=== PATIENT | female | born 1950 | race Caucasian/White ===

== ENCOUNTER 2017-12-31 15:06 | Inpatient (IN) | payer MEDICARE, OTHER ==
[~2017-12-31] VITALS: Ht 147.3 cm; Wt 46.7 kg
[2017-12-31 16:15] LABS: BASO # 0.1 x10^3/uL (0.0-0.2); BASO % 1 % (0-3); EOS # 0.1 x10^3/uL (0.0-0.7); EOS % 1 % (0-3); HEMATOCRIT 41.7 % (36.0-47.0); HEMOGLOBIN 14.3 g/dL (12.0-15.5); LYMPH # 1.5 x10^3/uL (1.0-4.8); LYMPH % 20 % (24-48); MEAN CORPUSCULAR HEMOGLOBIN 32 pg (25-35); MEAN CORPUSCULAR HGB CONC 34 g/dL (31-37); MEAN CORPUSCULAR VOLUME 93 fL (79-100); MONO # 0.5 x10^3/uL (0.0-1.1); MONO % 7 % (0-9); NEUT # 5.1 x10^3uL (1.8-7.7); NEUT % 70 % (31-73); PLATELET COUNT 258 x10^3/uL (140-400); RED CELL DISTRIBUTION WIDTH 12.5 % (11.5-14.5); WHITE BLOOD COUNT 7.3 x10^3/uL (4.0-11.0)
--- NOTE | 2017-12-31 16:30 | EKG ---
[address] [address] Test Date: 2017-12-31 Test Time: 16:20:56 Pat Name: MAGDALENO COELHO Department: Room: Gender: F Selector Packer: : [id number] Requested By: ALEXA ROBLES Order Number: [id number] Reading MD: Chandler Cullen MD Measurements Intervals [place] Rate: 72 P: ND: QRS: -161 QRSD: 66 T: 120 QT: 398 QTc: 437 Interpretive Statements SR LIMB LEAD MISPLACEMENT LAD Electronically Signed On 01-01-2018 12:32:04 CDT by Chandler Cullen MD
[2017-12-31 16:32] LABS: ALBUMIN 3.9 g/dL (3.4-5.0); ALBUMIN/GLOBULIN RATIO 1.2 (1.0-1.7); CALCIUM 9.6 mg/dL (8.5-10.1); CREATININE 0.9 mg/dL (0.6-1.0); GFR 62.1; MAGNESIUM 2.1 mg/dL (1.8-2.4); POTASSIUM 4.1 mmol/L (3.5-5.1); TOTAL BILIRUBIN 0.5 mg/dL (0.2-1.0); TOTAL PROTEIN 7.2 g/dL (6.4-8.2)
[2017-12-31 16:43] LABS: BACTERIA,URINE MANY /HPF (0-FEW); BILIRUBIN,URINE NEG (NEG); CLARITY,URINE HAZY; COLOR,URINE AMBER; GLUCOSE,URINE NEG (NEG); NITRITE,URINE NEG (NEG); SQUAMOUS EPITHELIAL CELL,UR OCC /LPF; UROBILINOGEN,URINE 0.2 mg/dL (0.2 mg/dL)
[2017-12-31] MEDS ORDERED: CIPROFLOXACIN HCL 500 MG TABLET PO ONE (16:45)
--- NOTE | 2017-12-31 16:48 | PHYS DOC ---
Past History Past Medical History: Dementia, GERD, Hypertension, Hypothyroid, Other Past Surgical History: Other Alcohol Use: None Drug Use: None Adult General Chief Complaint Chief Complaint: PSYCH EVALUATION HPI HPI Patient is a 67 year old female who was seen by half-way staff for medical clearance for psych admission. Patient was transferred to a new half-way because of behavior problem few days ago and had psychiatric accepting for senior behavioral unit and sent to ER for medical clearance. Patient is oriented 1 and unable to give history. Review of Systems Review of Systems Unable to obtain Physical Exam Physical Exam Constitutional: No acute distress, non-toxic appearance. [] HENT: Normocephalic, atraumatic Eyes: PERRLA, EOMI, conjunctiva normal, no discharge. [] Neck: Normal range of motion, no tenderness, supple, no stridor. [] Cardiovascular:Heart rate regular rhythm, no murmur [] Lungs & Thorax: Bilateral breath sounds clear to auscultation [] Abdomen: Bowel sounds normal, soft, no tenderness, no masses, no pulsatile masses. [] Skin: Warm, dry, no erythema, no rash. [] Back: No tenderness, no CVA tenderness. [] Extremities: No tenderness, no cyanosis, no clubbing, ROM intact, no edema. [] Neurologic: Alert and oriented X 1, moves all extremities[] Psychologic: Affect depressed, limited evaluation Current Patient Data Vital Signs Vital Signs Date Time Temp Pulse Resp B/P (MAP) Pulse Ox O2 Delivery O2 Flow Rate FiO2 12/31/17 15:35 98.2 72 18 98 Room Air Lab Results Laboratory Tests Test 12/31/17 16:05 White Blood Count 7.3 x10^3/uL (4.0-11.0) Red Blood Count 4.50 x10^6/uL (3.50-5.40) Hemoglobin 14.3 g/dL (12.0-15.5) Hematocrit 41.7 % (36.0-47.0) Mean Corpuscular Volume 93 fL (79-100) Mean Corpuscular Hemoglobin 32 pg (25-35) Mean Corpuscular Hemoglobin Concent 34 g/dL (31-37) Red Cell Distribution Width 12.5 % (11.5-14.5) Platelet Count 258 x10^3/uL (140-400) Neutrophils (%) (Auto) 70 % (31-73) Lymphocytes (%) (Auto) 20 % (24-48) L Monocytes (%) (Auto) 7 % (0-9) Eosinophils (%) (Auto) 1 % (0-3) Basophils (%) (Auto) 1 % (0-3) Neutrophils # (Auto) 5.1 x10^3uL (1.8-7.7) Lymphocytes # (Auto) 1.5 x10^3/uL (1.0-4.8) Monocytes # (Auto) 0.5 x10^3/uL (0.0-1.1) Eosinophils # (Auto) 0.1 x10^3/uL (0.0-0.7) Basophils # (Auto) 0.1 x10^3/uL (0.0-0.2) Urine Collection Type U cath Urine Color Saige Urine Clarity Hazy Urine pH 5.5 Urine Specific Payne >=1.030 Urine Protein 30 mg/dl (NEG-TRACE) Urine Glucose (UA) Neg mg/dL (NEG) Urine Ketones (Stick) 15 mg/dL (NEG) Urine Blood Neg (NEG) Urine Nitrite Neg (NEG) Urine Bilirubin Neg (NEG) Urine Urobilinogen Dipstick 0.2 mg/dL (0.2 mg/dL) Urine Leukocyte Esterase Small (NEG) Urine RBC 1-2 /HPF (0-2) Urine WBC 11-20 /HPF (0-4) Urine Squamous Epithelial Cells Occ /LPF Urine Bacteria Many /HPF (0-FEW) Urine Mucus Marked /LPF Sodium Level 142 mmol/L (136-145) Potassium Level 4.1 mmol/L (3.5-5.1) Chloride Level 105 mmol/L (98-107) Carbon Dioxide Level 30 mmol/L (21-32) Anion Gap 7 (6-14) Blood Urea Nitrogen 11 mg/dL (7-20) Creatinine 0.9 mg/dL (0.6-1.0) Estimated GFR (Cockcroft-Gault) 62.1 BUN/Creatinine Ratio 12 (6-20) Glucose Level 110 mg/dL (70-99) H Calcium Level 9.6 mg/dL (8.5-10.1) Magnesium Level 2.1 mg/dL (1.8-2.4) Total Bilirubin 0.5 mg/dL (0.2-1.0) Aspartate Amino Transferase (AST) 14 U/L (15-37) L Alanine Aminotransferase (ALT) 27 U/L (14-59) Alkaline Phosphatase 60 U/L (46-116) Total Protein 7.2 g/dL (6.4-8.2) Albumin 3.9 g/dL (3.4-5.0) Albumin/Globulin Ratio 1.2 (1.0-1.7) EKG EKG EKG interpreted by me. EKG at 1620 showed normal sinus rhythm with multiple artifact, no acute ST and T wave abnormality[] Radiology/Procedures Radiology/Procedures [] Course & Med Decision Making Course & Med Decision Making Pertinent Labs reviewed. (See chart for details) Evolution of patient in ER showed 67-year-old female patient brought in to ER for medical clearance for psych admission. Patient was alert and oriented 1. Labs showed UTI. Patient treated with Cipro in ER. She was medically cleared for psych admission. Dragon Disclaimer Dragon Disclaimer This electronic medical record was generated, in whole or in part, using a voice recognition dictation system. Departure Departure: Impression: Primary Impression: Medical clearance for psychiatric admission Additional Impressions: Urinary tract infection Disorientation Behavior problem Disposition: 09 ADMITTED INPATIENT (To senior psych unit at 1648) Admitting Physician: Other (Dr Fontenot) Condition: STABLE Referrals: NON,STAFF (PCP) Problem Qualifiers ALEXA ROBLES MD Dec 31, 2017 16:48
[2017-12-31] MEDS ORDERED: MAGNESIUM HYDROXIDE 2,400 MG/30 ML ORAL.SUSP. PO PRN ×2 (18:15→22:15)
[2017-12-31] MEDS ORDERED: METHYL SALICYLATE/MENTHOL TOPICAL OINTMENT 29GM TUBE. TP PRN (18:15)
[2017-12-31] MEDS ORDERED: ACETAMINOPHEN 325 MG TABLET PO PRN (18:15)
[2017-12-31] MEDS ORDERED: MAG HYDROX/AL HYDROX/SIMETH 30 ML ORAL.SUSP PO PRN (18:15)
[2017-12-31 18:24] VITALS: BP 122/73
[2017-12-31] MEDS ORDERED: OLANZapine 2.5 MG TABLET PO PRN (18:45)
--- NOTE | 2017-12-31 21:03 | PDOC ---
Exam Note: Abdi Note: Please also refer to the separate dictated note~for this date of service dictated separately.~Patient seen individually. Discussed the patient with Nursing staff reviewed the chart.~Reviewed interim history and current functioning. Reviewed vital signs,~Labs/ Radiology~and current medications noted below. Continue current treatment with the changes noted in the dictated addendum note Assessment: Vital Signs: Vital Signs Date Time Temp Pulse Resp B/P (MAP) Pulse Ox O2 Delivery O2 Flow Rate FiO2 12/31/17 18:24 97.5 67 18 122/73 (89) 98 12/31/17 15:35 Room Air Labs: Laboratory Tests Test 12/31/17 16:05 White Blood Count 7.3 x10^3/uL (4.0-11.0) Red Blood Count 4.50 x10^6/uL (3.50-5.40) Hemoglobin 14.3 g/dL (12.0-15.5) Hematocrit 41.7 % (36.0-47.0) Mean Corpuscular Volume 93 fL (79-100) Mean Corpuscular Hemoglobin 32 pg (25-35) Mean Corpuscular Hemoglobin Concent 34 g/dL (31-37) Red Cell Distribution Width 12.5 % (11.5-14.5) Platelet Count 258 x10^3/uL (140-400) Neutrophils (%) (Auto) 70 % (31-73) Lymphocytes (%) (Auto) 20 % (24-48) L Monocytes (%) (Auto) 7 % (0-9) Eosinophils (%) (Auto) 1 % (0-3) Basophils (%) (Auto) 1 % (0-3) Neutrophils # (Auto) 5.1 x10^3uL (1.8-7.7) Lymphocytes # (Auto) 1.5 x10^3/uL (1.0-4.8) Monocytes # (Auto) 0.5 x10^3/uL (0.0-1.1) Eosinophils # (Auto) 0.1 x10^3/uL (0.0-0.7) Basophils # (Auto) 0.1 x10^3/uL (0.0-0.2) Urine Collection Type U cath Urine Color Saige Urine Clarity Hazy Urine pH 5.5 Urine Specific [place] >=1.030 Urine Protein 30 mg/dl (NEG-TRACE) Urine Glucose (UA) Neg mg/dL (NEG) Urine Ketones (Stick) 15 mg/dL (NEG) Urine Blood Neg (NEG) Urine Nitrite Neg (NEG) Urine Bilirubin Neg (NEG) Urine Urobilinogen Dipstick 0.2 mg/dL (0.2 mg/dL) Urine Leukocyte Esterase Small (NEG) Urine RBC 1-2 /HPF (0-2) Urine WBC 11-20 /HPF (0-4) Urine Squamous Epithelial Cells Occ /LPF Urine Bacteria Many /HPF (0-FEW) Urine Mucus Marked /LPF Sodium Level 142 mmol/L (136-145) Potassium Level 4.1 mmol/L (3.5-5.1) Chloride Level 105 mmol/L (98-107) Carbon Dioxide Level 30 mmol/L (21-32) Anion Gap 7 (6-14) Blood Urea Nitrogen 11 mg/dL (7-20) Creatinine 0.9 mg/dL (0.6-1.0) Estimated GFR (Cockcroft-Gault) 62.1 BUN/Creatinine Ratio 12 (6-20) Glucose Level 110 mg/dL (70-99) H Calcium Level 9.6 mg/dL (8.5-10.1) Magnesium Level 2.1 mg/dL (1.8-2.4) Total Bilirubin 0.5 mg/dL (0.2-1.0) Aspartate Amino Transferase (AST) 14 U/L (15-37) L Alanine Aminotransferase (ALT) 27 U/L (14-59) Alkaline Phosphatase 60 U/L (46-116) Total Protein 7.2 g/dL (6.4-8.2) Albumin 3.9 g/dL (3.4-5.0) Albumin/Globulin Ratio 1.2 (1.0-1.7) Current Medications: Meds: Current Medications Ciprofloxacin (Cipro) 500 mg 1X ONCE PO Last administered on 12/31/17at 16:59; Start 12/31/17 at 16:45; Stop 12/31/17 at 17:00; Status DC Acetaminophen (Tylenol) 650 mg PRN Q6HRS PRN PO PAIN / TEMP; Start 12/31/17 at 18:15 Multi-Ingredient Ointment (Analgesic [place]) 1 carlyn PRN QID PRN TP MUSCLE PAIN; Start 12/31/17 at 18:15 Al Hydroxide/Mg Hydroxide (Mylanta Plus Xs) 15 ml PRN AFTMEALHC PRN PO DYSPEPSIA; Start 12/31/17 at 18:15 Magnesium Hydroxide (Milk Of Magnesia) 2,400 mg PRN QHS PRN PO CONSTIPATION; Start 12/31/17 at 18:15 Olanzapine (ZyPREXA) 2.5 mg PRN Q2HR PRN PO AGITATION; Start 12/31/17 at 18:45 I have reviewed the current psychotropics carefully including drug interactions. Risk benefit ratio favors no change other than as noted in my dictated progress note. 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
[2017-12-31] MEDS ORDERED: HALO5AMP2 IJ (21:32)
[2017-12-31] MEDS ORDERED: DOCU50LI PO (21:32)
[2017-12-31] MEDS ORDERED: HALO2TAB PO (21:32)
[2017-12-31] MEDS ORDERED: MAGN2400 PO (21:32)
[2017-12-31] MEDS ORDERED: OMEP20TA8 PO (21:32)
[2017-12-31] MEDS ORDERED: AMLO5TAB7 PO (21:32)
[2017-12-31] MEDS ORDERED: QUET100T4 PO (21:32)
[2017-12-31] MEDS ORDERED: SENN8.6T99 PO (21:32)
[2017-12-31] MEDS ORDERED: QUET25TA5 PO (21:32)
[2017-12-31] MEDS ORDERED: BISA10SU55 RC (21:32)
[2017-12-31] MEDS ORDERED: LOSA50TA7 PO (21:32)
[2017-12-31] MEDS ORDERED: POTA10TA10 PO (21:32)
[2017-12-31] MEDS ORDERED: HYDR-971 PO (21:32)
[2017-12-31] MEDS ORDERED: ASPI-612 PO (21:32)
[2017-12-31] MEDS ORDERED: TRIA15CR50 TOP (21:32)
[2017-12-31] MEDS ORDERED: TRAZ-86 PO (21:32)
[2017-12-31] MEDS ORDERED: DIVA125C2 PO (21:32)
[2017-12-31] MEDS ORDERED: SIMV20TA3 PO (21:32)
[2017-12-31] MEDS ORDERED: TAMS0.4C97 PO (21:32)
[2017-12-31] MEDS ORDERED: POLY17PO5 PO (21:32)
[2017-12-31] MEDS ORDERED: LEVO175T5 PO (21:32)
[2017-12-31] MEDS ORDERED: QUEtiapine 25 MG TABLET. PO PRN (22:15)
[2017-12-31] MEDS ORDERED: BISACODYL 10 MG SUPP.RECT PR PRN (22:15)
[2017-12-31] MEDS ORDERED: HYDROcodone/APAP 5/325MG 1 TAB TABLET PO PRN (22:15)
[2017-12-31] MEDS ORDERED: SENNOSIDES 8.6 MG TABLET PO PRN (22:15)
[2017-12-31] MEDS ORDERED: HALOPERIDOL LACT 5 MG/ML VIAL. IM PRN (22:15)
[2018-01-01 06:01] VITALS: BP 108/72
[2018-01-01] MEDS: HALOPERIDOL 2 MG TABLET PO SCH ×6 (06:29→17:18)
[2018-01-01] MEDS: amLODIPine BESYLATE 5 MG TABLET PO SCH ×2 (09:00→09:37)
[2018-01-01] MEDS: DIVALPROEX 125 MG CAP.SPRINK PO SCH ×4 (09:00→21:00)
[2018-01-01] MEDS: ASPIRIN ENTERIC COATED 81 MG TABLET.DR. PO SCH ×2 (09:00→09:38)
[2018-01-01] MEDS: PANTOPRAZOLE 40 MG TABLET. PO SCH ×2 (09:00→09:37)
[2018-01-01] MEDS: LEVOTHYROXINE 175 MCG TABLET PO SCH ×2 (09:00→09:38)
[2018-01-01] MEDS: LOSARTAN 50 MG TABLET. PO SCH ×2 (09:00→09:39)
[2018-01-01] MEDS: DOCUSATE 100 MG/10 ML SOLUTION. PO SCH ×2 (09:00→09:37)
[2018-01-01] MEDS: QUEtiapine 100 MG TABLET. PO SCH ×7 (09:00→21:00)
[2018-01-01] MEDS ORDERED: POLYETHYLENE GLYCOL 3350 17 GM PACKET. PO PRN (09:00)
[2018-01-01] MEDS: POTASSIUM CHLORIDE 10 MEQ TABLET.ER. PO SCH (09:38)
[2018-01-01] MEDS: TRIAMCINOLONE ACETONIDE 0.1% TOPICAL CREAM 15GM TUBE. TP SCH ×2 (09:39→21:00)
--- NOTE | 2018-01-01 13:02 | HP ---
ADMIT DATE: 12/31/2017 This late entry 12/31/2017 covers elements not covered in my initial note. I met with the patient in the evening of 12/31/2017. Discussed with nursing staff on 3 or 4 occasions including 3 times prior to the patient's admission to gather historical information to review admission criteria, to review her hospice status, past failure of treatment at [facility] and then again immediately prior to the patient's admission and following admission. IDENTIFYING DATA: The patient is a 67-year-old female referred to us from [facility] in [place], [place] by Dr. Scott, her primary care physician on account of increased agitation, aggression, refusing medications. The patient has been combative, hitting staff, refusing cares, throwing feces all over, swinging at staff, refusing meals and medications, yelling. Behaviors have been worsening for about 6 days starting about 1 day after she spent about a month inpatient psychiatry at [facility]. She has been making repeated statements to staff "you are not my mother" and refusing all interventions. Since being back at the facility, she has received Haldol IM x 1, 2 mg Haldol p.o. q.6 hours, Zyprexa IM 10 mg q.4 hours, all of which have been ineffective according to staff. She has failed outpatient psychiatric interventions. Behaviors have been dangerous, disruptive, unmanageable at the facility resulting in this referral. CHIEF COMPLAINT: "No." The patient is extremely demented, unable to answer questions about orientation or even tell me her name, but part of this is due to her being quite psychotic, paranoid, suspicious, trying to walk away from me as I sat with her. HISTORY OF PRESENT ILLNESS: The patient has history of dementia, Alzheimer's vascular type. Behaviors have been as noted above. She has had marked mood lability, sleep and appetite changes. No active suicidal or homicidal ideation. PAST PSYCHIATRIC HISTORY: As noted above. PAST MEDICAL HISTORY: She does have a UTI, which was discovered in the ER at [facility] immediately prior to this hospitalization and started on Cipro. She does have a history of hypothyroidism, hypertension, bradycardia, hyperlipidemia, GERD, urinary retention. DIET: Regular finger foods, meds crushed and hidden, ambulates ad haile. ALLERGIES: Negative. CODE STATUS: DNR. CURRENT PSYCHOTROPICS: MRAD was reviewed. FAMILY HISTORY: Noncontributory. SOCIAL HISTORY: No history of alcohol, drug abuse, physical, sexual or elder abuse. Not known to be a perpetrator. REACTION TO HOSPITALIZATION: The patient oblivious of this. ASSETS: Supportive, living at the detention, ambulating on her own, supportive family. MENTAL STATUS EXAMINATION: The patient was seen individually on the evening of 12/31/2017. She is oriented to herself. Insight, judgment, recent and remote memory, attention, concentration, fund of knowledge poor consistent with her diagnosis. She is extremely paranoid, suspicious, abrasive, verbally aggressive. IMPRESSION: Major neurocognitive disorder, Alzheimer's, vascular with delusion, depression, behavioral disturbance; anxiety disorder, unspecified; impulse control disorder, unspecified; urinary tract infection. Rest as above. PLAN: Admit to Geropsychiatry Unit at [facility]. I will see the patient daily individually from a psychiatric standpoint, medical followup with Dr. Aragon/Dr. Reyna. Treat the patient's UTI. Continue current psychotropics. Consider adding liquid Risperdal mixed in food, fluids. Make further decisions post baseline assessment including Depakene as a mood stabilizer. JAYLAN MURRAY MD DR: DANIEL/valeriy JOB#: [id number] / [id number]
[2018-01-01 16:25] VITALS: BP 129/65
[2018-01-01 19:13] LABS: THYROXINE 5.6 ug/dL (4.5-12.0)
[2018-01-01] MEDS: TAMSULOSIN 0.4 MG CAP.ER.24H. PO SCH ×2 (20:17→21:00)
[2018-01-01] MEDS: traZODone 100 MG TABLET. PO SCH ×2 (20:17→21:00)
[2018-01-01] MEDS: MIRTAZAPINE ODT 15 MG TAB.RAPDIS. PO SCH ×2 (20:17→21:00)
[2018-01-01] MEDS: SIMVASTATIN 20 MG TABLET PO SCH (21:00)
--- NOTE | 2018-01-01 21:07 | PDOC ---
Exam Note: Abdi Note: Please also refer to the separate dictated note~for this date of service dictated separately.~Patient seen individually. Discussed the patient with Nursing staff reviewed the chart.~Reviewed interim history and current functioning. Reviewed vital signs,~Labs/ Radiology~and current medications noted below. Continue current treatment with the changes noted in the dictated addendum note Assessment: Vital Signs: Vital Signs Date Time Temp Pulse Resp B/P (MAP) Pulse Ox O2 Delivery O2 Flow Rate FiO2 01/01/18 16:25 97.8 69 18 129/65 (86) 98 12/31/17 15:35 Room Air I&O Intake and Output 01/01/18 07:00 Intake Total 160 ml Balance 160 ml Intake Oral 160 ml Current Medications: Meds: Current Medications Ciprofloxacin (Cipro) 500 mg 1X ONCE PO Last administered on 12/31/17at 16:59; Start 12/31/17 at 16:45; Stop 12/31/17 at 17:00; Status DC Acetaminophen (Tylenol) 650 mg PRN Q6HRS PRN PO PAIN / TEMP; Start 12/31/17 at 18:15 Multi-Ingredient Ointment (Analgesic [place]) 1 hiral PRN QID PRN TP MUSCLE PAIN; Start 12/31/17 at 18:15 Al Hydroxide/Mg Hydroxide (Mylanta Plus Xs) 15 ml PRN AFTMEALHC PRN PO DYSPEPSIA; Start 12/31/17 at 18:15 Magnesium Hydroxide (Milk Of Magnesia) 2,400 mg PRN QHS PRN PO CONSTIPATION; Start 12/31/17 at 18:15 Olanzapine (ZyPREXA) 2.5 mg PRN Q2HR PRN PO AGITATION; Start 12/31/17 at 18:45 Divalproex Sodium (Depakote Sprinkles) 500 mg BID PO Last administered on at 20:11; Start 01/01/18 at 09:00 Haloperidol (Haldol) 2 mg [id number] PO Last administered on 01/01/18at 17:18; Start 01/01/18 at 00:00; Stop 01/01/18 at 18:44; Status DC Haloperidol Lactate (Haldol) 5 mg PRN Q6HRS PRN IM ANXIETY/AGITATION; Start at 22:15; Stop 01/01/18 at 18:44; Status DC Quetiapine Fumarate (SEROquel) 25 mg PRN Q4HRS PRN PO ANXIETY/AGITATION; Start 12/31/17 at 22:15 Quetiapine Fumarate (SEROquel) 150 mg QID PO Last administered on 01/01/18at 20: 11; Start 01/01/18 at 09:00 Trazodone HCl (Desyrel) 100 mg QHS PO Last administered on 01/01/18at 20:17; Start 01/01/18 at 21:00 Docusate Sodium (Colace Solution) 100 mg DAILY PO ; Start 01/01/18 at 09:00 Levothyroxine Sodium (Synthroid) 175 mcg DAILYAC PO ; Start 01/01/18 at 07:30 Losartan Potassium (Cozaar) 50 mg DAILY PO ; Start 01/01/18 at 09:00 Tamsulosin HCl (Flomax) 0.4 mg QHS PO Last administered on 01/01/18at 20:17; Start 01/01/18 at 21:00 Amlodipine Besylate (Norvasc) 5 mg DAILY PO ; Start 01/01/18 at 09:00 Aspirin (Aspirin Enteric Coated) 81 mg DAILYWBKFT PO ; Start 01/01/18 at 08:00 Bisacodyl (Dulcolax Supp) 10 mg PRN DAILY PRN [place] CONSTIPATION; Start 12/31/17 at 22:15 Acetaminophen/ Hydrocodone Bitart (Lortab 5/325) 1 tab PRN Q6HRS PRN PO PAIN; Start 12/31/17 at 22:15 Magnesium Hydroxide (Milk Of Magnesia) 2,400 mg PRN Q6HRS PRN PO CONSTIPATION; Start 12/31/17 at 22:15 Pantoprazole Sodium (Protonix) 40 mg DAILYAC PO ; Start 01/01/18 at 07:30 Polyethylene Glycol (miraLAX) 17 gm PRN DAILY PRN PO CONSTIPATION; Start at 09:00 Potassium Chloride (Klor-Con) 10 meq DAILYWBKFT PO Last administered on at 09:38; Start 01/01/18 at 08:00 Sennosides (Senna) 8.6 mg PRN DAILY PRN PO CONSTIPATION; Start 12/31/17 at 22: 15 Simvastatin (Zocor) 20 mg HS PO ; Start 01/01/18 at 21:00 Triamcinolone Acetonide (Kenalog) 1 hiral BID TP Last administered on 01/01/18at 09:39; Start 01/01/18 at 09:00 Ceftriaxone Sodium (Rocephin Im) 1 gm DAILY IM ; Start 01/02/18 at 09:00 Mirtazapine (Remeron Venessa-Tab) 7.5 mg QHS PO Last administered on 01/01/18at 20: 17; Start 01/01/18 at 21:00 Olanzapine (ZyPREXA ZYDIS) 2.5 mg PRN Q2HR PRN PO PSYCHOSIS; Start 01/01/18 at 18:45 Active Scripts Active Reported Omeprazole 20 Mg Tablet.dr 20 Mg PO DAILY Levothyroxine Sodium 175 Mcg Tablet 175 Mcg PO DAILYAC Flomax (Tamsulosin Hcl) 0.4 Mg Cap.er.24h 0.4 Mg PO QHS Simvastatin 20 Mg Tablet 20 Mg PO HS [place] 5-325 Tablet (Hydrocodone Bit/Acetaminophen) 1 Each Tablet 1 Tab PO PRN Q6HRS PRN Haloperidol 2 Mg Tablet 2 Mg PO [id number] Potassium Chloride 10 Meq Tablet.er 10 Meq PO DAILY Docusate Sodium 50 Mg/5 Ml Liquid 10 Ml PO DAILY Losartan Potassium 50 Mg Tablet 50 Mg PO DAILY Aspirin Ec (Aspirin) 81 Mg Tablet.dr 81 Mg PO DAILY Amlodipine Besylate 5 Mg Tablet 5 Mg PO DAILY Depakote Sprinkle (Divalproex Sodium) 125 Mg Cap.sprink 500 Mg PO BID Seroquel (Quetiapine Fumarate) 25 Mg Tablet 25 Mg PO PRN Q4HRS PRN Seroquel (Quetiapine Fumarate) 100 Mg Tablet 150 Mg PO QID Trazodone Hcl 100 Mg Tablet 100 Mg PO QHS Miralax (Polyethylene Glycol 3350) 17 Gm Powd.pack 17 Gm PO PRN DAILY PRN Senokot (Sennosides) 8.6 Mg Tablet 8.6 Mg PO PRN DAILY PRN Dulcolax (Bisacodyl) 10 Mg Supp.rect 10 Mg RC PRN DAILY PRN Milk Of Magnesia (Magnesium Hydroxide) 2,400 Mg/10 Ml Oral.susp 2,400 Mg PO PRN Q6HRS PRN Triamcinolone Acetonide 15 Gm Cream..g. 1 Hiral TOP BID Haldol (Haloperidol Lactate) 5 Mg/1 Ml Ampul 5 Mg IJ PRN Q6HRS PRN I have reviewed the current psychotropics carefully including drug interactions. Risk benefit ratio favors no change other than as noted in my dictated progress note. 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
[2018-01-02 04:09] LABS: HEMOGLOBIN A1C 5.5 % (4.8-5.6)
--- NOTE | 2018-01-02 04:25 | CONS ---
DATE OF CONSULTATION: 01/01/2018 REASON FOR CONSULTATION: Medical management. HISTORY OF PRESENT ILLNESS: The patient is a 67-year-old female patient, resident at [facility] in [place], [place] who was admitted on account of refusing medication, being combative with staff, throwing feces, refusing meals and cares. She was apparently on hospice and that was discontinued or revoked and she may need new placement as there is some apparently conflict between the hospice and the senior living and all of this in a background of dementia with delusions and behavioral disorder. The patient herself does not really give any useful information and has refused all her medication today. PAST MEDICAL HISTORY: Significant for hypothyroidism, hypertension, bradycardia, hyperlipidemia, gastroesophageal reflux disease, urinary tract infection, urinary retention. PAST PSYCHIATRIC HISTORY: Significant for major depressive disorder, unspecified dementia. PAST SURGICAL HISTORY: Unremarkable. ALLERGIES: She has no known drug allergies. CODE STATUS: DNR. FAMILY HISTORY: Noncontributory. SOCIAL HISTORY: She is a resident at [facility] in [place], [place]. She apparently does not smoke, drink alcohol or use any recreational drugs. REVIEW OF SYSTEMS: Unobtainable. MEDICATIONS: She is currently on following medications: She is on tamsulosin for Flomax 0.4 mg at bedtime, simvastatin 20 mg at bedtime, amlodipine 5 mg p.o. daily, losartan potassium 50 mg daily, aspirin 81 mg once a day, hydrocodone/APAP 5/325 one tablet every 6 hours, divalproex sodium 500 mg p.o. b.i.d., trazodone 100 mg at bedtime, haloperidol 2 mg 4 times a day, haloperidol lactate 5 mg in 1 mL intramuscular as needed every 6 hours, Seroquel 150 mg 4 times a day, Seroquel 25 mg every 4 hours, potassium chloride 10 mEq once a day, bisacodyl 10 mg rectally daily p.r.n. for constipation, Colace 50 mg in 5 mL take 10 mL p.o. daily, milk of magnesia 30 mL p.o. daily p.r.n. every 6 hours, polyethylene glycol 17 grams daily p.r.n. for constipation, Senna 1 tablet daily, omeprazole 20 mg once a day, levothyroxine sodium 175 mcg daily and triamcinolone acetonide 15 grams applied topically twice a day for skin irritation. PHYSICAL EXAMINATION: GENERAL: When I examined her, she was sitting comfortably in her chair in no apparent distress, was somewhat pale, but no jaundice, cyanosis, or thyromegaly. No jugular venous distention. No lower limb edema. VITAL SIGNS: Her heart rate was 69, blood pressure was 129/65, temperature was 97.8, respiratory rate was 18, and oxygen saturation was 98%. HEAD, EYES, EARS, NOSE AND THROAT: Normocephalic, atraumatic. NECK: Supple. HEART: Showed normal first and second sounds. No gallop, rub or murmur. CHEST: Clear to auscultation. No crepitation or rhonchi. ABDOMEN: Distended, soft, nontender. NEUROLOGIC: She is awake, alert, but extremely confused and demented; however, all cranial nerves intact. EXTREMITIES: She moves extremities without difficulty. She ambulates with standby assist. LABORATORY DATA: Showed a white cell count of 7300, hemoglobin 14, hematocrit 42, MCV 93 and platelet count 258,000. Her serum sodium was 142, potassium 4.1, chloride 105, bicarbonate 30, anion gap of 7, BUN 11, creatinine 0.9, estimated GFR was 63 mL per minute, her glucose was 110, calcium was 9.6, magnesium was 2.1. Serum iron was 51, TIBC was 308 and iron saturation was 17. Total bilirubin, AST, ALT, alkaline phosphatase were normal. Total protein 7.2, albumin 3.9. Her vitamin B12 was 1471 pg/mL, and 25-hydroxy vitamin D was 35.8 ng/mL which is well within therapeutic range. Her urinalysis showed the urine was brian, hazy with a pH of 5.5, specific gravity of 1.030, there was trace of protein, negative for glucose, trace of ketones. The urine was negative for blood, nitrite, bilirubin, small amount of leukocyte esterase, 1-2 rbc's, 11-20 wbc's, and many bacteria. ASSESSMENT AND PLAN: In summary, this is a 67-year-old female patient who is a resident at [facility] in [place], [place] and who was admitted on account of refusing medication, combative with staff, throwing feces, refusing meals and cares. She was actually in hospice and that was discontinued and all this in a background of dementia with delusions and behavioral disturbances. From a medical point of view, she seemed to be stable. All her vital signs are within acceptable range. All her lab work seems to be also within normal range. She does have leukocyturia and bacteriuria. I would definitely send urine for culture and sensitivity. She does not seem to be febrile. Her white cell count is normal and I would wait for the culture and sensitivity before starting any treatment. Thank you, Dr. Fontenot, for allowing me to participate in the care of this patient. TREI VELASCO MD DR: JERED/valeriy JOB#: [id number] / [id number]
[2018-01-02 06:02] VITALS: BP 131/56
[2018-01-02] MEDS: LEVOTHYROXINE 175 MCG TABLET PO SCH (07:30)
[2018-01-02] MEDS: PANTOPRAZOLE 40 MG TABLET. PO SCH (07:30)
[2018-01-02] MEDS: ASPIRIN ENTERIC COATED 81 MG TABLET.DR. PO SCH (08:00)
[2018-01-02] MEDS: POTASSIUM CHLORIDE 10 MEQ TABLET.ER. PO SCH (08:00)
[2018-01-02] MEDS: amLODIPine BESYLATE 5 MG TABLET PO SCH (09:00)
[2018-01-02] MEDS: LOSARTAN 50 MG TABLET. PO SCH (09:00)
[2018-01-02] MEDS: DOCUSATE 100 MG/10 ML SOLUTION. PO SCH (09:00)
[2018-01-02] MEDS: QUEtiapine 100 MG TABLET. PO SCH ×5 (09:00→20:49)
[2018-01-02] MEDS: DIVALPROEX 125 MG CAP.SPRINK PO SCH ×3 (09:00→20:48)
[2018-01-02] MEDS: TRIAMCINOLONE ACETONIDE 0.1% TOPICAL CREAM 15GM TUBE. TP SCH ×2 (09:00→20:50)
[2018-01-02] MEDS: cefTRIAXone IM 1 GM VIAL IM SCH (09:53)
[2018-01-02] MEDS: traZODone 100 MG TABLET. PO SCH (20:48)
[2018-01-02] MEDS: SIMVASTATIN 20 MG TABLET PO SCH (20:49)
[2018-01-02] MEDS: MIRTAZAPINE ODT 15 MG TAB.RAPDIS. PO SCH (20:49)
[2018-01-02] MEDS: TAMSULOSIN 0.4 MG CAP.ER.24H. PO SCH (20:49)
--- NOTE | 2018-01-02 20:57 | PDOC ---
Exam Note: Abdi Note: Please also refer to the separate dictated note~for this date of service dictated separately.~Patient seen individually. Discussed the patient with Nursing staff reviewed the chart.~Reviewed interim history and current functioning. Reviewed vital signs,~Labs/ Radiology~and current medications noted below. Continue current treatment with the changes noted in the dictated addendum note Assessment: Vital Signs: Vital Signs Date Time Temp Pulse Resp B/P (MAP) Pulse Ox O2 Delivery O2 Flow Rate FiO2 01/02/18 09:00 61 131/56 01/02/18 06:02 97.2 16 94 12/31/17 15:35 Room Air I&O Intake and Output 01/02/18 07:00 Intake Total 100 ml Balance 100 ml Intake Oral 100 ml Current Medications: Meds: Current Medications Ciprofloxacin (Cipro) 500 mg 1X ONCE PO Last administered on 12/31/17at 16:59; Start 12/31/17 at 16:45; Stop 12/31/17 at 17:00; Status DC Acetaminophen (Tylenol) 650 mg PRN Q6HRS PRN PO PAIN / TEMP; Start 12/31/17 at 18:15 Multi-Ingredient Ointment (Analgesic [place]) 1 hiral PRN QID PRN TP MUSCLE PAIN; Start 12/31/17 at 18:15 Al Hydroxide/Mg Hydroxide (Mylanta Plus Xs) 15 ml PRN AFTMEALHC PRN PO DYSPEPSIA; Start 12/31/17 at 18:15 Magnesium Hydroxide (Milk Of Magnesia) 2,400 mg PRN QHS PRN PO CONSTIPATION; Start 12/31/17 at 18:15 Olanzapine (ZyPREXA) 2.5 mg PRN Q2HR PRN PO AGITATION; Start 12/31/17 at 18:45 Divalproex Sodium (Depakote Sprinkles) 500 mg BID PO Last administered on at 20:48; Start 01/01/18 at 09:00 Haloperidol (Haldol) 2 mg [id number] PO Last administered on 01/01/18at 17:18; Start 01/01/18 at 00:00; Stop 01/01/18 at 18:44; Status DC Haloperidol Lactate (Haldol) 5 mg PRN Q6HRS PRN IM ANXIETY/AGITATION; Start at 22:15; Stop 01/01/18 at 18:44; Status DC Quetiapine Fumarate (SEROquel) 25 mg PRN Q4HRS PRN PO ANXIETY/AGITATION; Start 12/31/17 at 22:15 Quetiapine Fumarate (SEROquel) 150 mg QID PO Last administered on 01/02/18at 20: 49; Start 01/01/18 at 09:00 Trazodone HCl (Desyrel) 100 mg QHS PO Last administered on 01/02/18at 20:48; Start 01/01/18 at 21:00 Docusate Sodium (Colace Solution) 100 mg DAILY PO ; Start 01/01/18 at 09:00 Levothyroxine Sodium (Synthroid) 175 mcg DAILYAC PO ; Start 01/01/18 at 07:30 Losartan Potassium (Cozaar) 50 mg DAILY PO ; Start 01/01/18 at 09:00 Tamsulosin HCl (Flomax) 0.4 mg QHS PO Last administered on 01/02/18at 20:49; Start 01/01/18 at 21:00 Amlodipine Besylate (Norvasc) 5 mg DAILY PO ; Start 01/01/18 at 09:00 Aspirin (Aspirin Enteric Coated) 81 mg DAILYWBKFT PO ; Start 01/01/18 at 08:00 Bisacodyl (Dulcolax Supp) 10 mg PRN DAILY PRN [place] CONSTIPATION; Start 12/31/17 at 22:15 Acetaminophen/ Hydrocodone Bitart (Lortab 5/325) 1 tab PRN Q6HRS PRN PO PAIN; Start 12/31/17 at 22:15 Magnesium Hydroxide (Milk Of Magnesia) 2,400 mg PRN Q6HRS PRN PO CONSTIPATION; Start 12/31/17 at 22:15 Pantoprazole Sodium (Protonix) 40 mg DAILYAC PO ; Start 01/01/18 at 07:30 Polyethylene Glycol (miraLAX) 17 gm PRN DAILY PRN PO CONSTIPATION; Start at 09:00 Potassium Chloride (Klor-Con) 10 meq DAILYWBKFT PO Last administered on at 09:38; Start 01/01/18 at 08:00 Sennosides (Senna) 8.6 mg PRN DAILY PRN PO CONSTIPATION; Start 12/31/17 at 22: 15 Simvastatin (Zocor) 20 mg HS PO Last administered on 01/02/18at 20:49; Start at 21:00 Triamcinolone Acetonide (Kenalog) 1 hiral BID TP Last administered on 01/01/18at 09:39; Start 01/01/18 at 09:00 Ceftriaxone Sodium (Rocephin Im) 1 gm DAILY IM Last administered on 01/02/18at 09:53; Start 01/02/18 at 09:00 Mirtazapine (Remeron Venessa-Tab) 7.5 mg QHS PO Last administered on 01/02/18 20: 49; Start 01/01/18 at 21:00 Olanzapine (ZyPREXA ZYDIS) 2.5 mg PRN Q2HR PRN PO PSYCHOSIS; Start 01/01/18 at 18:45; Stop 01/02/18 at 10:58; Status DC Olanzapine (ZyPREXA ZYDIS) 2.5 mg HS PO Last administered on 01/02/18at 20:49; Start 01/02/18 at 21:00 Active Scripts Active Reported Omeprazole 20 Mg Tablet.dr 20 Mg PO DAILY Levothyroxine Sodium 175 Mcg Tablet 175 Mcg PO DAILYAC Flomax (Tamsulosin Hcl) 0.4 Mg Cap.er.24h 0.4 Mg PO QHS Simvastatin 20 Mg Tablet 20 Mg PO HS [place] 5-325 Tablet (Hydrocodone Bit/Acetaminophen) 1 Each Tablet 1 Tab PO PRN Q6HRS PRN Haloperidol 2 Mg Tablet 2 Mg PO [id number] Potassium Chloride 10 Meq Tablet.er 10 Meq PO DAILY Docusate Sodium 50 Mg/5 Ml Liquid 10 Ml PO DAILY Losartan Potassium 50 Mg Tablet 50 Mg PO DAILY Aspirin Ec (Aspirin) 81 Mg Tablet.dr 81 Mg PO DAILY Amlodipine Besylate 5 Mg Tablet 5 Mg PO DAILY Depakote Sprinkle (Divalproex Sodium) 125 Mg Cap.sprink 500 Mg PO BID Seroquel (Quetiapine Fumarate) 25 Mg Tablet 25 Mg PO PRN Q4HRS PRN Seroquel (Quetiapine Fumarate) 100 Mg Tablet 150 Mg PO QID Trazodone Hcl 100 Mg Tablet 100 Mg PO QHS Miralax (Polyethylene Glycol 3350) 17 Gm Powd.pack 17 Gm PO PRN DAILY PRN Senokot (Sennosides) 8.6 Mg Tablet 8.6 Mg PO PRN DAILY PRN Dulcolax (Bisacodyl) 10 Mg Supp.rect 10 Mg RC PRN DAILY PRN Milk Of Magnesia (Magnesium Hydroxide) 2,400 Mg/10 Ml Oral.susp 2,400 Mg PO PRN Q6HRS PRN Triamcinolone Acetonide 15 Gm Cream..g. 1 Hiral TOP BID Haldol (Haloperidol Lactate) 5 Mg/1 Ml Ampul 5 Mg IJ PRN Q6HRS PRN I have reviewed the current psychotropics carefully including drug interactions. Risk benefit ratio favors no change other than as noted in my dictated progress note. 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
--- NOTE | 2018-01-03 03:01 | PN ---
DATE: 01/01/2018 This is a late entry for 01/01/2018 covers elements not covered in my initial note. SUBJECTIVE: I met with the patient in the evening. The patient slept 5 hours previous night. She has been refusing her medications, refusing to eat or drink. came to visit her and seems quite dejected given her overall status. He is wanting her to be back on hospice care when she returns to [facility] in [place]. She slept 5 hours previous night. When I discussed with Carol TRINH, we discussed adding Remeron SolTab 7.5 mg at bedtime to help with her anxiety and hopefully stimulate her appetite, but given some of her ongoing irritability, mood lability within the context of her dementia and poor appetite and oral intake, we have finally decided to initiate Zyprexa Zydis 2.5 mg at bedtime on a scheduled basis. We have also considered long-acting atypical, but risk-benefit ratio favors against this. REVIEW OF SYSTEMS: No CV, , pulmonary, eye, ENT system symptoms on review. Reliability poor. MENTAL STATUS EXAM: Oriented to herself. Insight, judgment, recent and remote memory, attention, concentration, fund of knowledge poor, consistent with her diagnosis. IMPRESSION: Major neurocognitive disorder, Alzheimer, vascular with delusion, depression, behavioral disturbance, poor oral intake, noncompliance with treatment. PLAN: Stop the IM Haldol p.r.n. Continue rest of the psychotropics per the initial note and changes noted above. She does have UTI and is on Rocephin for this. Hopefully, as the UTI clears, we will see some improvement cognitively as well. MAN Lisa MURRAY MD DR: DANIEL/valeriy JOB#: [id number] / [id number]
[2018-01-03 06:50] VITALS: BP 114/45
[2018-01-03] MEDS: PANTOPRAZOLE 40 MG TABLET. PO SCH (07:30)
[2018-01-03] MEDS: LEVOTHYROXINE 175 MCG TABLET PO SCH (07:30)
[2018-01-03] MEDS: POTASSIUM CHLORIDE 10 MEQ TABLET.ER. PO SCH (08:00)
[2018-01-03] MEDS: ASPIRIN ENTERIC COATED 81 MG TABLET.DR. PO SCH (08:00)
[2018-01-03] MEDS: QUEtiapine 100 MG TABLET. PO SCH ×2 (08:12→12:25)
[2018-01-03] MEDS: DIVALPROEX 125 MG CAP.SPRINK PO SCH ×3 (08:12→21:00)
[2018-01-03] MEDS: cefTRIAXone IM 1 GM VIAL IM SCH (09:00)
[2018-01-03] MEDS: TRIAMCINOLONE ACETONIDE 0.1% TOPICAL CREAM 15GM TUBE. TP SCH ×2 (09:00→21:00)
[2018-01-03] MEDS: amLODIPine BESYLATE 5 MG TABLET PO SCH (09:00)
[2018-01-03] MEDS: LOSARTAN 50 MG TABLET. PO SCH (09:00)
[2018-01-03] MEDS: DOCUSATE 100 MG/10 ML SOLUTION. PO SCH (09:00)
[2018-01-03 12:04] LABS: THYROID STIM HORMONE (TSH) 33.323 uIU/mL (0.358-3.740)
[2018-01-03 15:48] VITALS: BP 116/67
[2018-01-03] MEDS: traZODone 100 MG TABLET. PO SCH (19:51)
[2018-01-03] MEDS: SIMVASTATIN 20 MG TABLET PO SCH (19:52)
[2018-01-03] MEDS: MIRTAZAPINE ODT 15 MG TAB.RAPDIS. PO SCH (19:52)
[2018-01-03] MEDS: TAMSULOSIN 0.4 MG CAP.ER.24H. PO SCH (19:52)
[2018-01-03] MEDS: LACTOBACILLUS RHAMNOSUS GG 1 CAPSULE. PO SCH (19:53)
--- NOTE | 2018-01-03 20:56 | PDOC ---
Exam Note: Abdi Note: Please also refer to the separate dictated note~for this date of service dictated separately.~Patient seen individually. Discussed the patient with Nursing staff reviewed the chart.~Reviewed interim history and current functioning. Reviewed vital signs,~Labs/ Radiology~and current medications noted below. Continue current treatment with the changes noted in the dictated addendum note Assessment: Vital Signs: Vital Signs Date Time Temp Pulse Resp B/P (MAP) Pulse Ox O2 Delivery O2 Flow Rate FiO2 01/03/18 15:48 97.3 82 18 116/67 (83) 97 12/31/17 15:35 Room Air I&O Intake and Output 01/03/18 07:00 Intake Total 360 ml Balance 360 ml Intake Oral 360 ml Current Medications: Meds: Current Medications Ciprofloxacin (Cipro) 500 mg 1X ONCE PO Last administered on 12/31/17at 16:59; Start 12/31/17 at 16:45; Stop 12/31/17 at 17:00; Status DC Acetaminophen (Tylenol) 650 mg PRN Q6HRS PRN PO PAIN / TEMP; Start 12/31/17 at 18:15 Multi-Ingredient Ointment (Analgesic [place]) 1 hiral PRN QID PRN TP MUSCLE PAIN; Start 12/31/17 at 18:15 Al Hydroxide/Mg Hydroxide (Mylanta Plus Xs) 15 ml PRN AFTMEALHC PRN PO DYSPEPSIA; Start 12/31/17 at 18:15 Magnesium Hydroxide (Milk Of Magnesia) 2,400 mg PRN QHS PRN PO CONSTIPATION; Start 12/31/17 at 18:15 Olanzapine (ZyPREXA) 2.5 mg PRN Q2HR PRN PO AGITATION; Start 12/31/17 at 18:45 Divalproex Sodium (Depakote Sprinkles) 500 mg BID PO Last administered on at 19:51; Start 01/01/18 at 09:00 Haloperidol (Haldol) 2 mg [id number] PO Last administered on 01/01/18at 17:18; Start 01/01/18 at 00:00; Stop 01/01/18 at 18:44; Status DC Haloperidol Lactate (Haldol) 5 mg PRN Q6HRS PRN IM ANXIETY/AGITATION; Start at 22:15; Stop 01/01/18 at 18:44; Status DC Quetiapine Fumarate (SEROquel) 25 mg PRN Q4HRS PRN PO ANXIETY/AGITATION; Start 12/31/17 at 22:15; Stop 01/03/18 at 16:25; Status DC Quetiapine Fumarate (SEROquel) 150 mg QID PO Last administered on 01/03/18at 08: 12; Start 01/01/18 at 09:00; Stop 01/03/18 at 16:25; Status DC Trazodone HCl (Desyrel) 100 mg QHS PO Last administered on 01/03/18at 19:51; Start 01/01/18 at 21:00 Docusate Sodium (Colace Solution) 100 mg DAILY PO ; Start 01/01/18 at 09:00 Levothyroxine Sodium (Synthroid) 175 mcg DAILYAC PO ; Start 01/01/18 at 07:30 Losartan Potassium (Cozaar) 50 mg DAILY PO ; Start 01/01/18 at 09:00 Tamsulosin HCl (Flomax) 0.4 mg QHS PO Last administered on 01/03/18at 19:52; Start 01/01/18 at 21:00 Amlodipine Besylate (Norvasc) 5 mg DAILY PO ; Start 01/01/18 at 09:00 Aspirin (Aspirin Enteric Coated) 81 mg DAILYWBKFT PO ; Start 01/01/18 at 08:00 Bisacodyl (Dulcolax Supp) 10 mg PRN DAILY PRN [place] CONSTIPATION; Start 12/31/17 at 22:15 Acetaminophen/ Hydrocodone Bitart (Lortab 5/325) 1 tab PRN Q6HRS PRN PO PAIN; Start 12/31/17 at 22:15 Magnesium Hydroxide (Milk Of Magnesia) 2,400 mg PRN Q6HRS PRN PO CONSTIPATION; Start 12/31/17 at 22:15 Pantoprazole Sodium (Protonix) 40 mg DAILYAC PO ; Start 01/01/18 at 07:30 Polyethylene Glycol (miraLAX) 17 gm PRN DAILY PRN PO CONSTIPATION; Start at 09:00 Potassium Chloride (Klor-Con) 10 meq DAILYWBKFT PO Last administered on at 09:38; Start 01/01/18 at 08:00 Sennosides (Senna) 8.6 mg PRN DAILY PRN PO CONSTIPATION; Start 12/31/17 at 22: 15 Simvastatin (Zocor) 20 mg HS PO Last administered on 01/03/18at 19:52; Start at 21:00 Triamcinolone Acetonide (Kenalog) 1 hiral BID TP Last administered on 01/03/18 09:00; Start 01/01/18 at 09:00 Ceftriaxone Sodium (Rocephin Im) 1 gm DAILY IM Last administered on 01/02/18at 09:53; Start 01/02/18 at 09:00 Mirtazapine (Remeron Venessa-Tab) 7.5 mg QHS PO Last administered on 01/03/18 19: 52; Start 01/01/18 at 21:00 Olanzapine (ZyPREXA ZYDIS) 2.5 mg PRN Q2HR PRN PO PSYCHOSIS; Start 01/01/18 at 18:45; Stop 01/02/18 at 10:58; Status DC Olanzapine (ZyPREXA ZYDIS) 2.5 mg HS PO Last administered on 01/03/18 19:52; Start 01/02/18 at 21:00 Lactobacillus Rhamnosus (Culturelle) 1 cap BID PO Last administered on at 19:53; Start 01/03/18 at 21:00 Active Scripts Active Reported Omeprazole 20 Mg Tablet.dr 20 Mg PO DAILY Levothyroxine Sodium 175 Mcg Tablet 175 Mcg PO DAILYAC Flomax (Tamsulosin Hcl) 0.4 Mg Cap.er.24h 0.4 Mg PO QHS Simvastatin 20 Mg Tablet 20 Mg PO HS [place] 5-325 Tablet (Hydrocodone Bit/Acetaminophen) 1 Each Tablet 1 Tab PO PRN Q6HRS PRN Haloperidol 2 Mg Tablet 2 Mg PO [id number] Potassium Chloride 10 Meq Tablet.er 10 Meq PO DAILY Docusate Sodium 50 Mg/5 Ml Liquid 10 Ml PO DAILY Losartan Potassium 50 Mg Tablet 50 Mg PO DAILY Aspirin Ec (Aspirin) 81 Mg Tablet.dr 81 Mg PO DAILY Amlodipine Besylate 5 Mg Tablet 5 Mg PO DAILY Depakote Sprinkle (Divalproex Sodium) 125 Mg Cap.sprink 500 Mg PO BID Seroquel (Quetiapine Fumarate) 25 Mg Tablet 25 Mg PO PRN Q4HRS PRN Seroquel (Quetiapine Fumarate) 100 Mg Tablet 150 Mg PO QID Trazodone Hcl 100 Mg Tablet 100 Mg PO QHS Miralax (Polyethylene Glycol 3350) 17 Gm Powd.pack 17 Gm PO PRN DAILY PRN Senokot (Sennosides) 8.6 Mg Tablet 8.6 Mg PO PRN DAILY PRN Dulcolax (Bisacodyl) 10 Mg Supp.rect 10 Mg RC PRN DAILY PRN Milk Of Magnesia (Magnesium Hydroxide) 2,400 Mg/10 Ml Oral.susp 2,400 Mg PO PRN Q6HRS PRN Triamcinolone Acetonide 15 Gm Cream..g. 1 Hiral TOP BID Haldol (Haloperidol Lactate) 5 Mg/1 Ml Ampul 5 Mg IJ PRN Q6HRS PRN I have reviewed the current psychotropics carefully including drug interactions. Risk benefit ratio favors no change other than as noted in my dictated progress note. 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
--- NOTE | 2018-01-04 03:52 | PN ---
DATE: 01/02/2018 This is a late entry 01/02/2018, covers elements not covered in my initial note. SUBJECTIVE: I met with the patient in the evening. The patient was also staffed at a treatment team meeting with the entire team in the morning when we tried to get the to come in for the treatment team meeting and join us. We attempted several times, but he was unavailable even over the phone. His plan, however, is to have her back on hospice care when she is back at the [place] [facility] for [facility]. Appetite remains extremely poor. She is extremely disorganized, but not aggressive, but refusing all treatments, not throwing feces around her like she was at the [place] [facility]. REVIEW OF SYSTEMS: No CV, , pulmonary, eye, ENT system symptoms on review. Reliability poor. MENTAL STATUS EXAM: Oriented to herself. Insight, judgment, recent and remote memory, attention, concentration, fund of knowledge poor, consistent with her diagnosis mentioned in my initial note. PLAN: Start Zyprexa 2.5 mg p.o. at bedtime. May consider stopping the Seroquel, which she is not taking anyway due to noncompliance and she is not taking the Depakote either. We may have to follow labs to make sure she is not getting dehydrated and she is on Remeron 7.5 mg at bedtime. MAN Lisa MURRAY MD DR: DANIEL/valeriy JOB#: [id number] / [id number]
[2018-01-04 06:28] VITALS: BP 122/84
[2018-01-04] MEDS: PANTOPRAZOLE 40 MG TABLET. PO SCH ×2 (07:30→08:24)
[2018-01-04] MEDS: LEVOTHYROXINE 175 MCG TABLET PO SCH ×2 (07:30→08:24)
[2018-01-04] MEDS: ASPIRIN ENTERIC COATED 81 MG TABLET.DR. PO SCH ×2 (08:00→08:25)
[2018-01-04] MEDS: POTASSIUM CHLORIDE 10 MEQ TABLET.ER. PO SCH ×2 (08:00→08:25)
[2018-01-04] MEDS: LACTOBACILLUS RHAMNOSUS GG 1 CAPSULE. PO SCH ×2 (08:26→20:47)
[2018-01-04] MEDS: LOSARTAN 50 MG TABLET. PO SCH ×2 (08:26→09:00)
[2018-01-04] MEDS: DIVALPROEX 125 MG CAP.SPRINK PO SCH ×3 (08:27→20:46)
[2018-01-04] MEDS: DOCUSATE 100 MG/10 ML SOLUTION. PO SCH ×2 (08:28→09:00)
[2018-01-04] MEDS: amLODIPine BESYLATE 5 MG TABLET PO SCH ×2 (08:28→09:00)
[2018-01-04] MEDS: cefTRIAXone IM 1 GM VIAL IM SCH ×2 (08:29→09:00)
[2018-01-04] MEDS: TRIAMCINOLONE ACETONIDE 0.1% TOPICAL CREAM 15GM TUBE. TP SCH ×2 (08:44→20:47)
[2018-01-04 16:45] VITALS: BP 109/75
[2018-01-04 19:23] LABS: ALBUMIN 4.2 g/dL (3.4-5.0); ALBUMIN/GLOBULIN RATIO 1.2 (1.0-1.7); CALCIUM 10.2 mg/dL (8.5-10.1); POTASSIUM 4.7 mmol/L (3.5-5.1); TOTAL BILIRUBIN 0.4 mg/dL (0.2-1.0); TOTAL PROTEIN 7.6 g/dL (6.4-8.2)
[2018-01-04] MEDS: traZODone 100 MG TABLET. PO SCH (20:47)
[2018-01-04] MEDS: MIRTAZAPINE ODT 15 MG TAB.RAPDIS. PO SCH (20:47)
[2018-01-04] MEDS: SIMVASTATIN 20 MG TABLET PO SCH (20:47)
[2018-01-04] MEDS: TAMSULOSIN 0.4 MG CAP.ER.24H. PO SCH (20:47)
--- NOTE | 2018-01-04 23:11 | PDOC ---
Exam Note: Abdi Note: Please also refer to the separate dictated note~for this date of service dictated separately.~Patient seen individually. Discussed the patient with Nursing staff reviewed the chart.~Reviewed interim history and current functioning. Reviewed vital signs,~Labs/ Radiology~and current medications noted below. Continue current treatment with the changes noted in the dictated addendum note Assessment: Vital Signs: Vital Signs Date Time Temp Pulse Resp B/P (MAP) Pulse Ox O2 Delivery O2 Flow Rate FiO2 01/04/18 16:45 97.9 90 18 109/75 (86) 95 12/31/17 15:35 Room Air I&O Intake and Output 01/04/18 07:00 Intake Total 365 ml Balance 365 ml Intake Oral 365 ml # Bowel Movements 1 Labs: Laboratory Tests Test 01/04/18 19:00 Sodium Level 142 mmol/L (136-145) Potassium Level 4.7 mmol/L (3.5-5.1) Chloride Level 103 mmol/L (98-107) Carbon Dioxide Level 32 mmol/L (21-32) Anion Gap 7 (6-14) Blood Urea Nitrogen 14 mg/dL (7-20) Creatinine 1.0 mg/dL (0.6-1.0) Estimated GFR (Cockcroft-Gault) 55.0 BUN/Creatinine Ratio 14 (6-20) Glucose Level 176 mg/dL (70-99) H Calcium Level 10.2 mg/dL (8.5-10.1) H Total Bilirubin 0.4 mg/dL (0.2-1.0) Aspartate Amino Transferase (AST) 15 U/L (15-37) Alanine Aminotransferase (ALT) 22 U/L (14-59) Alkaline Phosphatase 61 U/L (46-116) Total Protein 7.6 g/dL (6.4-8.2) Albumin 4.2 g/dL (3.4-5.0) Albumin/Globulin Ratio 1.2 (1.0-1.7) Current Medications: Meds: Current Medications Ciprofloxacin (Cipro) 500 mg 1X ONCE PO Last administered on 12/31/17at 16:59; Start 12/31/17 at 16:45; Stop 12/31/17 at 17:00; Status DC Acetaminophen (Tylenol) 650 mg PRN Q6HRS PRN PO PAIN / TEMP; Start 12/31/17 at 18:15 Multi-Ingredient Ointment (Analgesic [place]) 1 hiral PRN QID PRN TP MUSCLE PAIN; Start 12/31/17 at 18:15 Al Hydroxide/Mg Hydroxide (Mylanta Plus Xs) 15 ml PRN AFTMEALHC PRN PO DYSPEPSIA; Start 12/31/17 at 18:15 Magnesium Hydroxide (Milk Of Magnesia) 2,400 mg PRN QHS PRN PO CONSTIPATION; Start 12/31/17 at 18:15 Olanzapine (ZyPREXA) 2.5 mg PRN Q2HR PRN PO AGITATION; Start 12/31/17 at 18:45 Divalproex Sodium (Depakote Sprinkles) 500 mg BID PO Last administered on at 20:46; Start 01/01/18 at 09:00 Haloperidol (Haldol) 2 mg [id number] PO Last administered on 01/01/18at 17:18; Start 01/01/18 at 00:00; Stop 01/01/18 at 18:44; Status DC Haloperidol Lactate (Haldol) 5 mg PRN Q6HRS PRN IM ANXIETY/AGITATION; Start at 22:15; Stop 01/01/18 at 18:44; Status DC Quetiapine Fumarate (SEROquel) 25 mg PRN Q4HRS PRN PO ANXIETY/AGITATION; Start 12/31/17 at 22:15; Stop 01/03/18 at 16:25; Status DC Quetiapine Fumarate (SEROquel) 150 mg QID PO Last administered on 01/03/18at 08: 12; Start 01/01/18 at 09:00; Stop 01/03/18 at 16:25; Status DC Trazodone HCl (Desyrel) 100 mg QHS PO Last administered on 01/04/18at 20:47; Start 01/01/18 at 21:00 Docusate Sodium (Colace Solution) 100 mg DAILY PO ; Start 01/01/18 at 09:00 Levothyroxine Sodium (Synthroid) 175 mcg DAILYAC PO ; Start 01/01/18 at 07:30 Losartan Potassium (Cozaar) 50 mg DAILY PO ; Start 01/01/18 at 09:00 Tamsulosin HCl (Flomax) 0.4 mg QHS PO Last administered on 01/04/18at 20:47; Start 01/01/18 at 21:00 Amlodipine Besylate (Norvasc) 5 mg DAILY PO ; Start 01/01/18 at 09:00 Aspirin (Aspirin Enteric Coated) 81 mg DAILYWBKFT PO ; Start 01/01/18 at 08:00 Bisacodyl (Dulcolax Supp) 10 mg PRN DAILY PRN [place] CONSTIPATION; Start 12/31/17 at 22:15 Acetaminophen/ Hydrocodone Bitart (Lortab 5/325) 1 tab PRN Q6HRS PRN PO PAIN; Start 12/31/17 at 22:15 Magnesium Hydroxide (Milk Of Magnesia) 2,400 mg PRN Q6HRS PRN PO CONSTIPATION; Start 12/31/17 at 22:15 Pantoprazole Sodium (Protonix) 40 mg DAILYAC PO ; Start 01/01/18 at 07:30 Polyethylene Glycol (miraLAX) 17 gm PRN DAILY PRN PO CONSTIPATION; Start at 09:00 Potassium Chloride (Klor-Con) 10 meq DAILYWBKFT PO Last administered on at 09:38; Start 01/01/18 at 08:00 Sennosides (Senna) 8.6 mg PRN DAILY PRN PO CONSTIPATION; Start 12/31/17 at 22: 15 Simvastatin (Zocor) 20 mg HS PO Last administered on 01/03/18at 19:52; Start at 21:00 Triamcinolone Acetonide (Kenalog) 1 hiral BID TP Last administered on 01/03/18at 09:00; Start 01/01/18 at 09:00 Ceftriaxone Sodium (Rocephin Im) 1 gm DAILY IM Last administered on 01/02/18at 09:53; Start 01/02/18 at 09:00; Stop 01/04/18 at 14:44; Status DC Mirtazapine (Remeron Venessa-Tab) 7.5 mg QHS PO Last administered on 01/04/18at 20:47 ; Start 01/01/18 at 21:00 Olanzapine (ZyPREXA ZYDIS) 2.5 mg PRN Q2HR PRN PO PSYCHOSIS; Start 01/01/18 at 18:45; Stop 01/02/18 at 10:58; Status DC Olanzapine (ZyPREXA ZYDIS) 2.5 mg HS PO Last administered on 01/04/18at 20:46; Start 01/02/18 at 21:00 Lactobacillus Rhamnosus (Culturelle) 1 cap BID PO Last administered on at 08:26; Start 01/03/18 at 21:00 Active Scripts Active Reported Omeprazole 20 Mg Tablet.dr 20 Mg PO DAILY Levothyroxine Sodium 175 Mcg Tablet 175 Mcg PO DAILYAC Flomax (Tamsulosin Hcl) 0.4 Mg Cap.er.24h 0.4 Mg PO QHS Simvastatin 20 Mg Tablet 20 Mg PO HS [place] 5-325 Tablet (Hydrocodone Bit/Acetaminophen) 1 Each Tablet 1 Tab PO PRN Q6HRS PRN Haloperidol 2 Mg Tablet 2 Mg PO [id number] Potassium Chloride 10 Meq Tablet.er 10 Meq PO DAILY Docusate Sodium 50 Mg/5 Ml Liquid 10 Ml PO DAILY Losartan Potassium 50 Mg Tablet 50 Mg PO DAILY Aspirin Ec (Aspirin) 81 Mg Tablet.dr 81 Mg PO DAILY Amlodipine Besylate 5 Mg Tablet 5 Mg PO DAILY Depakote Sprinkle (Divalproex Sodium) 125 Mg Cap.sprink 500 Mg PO BID Seroquel (Quetiapine Fumarate) 25 Mg Tablet 25 Mg PO PRN Q4HRS PRN Seroquel (Quetiapine Fumarate) 100 Mg Tablet 150 Mg PO QID Trazodone Hcl 100 Mg Tablet 100 Mg PO QHS Miralax (Polyethylene Glycol 3350) 17 Gm Powd.pack 17 Gm PO PRN DAILY PRN Senokot (Sennosides) 8.6 Mg Tablet 8.6 Mg PO PRN DAILY PRN Dulcolax (Bisacodyl) 10 Mg Supp.rect 10 Mg RC PRN DAILY PRN Milk Of Magnesia (Magnesium Hydroxide) 2,400 Mg/10 Ml Oral.susp 2,400 Mg PO PRN Q6HRS PRN Triamcinolone Acetonide 15 Gm Cream..g. 1 Hiral TOP BID Haldol (Haloperidol Lactate) 5 Mg/1 Ml Ampul 5 Mg IJ PRN Q6HRS PRN I have reviewed the current psychotropics carefully including drug interactions. Risk benefit ratio favors no change other than as noted in my dictated progress note. 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
[2018-01-05] MEDS: PANTOPRAZOLE 40 MG TABLET. PO SCH (07:30)
[2018-01-05] MEDS: LEVOTHYROXINE 175 MCG TABLET PO SCH (07:30)
[2018-01-05] MEDS: ASPIRIN ENTERIC COATED 81 MG TABLET.DR. PO SCH (08:00)
[2018-01-05] MEDS: POTASSIUM CHLORIDE 10 MEQ TABLET.ER. PO SCH (08:00)
[2018-01-05] MEDS: amLODIPine BESYLATE 5 MG TABLET PO SCH (09:00)
[2018-01-05] MEDS: TRIAMCINOLONE ACETONIDE 0.1% TOPICAL CREAM 15GM TUBE. TP SCH ×2 (09:00→20:51)
[2018-01-05] MEDS: DOCUSATE 100 MG/10 ML SOLUTION. PO SCH (09:00)
[2018-01-05] MEDS: LACTOBACILLUS RHAMNOSUS GG 1 CAPSULE. PO SCH ×2 (09:00→20:51)
[2018-01-05] MEDS: LOSARTAN 50 MG TABLET. PO SCH (09:00)
[2018-01-05] MEDS: DIVALPROEX 125 MG CAP.SPRINK PO SCH ×2 (09:00→20:51)
--- NOTE | 2018-01-05 11:43 | PN ---
DATE: 01/03/2018 This late entry, 01/03/2018, covers elements not covered in my initial note. SUBJECTIVE: I met with the patient in the evening. The patient slept 4 hours previous evening. She has been refusing medications. Oral intake is very poor. We will check her comprehensive metabolic profile to make sure she is not getting dehydrated. REVIEW OF SYSTEMS: No CV, , pulmonary, eye, ENT system symptoms on review. Reliability poor. MENTAL STATUS EXAM: Oriented to herself. Insight, judgment, recent and remote memory, attention, concentration, fund of knowledge poor, consistent with her diagnosis mentioned in my initial note. PLAN: No change from initial note. Seroquel was stopped and she remains on trazodone, Depakote, scheduled Remeron and scheduled Zyprexa at night 2.5 mg. MAN Lisa MURRAY MD DR: DANIEL/valeriy JOB#: [id number] / [id number]
--- NOTE | 2018-01-05 11:57 | PN ---
DATE: 01/04/2018 PSYCHIATRIC PROGRESS NOTE This is a late entry 01/04/2018, covers elements not covered in my initial note. SUBJECTIVE: I met with the patient in the evening. The patient slept 5-3/4 hours previous night. She has been extremely combative with cares, beating staff herself. Labs were unremarkable, ate 75% of dinner, nothing else for the rest of the meals. REVIEW OF SYSTEMS: No CV, , pulmonary, eye, ENT system symptoms on review. Reliability poor. MENTAL STATUS EXAM: Oriented to herself. Insight, judgment, recent and remote memory, attention, concentration, fund of knowledge poor, consistent with her diagnoses mentioned in my initial note. PLAN: No change from initial note, may need to increase scheduled Zyprexa, but she is noncompliant with medications, which is a large confounding factor in treatment response. JAYLAN MURRAY MD DR: DANIEL/valeriy JOB#: [id number] / [id number]
[2018-01-05] MEDS: MIRTAZAPINE ODT 15 MG TAB.RAPDIS. PO SCH (20:50)
[2018-01-05] MEDS: traZODone 100 MG TABLET. PO SCH (20:50)
[2018-01-05] MEDS: SIMVASTATIN 20 MG TABLET PO SCH (20:51)
[2018-01-05] MEDS: TAMSULOSIN 0.4 MG CAP.ER.24H. PO SCH (20:51)
--- NOTE | 2018-01-05 20:54 | PDOC ---
Exam Note: Abdi Note: Please also refer to the separate dictated note~for this date of service dictated separately.~Patient seen individually. Discussed the patient with Nursing staff reviewed the chart.~Reviewed interim history and current functioning. Reviewed vital signs,~Labs/ Radiology~and current medications noted below. Continue current treatment with the changes noted in the dictated addendum note Assessment: Vital Signs: Vital Signs Date Time Temp Pulse Resp B/P (MAP) Pulse Ox O2 Delivery O2 Flow Rate FiO2 01/05/18 16:11 97.4 01/04/18 16:45 90 18 109/75 (86) 95 12/31/17 15:35 Room Air I&O Intake and Output 01/05/18 07:00 Intake Total 700 ml Balance 700 ml Intake Oral 700 ml Current Medications: Meds: Current Medications Ciprofloxacin (Cipro) 500 mg 1X ONCE PO Last administered on 12/31/17at 16:59; Start 12/31/17 at 16:45; Stop 12/31/17 at 17:00; Status DC Acetaminophen (Tylenol) 650 mg PRN Q6HRS PRN PO PAIN / TEMP; Start 12/31/17 at 18:15 Multi-Ingredient Ointment (Analgesic [place]) 1 hiral PRN QID PRN TP MUSCLE PAIN; Start 12/31/17 at 18:15 Al Hydroxide/Mg Hydroxide (Mylanta Plus Xs) 15 ml PRN AFTMEALHC PRN PO DYSPEPSIA; Start 12/31/17 at 18:15 Magnesium Hydroxide (Milk Of Magnesia) 2,400 mg PRN QHS PRN PO CONSTIPATION; Start 12/31/17 at 18:15 Olanzapine (ZyPREXA) 2.5 mg PRN Q2HR PRN PO AGITATION; Start 12/31/17 at 18:45 Divalproex Sodium (Depakote Sprinkles) 500 mg BID PO Last administered on at 20:51; Start 01/01/18 at 09:00 Haloperidol (Haldol) 2 mg [id number] PO Last administered on 01/01/18at 17:18; Start 01/01/18 at 00:00; Stop 01/01/18 at 18:44; Status DC Haloperidol Lactate (Haldol) 5 mg PRN Q6HRS PRN IM ANXIETY/AGITATION; Start at 22:15; Stop 01/01/18 at 18:44; Status DC Quetiapine Fumarate (SEROquel) 25 mg PRN Q4HRS PRN PO ANXIETY/AGITATION; Start 12/31/17 at 22:15; Stop 01/03/18 at 16:25; Status DC Quetiapine Fumarate (SEROquel) 150 mg QID PO Last administered on 01/03/18at 08: 12; Start 01/01/18 at 09:00; Stop 01/03/18 at 16:25; Status DC Trazodone HCl (Desyrel) 100 mg QHS PO Last administered on 01/05/18at 20:50; Start 01/01/18 at 21:00 Docusate Sodium (Colace Solution) 100 mg DAILY PO ; Start 01/01/18 at 09:00 Levothyroxine Sodium (Synthroid) 175 mcg DAILYAC PO ; Start 01/01/18 at 07:30 Losartan Potassium (Cozaar) 50 mg DAILY PO ; Start 01/01/18 at 09:00 Tamsulosin HCl (Flomax) 0.4 mg QHS PO Last administered on 01/04/18at 20:47; Start 01/01/18 at 21:00 Amlodipine Besylate (Norvasc) 5 mg DAILY PO ; Start 01/01/18 at 09:00 Aspirin (Aspirin Enteric Coated) 81 mg DAILYWBKFT PO ; Start 01/01/18 at 08:00 Bisacodyl (Dulcolax Supp) [address] DAILY [address]N [place] CONSTIPATION; Start 12/31/17 at 22:15 Acetaminophen/ Hydrocodone Bitart (Lortab 5/325) 1 tab PRN Q6HRS PRN PO PAIN; Start 12/31/17 at 22:15 Magnesium Hydroxide (Milk Of Magnesia) 2,400 mg PRN Q6HRS PRN PO CONSTIPATION; Start 12/31/17 at 22:15 Pantoprazole Sodium (Protonix) 40 mg DAILYAC PO ; Start 01/01/18 at 07:30 Polyethylene Glycol (miraLAX) 17 gm PRN DAILY PRN PO CONSTIPATION; Start at 09:00 Potassium Chloride (Klor-Con) 10 meq DAILYWBKFT PO Last administered on at 09:38; Start 01/01/18 at 08:00 Sennosides (Senna) 8.6 mg PRN DAILY PRN PO CONSTIPATION; Start 12/31/17 at 22: 15 Simvastatin (Zocor) 20 mg HS PO Last administered on 01/03/18at 19:52; Start at 21:00 Triamcinolone Acetonide (Kenalog) 1 hiral BID TP Last administered on 01/03/18at 09:00; Start 01/01/18 at 09:00 Ceftriaxone Sodium (Rocephin Im) 1 gm DAILY IM Last administered on 01/02/18at 09:53; Start 01/02/18 at 09:00; Stop 01/04/18 at 14:44; Status DC Mirtazapine (Remeron Venessa-Tab) 7.5 mg QHS PO Last administered on 01/05/18at 20:50 ; Start 01/01/18 at 21:00 Olanzapine (ZyPREXA ZYDIS) 2.5 mg PRN Q2HR PRN PO PSYCHOSIS; Start 01/01/18 at 18:45; Stop 01/02/18 at 10:58; Status DC Olanzapine (ZyPREXA ZYDIS) 2.5 mg HS PO Last administered on 01/05/18at 20:51; Start 01/02/18 at 21:00 Lactobacillus Rhamnosus (Culturelle) 1 cap BID PO Last administered on at 08:26; Start 01/03/18 at 21:00 Active Scripts Active Reported Omeprazole 20 Mg Tablet.dr 20 Mg PO DAILY Levothyroxine Sodium 175 Mcg Tablet 175 Mcg PO DAILYAC Flomax (Tamsulosin Hcl) 0.4 Mg Cap.er.24h 0.4 Mg PO QHS Simvastatin 20 Mg Tablet 20 Mg PO HS [place] 5-325 Tablet (Hydrocodone Bit/Acetaminophen) 1 Each Tablet 1 Tab PO PRN Q6HRS PRN Haloperidol 2 Mg Tablet 2 Mg PO [id number] Potassium Chloride 10 Meq Tablet.er 10 Meq PO DAILY Docusate Sodium 50 Mg/5 Ml Liquid 10 Ml PO DAILY Losartan Potassium 50 Mg Tablet 50 Mg PO DAILY Aspirin Ec (Aspirin) 81 Mg Tablet.dr 81 Mg PO DAILY Amlodipine Besylate 5 Mg Tablet 5 Mg PO DAILY Depakote Sprinkle (Divalproex Sodium) 125 Mg Cap.sprink 500 Mg PO BID Seroquel (Quetiapine Fumarate) 25 Mg Tablet 25 Mg PO PRN Q4HRS PRN Seroquel (Quetiapine Fumarate) 100 Mg Tablet 150 Mg PO QID Trazodone Hcl 100 Mg Tablet 100 Mg PO QHS Miralax (Polyethylene Glycol 3350) 17 Gm Powd.pack 17 Gm PO PRN DAILY PRN Senokot (Sennosides) 8.6 Mg Tablet 8.6 Mg PO PRN DAILY PRN Dulcolax (Bisacodyl) 10 Mg Supp.rect 10 Mg RC PRN DAILY PRN Milk Of Magnesia (Magnesium Hydroxide) 2,400 Mg/10 Ml Oral.susp 2,400 Mg PO PRN Q6HRS PRN Triamcinolone Acetonide 15 Gm Cream..g. 1 Hiral TOP BID Haldol (Haloperidol Lactate) 5 Mg/1 Ml Ampul 5 Mg IJ PRN Q6HRS PRN I have reviewed the current psychotropics carefully including drug interactions. Risk benefit ratio favors no change other than as noted in my dictated progress note. 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
[2018-01-06 06:47] VITALS: BP 104/56
[2018-01-06] MEDS: PANTOPRAZOLE 40 MG TABLET. PO SCH (07:30)
[2018-01-06] MEDS: LEVOTHYROXINE 175 MCG TABLET PO SCH (07:30)
[2018-01-06] MEDS: POTASSIUM CHLORIDE 10 MEQ TABLET.ER. PO SCH (08:00)
[2018-01-06] MEDS: LACTOBACILLUS RHAMNOSUS GG 1 CAPSULE. PO SCH ×2 (09:00→20:52)
[2018-01-06] MEDS: amLODIPine BESYLATE 5 MG TABLET PO SCH (09:00)
[2018-01-06] MEDS: DOCUSATE 100 MG/10 ML SOLUTION. PO SCH (09:00)
[2018-01-06] MEDS: TRIAMCINOLONE ACETONIDE 0.1% TOPICAL CREAM 15GM TUBE. TP SCH ×2 (09:00→20:52)
[2018-01-06] MEDS: LOSARTAN 50 MG TABLET. PO SCH (09:00)
[2018-01-06] MEDS: ASPIRIN ENTERIC COATED 81 MG TABLET.DR. PO SCH (12:53)
[2018-01-06] MEDS: DIVALPROEX 125 MG CAP.SPRINK PO SCH ×3 (12:53→21:00)
[2018-01-06 16:34] VITALS: BP 131/65
[2018-01-06] MEDS: TAMSULOSIN 0.4 MG CAP.ER.24H. PO SCH ×2 (20:50→21:00)
[2018-01-06] MEDS: traZODone 100 MG TABLET. PO SCH ×2 (20:51→21:00)
[2018-01-06] MEDS: MIRTAZAPINE ODT 15 MG TAB.RAPDIS. PO SCH ×2 (20:51→21:00)
[2018-01-06] MEDS: SIMVASTATIN 20 MG TABLET PO SCH (20:52)
--- NOTE | 2018-01-06 20:54 | PDOC ---
Exam Note: Abdi Note: Please also refer to the separate dictated note~for this date of service dictated separately.~Patient seen individually. Discussed the patient with Nursing staff reviewed the chart.~Reviewed interim history and current functioning. Reviewed vital signs,~Labs/ Radiology~and current medications noted below. Continue current treatment with the changes noted in the dictated addendum note Assessment: Vital Signs: Vital Signs Date Time Temp Pulse Resp B/P (MAP) Pulse Ox O2 Delivery O2 Flow Rate FiO2 01/06/18 16:34 97.7 61 20 131/65 (87) 01/06/18 06:47 98 12/31/17 15:35 Room Air I&O Intake and Output 01/06/18 07:00 Intake Total 1080 ml Balance 1080 ml Intake Oral 1080 ml # Voids 1 Current Medications: Meds: Current Medications Ciprofloxacin (Cipro) 500 mg 1X ONCE PO Last administered on 12/31/17at 16:59; Start 12/31/17 at 16:45; Stop 12/31/17 at 17:00; Status DC Acetaminophen (Tylenol) 650 mg PRN Q6HRS PRN PO PAIN / TEMP; Start 12/31/17 at 18:15 Multi-Ingredient Ointment (Analgesic [place]) 1 hiral PRN QID PRN TP MUSCLE PAIN; Start 12/31/17 at 18:15 Al Hydroxide/Mg Hydroxide (Mylanta Plus Xs) 15 ml PRN AFTMEALHC PRN PO DYSPEPSIA; Start 12/31/17 at 18:15 Magnesium Hydroxide (Milk Of Magnesia) 2,400 mg PRN QHS PRN PO CONSTIPATION; Start 12/31/17 at 18:15 Olanzapine (ZyPREXA) 2.5 mg PRN Q2HR PRN PO AGITATION; Start 12/31/17 at 18:45 Divalproex Sodium (Depakote Sprinkles) 500 mg BID PO Last administered on at 20:51; Start 01/01/18 at 09:00 Haloperidol (Haldol) 2 mg [id number] PO Last administered on 01/01/18at 17:18; Start 01/01/18 at 00:00; Stop 01/01/18 at 18:44; Status DC Haloperidol Lactate (Haldol) 5 mg PRN Q6HRS PRN IM ANXIETY/AGITATION; Start at 22:15; Stop 01/01/18 at 18:44; Status DC Quetiapine Fumarate (SEROquel) 25 mg PRN Q4HRS PRN PO ANXIETY/AGITATION; Start 12/31/17 at 22:15; Stop 01/03/18 at 16:25; Status DC Quetiapine Fumarate (SEROquel) 150 mg QID PO Last administered on 01/03/18at 08: 12; Start 01/01/18 at 09:00; Stop 01/03/18 at 16:25; Status DC Trazodone HCl (Desyrel) 100 mg QHS PO Last administered on 01/06/18at 20:51; Start 01/01/18 at 21:00 Docusate Sodium (Colace Solution) 100 mg DAILY PO ; Start 01/01/18 at 09:00 Levothyroxine Sodium (Synthroid) 175 mcg DAILYAC PO ; Start 01/01/18 at 07:30 Losartan Potassium (Cozaar) 50 mg DAILY PO ; Start 01/01/18 at 09:00 Tamsulosin HCl (Flomax) 0.4 mg QHS PO Last administered on 01/06/18at 20:50; Start 01/01/18 at 21:00 Amlodipine Besylate (Norvasc) 5 mg DAILY PO ; Start 01/01/18 at 09:00 Aspirin (Aspirin Enteric Coated) 81 mg DAILYWBKFT PO Last administered on at 12:53; Start 01/01/18 at 08:00 Bisacodyl (Dulcolax Supp) 10 mg PRN DAILY PRN [place] CONSTIPATION; Start 12/31/17 at 22:15 Acetaminophen/ Hydrocodone Bitart (Lortab 5/325) 1 tab PRN Q6HRS PRN PO PAIN; Start 12/31/17 at 22:15 Magnesium Hydroxide (Milk Of Magnesia) 2,400 mg PRN Q6HRS PRN PO CONSTIPATION; Start 12/31/17 at 22:15 Pantoprazole Sodium (Protonix) 40 mg DAILYAC PO ; Start 01/01/18 at 07:30 Polyethylene Glycol (miraLAX) 17 gm PRN DAILY PRN PO CONSTIPATION; Start at 09:00 Potassium Chloride (Klor-Con) 10 meq DAILYWBKFT PO Last administered on at 09:38; Start 01/01/18 at 08:00 Sennosides (Senna) 8.6 mg PRN DAILY PRN PO CONSTIPATION; Start 12/31/17 at 22: 15 Simvastatin (Zocor) 20 mg HS PO Last administered on 01/03/18at 19:52; Start at 21:00 Triamcinolone Acetonide (Kenalog) 1 hiral BID TP Last administered on 01/03/18at 09:00; Start 01/01/18 at 09:00 Ceftriaxone Sodium (Rocephin Im) 1 gm DAILY IM Last administered on 01/02/18at 09:53; Start 01/02/18 at 09:00; Stop 01/04/18 at 14:44; Status DC Mirtazapine (Remeron Venessa-Tab) 7.5 mg QHS PO Last administered on 01/06/18at 20:51 ; Start 01/01/18 at 21:00 Olanzapine (ZyPREXA ZYDIS) 2.5 mg PRN Q2HR PRN PO PSYCHOSIS; Start 01/01/18 at 18:45; Stop 01/02/18 at 10:58; Status DC Olanzapine (ZyPREXA ZYDIS) 2.5 mg HS PO Last administered on 01/06/18at 20:51; Start 01/02/18 at 21:00 Lactobacillus Rhamnosus (Culturelle) 1 cap BID PO Last administered on at 08:26; Start 01/03/18 at 21:00 Active Scripts Active Reported Omeprazole 20 Mg Tablet.dr 20 Mg PO DAILY Levothyroxine Sodium 175 Mcg Tablet 175 Mcg PO DAILYAC Flomax (Tamsulosin Hcl) 0.4 Mg Cap.er.24h 0.4 Mg PO QHS Simvastatin 20 Mg Tablet 20 Mg PO HS [place] 5-325 Tablet (Hydrocodone Bit/Acetaminophen) 1 Each Tablet 1 Tab PO PRN Q6HRS PRN Haloperidol 2 Mg Tablet 2 Mg PO [id number] Potassium Chloride 10 Meq Tablet.er 10 Meq PO DAILY Docusate Sodium 50 Mg/5 Ml Liquid 10 Ml PO DAILY Losartan Potassium 50 Mg Tablet 50 Mg PO DAILY Aspirin Ec (Aspirin) 81 Mg Tablet.dr 81 Mg PO DAILY Amlodipine Besylate 5 Mg Tablet 5 Mg PO DAILY Depakote Sprinkle (Divalproex Sodium) 125 Mg Cap.sprink 500 Mg PO BID Seroquel (Quetiapine Fumarate) 25 Mg Tablet 25 Mg PO PRN Q4HRS PRN Seroquel (Quetiapine Fumarate) 100 Mg Tablet 150 Mg PO QID Trazodone Hcl 100 Mg Tablet 100 Mg PO QHS Miralax (Polyethylene Glycol 3350) 17 Gm Powd.pack 17 Gm PO PRN DAILY PRN Senokot (Sennosides) 8.6 Mg Tablet 8.6 Mg PO PRN DAILY PRN Dulcolax (Bisacodyl) 10 Mg Supp.rect 10 Mg RC PRN DAILY PRN Milk Of Magnesia (Magnesium Hydroxide) 2,400 Mg/10 Ml Oral.susp 2,400 Mg PO PRN Q6HRS PRN Triamcinolone Acetonide 15 Gm Cream..g. 1 Hiral TOP BID Haldol (Haloperidol Lactate) 5 Mg/1 Ml Ampul 5 Mg IJ PRN Q6HRS PRN I have reviewed the current psychotropics carefully including drug interactions. Risk benefit ratio favors no change other than as noted in my dictated progress note. 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
[2018-01-07 05:50] VITALS: BP 101/43
[2018-01-07] MEDS: PANTOPRAZOLE 40 MG TABLET. PO SCH (07:30)
[2018-01-07] MEDS: LEVOTHYROXINE 175 MCG TABLET PO SCH (07:30)
[2018-01-07] MEDS: POTASSIUM CHLORIDE 10 MEQ TABLET.ER. PO SCH (08:00)
[2018-01-07] MEDS: ASPIRIN ENTERIC COATED 81 MG TABLET.DR. PO SCH (08:00)
[2018-01-07] MEDS: LACTOBACILLUS RHAMNOSUS GG 1 CAPSULE. PO SCH ×2 (09:00→20:26)
[2018-01-07] MEDS: TRIAMCINOLONE ACETONIDE 0.1% TOPICAL CREAM 15GM TUBE. TP SCH ×2 (09:00→20:28)
[2018-01-07] MEDS: DIVALPROEX 125 MG CAP.SPRINK PO SCH ×2 (09:00→20:27)
[2018-01-07] MEDS: DOCUSATE 100 MG/10 ML SOLUTION. PO SCH (09:00)
[2018-01-07] MEDS: LOSARTAN 50 MG TABLET. PO SCH (09:00)
[2018-01-07] MEDS: amLODIPine BESYLATE 5 MG TABLET PO SCH (09:00)
[2018-01-07 16:45] VITALS: BP 124/64
[2018-01-07] MEDS: MIRTAZAPINE ODT 15 MG TAB.RAPDIS. PO SCH (20:26)
[2018-01-07] MEDS: traZODone 100 MG TABLET. PO SCH (20:27)
[2018-01-07] MEDS: TAMSULOSIN 0.4 MG CAP.ER.24H. PO SCH (20:27)
[2018-01-07] MEDS: SIMVASTATIN 20 MG TABLET PO SCH (20:27)
--- NOTE | 2018-01-07 20:57 | PDOC ---
Exam Note: Abdi Note: Please also refer to the separate dictated note~for this date of service dictated separately.~Patient seen individually. Discussed the patient with Nursing staff reviewed the chart.~Reviewed interim history and current functioning. Reviewed vital signs,~Labs/ Radiology~and current medications noted below. Continue current treatment with the changes noted in the dictated addendum note Assessment: Vital Signs: Vital Signs Date Time Temp Pulse Resp B/P (MAP) Pulse Ox O2 Delivery O2 Flow Rate FiO2 01/07/18 16:45 97.9 68 16 124/64 (84) 96 I&O Intake and Output 01/07/18 07:00 Intake Total 360 ml Balance 360 ml Intake Oral 360 ml # Voids 1 Current Medications: Meds: Current Medications Ciprofloxacin (Cipro) 500 mg 1X ONCE PO Last administered on 12/31/17at 16:59; Start 12/31/17 at 16:45; Stop 12/31/17 at 17:00; Status DC Acetaminophen (Tylenol) 650 mg PRN Q6HRS PRN PO PAIN / TEMP; Start 12/31/17 at 18:15 Multi-Ingredient Ointment (Analgesic [place]) 1 hiral PRN QID PRN TP MUSCLE PAIN; Start 12/31/17 at 18:15 Al Hydroxide/Mg Hydroxide (Mylanta Plus Xs) 15 ml PRN AFTMEALHC PRN PO DYSPEPSIA; Start 12/31/17 at 18:15 Magnesium Hydroxide (Milk Of Magnesia) 2,400 mg PRN QHS PRN PO CONSTIPATION; Start 12/31/17 at 18:15 Olanzapine (ZyPREXA) 2.5 mg PRN Q2HR PRN PO AGITATION; Start 12/31/17 at 18:45 ; Stop 01/07/18 at 10:11; Status DC Divalproex Sodium (Depakote Sprinkles) 500 mg BID PO Last administered on at 20:27; Start 01/01/18 at 09:00 Haloperidol (Haldol) 2 mg [id number] PO Last administered on 01/01/18at 17:18; Start 01/01/18 at 00:00; Stop 01/01/18 at 18:44; Status DC Haloperidol Lactate (Haldol) 5 mg PRN Q6HRS PRN IM ANXIETY/AGITATION; Start at 22:15; Stop 01/01/18 at 18:44; Status DC Quetiapine Fumarate (SEROquel) 25 mg PRN Q4HRS PRN PO ANXIETY/AGITATION; Start 12/31/17 at 22:15; Stop 01/03/18 at 16:25; Status DC Quetiapine Fumarate (SEROquel) 150 mg QID PO Last administered on 01/03/18at 08: 12; Start 01/01/18 at 09:00; Stop 01/03/18 at 16:25; Status DC Trazodone HCl (Desyrel) 100 mg QHS PO Last administered on 01/07/18at 20:27; Start 01/01/18 at 21:00 Docusate Sodium (Colace Solution) 100 mg DAILY PO ; Start 01/01/18 at 09:00 Levothyroxine Sodium (Synthroid) 175 mcg DAILYAC PO Last administered on at 07:30; Start 01/01/18 at 07:30 Losartan Potassium (Cozaar) 50 mg DAILY PO ; Start 01/01/18 at 09:00 Tamsulosin HCl (Flomax) 0.4 mg QHS PO Last administered on 01/07/18at 20:27; Start 01/01/18 at 21:00 Amlodipine Besylate (Norvasc) 5 mg DAILY PO ; Start 01/01/18 at 09:00 Aspirin (Aspirin Enteric Coated) 81 mg DAILYWBKFT PO Last administered on at 08:00; Start 01/01/18 at 08:00 Bisacodyl (Dulcolax Supp) 10 mg PRN DAILY PRN [place] CONSTIPATION; Start 12/31/17 at 22:15 Acetaminophen/ Hydrocodone Bitart (Lortab 5/325) 1 tab PRN Q6HRS PRN PO PAIN; Start 12/31/17 at 22:15 Magnesium Hydroxide (Milk Of Magnesia) 2,400 mg PRN Q6HRS PRN PO CONSTIPATION; Start 12/31/17 at 22:15 Pantoprazole Sodium (Protonix) 40 mg DAILYAC PO ; Start 01/01/18 at 07:30 Polyethylene Glycol (miraLAX) 17 gm PRN DAILY PRN PO CONSTIPATION; Start at 09:00 Potassium Chloride (Klor-Con) 10 meq DAILYWBKFT PO Last administered on at 09:38; Start 01/01/18 at 08:00 Sennosides (Senna) 8.6 mg PRN DAILY PRN PO CONSTIPATION; Start 12/31/17 at 22: 15 Simvastatin (Zocor) 20 mg HS PO Last administered on 01/07/18 20:27; Start at 21:00 Triamcinolone Acetonide (Kenalog) 1 hiral BID TP Last administered on 01/07/18 20 :28; Start 01/01/18 at 09:00 Ceftriaxone Sodium (Rocephin Im) 1 gm DAILY IM Last administered on 01/02/18at 09:53; Start 01/02/18 at 09:00; Stop 01/04/18 at 14:44; Status DC Mirtazapine (Remeron Venessa-Tab) 7.5 mg QHS PO Last administered on 01/07/18 20:26 ; Start 01/01/18 at 21:00 Olanzapine (ZyPREXA ZYDIS) 2.5 mg PRN Q2HR PRN PO PSYCHOSIS; Start 01/01/18 at 18:45; Stop 01/02/18 at 10:58; Status DC Olanzapine (ZyPREXA ZYDIS) 2.5 mg HS PO Last administered on 01/05/18at 20:51; Start 01/02/18 at 21:00; Stop 01/07/18 at 16:38; Status DC Lactobacillus Rhamnosus (Culturelle) 1 cap BID PO Last administered on at 20:26; Start 01/03/18 at 21:00 Olanzapine (ZyPREXA ZYDIS) 2.5 mg PRN Q2HR PRN PO AGITATION Last administered on 01/07/18at 10:20; Start 01/07/18 at 10:15 Olanzapine (ZyPREXA ZYDIS) 2.5 mg DAILY PO ; Start 01/08/18 at 09:00 Active Scripts Active Reported Omeprazole 20 Mg Tablet.dr 20 Mg PO DAILY Levothyroxine Sodium 175 Mcg Tablet 175 Mcg PO DAILYAC Flomax (Tamsulosin Hcl) 0.4 Mg Cap.er.24h 0.4 Mg PO QHS Simvastatin 20 Mg Tablet 20 Mg PO HS [place] 5-325 Tablet (Hydrocodone Bit/Acetaminophen) 1 Each Tablet 1 Tab PO PRN Q6HRS PRN Haloperidol 2 Mg Tablet 2 Mg PO [id number] Potassium Chloride 10 Meq Tablet.er 10 Meq PO DAILY Docusate Sodium 50 Mg/5 Ml Liquid 10 Ml PO DAILY Losartan Potassium 50 Mg Tablet 50 Mg PO DAILY Aspirin Ec (Aspirin) 81 Mg Tablet.dr 81 Mg PO DAILY Amlodipine Besylate 5 Mg Tablet 5 Mg PO DAILY Depakote Sprinkle (Divalproex Sodium) 125 Mg Cap.sprink 500 Mg PO BID Seroquel (Quetiapine Fumarate) 25 Mg Tablet 25 Mg PO PRN Q4HRS PRN Seroquel (Quetiapine Fumarate) 100 Mg Tablet 150 Mg PO QID Trazodone Hcl 100 Mg Tablet 100 Mg PO QHS Miralax (Polyethylene Glycol 3350) 17 Gm Powd.pack 17 Gm PO PRN DAILY PRN Senokot (Sennosides) 8.6 Mg Tablet 8.6 Mg PO PRN DAILY PRN Dulcolax (Bisacodyl) 10 Mg Supp.rect 10 Mg RC PRN DAILY PRN Milk Of Magnesia (Magnesium Hydroxide) 2,400 Mg/10 Ml Oral.susp 2,400 Mg PO PRN Q6HRS PRN Triamcinolone Acetonide 15 Gm Cream..g. 1 Hiral TOP BID Haldol (Haloperidol Lactate) 5 Mg/1 Ml Ampul 5 Mg IJ PRN Q6HRS PRN I have reviewed the current psychotropics carefully including drug interactions. Risk benefit ratio favors no change other than as noted in my dictated progress note. 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
--- NOTE | 2018-01-08 01:44 | PN ---
DATE: 01/06/2018 PSYCHIATRIC PROGRESS NOTE This is a late entry of 01/06/2018, covers elements not covered in my initial note. SUBJECTIVE: I met with the patient in the evening. The patient slept 7 hours previous night. She has had increased behaviors, especially surrounding showers, refusing her medications in the morning, did not get up until about 11:00 a.m. She has no appetite. She was given Boost, but was yelling. Wandering up and down the hallway, oblivious of her surroundings. REVIEW OF SYSTEMS: No CV, , pulmonary, eye, ENT system symptoms on review. Reliability poor. MENTAL STATUS EXAM: Oriented to herself. Insight, judgment, recent and remote memory, attention, concentration, fund of knowledge poor, consistent with her diagnosis. LABORATORY DATA: Labs reviewed. IMPRESSION: Unchanged from initial note. PLAN: Encourage compliance with treatment. No other change for now. JAYLAN MURRAY MD DR: DANIEL/valeriy JOB#: [id number] / [id number]
--- NOTE | 2018-01-08 02:18 | PN ---
DATE: 01/05/2018 PSYCHIATRIC PROGRESS NOTE This is a late entry for 01/05/2018, covers elements not covered in my initial note. SUBJECTIVE: I met with the patient evening of 01/05/2018. The patient slept 5 hours previous evening, refusing her medications, wandering around the unit, ate a little bit of dinner, but little else the rest of the day. REVIEW OF SYSTEMS: No CV, , pulmonary, eye, ENT system symptoms on review. Reliability poor. MENTAL STATUS EXAM: Oriented to herself. Insight, judgment, recent and remote memory, attention, concentration, fund of knowledge poor, consistent with her diagnosis mentioned in my initial note. PLAN: No change from initial note. We will encourage her compliance with treatment, but this is limited given her significant dementia. We will persevere for another few days to see if we can make a difference enough because I do not feel this benefit ratio would justify using long-acting atypical antipsychotics given the extent of her dementia and overall health status. IMPRESSION: Unchanged from initial note. MAN Lisa MURRAY MD DR: DANIEL/valeriy JOB#: [id number] / [id number]
[2018-01-08] MEDS: LOSARTAN 50 MG TABLET. PO SCH (07:31)
[2018-01-08] MEDS: ASPIRIN ENTERIC COATED 81 MG TABLET.DR. PO SCH (07:31)
[2018-01-08] MEDS: amLODIPine BESYLATE 5 MG TABLET PO SCH (07:31)
[2018-01-08] MEDS: LEVOTHYROXINE 175 MCG TABLET PO SCH (07:32)
[2018-01-08] MEDS: POTASSIUM CHLORIDE 10 MEQ TABLET.ER. PO SCH (07:32)
[2018-01-08] MEDS: LACTOBACILLUS RHAMNOSUS GG 1 CAPSULE. PO SCH ×2 (07:32→19:55)
[2018-01-08] MEDS: PANTOPRAZOLE 40 MG TABLET. PO SCH (07:32)
[2018-01-08] MEDS: DIVALPROEX 125 MG CAP.SPRINK PO SCH ×2 (07:33→19:55)
[2018-01-08] MEDS: DOCUSATE 100 MG/10 ML SOLUTION. PO SCH (07:33)
[2018-01-08] MEDS: TRIAMCINOLONE ACETONIDE 0.1% TOPICAL CREAM 15GM TUBE. TP SCH ×2 (07:33→19:56)
[2018-01-08 16:52] VITALS: BP 125/51
[2018-01-08] MEDS: traZODone 100 MG TABLET. PO SCH (19:55)
[2018-01-08] MEDS: MIRTAZAPINE ODT 15 MG TAB.RAPDIS. PO SCH (19:55)
[2018-01-08] MEDS: SIMVASTATIN 20 MG TABLET PO SCH (19:55)
[2018-01-08] MEDS: TAMSULOSIN 0.4 MG CAP.ER.24H. PO SCH (19:55)
--- NOTE | 2018-01-08 20:56 | PDOC ---
Exam Note: Abdi Note: Please also refer to the separate dictated note~for this date of service dictated separately.~Patient seen individually. Discussed the patient with Nursing staff reviewed the chart.~Reviewed interim history and current functioning. Reviewed vital signs,~Labs/ Radiology~and current medications noted below. Continue current treatment with the changes noted in the dictated addendum note Assessment: Vital Signs: Vital Signs Date Time Temp Pulse Resp B/P (MAP) Pulse Ox O2 Delivery O2 Flow Rate FiO2 01/08/18 16:52 98.2 83 18 125/51 (75) 97 I&O Intake and Output 01/08/18 07:00 Intake Total 360 ml Balance 360 ml Intake Oral 360 ml Current Medications: Meds: Current Medications Ciprofloxacin (Cipro) 500 mg 1X ONCE PO Last administered on 12/31/17at 16:59; Start 12/31/17 at 16:45; Stop 12/31/17 at 17:00; Status DC Acetaminophen (Tylenol) 650 mg PRN Q6HRS PRN PO PAIN / TEMP; Start 12/31/17 at 18:15 Multi-Ingredient Ointment (Analgesic [place]) 1 hiral PRN QID PRN TP MUSCLE PAIN; Start 12/31/17 at 18:15 Al Hydroxide/Mg Hydroxide (Mylanta Plus Xs) 15 ml PRN AFTMEALHC PRN PO DYSPEPSIA; Start 12/31/17 at 18:15 Magnesium Hydroxide (Milk Of Magnesia) 2,400 mg PRN QHS PRN PO CONSTIPATION; Start 12/31/17 at 18:15 Olanzapine (ZyPREXA) 2.5 mg PRN Q2HR PRN PO AGITATION; Start 12/31/17 at 18:45 ; Stop 01/07/18 at 10:11; Status DC Divalproex Sodium (Depakote Sprinkles) 500 mg BID PO Last administered on at 19:55; Start 01/01/18 at 09:00 Haloperidol (Haldol) 2 mg [id number] PO Last administered on 01/01/18at 17:18; Start 01/01/18 at 00:00; Stop 01/01/18 at 18:44; Status DC Haloperidol Lactate (Haldol) 5 mg PRN Q6HRS PRN IM ANXIETY/AGITATION; Start at 22:15; Stop 01/01/18 at 18:44; Status DC Quetiapine Fumarate (SEROquel) 25 mg PRN Q4HRS PRN PO ANXIETY/AGITATION; Start 12/31/17 at 22:15; Stop 01/03/18 at 16:25; Status DC Quetiapine Fumarate (SEROquel) 150 mg QID PO Last administered on 01/03/18 08: 12; Start 01/01/18 at 09:00; Stop 01/03/18 at 16:25; Status DC Trazodone HCl (Desyrel) 100 mg QHS PO Last administered on 01/08/18 19:55; Start 01/01/18 at 21:00 Docusate Sodium (Colace Solution) 100 mg DAILY PO Last administered on 07:33; Start 01/01/18 at 09:00 Levothyroxine Sodium (Synthroid) 175 mcg DAILYAC PO Last administered on 07:32; Start 01/01/18 at 07:30 Losartan Potassium (Cozaar) 50 mg DAILY PO Last administered on 01/08/18 07:31 ; Start 01/01/18 at 09:00 Tamsulosin HCl (Flomax) 0.4 mg QHS PO Last administered on 01/08/18 19:55; Start 01/01/18 at 21:00 Amlodipine Besylate (Norvasc) 5 mg DAILY PO Last administered on 01/08/18 07:31 ; Start 01/01/18 at 09:00 Aspirin (Aspirin Enteric Coated) 81 mg DAILYWBKFT PO Last administered on 07:31; Start 01/01/18 at 08:00 Bisacodyl (Dulcolax Supp) 10 mg PRN DAILY PRN [place] CONSTIPATION; Start 12/31/17 at 22:15 Acetaminophen/ Hydrocodone Bitart (Lortab 5/325) 1 tab PRN Q6HRS PRN PO PAIN; Start 12/31/17 at 22:15 Magnesium Hydroxide (Milk Of Magnesia) 2,400 mg PRN Q6HRS PRN PO CONSTIPATION; Start 12/31/17 at 22:15 Pantoprazole Sodium (Protonix) 40 mg DAILYAC PO Last administered on 01/08/18at 07:32; Start 01/01/18 at 07:30 Polyethylene Glycol (miraLAX) 17 gm PRN DAILY PRN PO CONSTIPATION; Start at 09:00 Potassium Chloride (Klor-Con) 10 meq DAILYWBKFT PO Last administered on at 07:32; Start 01/01/18 at 08:00 Sennosides (Senna) 8.6 mg PRN DAILY PRN PO CONSTIPATION; Start 12/31/17 at 22: 15 Simvastatin (Zocor) 20 mg HS PO Last administered on 01/08/18at 19:55; Start at 21:00 Triamcinolone Acetonide (Kenalog) 1 hiral BID TP Last administered on 01/08/18 19 :56; Start 01/01/18 at 09:00 Ceftriaxone Sodium (Rocephin Im) 1 gm DAILY IM Last administered on 01/02/18at 09:53; Start 01/02/18 at 09:00; Stop 01/04/18 at 14:44; Status DC Mirtazapine (Remeron Venessa-Tab) 7.5 mg QHS PO Last administered on 01/08/18at 19:55 ; Start 01/01/18 at 21:00 Olanzapine (ZyPREXA ZYDIS) 2.5 mg PRN Q2HR PRN PO PSYCHOSIS; Start 01/01/18 at 18:45; Stop 01/02/18 at 10:58; Status DC Olanzapine (ZyPREXA ZYDIS) 2.5 mg HS PO Last administered on 01/05/18at 20:51; Start 01/02/18 at 21:00; Stop 01/07/18 at 16:38; Status DC Lactobacillus Rhamnosus (Culturelle) 1 cap BID PO Last administered on at 19:55; Start 01/03/18 at 21:00 Olanzapine (ZyPREXA ZYDIS) 2.5 mg PRN Q2HR PRN PO AGITATION Last administered on 01/07/18at 10:20; Start 01/07/18 at 10:15 Olanzapine (ZyPREXA ZYDIS) 2.5 mg DAILY PO Last administered on 01/08/18at 07:32 ; Start 01/08/18 at 09:00; Stop 01/08/18 at 17:49; Status DC Olanzapine (ZyPREXA ZYDIS) 1.25 mg [id number] PO ; Start 01/09/18 at 09:00 Olanzapine (ZyPREXA ZYDIS) 2.5 mg HS PO Last administered on 01/08/18at 19:55; Start 01/08/18 at 21:00 Active Scripts Active Reported Omeprazole 20 Mg Tablet.dr 20 Mg PO DAILY Levothyroxine Sodium 175 Mcg Tablet 175 Mcg PO DAILYAC Flomax (Tamsulosin Hcl) 0.4 Mg Cap.er.24h 0.4 Mg PO QHS Simvastatin 20 Mg Tablet 20 Mg PO HS [place] 5-325 Tablet (Hydrocodone Bit/Acetaminophen) 1 Each Tablet 1 Tab PO PRN Q6HRS PRN Haloperidol 2 Mg Tablet 2 Mg PO [id number] Potassium Chloride 10 Meq Tablet.er 10 Meq PO DAILY Docusate Sodium 50 Mg/5 Ml Liquid 10 Ml PO DAILY Losartan Potassium 50 Mg Tablet 50 Mg PO DAILY Aspirin Ec (Aspirin) 81 Mg Tablet.dr 81 Mg PO DAILY Amlodipine Besylate 5 Mg Tablet 5 Mg PO DAILY Depakote Sprinkle (Divalproex Sodium) 125 Mg Cap.sprink 500 Mg PO BID Seroquel (Quetiapine Fumarate) 25 Mg Tablet 25 Mg PO PRN Q4HRS PRN Seroquel (Quetiapine Fumarate) 100 Mg Tablet 150 Mg PO QID Trazodone Hcl 100 Mg Tablet 100 Mg PO QHS Miralax (Polyethylene Glycol 3350) 17 Gm Powd.pack 17 Gm PO PRN DAILY PRN Senokot (Sennosides) 8.6 Mg Tablet 8.6 Mg PO PRN DAILY PRN Dulcolax (Bisacodyl) 10 Mg Supp.rect 10 Mg RC PRN DAILY PRN Milk Of Magnesia (Magnesium Hydroxide) 2,400 Mg/10 Ml Oral.susp 2,400 Mg PO PRN Q6HRS PRN Triamcinolone Acetonide 15 Gm Cream..g. 1 Hiral TOP BID Haldol (Haloperidol Lactate) 5 Mg/1 Ml Ampul 5 Mg IJ PRN Q6HRS PRN I have reviewed the current psychotropics carefully including drug interactions. Risk benefit ratio favors no change other than as noted in my dictated progress note. 

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
[2018-01-09 06:17] VITALS: BP 109/66
[2018-01-09] MEDS: LACTOBACILLUS RHAMNOSUS GG 1 CAPSULE. PO SCH ×2 (08:17→20:11)
[2018-01-09] MEDS: DOCUSATE 100 MG/10 ML SOLUTION. PO SCH (08:17)
[2018-01-09] MEDS: POTASSIUM CHLORIDE 10 MEQ TABLET.ER. PO SCH (08:19)
[2018-01-09] MEDS: LEVOTHYROXINE 175 MCG TABLET PO SCH (08:19)
[2018-01-09] MEDS: PANTOPRAZOLE 40 MG TABLET. PO SCH (08:19)
[2018-01-09] MEDS: ASPIRIN ENTERIC COATED 81 MG TABLET.DR. PO SCH (08:20)
[2018-01-09] MEDS: TRIAMCINOLONE ACETONIDE 0.1% TOPICAL CREAM 15GM TUBE. TP SCH ×2 (09:00→20:13)
[2018-01-09] MEDS: DIVALPROEX 125 MG CAP.SPRINK PO SCH ×2 (10:02→20:13)
[2018-01-09] MEDS: amLODIPine BESYLATE 5 MG TABLET PO SCH (10:10)
[2018-01-09] MEDS: LOSARTAN 50 MG TABLET. PO SCH (10:10)
[2018-01-09 16:31] VITALS: BP 107/75
[2018-01-09] MEDS: traZODone 100 MG TABLET. PO SCH (20:11)
[2018-01-09] MEDS: TAMSULOSIN 0.4 MG CAP.ER.24H. PO SCH (20:12)
[2018-01-09] MEDS: MIRTAZAPINE ODT 15 MG TAB.RAPDIS. PO SCH (20:12)
[2018-01-09] MEDS: SIMVASTATIN 20 MG TABLET PO SCH (20:13)
--- NOTE | 2018-01-09 20:57 | PDOC ---
Exam Note: Abdi Note: Please also refer to the separate dictated note~for this date of service dictated separately.~Patient seen individually. Discussed the patient with Nursing staff reviewed the chart.~Reviewed interim history and current functioning. Reviewed vital signs,~Labs/ Radiology~and current medications noted below. Continue current treatment with the changes noted in the dictated addendum note Assessment: Vital Signs: Vital Signs Date Time Temp Pulse Resp B/P (MAP) Pulse Ox O2 Delivery O2 Flow Rate FiO2 01/09/18 16:31 97.6 87 16 107/75 (86) 96 Room Air I&O Intake and Output 01/09/18 07:00 Intake Total 600 ml Balance 600 ml Intake Oral 600 ml Current Medications: Meds: Current Medications Ciprofloxacin (Cipro) 500 mg 1X ONCE PO Last administered on 12/31/17at 16:59; Start 12/31/17 at 16:45; Stop 12/31/17 at 17:00; Status DC Acetaminophen (Tylenol) 650 mg PRN Q6HRS PRN PO PAIN / TEMP; Start 12/31/17 at 18:15 Multi-Ingredient Ointment (Analgesic [place]) 1 hiral PRN QID PRN TP MUSCLE PAIN; Start 12/31/17 at 18:15 Al Hydroxide/Mg Hydroxide (Mylanta Plus Xs) 15 ml PRN AFTMEALHC PRN PO DYSPEPSIA; Start 12/31/17 at 18:15 Magnesium Hydroxide (Milk Of Magnesia) 2,400 mg PRN QHS PRN PO CONSTIPATION; Start 12/31/17 at 18:15 Olanzapine (ZyPREXA) 2.5 mg PRN Q2HR PRN PO AGITATION; Start 12/31/17 at 18:45 ; Stop 01/07/18 at 10:11; Status DC Divalproex Sodium (Depakote Sprinkles) 500 mg BID PO Last administered on at 20:13; Start 01/01/18 at 09:00 Haloperidol (Haldol) 2 mg [id number] PO Last administered on 01/01/18at 17:18; Start 01/01/18 at 00:00; Stop 01/01/18 at 18:44; Status DC Haloperidol Lactate (Haldol) 5 mg PRN Q6HRS PRN IM ANXIETY/AGITATION; Start at 22:15; Stop 01/01/18 at 18:44; Status DC Quetiapine Fumarate (SEROquel) 25 mg PRN Q4HRS PRN PO ANXIETY/AGITATION; Start 12/31/17 at 22:15; Stop 01/03/18 at 16:25; Status DC Quetiapine Fumarate (SEROquel) 150 mg QID PO Last administered on 01/03/18 08: 12; Start 01/01/18 at 09:00; Stop 01/03/18 at 16:25; Status DC Trazodone HCl (Desyrel) 100 mg QHS PO Last administered on 01/09/18 20:11; Start 01/01/18 at 21:00 Docusate Sodium (Colace Solution) 100 mg DAILY PO Last administered on 08:17; Start 01/01/18 at 09:00 Levothyroxine Sodium (Synthroid) 175 mcg DAILYAC PO Last administered on 08:19; Start 01/01/18 at 07:30 Losartan Potassium (Cozaar) 50 mg DAILY PO Last administered on 01/08/18 07:31 ; Start 01/01/18 at 09:00 Tamsulosin HCl (Flomax) 0.4 mg QHS PO Last administered on 01/09/18 20:12; Start 01/01/18 at 21:00 Amlodipine Besylate (Norvasc) 5 mg DAILY PO Last administered on 01/08/18 07:31 ; Start 01/01/18 at 09:00 Aspirin (Aspirin Enteric Coated) 81 mg DAILYWBKFT PO Last administered on at 08:20; Start 01/01/18 at 08:00 Bisacodyl (Dulcolax Supp) 10 mg PRN DAILY PRN [place] CONSTIPATION; Start 12/31/17 at 22:15 Acetaminophen/ Hydrocodone Bitart (Lortab 5/325) 1 tab PRN Q6HRS PRN PO PAIN; Start 12/31/17 at 22:15 Magnesium Hydroxide (Milk Of Magnesia) 2,400 mg PRN Q6HRS PRN PO CONSTIPATION; Start 12/31/17 at 22:15 Pantoprazole Sodium (Protonix) 40 mg DAILYAC PO Last administered on 01/09/18at 08:19; Start 01/01/18 at 07:30 Polyethylene Glycol (miraLAX) 17 gm PRN DAILY PRN PO CONSTIPATION; Start at 09:00 Potassium Chloride (Klor-Con) 10 meq DAILYWBKFT PO Last administered on at 08:19; Start 01/01/18 at 08:00 Sennosides (Senna) 8.6 mg PRN DAILY PRN PO CONSTIPATION; Start 12/31/17 at 22: 15 Simvastatin (Zocor) 20 mg HS PO Last administered on 01/09/18at 20:13; Start at 21:00 Triamcinolone Acetonide (Kenalog) 1 hiral BID TP Last administered on 01/08/18 19 :56; Start 01/01/18 at 09:00 Ceftriaxone Sodium (Rocephin Im) 1 gm DAILY IM Last administered on 01/02/18at 09:53; Start 01/02/18 at 09:00; Stop 01/04/18 at 14:44; Status DC Mirtazapine (Remeron Venessa-Tab) 7.5 mg QHS PO Last administered on 01/09/18at 20:12 ; Start 01/01/18 at 21:00 Olanzapine (ZyPREXA ZYDIS) 2.5 mg PRN Q2HR PRN PO PSYCHOSIS; Start 01/01/18 at 18:45; Stop 01/02/18 at 10:58; Status DC Olanzapine (ZyPREXA ZYDIS) 2.5 mg HS PO Last administered on 01/05/18at 20:51; Start 01/02/18 at 21:00; Stop 01/07/18 at 16:38; Status DC Lactobacillus Rhamnosus (Culturelle) 1 cap BID PO Last administered on at 20:11; Start 01/03/18 at 21:00 Olanzapine (ZyPREXA ZYDIS) 2.5 mg PRN Q2HR PRN PO AGITATION Last administered on 01/07/18at 10:20; Start 01/07/18 at 10:15 Olanzapine (ZyPREXA ZYDIS) 2.5 mg DAILY PO Last administered on 01/08/18at 07:32 ; Start 01/08/18 at 09:00; Stop 01/08/18 at 17:49; Status DC Olanzapine (ZyPREXA ZYDIS) 1.25 mg [id number] PO Last administered on 01/09/18at 14:58 ; Start 01/09/18 at 09:00 Olanzapine (ZyPREXA ZYDIS) 2.5 mg HS PO Last administered on 01/09/18at 20:12; Start 01/08/18 at 21:00 Active Scripts Active Reported Omeprazole 20 Mg Tablet.dr 20 Mg PO DAILY Levothyroxine Sodium 175 Mcg Tablet 175 Mcg PO DAILYAC Flomax (Tamsulosin Hcl) 0.4 Mg Cap.er.24h 0.4 Mg PO QHS Simvastatin 20 Mg Tablet 20 Mg PO HS [place] 5-325 Tablet (Hydrocodone Bit/Acetaminophen) 1 Each Tablet 1 Tab PO PRN Q6HRS PRN Haloperidol 2 Mg Tablet 2 Mg PO [id number] Potassium Chloride 10 Meq Tablet.er 10 Meq PO DAILY Docusate Sodium 50 Mg/5 Ml Liquid 10 Ml PO DAILY Losartan Potassium 50 Mg Tablet 50 Mg PO DAILY Aspirin Ec (Aspirin) 81 Mg Tablet.dr 81 Mg PO DAILY Amlodipine Besylate 5 Mg Tablet 5 Mg PO DAILY Depakote Sprinkle (Divalproex Sodium) 125 Mg Cap.sprink 500 Mg PO BID Seroquel (Quetiapine Fumarate) 25 Mg Tablet 25 Mg PO PRN Q4HRS PRN Seroquel (Quetiapine Fumarate) 100 Mg Tablet 150 Mg PO QID Trazodone Hcl 100 Mg Tablet 100 Mg PO QHS Miralax (Polyethylene Glycol 3350) 17 Gm Powd.pack 17 Gm PO PRN DAILY PRN Senokot (Sennosides) 8.6 Mg Tablet 8.6 Mg PO PRN DAILY PRN Dulcolax (Bisacodyl) 10 Mg Supp.rect 10 Mg RC PRN DAILY PRN Milk Of Magnesia (Magnesium Hydroxide) 2,400 Mg/10 Ml Oral.susp 2,400 Mg PO PRN Q6HRS PRN Triamcinolone Acetonide 15 Gm Cream..g. 1 Hiral TOP BID Haldol (Haloperidol Lactate) 5 Mg/1 Ml Ampul 5 Mg IJ PRN Q6HRS PRN I have reviewed the current psychotropics carefully including drug interactions. Risk benefit ratio favors no change other than as noted in my dictated progress note. 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
[2018-01-10] MEDS: DOCUSATE 100 MG/10 ML SOLUTION. PO SCH (07:27)
[2018-01-10] MEDS: LEVOTHYROXINE 175 MCG TABLET PO SCH (07:27)
[2018-01-10] MEDS: DIVALPROEX 125 MG CAP.SPRINK PO SCH ×2 (07:27→19:24)
[2018-01-10] MEDS: LACTOBACILLUS RHAMNOSUS GG 1 CAPSULE. PO SCH ×2 (07:27→19:24)
[2018-01-10] MEDS: LOSARTAN 50 MG TABLET. PO SCH (07:28)
[2018-01-10] MEDS: amLODIPine BESYLATE 5 MG TABLET PO SCH (07:28)
[2018-01-10] MEDS: ASPIRIN ENTERIC COATED 81 MG TABLET.DR. PO SCH (07:28)
[2018-01-10] MEDS: POTASSIUM CHLORIDE 10 MEQ TABLET.ER. PO SCH (07:29)
[2018-01-10] MEDS: PANTOPRAZOLE 40 MG TABLET. PO SCH (07:29)
[2018-01-10] MEDS: TRIAMCINOLONE ACETONIDE 0.1% TOPICAL CREAM 15GM TUBE. TP SCH ×2 (07:32→19:28)
--- NOTE | 2018-01-10 14:25 | OP ---
DATE OF SURGERY: 01/09/2018 PSYCHIATRIC PROGRESS NOTE This late entry 01/09/2018 covers elements not covered in my initial note of 01/09/2018. SUBJECTIVE: Met with the patient in the evening. Staffed at treatment team meeting with the entire team in the morning. Lengthy discussion about her diagnoses, progress, discharge plans. She is sleeping, average 6-1/2 hours, slept 4-1/4 hours previous evening. Family have identified some of her interests including judy and activity therapy. Staff was encouraging this to help compliance. The day previously, she is extremely "horrible," per nursing report with her behaviors, but did better in the evening of 01/09/2018. REVIEW OF SYSTEMS: No CV, , pulmonary, eye, ENT system symptoms on review. Reliability is poor. MENTAL STATUS EXAM: Oriented to herself. Insight, judgment, recent and remote memory, attention, concentration, fund of knowledge is poor, consistent with her diagnoses mentioned in my initial note. PLAN: No change from initial note. JAYLAN MURRAY MD DR: DANIEL/valeriy JOB#: [id number] / [id number]
[2018-01-10] MEDS: MIRTAZAPINE ODT 15 MG TAB.RAPDIS. PO SCH (19:25)
[2018-01-10] MEDS: traZODone 100 MG TABLET. PO SCH (19:27)
[2018-01-10] MEDS: TAMSULOSIN 0.4 MG CAP.ER.24H. PO SCH (19:27)
[2018-01-10] MEDS: SIMVASTATIN 20 MG TABLET PO SCH (19:27)
--- NOTE | 2018-01-10 20:48 | PDOC ---
Exam Note: Abdi Note: Please also refer to the separate dictated note~for this date of service dictated separately.~Patient seen individually. Discussed the patient with Nursing staff reviewed the chart.~Reviewed interim history and current functioning. Reviewed vital signs,~Labs/ Radiology~and current medications noted below. Continue current treatment with the changes noted in the dictated addendum note Assessment: Vital Signs: Vital Signs Date Time Temp Pulse Resp B/P (MAP) Pulse Ox O2 Delivery O2 Flow Rate FiO2 01/10/18 07:28 87 107/75 01/09/18 16:31 97.6 16 96 Room Air I&O Intake and Output 01/10/18 07:00 Intake Total 240 ml Balance 240 ml Intake Oral 240 ml # Voids 2 Current Medications: Meds: Current Medications Ciprofloxacin (Cipro) 500 mg 1X ONCE PO Last administered on 12/31/17at 16:59; Start 12/31/17 at 16:45; Stop 12/31/17 at 17:00; Status DC Acetaminophen (Tylenol) 650 mg PRN Q6HRS PRN PO PAIN / TEMP; Start 12/31/17 at 18:15 Multi-Ingredient Ointment (Analgesic [place]) 1 hiral PRN QID PRN TP MUSCLE PAIN; Start 12/31/17 at 18:15 Al Hydroxide/Mg Hydroxide (Mylanta Plus Xs) 15 ml PRN AFTMEALHC PRN PO DYSPEPSIA; Start 12/31/17 at 18:15 Magnesium Hydroxide (Milk Of Magnesia) 2,400 mg PRN QHS PRN PO CONSTIPATION; Start 12/31/17 at 18:15 Olanzapine (ZyPREXA) 2.5 mg PRN Q2HR PRN PO AGITATION; Start 12/31/17 at 18:45 ; Stop 01/07/18 at 10:11; Status DC Divalproex Sodium (Depakote Sprinkles) 500 mg BID PO Last administered on at 19:24; Start 01/01/18 at 09:00 Haloperidol (Haldol) 2 mg [id number] PO Last administered on 01/01/18at 17:18; Start 01/01/18 at 00:00; Stop 01/01/18 at 18:44; Status DC Haloperidol Lactate (Haldol) 5 mg PRN Q6HRS PRN IM ANXIETY/AGITATION; Start at 22:15; Stop 01/01/18 at 18:44; Status DC Quetiapine Fumarate (SEROquel) 25 mg PRN Q4HRS PRN PO ANXIETY/AGITATION; Start 12/31/17 at 22:15; Stop 01/03/18 at 16:25; Status DC Quetiapine Fumarate (SEROquel) 150 mg QID PO Last administered on 01/03/18at 08: 12; Start 01/01/18 at 09:00; Stop 01/03/18 at 16:25; Status DC Trazodone HCl (Desyrel) 100 mg QHS PO Last administered on 01/10/18 19:27; Start 01/01/18 at 21:00 Docusate Sodium (Colace Solution) 100 mg DAILY PO Last administered on 07:27; Start 01/01/18 at 09:00 Levothyroxine Sodium (Synthroid) 175 mcg DAILYAC PO Last administered on 07:27; Start 01/01/18 at 07:30 Losartan Potassium (Cozaar) 50 mg DAILY PO Last administered on 01/10/18 07:28 ; Start 01/01/18 at 09:00 Tamsulosin HCl (Flomax) 0.4 mg QHS PO Last administered on 01/10/18 19:27; Start 01/01/18 at 21:00 Amlodipine Besylate (Norvasc) 5 mg DAILY PO Last administered on 01/10/18 07:28 ; Start 01/01/18 at 09:00 Aspirin (Aspirin Enteric Coated) 81 mg DAILYWBKFT PO Last administered on at 07:28; Start 01/01/18 at 08:00 Bisacodyl (Dulcolax Supp) 10 mg PRN DAILY PRN [place] CONSTIPATION; Start 12/31/17 at 22:15 Acetaminophen/ Hydrocodone Bitart (Lortab 5/325) 1 tab PRN Q6HRS PRN PO PAIN; Start 12/31/17 at 22:15 Magnesium Hydroxide (Milk Of Magnesia) 2,400 mg PRN Q6HRS PRN PO CONSTIPATION; Start 12/31/17 at 22:15 Pantoprazole Sodium (Protonix) 40 mg DAILYAC PO Last administered on 01/10/18 07:29; Start 01/01/18 at 07:30 Polyethylene Glycol (miraLAX) 17 gm PRN DAILY PRN PO CONSTIPATION; Start at 09:00 Potassium Chloride (Klor-Con) 10 meq DAILYWBKFT PO Last administered on 07:29; Start 01/01/18 at 08:00 Sennosides (Senna) 8.6 mg PRN DAILY PRN PO CONSTIPATION; Start 12/31/17 at 22: 15 Simvastatin (Zocor) 20 mg HS PO Last administered on 01/10/18 19:27; Start at 21:00 Triamcinolone Acetonide (Kenalog) 1 hiral BID TP Last administered on 01/08/18 19 :56; Start 01/01/18 at 09:00 Ceftriaxone Sodium (Rocephin Im) 1 gm DAILY IM Last administered on 01/02/18 09:53; Start 01/02/18 at 09:00; Stop 01/04/18 at 14:44; Status DC Mirtazapine (Remeron Venessa-Tab) 7.5 mg QHS PO Last administered on 01/10/18 19:25 ; Start 01/01/18 at 21:00 Olanzapine (ZyPREXA ZYDIS) 2.5 mg PRN Q2HR PRN PO PSYCHOSIS; Start 01/01/18 at 18:45; Stop 01/02/18 at 10:58; Status DC Olanzapine (ZyPREXA ZYDIS) 2.5 mg HS PO Last administered on 01/05/18 20:51; Start 01/02/18 at 21:00; Stop 01/07/18 at 16:38; Status DC Lactobacillus Rhamnosus (Culturelle) 1 cap BID PO Last administered on 19:24; Start 01/03/18 at 21:00 Olanzapine (ZyPREXA ZYDIS) 2.5 mg PRN Q2HR PRN PO AGITATION Last administered on 01/07/18at 10:20; Start 01/07/18 at 10:15 Olanzapine (ZyPREXA ZYDIS) 2.5 mg DAILY PO Last administered on 01/08/18 07:32 ; Start 01/08/18 at 09:00; Stop 01/08/18 at 17:49; Status DC Olanzapine (ZyPREXA ZYDIS) 1.25 mg [id number] PO Last administered on 01/10/18at 14:40 ; Start 01/09/18 at 09:00 Olanzapine (ZyPREXA ZYDIS) 2.5 mg HS PO Last administered on 01/10/18at 19:27; Start 01/08/18 at 21:00 Active Scripts Active Reported Omeprazole 20 Mg Tablet.dr 20 Mg PO DAILY Levothyroxine Sodium 175 Mcg Tablet 175 Mcg PO DAILYAC Flomax (Tamsulosin Hcl) 0.4 Mg Cap.er.24h 0.4 Mg PO QHS Simvastatin 20 Mg Tablet 20 Mg PO HS [place] 5-325 Tablet (Hydrocodone Bit/Acetaminophen) 1 Each Tablet 1 Tab PO PRN Q6HRS PRN Haloperidol 2 Mg Tablet 2 Mg PO [id number] Potassium Chloride 10 Meq Tablet.er 10 Meq PO DAILY Docusate Sodium 50 Mg/5 Ml Liquid 10 Ml PO DAILY Losartan Potassium 50 Mg Tablet 50 Mg PO DAILY Aspirin Ec (Aspirin) 81 Mg Tablet.dr 81 Mg PO DAILY Amlodipine Besylate 5 Mg Tablet 5 Mg PO DAILY Depakote Sprinkle (Divalproex Sodium) 125 Mg Cap.sprink 500 Mg PO BID Seroquel (Quetiapine Fumarate) 25 Mg Tablet 25 Mg PO PRN Q4HRS PRN Seroquel (Quetiapine Fumarate) 100 Mg Tablet 150 Mg PO QID Trazodone Hcl 100 Mg Tablet 100 Mg PO QHS Miralax (Polyethylene Glycol 3350) 17 Gm Powd.pack 17 Gm PO PRN DAILY PRN Senokot (Sennosides) 8.6 Mg Tablet 8.6 Mg PO PRN DAILY PRN Dulcolax (Bisacodyl) 10 Mg Supp.rect 10 Mg RC PRN DAILY PRN Milk Of Magnesia (Magnesium Hydroxide) 2,400 Mg/10 Ml Oral.susp 2,400 Mg PO PRN Q6HRS PRN Triamcinolone Acetonide 15 Gm Cream..g. 1 Hiral TOP BID Haldol (Haloperidol Lactate) 5 Mg/1 Ml Ampul 5 Mg IJ PRN Q6HRS PRN I have reviewed the current psychotropics carefully including drug interactions. Risk benefit ratio favors no change other than as noted in my dictated progress note. 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
--- NOTE | 2018-01-10 22:54 | PN ---
DATE: 01/08/2018 PSYCHIATRIC PROGRESS NOTE This is a late entry 01/08/2018 covers elements not covered in my initial note. SUBJECTIVE: I met with the patient in the evening. The patient slept 6 hours previous night, remains confused, wandering the hallways, does redirect. Appetite is poor, refusing to eat and take her medications. REVIEW OF SYSTEMS: No CV, , pulmonary, eye, ENT system symptoms on review. Reliability poor. MENTAL STATUS EXAM: Oriented to herself. Insight, judgment, recent and remote memory, attention, concentration, fund of knowledge poor, consistent with her diagnosis mentioned in my initial note. PLAN: No change from initial note. Reviewed family history, which is extensive for familial Alzheimer's. MAN Lisa MURRAY MD DR: DANIEL/valeriy JOB#: [id number] / [id number]
[2018-01-11] MEDS: PANTOPRAZOLE 40 MG TABLET. PO SCH (07:45)
[2018-01-11] MEDS: LEVOTHYROXINE 175 MCG TABLET PO SCH (07:45)
[2018-01-11] MEDS: DOCUSATE 100 MG/10 ML SOLUTION. PO SCH ×2 (07:46→08:00)
[2018-01-11] MEDS: LACTOBACILLUS RHAMNOSUS GG 1 CAPSULE. PO SCH ×2 (07:46→19:28)
[2018-01-11] MEDS: POTASSIUM CHLORIDE 10 MEQ TABLET.ER. PO SCH (07:47)
[2018-01-11] MEDS: DIVALPROEX 125 MG CAP.SPRINK PO SCH ×2 (07:49→19:28)
[2018-01-11] MEDS: ASPIRIN ENTERIC COATED 81 MG TABLET.DR. PO SCH (07:50)
[2018-01-11] MEDS: TRIAMCINOLONE ACETONIDE 0.1% TOPICAL CREAM 15GM TUBE. TP SCH ×2 (09:00→19:30)
[2018-01-11] MEDS: amLODIPine BESYLATE 5 MG TABLET PO SCH (12:32)
[2018-01-11] MEDS: LOSARTAN 50 MG TABLET. PO SCH (12:33)
[2018-01-11 16:19] VITALS: BP 101/73
[2018-01-11] MEDS: TAMSULOSIN 0.4 MG CAP.ER.24H. PO SCH (19:28)
[2018-01-11] MEDS: traZODone 100 MG TABLET. PO SCH (19:28)
[2018-01-11] MEDS: SIMVASTATIN 20 MG TABLET PO SCH (19:28)
[2018-01-11] MEDS: MIRTAZAPINE ODT 15 MG TAB.RAPDIS. PO SCH (19:29)
--- NOTE | 2018-01-11 23:23 | PDOC ---
Exam Note: Abdi Note: Please also refer to the separate dictated note~for this date of service dictated separately.~Patient seen individually. Discussed the patient with Nursing staff reviewed the chart.~Reviewed interim history and current functioning. Reviewed vital signs,~Labs/ Radiology~and current medications noted below. Continue current treatment with the changes noted in the dictated addendum note Assessment: Vital Signs: Vital Signs Date Time Temp Pulse Resp B/P (MAP) Pulse Ox O2 Delivery O2 Flow Rate FiO2 01/11/18 16:19 97.8 97 20 101/73 (82) 96 01/09/18 16:31 Room Air I&O Intake and Output 01/11/18 07:00 Intake Total 360 ml Output Total 1 ml Balance 359 ml Intake Oral 360 ml Output Stool Total 1 ml # Bowel Movements 1 Current Medications: Meds: Current Medications Ciprofloxacin (Cipro) 500 mg 1X ONCE PO Last administered on 12/31/17at 16:59; Start 12/31/17 at 16:45; Stop 12/31/17 at 17:00; Status DC Acetaminophen (Tylenol) 650 mg PRN Q6HRS PRN PO PAIN / TEMP; Start 12/31/17 at 18:15 Multi-Ingredient Ointment (Analgesic [place]) 1 hiral PRN QID PRN TP MUSCLE PAIN; Start 12/31/17 at 18:15 Al Hydroxide/Mg Hydroxide (Mylanta Plus Xs) 15 ml PRN AFTMEALHC PRN PO DYSPEPSIA; Start 12/31/17 at 18:15 Magnesium Hydroxide (Milk Of Magnesia) 2,400 mg PRN QHS PRN PO CONSTIPATION; Start 12/31/17 at 18:15 Olanzapine (ZyPREXA) 2.5 mg PRN Q2HR PRN PO AGITATION; Start 12/31/17 at 18:45 ; Stop 01/07/18 at 10:11; Status DC Divalproex Sodium (Depakote Sprinkles) 500 mg BID PO Last administered on at 19:28; Start 01/01/18 at 09:00 Haloperidol (Haldol) 2 mg [id number] PO Last administered on 01/01/18at 17:18; Start 01/01/18 at 00:00; Stop 01/01/18 at 18:44; Status DC Haloperidol Lactate (Haldol) 5 mg PRN Q6HRS PRN IM ANXIETY/AGITATION; Start at 22:15; Stop 01/01/18 at 18:44; Status DC Quetiapine Fumarate (SEROquel) 25 mg PRN Q4HRS PRN PO ANXIETY/AGITATION; Start 12/31/17 at 22:15; Stop 01/03/18 at 16:25; Status DC Quetiapine Fumarate (SEROquel) 150 mg QID PO Last administered on 01/03/18at 08: 12; Start 01/01/18 at 09:00; Stop 01/03/18 at 16:25; Status DC Trazodone HCl (Desyrel) 100 mg QHS PO Last administered on 01/11/18 19:28; Start 01/01/18 at 21:00 Docusate Sodium (Colace Solution) 100 mg DAILY PO Last administered on at 07:27; Start 01/01/18 at 09:00 Levothyroxine Sodium (Synthroid) 175 mcg DAILYAC PO Last administered on at 07:45; Start 01/01/18 at 07:30 Losartan Potassium (Cozaar) 50 mg DAILY PO Last administered on 01/11/18 12:33 ; Start 01/01/18 at 09:00 Tamsulosin HCl (Flomax) 0.4 mg QHS PO Last administered on 01/11/18 19:28; Start 01/01/18 at 21:00 Amlodipine Besylate (Norvasc) 5 mg DAILY PO Last administered on 01/11/18 12:32 ; Start 01/01/18 at 09:00 Aspirin (Aspirin Enteric Coated) 81 mg DAILYWBKFT PO Last administered on at 07:50; Start 01/01/18 at 08:00 Bisacodyl (Dulcolax Supp) 10 mg PRN DAILY PRN [place] CONSTIPATION; Start 12/31/17 at 22:15 Acetaminophen/ Hydrocodone Bitart (Lortab 5/325) 1 tab PRN Q6HRS PRN PO PAIN; Start 12/31/17 at 22:15 Magnesium Hydroxide (Milk Of Magnesia) 2,400 mg PRN Q6HRS PRN PO CONSTIPATION; Start 12/31/17 at 22:15 Pantoprazole Sodium (Protonix) 40 mg DAILYAC PO Last administered on 01/11/18 07:45; Start 01/01/18 at 07:30 Polyethylene Glycol (miraLAX) 17 gm PRN DAILY PRN PO CONSTIPATION; Start at 09:00 Potassium Chloride (Klor-Con) 10 meq DAILYWBKFT PO Last administered on 07:47; Start 01/01/18 at 08:00 Sennosides (Senna) 8.6 mg PRN DAILY PRN PO CONSTIPATION; Start 12/31/17 at 22: 15 Simvastatin (Zocor) 20 mg HS PO Last administered on 01/11/18 19:28; Start at 21:00 Triamcinolone Acetonide (Kenalog) 1 hiral BID TP Last administered on 01/08/18 19 :56; Start 01/01/18 at 09:00 Ceftriaxone Sodium (Rocephin Im) 1 gm DAILY IM Last administered on 01/02/18 09:53; Start 01/02/18 at 09:00; Stop 01/04/18 at 14:44; Status DC Mirtazapine (Remeron Venessa-Tab) 7.5 mg QHS PO Last administered on 01/11/18 19:29 ; Start 01/01/18 at 21:00 Olanzapine (ZyPREXA ZYDIS) 2.5 mg PRN Q2HR PRN PO PSYCHOSIS; Start 01/01/18 at 18:45; Stop 01/02/18 at 10:58; Status DC Olanzapine (ZyPREXA ZYDIS) 2.5 mg HS PO Last administered on 01/05/18at 20:51; Start 01/02/18 at 21:00; Stop 01/07/18 at 16:38; Status DC Lactobacillus Rhamnosus (Culturelle) 1 cap BID PO Last administered on 19:28; Start 01/03/18 at 21:00 Olanzapine (ZyPREXA ZYDIS) 2.5 mg PRN Q2HR PRN PO AGITATION Last administered on 01/11/18 11:31; Start 01/07/18 at 10:15 Olanzapine (ZyPREXA ZYDIS) 2.5 mg DAILY PO Last administered on 01/08/18 07:32 ; Start 01/08/18 at 09:00; Stop 01/08/18 at 17:49; Status DC Olanzapine (ZyPREXA ZYDIS) 1.25 mg [id number] PO Last administered on 01/11/18at 07:48 ; Start 01/09/18 at 09:00; Stop 01/11/18 at 23:00; Status DC Olanzapine (ZyPREXA ZYDIS) 2.5 mg HS PO Last administered on 01/11/18at 19:30; Start 01/08/18 at 21:00; Stop 01/11/18 at 23:00; Status DC Olanzapine (ZyPREXA ZYDIS) 2.5 mg BID PO ; Start 01/12/18 at 09:00; Status UNV Olanzapine (ZyPREXA ZYDIS) 1.25 mg AFTRNOON PO ; Start 01/12/18 at 14:00; Status UNV Active Scripts Active Reported Omeprazole 20 Mg Tablet.dr 20 Mg PO DAILY Levothyroxine Sodium 175 Mcg Tablet 175 Mcg PO DAILYAC Flomax (Tamsulosin Hcl) 0.4 Mg Cap.er.24h 0.4 Mg PO QHS Simvastatin 20 Mg Tablet 20 Mg PO HS [place] 5-325 Tablet (Hydrocodone Bit/Acetaminophen) 1 Each Tablet 1 Tab PO PRN Q6HRS PRN Haloperidol 2 Mg Tablet 2 Mg PO [id number] Potassium Chloride 10 Meq Tablet.er 10 Meq PO DAILY Docusate Sodium 50 Mg/5 Ml Liquid 10 Ml PO DAILY Losartan Potassium 50 Mg Tablet 50 Mg PO DAILY Aspirin Ec (Aspirin) 81 Mg Tablet.dr 81 Mg PO DAILY Amlodipine Besylate 5 Mg Tablet 5 Mg PO DAILY Depakote Sprinkle (Divalproex Sodium) 125 Mg Cap.sprink 500 Mg PO BID Seroquel (Quetiapine Fumarate) 25 Mg Tablet 25 Mg PO PRN Q4HRS PRN Seroquel (Quetiapine Fumarate) 100 Mg Tablet 150 Mg PO QID Trazodone Hcl 100 Mg Tablet 100 Mg PO QHS Miralax (Polyethylene Glycol 3350) 17 Gm Powd.pack 17 Gm PO PRN DAILY PRN Senokot (Sennosides) 8.6 Mg Tablet 8.6 Mg PO PRN DAILY PRN Dulcolax (Bisacodyl) 10 Mg Supp.rect 10 Mg RC PRN DAILY PRN Milk Of Magnesia (Magnesium Hydroxide) 2,400 Mg/10 Ml Oral.susp 2,400 Mg PO PRN Q6HRS PRN Triamcinolone Acetonide 15 Gm Cream..g. 1 Hiral TOP BID Haldol (Haloperidol Lactate) 5 Mg/1 Ml Ampul 5 Mg IJ PRN Q6HRS PRN I have reviewed the current psychotropics carefully including drug interactions. Risk benefit ratio favors no change other than as noted in my dictated progress note. 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
[2018-01-12 07:10] LABS: BASO # 0.1 x10^3/uL (0.0-0.2); BASO % 1 % (0-3); EOS # 0.2 x10^3/uL (0.0-0.7); EOS % 3 % (0-3); HEMATOCRIT 40.3 % (36.0-47.0); HEMOGLOBIN 13.7 g/dL (12.0-15.5); LYMPH # 2.3 x10^3/uL (1.0-4.8); LYMPH % 34 % (24-48); MEAN CORPUSCULAR HEMOGLOBIN 32 pg (25-35); MEAN CORPUSCULAR HGB CONC 34 g/dL (31-37); MEAN CORPUSCULAR VOLUME 94 fL (79-100); MONO # 0.5 x10^3/uL (0.0-1.1); MONO % 8 % (0-9); NEUT # 3.6 x10^3uL (1.8-7.7); NEUT % 54 % (31-73); PLATELET COUNT 213 x10^3/uL (140-400); RED BLOOD COUNT 4.31 x10^6/uL (3.50-5.40); RED CELL DISTRIBUTION WIDTH 13.3 % (11.5-14.5); WHITE BLOOD COUNT 6.8 x10^3/uL (4.0-11.0)
[2018-01-12 07:20] LABS: ALBUMIN 3.3 g/dL (3.4-5.0); ALBUMIN/GLOBULIN RATIO 1.1 (1.0-1.7); ALK PHOS 43 U/L (46-116); ALT (SGPT) 23 U/L (14-59); ANION GAP 6 (6-14); AST (SGOT) 14 U/L (15-37); BLOOD UREA NITROGEN 15 mg/dL (7-20); BUN/CREATININE RATIO 19 (6-20); CARBON DIOXIDE 31 mmol/L (21-32); CHLORIDE 107 mmol/L (98-107); CREATININE 0.8 mg/dL (0.6-1.0); GFR 71.1; GLUCOSE 89 mg/dL (70-99); MAGNESIUM 2.1 mg/dL (1.8-2.4); POTASSIUM 4.2 mmol/L (3.5-5.1); SODIUM 144 mmol/L (136-145); TOTAL BILIRUBIN 0.4 mg/dL (0.2-1.0); TOTAL PROTEIN 6.2 g/dL (6.4-8.2)
[2018-01-12 07:29] LABS: VAL ACID 76 mcg/mL (50-100)
[2018-01-12] MEDS: LEVOTHYROXINE 175 MCG TABLET PO SCH (07:30)
[2018-01-12] MEDS: PANTOPRAZOLE 40 MG TABLET. PO SCH (07:30)
[2018-01-12] MEDS: POTASSIUM CHLORIDE 10 MEQ TABLET.ER. PO SCH (08:00)
[2018-01-12] MEDS: ASPIRIN ENTERIC COATED 81 MG TABLET.DR. PO SCH (08:00)
[2018-01-12] MEDS: DIVALPROEX 125 MG CAP.SPRINK PO SCH ×2 (09:00→19:36)
[2018-01-12] MEDS: TRIAMCINOLONE ACETONIDE 0.1% TOPICAL CREAM 15GM TUBE. TP SCH ×2 (09:00→19:37)
[2018-01-12] MEDS: DOCUSATE 100 MG/10 ML SOLUTION. PO SCH (09:00)
[2018-01-12] MEDS: LACTOBACILLUS RHAMNOSUS GG 1 CAPSULE. PO SCH ×2 (09:00→19:35)
[2018-01-12] MEDS: LOSARTAN 50 MG TABLET. PO SCH (09:00)
[2018-01-12] MEDS: amLODIPine BESYLATE 5 MG TABLET PO SCH (09:00)
[2018-01-12 16:02] VITALS: BP 110/65
[2018-01-12] MEDS: traZODone 100 MG TABLET. PO SCH (19:35)
[2018-01-12] MEDS: MIRTAZAPINE ODT 15 MG TAB.RAPDIS. PO SCH (19:35)
[2018-01-12] MEDS: TAMSULOSIN 0.4 MG CAP.ER.24H. PO SCH (19:35)
[2018-01-12] MEDS: SIMVASTATIN 20 MG TABLET PO SCH (19:35)
--- NOTE | 2018-01-12 20:58 | PDOC ---
Exam Note: Abdi Note: Please also refer to the separate dictated note~for this date of service dictated separately.~Patient seen individually. Discussed the patient with Nursing staff reviewed the chart.~Reviewed interim history and current functioning. Reviewed vital signs,~Labs/ Radiology~and current medications noted below. Continue current treatment with the changes noted in the dictated addendum note Assessment: Vital Signs: Vital Signs Date Time Temp Pulse Resp B/P (MAP) Pulse Ox O2 Delivery O2 Flow Rate FiO2 01/12/18 16:02 61 16 110/65 (80) 01/11/18 16:19 97.8 96 01/09/18 16:31 Room Air I&O Intake and Output 01/12/18 07:00 Intake Total 842 ml Balance 842 ml Intake Oral 842 ml # Voids 1 Labs: Laboratory Tests Test 01/12/18 06:54 White Blood Count 6.8 x10^3/uL (4.0-11.0) Red Blood Count 4.31 x10^6/uL (3.50-5.40) Hemoglobin 13.7 g/dL (12.0-15.5) Hematocrit 40.3 % (36.0-47.0) Mean Corpuscular Volume 94 fL (79-100) Mean Corpuscular Hemoglobin 32 pg (25-35) Mean Corpuscular Hemoglobin Concent 34 g/dL (31-37) Red Cell Distribution Width 13.3 % (11.5-14.5) Platelet Count 213 x10^3/uL (140-400) Neutrophils (%) (Auto) 54 % (31-73) Lymphocytes (%) (Auto) 34 % (24-48) Monocytes (%) (Auto) 8 % (0-9) Eosinophils (%) (Auto) 3 % (0-3) Basophils (%) (Auto) 1 % (0-3) Neutrophils # (Auto) 3.6 x10^3uL (1.8-7.7) Lymphocytes # (Auto) 2.3 x10^3/uL (1.0-4.8) Monocytes # (Auto) 0.5 x10^3/uL (0.0-1.1) Eosinophils # (Auto) 0.2 x10^3/uL (0.0-0.7) Basophils # (Auto) 0.1 x10^3/uL (0.0-0.2) Sodium Level 144 mmol/L (136-145) Potassium Level 4.2 mmol/L (3.5-5.1) Chloride Level 107 mmol/L (98-107) Carbon Dioxide Level 31 mmol/L (21-32) Anion Gap 6 (6-14) Blood Urea Nitrogen 15 mg/dL (7-20) Creatinine 0.8 mg/dL (0.6-1.0) Estimated GFR (Cockcroft-Gault) 71.1 BUN/Creatinine Ratio 19 (6-20) Glucose Level 89 mg/dL (70-99) Calcium Level 9.0 mg/dL (8.5-10.1) Magnesium Level 2.1 mg/dL (1.8-2.4) Total Bilirubin 0.4 mg/dL (0.2-1.0) Aspartate Amino Transferase (AST) 14 U/L (15-37) L Alanine Aminotransferase (ALT) 23 U/L (14-59) Alkaline Phosphatase 43 U/L (46-116) L Total Protein 6.2 g/dL (6.4-8.2) L Albumin 3.3 g/dL (3.4-5.0) L Albumin/Globulin Ratio 1.1 (1.0-1.7) Valproic Acid Level 76 mcg/mL (50-100) Valproic Acid Last Dose Date 01/11/2018 Valproic Acid Last Dose Time 2100 Current Medications: Meds: Current Medications Ciprofloxacin (Cipro) 500 mg 1X ONCE PO Last administered on 12/31/17at 16:59; Start 12/31/17 at 16:45; Stop 12/31/17 at 17:00; Status DC Acetaminophen (Tylenol) 650 mg PRN Q6HRS PRN PO PAIN / TEMP; Start 12/31/17 at 18:15 Multi-Ingredient Ointment (Analgesic [place]) 1 hiral PRN QID PRN TP MUSCLE PAIN; Start 12/31/17 at 18:15 Al Hydroxide/Mg Hydroxide (Mylanta Plus Xs) 15 ml PRN AFTMEALHC PRN PO DYSPEPSIA; Start 12/31/17 at 18:15 Magnesium Hydroxide (Milk Of Magnesia) 2,400 mg PRN QHS PRN PO CONSTIPATION; Start 12/31/17 at 18:15 Olanzapine (ZyPREXA) 2.5 mg PRN Q2HR PRN PO AGITATION; Start 12/31/17 at 18:45 ; Stop 01/07/18 at 10:11; Status DC Divalproex Sodium (Depakote Sprinkles) 500 mg BID PO Last administered on at 19:36; Start 01/01/18 at 09:00 Haloperidol (Haldol) 2 mg [id number] PO Last administered on 01/01/18at 17:18; Start 01/01/18 at 00:00; Stop 01/01/18 at 18:44; Status DC Haloperidol Lactate (Haldol) 5 mg PRN Q6HRS PRN IM ANXIETY/AGITATION; Start at 22:15; Stop 01/01/18 at 18:44; Status DC Quetiapine Fumarate (SEROquel) 25 mg PRN Q4HRS PRN PO ANXIETY/AGITATION; Start 12/31/17 at 22:15; Stop 01/03/18 at 16:25; Status DC Quetiapine Fumarate (SEROquel) 150 mg QID PO Last administered on 01/03/18at 08: 12; Start 01/01/18 at 09:00; Stop 01/03/18 at 16:25; Status DC Trazodone HCl (Desyrel) 100 mg QHS PO Last administered on 01/12/18 19:35; Start 01/01/18 at 21:00 Docusate Sodium (Colace Solution) 100 mg DAILY PO Last administered on 07:27; Start 01/01/18 at 09:00 Levothyroxine Sodium (Synthroid) 175 mcg DAILYAC PO Last administered on 07:45; Start 01/01/18 at 07:30 Losartan Potassium (Cozaar) 50 mg DAILY PO Last administered on 01/11/18 12:33 ; Start 01/01/18 at 09:00 Tamsulosin HCl (Flomax) 0.4 mg QHS PO Last administered on 01/12/18 19:35; Start 01/01/18 at 21:00 Amlodipine Besylate (Norvasc) 5 mg DAILY PO Last administered on 01/11/18 12:32 ; Start 01/01/18 at 09:00 Aspirin (Aspirin Enteric Coated) 81 mg DAILYWBKFT PO Last administered on 07:50; Start 01/01/18 at 08:00 Bisacodyl (Dulcolax Supp) 10 mg PRN DAILY PRN [place] CONSTIPATION; Start 12/31/17 at 22:15 Acetaminophen/ Hydrocodone Bitart (Lortab 5/325) 1 tab PRN Q6HRS PRN PO PAIN; Start 12/31/17 at 22:15 Magnesium Hydroxide (Milk Of Magnesia) 2,400 mg PRN Q6HRS PRN PO CONSTIPATION; Start 12/31/17 at 22:15 Pantoprazole Sodium (Protonix) 40 mg DAILYAC PO Last administered on 01/11/18 07:45; Start 01/01/18 at 07:30 Polyethylene Glycol (miraLAX) 17 gm PRN DAILY PRN PO CONSTIPATION; Start at 09:00 Potassium Chloride (Klor-Con) 10 meq DAILYWBKFT PO Last administered on at 07:47; Start 01/01/18 at 08:00 Sennosides (Senna) 8.6 mg PRN DAILY PRN PO CONSTIPATION; Start 12/31/17 at 22: 15 Simvastatin (Zocor) 20 mg HS PO Last administered on 01/12/18 19:35; Start at 21:00 Triamcinolone Acetonide (Kenalog) 1 hiral BID TP Last administered on 01/08/18 19 :56; Start 01/01/18 at 09:00 Ceftriaxone Sodium (Rocephin Im) 1 gm DAILY IM Last administered on 01/02/18at 09:53; Start 01/02/18 at 09:00; Stop 01/04/18 at 14:44; Status DC Mirtazapine (Remeron Venessa-Tab) 7.5 mg QHS PO Last administered on 01/12/18 19:35 ; Start 01/01/18 at 21:00 Olanzapine (ZyPREXA ZYDIS) 2.5 mg PRN Q2HR PRN PO PSYCHOSIS; Start 01/01/18 at 18:45; Stop 01/02/18 at 10:58; Status DC Olanzapine (ZyPREXA ZYDIS) 2.5 mg HS PO Last administered on 01/05/18at 20:51; Start 01/02/18 at 21:00; Stop 01/07/18 at 16:38; Status DC Lactobacillus Rhamnosus (Culturelle) 1 cap BID PO Last administered on at 19:35; Start 01/03/18 at 21:00 Olanzapine (ZyPREXA ZYDIS) 2.5 mg PRN Q2HR PRN PO AGITATION Last administered on 01/11/18 23:34; Start 01/07/18 at 10:15 Olanzapine (ZyPREXA ZYDIS) 2.5 mg DAILY PO Last administered on 01/08/18at 07:32 ; Start 01/08/18 at 09:00; Stop 01/08/18 at 17:49; Status DC Olanzapine (ZyPREXA ZYDIS) 1.25 mg [id number] PO Last administered on 01/11/18at 07:48 ; Start 01/09/18 at 09:00; Stop 01/11/18 at 23:00; Status DC Olanzapine (ZyPREXA ZYDIS) 2.5 mg HS PO Last administered on 01/11/18at 19:30; Start 01/08/18 at 21:00; Stop 01/11/18 at 23:00; Status DC Olanzapine (ZyPREXA ZYDIS) 2.5 mg BID PO Last administered on 01/12/18at 19:36; Start 01/12/18 at 09:00 Olanzapine (ZyPREXA ZYDIS) 1.25 mg AFTRNOON PO Last administered on 01/12/18at 15 :51; Start 01/12/18 at 14:00 Active Scripts Active Reported Omeprazole 20 Mg Tablet.dr 20 Mg PO DAILY Levothyroxine Sodium 175 Mcg Tablet 175 Mcg PO DAILYAC Flomax (Tamsulosin Hcl) 0.4 Mg Cap.er.24h 0.4 Mg PO QHS Simvastatin 20 Mg Tablet 20 Mg PO HS [place] 5-325 Tablet (Hydrocodone Bit/Acetaminophen) 1 Each Tablet 1 Tab PO PRN Q6HRS PRN Haloperidol 2 Mg Tablet 2 Mg PO [id number] Potassium Chloride 10 Meq Tablet.er 10 Meq PO DAILY Docusate Sodium 50 Mg/5 Ml Liquid 10 Ml PO DAILY Losartan Potassium 50 Mg Tablet 50 Mg PO DAILY Aspirin Ec (Aspirin) 81 Mg Tablet.dr 81 Mg PO DAILY Amlodipine Besylate 5 Mg Tablet 5 Mg PO DAILY Depakote Sprinkle (Divalproex Sodium) 125 Mg Cap.sprink 500 Mg PO BID Seroquel (Quetiapine Fumarate) 25 Mg Tablet 25 Mg PO PRN Q4HRS PRN Seroquel (Quetiapine Fumarate) 100 Mg Tablet 150 Mg PO QID Trazodone Hcl 100 Mg Tablet 100 Mg PO QHS Miralax (Polyethylene Glycol 3350) 17 Gm Powd.pack 17 Gm PO PRN DAILY PRN Senokot (Sennosides) 8.6 Mg Tablet 8.6 Mg PO PRN DAILY PRN Dulcolax (Bisacodyl) 10 Mg Supp.rect 10 Mg RC PRN DAILY PRN Milk Of Magnesia (Magnesium Hydroxide) 2,400 Mg/10 Ml Oral.susp 2,400 Mg PO PRN Q6HRS PRN Triamcinolone Acetonide 15 Gm Cream..g. 1 Hiral TOP BID Haldol (Haloperidol Lactate) 5 Mg/1 Ml Ampul 5 Mg IJ PRN Q6HRS PRN I have reviewed the current psychotropics carefully including drug interactions. Risk benefit ratio favors no change other than as noted in my dictated progress note. 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
--- NOTE | 2018-01-12 23:34 | PN ---
DATE: 01/10/2018 PSYCHIATRIC PROGRESS NOTE This late entry 01/10/2018 covers elements not covered in my initial note. SUBJECTIVE: Met with the patient in the evening. The patient slept 6-1/4 hours previous evening. The patient remains confused, slept until noon. She has been swinging at staff if she is awakened. She has been angry wandering around the unit, takes her medications and Boost x 2. Ate no breakfast or lunch. REVIEW OF SYSTEMS: No CV, , pulmonary, eye, ENT system symptoms on review. Reliability poor. MENTAL STATUS EXAM: Oriented to herself. Insight, judgment, recent and remote memory, attention, concentration, fund of knowledge is poor, consistent with her diagnoses mentioned in my initial note. PLAN: No change from initial note. MAN Lisa MURRAY MD DR: [email or web address]/valeriy JOB#: [id number] / [id number]
[2018-01-13 06:33] VITALS: BP 102/68
[2018-01-13] MEDS: amLODIPine BESYLATE 5 MG TABLET PO SCH (09:00)
[2018-01-13] MEDS: LOSARTAN 50 MG TABLET. PO SCH (09:00)
[2018-01-13] MEDS: TRIAMCINOLONE ACETONIDE 0.1% TOPICAL CREAM 15GM TUBE. TP SCH ×2 (09:00→19:15)
[2018-01-13] MEDS: DIVALPROEX 125 MG CAP.SPRINK PO SCH ×2 (10:52→19:14)
[2018-01-13] MEDS: POTASSIUM CHLORIDE 10 MEQ TABLET.ER. PO SCH (10:53)
[2018-01-13] MEDS: PANTOPRAZOLE 40 MG TABLET. PO SCH (10:53)
[2018-01-13] MEDS: ASPIRIN ENTERIC COATED 81 MG TABLET.DR. PO SCH (10:53)
[2018-01-13] MEDS: LACTOBACILLUS RHAMNOSUS GG 1 CAPSULE. PO SCH ×2 (10:53→19:14)
[2018-01-13] MEDS: LEVOTHYROXINE 175 MCG TABLET PO SCH (10:54)
[2018-01-13] MEDS: DOCUSATE 100 MG/10 ML SOLUTION. PO SCH (10:54)
[2018-01-13 15:55] VITALS: BP 99/65
[2018-01-13] MEDS: MIRTAZAPINE ODT 15 MG TAB.RAPDIS. PO SCH (19:14)
[2018-01-13] MEDS: SIMVASTATIN 20 MG TABLET PO SCH (19:14)
[2018-01-13] MEDS: traZODone 100 MG TABLET. PO SCH (19:14)
[2018-01-13] MEDS: TAMSULOSIN 0.4 MG CAP.ER.24H. PO SCH (19:14)
--- NOTE | 2018-01-13 20:57 | PDOC ---
Exam Note: Abdi Note: Please also refer to the separate dictated note~for this date of service dictated separately.~Patient seen individually. Discussed the patient with Nursing staff reviewed the chart.~Reviewed interim history and current functioning. Reviewed vital signs,~Labs/ Radiology~and current medications noted below. Continue current treatment with the changes noted in the dictated addendum note Assessment: Vital Signs: Vital Signs Date Time Temp Pulse Resp B/P (MAP) Pulse Ox O2 Delivery O2 Flow Rate FiO2 01/13/18 15:55 97.7 96 18 99/65 (76) 100 Room Air I&O Intake and Output 01/13/18 07:00 Intake Total 245 ml Balance 245 ml Intake Oral 245 ml # Voids 1 Current Medications: Meds: Current Medications Ciprofloxacin (Cipro) 500 mg 1X ONCE PO Last administered on 12/31/17at 16:59; Start 12/31/17 at 16:45; Stop 12/31/17 at 17:00; Status DC Acetaminophen (Tylenol) 650 mg PRN Q6HRS PRN PO PAIN / TEMP; Start 12/31/17 at 18:15 Multi-Ingredient Ointment (Analgesic [place]) 1 hiral PRN QID PRN TP MUSCLE PAIN; Start 12/31/17 at 18:15 Al Hydroxide/Mg Hydroxide (Mylanta Plus Xs) 15 ml PRN AFTMEALHC PRN PO DYSPEPSIA; Start 12/31/17 at 18:15 Magnesium Hydroxide (Milk Of Magnesia) 2,400 mg PRN QHS PRN PO CONSTIPATION; Start 12/31/17 at 18:15 Olanzapine (ZyPREXA) 2.5 mg PRN Q2HR PRN PO AGITATION; Start 12/31/17 at 18:45 ; Stop 01/07/18 at 10:11; Status DC Divalproex Sodium (Depakote Sprinkles) 500 mg BID PO Last administered on at 19:14; Start 01/01/18 at 09:00 Haloperidol (Haldol) 2 mg [id number] PO Last administered on 01/01/18at 17:18; Start 01/01/18 at 00:00; Stop 01/01/18 at 18:44; Status DC Haloperidol Lactate (Haldol) 5 mg PRN Q6HRS PRN IM ANXIETY/AGITATION; Start at 22:15; Stop 01/01/18 at 18:44; Status DC Quetiapine Fumarate (SEROquel) 25 mg PRN Q4HRS PRN PO ANXIETY/AGITATION; Start 12/31/17 at 22:15; Stop 01/03/18 at 16:25; Status DC Quetiapine Fumarate (SEROquel) 150 mg QID PO Last administered on 01/03/18 08: 12; Start 01/01/18 at 09:00; Stop 01/03/18 at 16:25; Status DC Trazodone HCl (Desyrel) 100 mg QHS PO Last administered on 01/13/18 19:14; Start 01/01/18 at 21:00 Docusate Sodium (Colace Solution) 100 mg DAILY PO Last administered on 10:54; Start 01/01/18 at 09:00 Levothyroxine Sodium (Synthroid) 175 mcg DAILYAC PO Last administered on 10:54; Start 01/01/18 at 07:30 Losartan Potassium (Cozaar) 50 mg DAILY PO Last administered on 01/11/18 12:33 ; Start 01/01/18 at 09:00 Tamsulosin HCl (Flomax) 0.4 mg QHS PO Last administered on 01/13/18 19:14; Start 01/01/18 at 21:00 Amlodipine Besylate (Norvasc) 5 mg DAILY PO Last administered on 01/11/18 12:32 ; Start 01/01/18 at 09:00 Aspirin (Aspirin Enteric Coated) 81 mg DAILYWBKFT PO Last administered on 10:53; Start 01/01/18 at 08:00 Bisacodyl (Dulcolax Supp) 10 mg PRN DAILY PRN [place] CONSTIPATION; Start 12/31/17 at 22:15 Acetaminophen/ Hydrocodone Bitart (Lortab 5/325) 1 tab PRN Q6HRS PRN PO PAIN Last administered on 01/12/18at 23:34; Start 12/31/17 at 22:15 Magnesium Hydroxide (Milk Of Magnesia) 2,400 mg PRN Q6HRS PRN PO CONSTIPATION; Start 12/31/17 at 22:15 Pantoprazole Sodium (Protonix) 40 mg DAILYAC PO Last administered on 01/13/18 10:53; Start 01/01/18 at 07:30 Polyethylene Glycol (miraLAX) 17 gm PRN DAILY PRN PO CONSTIPATION; Start at 09:00 Potassium Chloride (Klor-Con) 10 meq DAILYWBKFT PO Last administered on at 10:53; Start 01/01/18 at 08:00 Sennosides (Senna) 8.6 mg PRN DAILY PRN PO CONSTIPATION; Start 12/31/17 at 22: 15 Simvastatin (Zocor) 20 mg HS PO Last administered on 01/13/18 19:14; Start at 21:00 Triamcinolone Acetonide (Kenalog) 1 hiral BID TP Last administered on 01/08/18 19 :56; Start 01/01/18 at 09:00 Ceftriaxone Sodium (Rocephin Im) 1 gm DAILY IM Last administered on 01/02/18 09:53; Start 01/02/18 at 09:00; Stop 01/04/18 at 14:44; Status DC Mirtazapine (Remeron Venessa-Tab) 7.5 mg QHS PO Last administered on 01/13/18 19: 14; Start 01/01/18 at 21:00 Olanzapine (ZyPREXA ZYDIS) 2.5 mg PRN Q2HR PRN PO PSYCHOSIS; Start 01/01/18 at 18:45; Stop 01/02/18 at 10:58; Status DC Olanzapine (ZyPREXA ZYDIS) 2.5 mg HS PO Last administered on 01/05/18 20:51; Start 01/02/18 at 21:00; Stop 01/07/18 at 16:38; Status DC Lactobacillus Rhamnosus (Culturelle) 1 cap BID PO Last administered on 19:14; Start 01/03/18 at 21:00 Olanzapine (ZyPREXA ZYDIS) 2.5 mg PRN Q2HR PRN PO AGITATION Last administered on 01/12/18 23:34; Start 01/07/18 at 10:15 Olanzapine (ZyPREXA ZYDIS) 2.5 mg DAILY PO Last administered on 01/08/18at 07:32 ; Start 01/08/18 at 09:00; Stop 01/08/18 at 17:49; Status DC Olanzapine (ZyPREXA ZYDIS) 1.25 mg [id number] PO Last administered on 01/11/18at 07:48 ; Start 01/09/18 at 09:00; Stop 01/11/18 at 23:00; Status DC Olanzapine (ZyPREXA ZYDIS) 2.5 mg HS PO Last administered on 01/11/18at 19:30; Start 01/08/18 at 21:00; Stop 01/11/18 at 23:00; Status DC Olanzapine (ZyPREXA ZYDIS) 2.5 mg BID PO Last administered on 01/13/18at 19:15; Start 01/12/18 at 09:00; Stop 01/13/18 at 21:00 Olanzapine (ZyPREXA ZYDIS) 1.25 mg AFTRNOON PO Last administered on 01/12/18at 15 :51; Start 01/12/18 at 14:00; Stop 01/13/18 at 16:52; Status DC Olanzapine (ZyPREXA ZYDIS) 2.5 mg TID PO ; Start 01/14/18 at 09:00 Active Scripts Active Reported Omeprazole 20 Mg Tablet.dr 20 Mg PO DAILY Levothyroxine Sodium 175 Mcg Tablet 175 Mcg PO DAILYAC Flomax (Tamsulosin Hcl) 0.4 Mg Cap.er.24h 0.4 Mg PO QHS Simvastatin 20 Mg Tablet 20 Mg PO HS [place] 5-325 Tablet (Hydrocodone Bit/Acetaminophen) 1 Each Tablet 1 Tab PO PRN Q6HRS PRN Haloperidol 2 Mg Tablet 2 Mg PO [id number] Potassium Chloride 10 Meq Tablet.er 10 Meq PO DAILY Docusate Sodium 50 Mg/5 Ml Liquid 10 Ml PO DAILY Losartan Potassium 50 Mg Tablet 50 Mg PO DAILY Aspirin Ec (Aspirin) 81 Mg Tablet.dr 81 Mg PO DAILY Amlodipine Besylate 5 Mg Tablet 5 Mg PO DAILY Depakote Sprinkle (Divalproex Sodium) 125 Mg Cap.sprink 500 Mg PO BID Seroquel (Quetiapine Fumarate) 25 Mg Tablet 25 Mg PO PRN Q4HRS PRN Seroquel (Quetiapine Fumarate) 100 Mg Tablet 150 Mg PO QID Trazodone Hcl 100 Mg Tablet 100 Mg PO QHS Miralax (Polyethylene Glycol 3350) 17 Gm Powd.pack 17 Gm PO PRN DAILY PRN Senokot (Sennosides) 8.6 Mg Tablet 8.6 Mg PO PRN DAILY PRN Dulcolax (Bisacodyl) 10 Mg Supp.rect 10 Mg RC PRN DAILY PRN Milk Of Magnesia (Magnesium Hydroxide) 2,400 Mg/10 Ml Oral.susp 2,400 Mg PO PRN Q6HRS PRN Triamcinolone Acetonide 15 Gm Cream..g. 1 Hiral TOP BID Haldol (Haloperidol Lactate) 5 Mg/1 Ml Ampul 5 Mg IJ PRN Q6HRS PRN I have reviewed the current psychotropics carefully including drug interactions. Risk benefit ratio favors no change other than as noted in my dictated progress note. 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
--- NOTE | 2018-01-13 22:21 | PN ---
DATE: 01/11/2018 PSYCHIATRIC PROGRESS NOTE This late entry 01/11/2018 covers elements not covered in my initial note. SUBJECTIVE: I met with the patient in the evening. Overall, the patient remains confused, resistive to a.m. medications, calling staff, but rather nasty names, paranoid, confused. REVIEW OF SYSTEMS: No CV, , pulmonary, eye, ENT system symptoms on review. Reliability poor. MENTAL STATUS EXAM: Oriented to herself. Insight, judgment, recent and remote memory, attention, concentration, fund of knowledge poor, consistent with her diagnosis mentioned in my initial note. PLAN: No change from initial note. The patient does respond positively to Zyprexa, we will increase the morning dosage to 2.5 mg, continue 1.25 at 1400, and 2.5 mg at bedtime; Remeron 7.5 at bedtime; Zyprexa p.r.n.; trazodone 100 at bedtime; Depakote Sprinkles 500 b.i.d. JAYLAN MURRAY MD DR: DANIEL/valeriy JOB#: [id number] / [id number]
--- NOTE | 2018-01-13 22:58 | PN ---
DATE: 01/12/2018 PSYCHIATRIC PROGRESS NOTE This late entry 01/12/2018 covers elements not covered in my initial note. SUBJECTIVE: I met with the patient in the evening. The patient slept 5 hours previous night. She remains confused, wanders the hallways, not aggressive, a little irritable at times. REVIEW OF SYSTEMS: No CV, , pulmonary, eye, ENT system symptoms on review. Reliability poor. MENTAL STATUS EXAM: Oriented to herself. Insight, judgment, recent and remote memory, attention, concentration, fund of knowledge poor, consistent with her diagnosis mentioned in my initial note. PLAN: No change from initial note. MAN Lsia MURRAY MD DR: DANIEL/valeriy JOB#: [id number] / [id number]
[2018-01-14] MEDS: DOCUSATE 100 MG/10 ML SOLUTION. PO SCH (08:33)
[2018-01-14] MEDS: POTASSIUM CHLORIDE 10 MEQ TABLET.ER. PO SCH (08:33)
[2018-01-14] MEDS: ASPIRIN ENTERIC COATED 81 MG TABLET.DR. PO SCH (08:33)
[2018-01-14] MEDS: PANTOPRAZOLE 40 MG TABLET. PO SCH (08:34)
[2018-01-14] MEDS: LACTOBACILLUS RHAMNOSUS GG 1 CAPSULE. PO SCH ×2 (08:34→19:09)
[2018-01-14] MEDS: DIVALPROEX 125 MG CAP.SPRINK PO SCH ×2 (08:34→19:09)
[2018-01-14] MEDS: LEVOTHYROXINE 175 MCG TABLET PO SCH (08:34)
[2018-01-14] MEDS: LOSARTAN 50 MG TABLET. PO SCH (09:09)
[2018-01-14] MEDS: TRIAMCINOLONE ACETONIDE 0.1% TOPICAL CREAM 15GM TUBE. TP SCH ×2 (09:10→19:11)
[2018-01-14] MEDS: amLODIPine BESYLATE 5 MG TABLET PO SCH (09:10)
[2018-01-14] MEDS: SIMVASTATIN 20 MG TABLET PO SCH (19:10)
[2018-01-14] MEDS: TAMSULOSIN 0.4 MG CAP.ER.24H. PO SCH (19:10)
[2018-01-14] MEDS: MIRTAZAPINE ODT 15 MG TAB.RAPDIS. PO SCH (19:10)
[2018-01-14] MEDS: traZODone 100 MG TABLET. PO SCH (19:10)
--- NOTE | 2018-01-14 20:55 | PDOC ---
Exam Note: Abdi Note: Please also refer to the separate dictated note~for this date of service dictated separately.~Patient seen individually. Discussed the patient with Nursing staff reviewed the chart.~Reviewed interim history and current functioning. Reviewed vital signs,~Labs/ Radiology~and current medications noted below. Continue current treatment with the changes noted in the dictated addendum note Assessment: Vital Signs: Vital Signs Date Time Temp Pulse Resp B/P (MAP) Pulse Ox O2 Delivery O2 Flow Rate FiO2 01/14/18 06:34 97.7 18 01/13/18 15:55 96 99/65 (76) 100 Room Air I&O Intake and Output 01/14/18 07:00 Intake Total 580 ml Balance 580 ml Intake Oral 580 ml # Voids 1 Current Medications: Meds: Current Medications Ciprofloxacin (Cipro) 500 mg 1X ONCE PO Last administered on 12/31/17at 16:59; Start 12/31/17 at 16:45; Stop 12/31/17 at 17:00; Status DC Acetaminophen (Tylenol) 650 mg PRN Q6HRS PRN PO PAIN / TEMP; Start 12/31/17 at 18:15 Multi-Ingredient Ointment (Analgesic [place]) 1 hiral PRN QID PRN TP MUSCLE PAIN; Start 12/31/17 at 18:15 Al Hydroxide/Mg Hydroxide (Mylanta Plus Xs) 15 ml PRN AFTMEALHC PRN PO DYSPEPSIA; Start 12/31/17 at 18:15 Magnesium Hydroxide (Milk Of Magnesia) 2,400 mg PRN QHS PRN PO CONSTIPATION; Start 12/31/17 at 18:15 Olanzapine (ZyPREXA) 2.5 mg PRN Q2HR PRN PO AGITATION; Start 12/31/17 at 18:45 ; Stop 01/07/18 at 10:11; Status DC Divalproex Sodium (Depakote Sprinkles) 500 mg BID PO Last administered on at 19:09; Start 01/01/18 at 09:00 Haloperidol (Haldol) 2 mg [id number] PO Last administered on 01/01/18at 17:18; Start 01/01/18 at 00:00; Stop 01/01/18 at 18:44; Status DC Haloperidol Lactate (Haldol) 5 mg PRN Q6HRS PRN IM ANXIETY/AGITATION; Start at 22:15; Stop 01/01/18 at 18:44; Status DC Quetiapine Fumarate (SEROquel) 25 mg PRN Q4HRS PRN PO ANXIETY/AGITATION; Start 12/31/17 at 22:15; Stop 01/03/18 at 16:25; Status DC Quetiapine Fumarate (SEROquel) 150 mg QID PO Last administered on 01/03/18 08: 12; Start 01/01/18 at 09:00; Stop 01/03/18 at 16:25; Status DC Trazodone HCl (Desyrel) 100 mg QHS PO Last administered on 01/14/18 19:10; Start 01/01/18 at 21:00 Docusate Sodium (Colace Solution) 100 mg DAILY PO Last administered on 08:33; Start 01/01/18 at 09:00 Levothyroxine Sodium (Synthroid) 175 mcg DAILYAC PO Last administered on 08:34; Start 01/01/18 at 07:30 Losartan Potassium (Cozaar) 50 mg DAILY PO Last administered on 01/11/18 12:33 ; Start 01/01/18 at 09:00 Tamsulosin HCl (Flomax) 0.4 mg QHS PO Last administered on 01/14/18 19:10; Start 01/01/18 at 21:00 Amlodipine Besylate (Norvasc) 5 mg DAILY PO Last administered on 01/11/18 12:32 ; Start 01/01/18 at 09:00 Aspirin (Aspirin Enteric Coated) 81 mg DAILYWBKFT PO Last administered on at 08:33; Start 01/01/18 at 08:00 Bisacodyl (Dulcolax Supp) 10 mg PRN DAILY PRN [place] CONSTIPATION; Start 12/31/17 at 22:15 Acetaminophen/ Hydrocodone Bitart (Lortab 5/325) 1 tab PRN Q6HRS PRN PO PAIN Last administered on 01/12/18 23:34; Start 12/31/17 at 22:15 Magnesium Hydroxide (Milk Of Magnesia) 2,400 mg PRN Q6HRS PRN PO CONSTIPATION; Start 12/31/17 at 22:15 Pantoprazole Sodium (Protonix) 40 mg DAILYAC PO Last administered on 01/14/18 08:34; Start 01/01/18 at 07:30 Polyethylene Glycol (miraLAX) 17 gm PRN DAILY PRN PO CONSTIPATION; Start at 09:00 Potassium Chloride (Klor-Con) 10 meq DAILYWBKFT PO Last administered on 08:33; Start 01/01/18 at 08:00 Sennosides (Senna) 8.6 mg PRN DAILY PRN PO CONSTIPATION; Start 12/31/17 at 22: 15 Simvastatin (Zocor) 20 mg HS PO Last administered on 01/14/18 19:10; Start at 21:00 Triamcinolone Acetonide (Kenalog) 1 hiral BID TP Last administered on 01/08/18 19 :56; Start 01/01/18 at 09:00 Ceftriaxone Sodium (Rocephin Im) 1 gm DAILY IM Last administered on 01/02/18at 09:53; Start 01/02/18 at 09:00; Stop 01/04/18 at 14:44; Status DC Mirtazapine (Remeron Venessa-Tab) 7.5 mg QHS PO Last administered on 01/14/18 19: 10; Start 01/01/18 at 21:00 Olanzapine (ZyPREXA ZYDIS) 2.5 mg PRN Q2HR PRN PO PSYCHOSIS; Start 01/01/18 at 18:45; Stop 01/02/18 at 10:58; Status DC Olanzapine (ZyPREXA ZYDIS) 2.5 mg HS PO Last administered on 01/05/18at 20:51; Start 01/02/18 at 21:00; Stop 01/07/18 at 16:38; Status DC Lactobacillus Rhamnosus (Culturelle) 1 cap BID PO Last administered on 19:09; Start 01/03/18 at 21:00 Olanzapine (ZyPREXA ZYDIS) 2.5 mg PRN Q2HR PRN PO AGITATION Last administered on 01/14/18 16:18; Start 01/07/18 at 10:15 Olanzapine (ZyPREXA ZYDIS) 2.5 mg DAILY PO Last administered on 01/08/18 07:32 ; Start 01/08/18 at 09:00; Stop 01/08/18 at 17:49; Status DC Olanzapine (ZyPREXA ZYDIS) 1.25 mg [id number] PO Last administered on 01/11/18at 07:48 ; Start 01/09/18 at 09:00; Stop 01/11/18 at 23:00; Status DC Olanzapine (ZyPREXA ZYDIS) 2.5 mg HS PO Last administered on 01/11/18at 19:30; Start 01/08/18 at 21:00; Stop 01/11/18 at 23:00; Status DC Olanzapine (ZyPREXA ZYDIS) 2.5 mg BID PO Last administered on 01/13/18at 19:15; Start 01/12/18 at 09:00; Stop 01/13/18 at 21:00; Status DC Olanzapine (ZyPREXA ZYDIS) 1.25 mg AFTRNOON PO Last administered on 01/12/18at 15 :51; Start 01/12/18 at 14:00; Stop 01/13/18 at 16:52; Status DC Olanzapine (ZyPREXA ZYDIS) 2.5 mg TID PO Last administered on 01/14/18at 19:10; Start 01/14/18 at 09:00 Trazodone HCl (Desyrel) 12.5 mg TID@0900,1300,1700 PO ; Start 01/15/18 at 09:00 Active Scripts Active Reported Omeprazole 20 Mg Tablet.dr 20 Mg PO DAILY Levothyroxine Sodium 175 Mcg Tablet 175 Mcg PO DAILYAC Flomax (Tamsulosin Hcl) 0.4 Mg Cap.er.24h 0.4 Mg PO QHS Simvastatin 20 Mg Tablet 20 Mg PO HS [place] 5-325 Tablet (Hydrocodone Bit/Acetaminophen) 1 Each Tablet 1 Tab PO PRN Q6HRS PRN Haloperidol 2 Mg Tablet 2 Mg PO [id number] Potassium Chloride 10 Meq Tablet.er 10 Meq PO DAILY Docusate Sodium 50 Mg/5 Ml Liquid 10 Ml PO DAILY Losartan Potassium 50 Mg Tablet 50 Mg PO DAILY Aspirin Ec (Aspirin) 81 Mg Tablet.dr 81 Mg PO DAILY Amlodipine Besylate 5 Mg Tablet 5 Mg PO DAILY Depakote Sprinkle (Divalproex Sodium) 125 Mg Cap.sprink 500 Mg PO BID Seroquel (Quetiapine Fumarate) 25 Mg Tablet 25 Mg PO PRN Q4HRS PRN Seroquel (Quetiapine Fumarate) 100 Mg Tablet 150 Mg PO QID Trazodone Hcl 100 Mg Tablet 100 Mg PO QHS Miralax (Polyethylene Glycol 3350) 17 Gm Powd.pack 17 Gm PO PRN DAILY PRN Senokot (Sennosides) 8.6 Mg Tablet 8.6 Mg PO PRN DAILY PRN Dulcolax (Bisacodyl) 10 Mg Supp.rect 10 Mg RC PRN DAILY PRN Milk Of Magnesia (Magnesium Hydroxide) 2,400 Mg/10 Ml Oral.susp 2,400 Mg PO PRN Q6HRS PRN Triamcinolone Acetonide 15 Gm Cream..g. 1 Hiral TOP BID Haldol (Haloperidol Lactate) 5 Mg/1 Ml Ampul 5 Mg IJ PRN Q6HRS PRN I have reviewed the current psychotropics carefully including drug interactions. Risk benefit ratio favors no change other than as noted in my dictated progress note. 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
--- NOTE | 2018-01-14 21:57 | PN ---
DATE: 01/13/2018 PSYCHIATRIC PROGRESS NOTE This late entry 01/13/2018 covers elements not covered in my initial note. SUBJECTIVE: Met with the patient in evening of 01/13/2018. The patient slept 7 hours previous night. She has been cursing at staff, wandering up and down the hallway, oblivious of her surroundings. Does better after Zyprexa. REVIEW OF SYSTEMS: No CV, , pulmonary, eye, ENT system symptoms on review. Reliability is poor. She is very paranoid as I met with her, but not aggressive. MENTAL STATUS EXAM: Oriented to herself. Insight, judgment, recent and remote memory, attention, concentration, fund of knowledge is poor, consistent with her diagnoses mentioned in my initial note. PLAN: Increase the Zyprexa to 2.5 mg 3 times a day that is an increase of 1.25 mg. Continue rest psychotropics unchanged from initial note including Depakote, trazodone, Remeron, and the Zyprexa p.r.n. JAYLAN MURRAY MD DR: DANIEL/valeriy JOB#: [id number] / [id number]
[2018-01-15] MEDS: TRIAMCINOLONE ACETONIDE 0.1% TOPICAL CREAM 15GM TUBE. TP SCH ×2 (09:00→21:00)
[2018-01-15] MEDS: POTASSIUM CHLORIDE 10 MEQ TABLET.ER. PO SCH (09:31)
[2018-01-15] MEDS: DOCUSATE 100 MG/10 ML SOLUTION. PO SCH (09:31)
[2018-01-15] MEDS: LEVOTHYROXINE 175 MCG TABLET PO SCH (09:32)
[2018-01-15] MEDS: amLODIPine BESYLATE 5 MG TABLET PO SCH (09:34)
[2018-01-15] MEDS: LACTOBACILLUS RHAMNOSUS GG 1 CAPSULE. PO SCH ×2 (09:34→19:28)
[2018-01-15] MEDS: DIVALPROEX 125 MG CAP.SPRINK PO SCH ×2 (09:38→19:28)
[2018-01-15] MEDS: ASPIRIN ENTERIC COATED 81 MG TABLET.DR. PO SCH (09:38)
[2018-01-15] MEDS: PANTOPRAZOLE 40 MG TABLET. PO SCH (09:38)
[2018-01-15] MEDS: LOSARTAN 50 MG TABLET. PO SCH (09:42)
[2018-01-15] MEDS: traZODone 50 MG TABLET. PO SCH ×3 (09:49→17:28)
[2018-01-15 15:33] VITALS: BP 110/57
[2018-01-15] MEDS: TAMSULOSIN 0.4 MG CAP.ER.24H. PO SCH (19:28)
[2018-01-15] MEDS: traZODone 100 MG TABLET. PO SCH (19:29)
[2018-01-15] MEDS: MIRTAZAPINE ODT 15 MG TAB.RAPDIS. PO SCH (19:29)
[2018-01-15] MEDS: SIMVASTATIN 20 MG TABLET PO SCH (19:29)
--- NOTE | 2018-01-15 21:00 | PDOC ---
Exam Note: Abdi Note: Please also refer to the separate dictated note~for this date of service dictated separately.~Patient seen individually. Discussed the patient with Nursing staff reviewed the chart.~Reviewed interim history and current functioning. Reviewed vital signs,~Labs/ Radiology~and current medications noted below. Continue current treatment with the changes noted in the dictated addendum note Assessment: Vital Signs: Vital Signs Date Time Temp Pulse Resp B/P (MAP) Pulse Ox O2 Delivery O2 Flow Rate FiO2 01/15/18 15:33 97.6 99 16 110/57 (74) 97 Room Air I&O Intake and Output 01/15/18 07:00 Intake Total 960 ml Balance 960 ml Intake Oral 960 ml # Voids 1 Current Medications: Meds: Current Medications Ciprofloxacin (Cipro) 500 mg 1X ONCE PO Last administered on 12/31/17at 16:59; Start 12/31/17 at 16:45; Stop 12/31/17 at 17:00; Status DC Acetaminophen (Tylenol) 650 mg PRN Q6HRS PRN PO PAIN / TEMP; Start 12/31/17 at 18:15 Multi-Ingredient Ointment (Analgesic [place]) 1 hiral PRN QID PRN TP MUSCLE PAIN; Start 12/31/17 at 18:15 Al Hydroxide/Mg Hydroxide (Mylanta Plus Xs) 15 ml PRN AFTMEALHC PRN PO DYSPEPSIA; Start 12/31/17 at 18:15 Magnesium Hydroxide (Milk Of Magnesia) 2,400 mg PRN QHS PRN PO CONSTIPATION; Start 12/31/17 at 18:15 Olanzapine (ZyPREXA) 2.5 mg PRN Q2HR PRN PO AGITATION; Start 12/31/17 at 18:45 ; Stop 01/07/18 at 10:11; Status DC Divalproex Sodium (Depakote Sprinkles) 500 mg BID PO Last administered on at 19:28; Start 01/01/18 at 09:00 Haloperidol (Haldol) 2 mg [id number] PO Last administered on 01/01/18at 17:18; Start 01/01/18 at 00:00; Stop 01/01/18 at 18:44; Status DC Haloperidol Lactate (Haldol) 5 mg PRN Q6HRS PRN IM ANXIETY/AGITATION; Start at 22:15; Stop 01/01/18 at 18:44; Status DC Quetiapine Fumarate (SEROquel) 25 mg PRN Q4HRS PRN PO ANXIETY/AGITATION; Start 12/31/17 at 22:15; Stop 01/03/18 at 16:25; Status DC Quetiapine Fumarate (SEROquel) 150 mg QID PO Last administered on 01/03/18 08: 12; Start 01/01/18 at 09:00; Stop 01/03/18 at 16:25; Status DC Trazodone HCl (Desyrel) 100 mg QHS PO Last administered on 01/15/18 19:29; Start 01/01/18 at 21:00 Docusate Sodium (Colace Solution) 100 mg DAILY PO Last administered on 09:31; Start 01/01/18 at 09:00 Levothyroxine Sodium (Synthroid) 175 mcg DAILYAC PO Last administered on 09:32; Start 01/01/18 at 07:30 Losartan Potassium (Cozaar) 50 mg DAILY PO Last administered on 01/15/18 09:42 ; Start 01/01/18 at 09:00 Tamsulosin HCl (Flomax) 0.4 mg QHS PO Last administered on 01/15/18 19:28; Start 01/01/18 at 21:00 Amlodipine Besylate (Norvasc) 5 mg DAILY PO Last administered on 01/15/18 09: 34; Start 01/01/18 at 09:00 Aspirin (Aspirin Enteric Coated) 81 mg DAILYWBKFT PO Last administered on 09:38; Start 01/01/18 at 08:00 Bisacodyl (Dulcolax Supp) 10 mg PRN DAILY PRN [place] CONSTIPATION; Start 12/31/17 at 22:15 Acetaminophen/ Hydrocodone Bitart (Lortab 5/325) 1 tab PRN Q6HRS PRN PO PAIN Last administered on 01/12/18 23:34; Start 12/31/17 at 22:15 Magnesium Hydroxide (Milk Of Magnesia) 2,400 mg PRN Q6HRS PRN PO CONSTIPATION; Start 12/31/17 at 22:15 Pantoprazole Sodium (Protonix) 40 mg DAILYAC PO Last administered on 01/15/18 09:38; Start 01/01/18 at 07:30 Polyethylene Glycol (miraLAX) 17 gm PRN DAILY PRN PO CONSTIPATION; Start at 09:00 Potassium Chloride (Klor-Con) 10 meq DAILYWBKFT PO Last administered on 09:31; Start 01/01/18 at 08:00 Sennosides (Senna) 8.6 mg PRN DAILY PRN PO CONSTIPATION; Start 12/31/17 at 22: 15 Simvastatin (Zocor) 20 mg HS PO Last administered on 01/15/18 19:29; Start at 21:00 Triamcinolone Acetonide (Kenalog) 1 hiral BID TP Last administered on 01/08/18 19 :56; Start 01/01/18 at 09:00 Ceftriaxone Sodium (Rocephin Im) 1 gm DAILY IM Last administered on 01/02/18 09:53; Start 01/02/18 at 09:00; Stop 01/04/18 at 14:44; Status DC Mirtazapine (Remeron Venessa-Tab) 7.5 mg QHS PO Last administered on 01/15/18 19: 29; Start 01/01/18 at 21:00 Olanzapine (ZyPREXA ZYDIS) 2.5 mg PRN Q2HR PRN PO PSYCHOSIS; Start 01/01/18 at 18:45; Stop 01/02/18 at 10:58; Status DC Olanzapine (ZyPREXA ZYDIS) 2.5 mg HS PO Last administered on 01/05/18at 20:51; Start 01/02/18 at 21:00; Stop 01/07/18 at 16:38; Status DC Lactobacillus Rhamnosus (Culturelle) 1 cap BID PO Last administered on 19:28; Start 01/03/18 at 21:00 Olanzapine (ZyPREXA ZYDIS) 2.5 mg PRN Q2HR PRN PO AGITATION Last administered on 01/15/18 09:32; Start 01/07/18 at 10:15 Olanzapine (ZyPREXA ZYDIS) 2.5 mg DAILY PO Last administered on 01/08/18 07:32 ; Start 01/08/18 at 09:00; Stop 01/08/18 at 17:49; Status DC Olanzapine (ZyPREXA ZYDIS) 1.25 mg [id number] PO Last administered on 01/11/18at 07:48 ; Start 01/09/18 at 09:00; Stop 01/11/18 at 23:00; Status DC Olanzapine (ZyPREXA ZYDIS) 2.5 mg HS PO Last administered on 01/11/18at 19:30; Start 01/08/18 at 21:00; Stop 01/11/18 at 23:00; Status DC Olanzapine (ZyPREXA ZYDIS) 2.5 mg BID PO Last administered on 01/13/18at 19:15; Start 01/12/18 at 09:00; Stop 01/13/18 at 21:00; Status DC Olanzapine (ZyPREXA ZYDIS) 1.25 mg AFTRNOON PO Last administered on 01/12/18at 15 :51; Start 01/12/18 at 14:00; Stop 01/13/18 at 16:52; Status DC Olanzapine (ZyPREXA ZYDIS) 2.5 mg TID PO Last administered on 01/15/18at 19:29; Start 01/14/18 at 09:00 Trazodone HCl (Desyrel) 12.5 mg TID@0900,1300,1700 PO Last administered on 01/15at 17:28; Start 01/15/18 at 09:00 Active Scripts Active Reported Omeprazole 20 Mg Tablet.dr 20 Mg PO DAILY Levothyroxine Sodium 175 Mcg Tablet 175 Mcg PO DAILYAC Flomax (Tamsulosin Hcl) 0.4 Mg Cap.er.24h 0.4 Mg PO QHS Simvastatin 20 Mg Tablet 20 Mg PO HS [place] 5-325 Tablet (Hydrocodone Bit/Acetaminophen) 1 Each Tablet 1 Tab PO PRN Q6HRS PRN Haloperidol 2 Mg Tablet 2 Mg PO [id number] Potassium Chloride 10 Meq Tablet.er 10 Meq PO DAILY Docusate Sodium 50 Mg/5 Ml Liquid 10 Ml PO DAILY Losartan Potassium 50 Mg Tablet 50 Mg PO DAILY Aspirin Ec (Aspirin) 81 Mg Tablet.dr 81 Mg PO DAILY Amlodipine Besylate 5 Mg Tablet 5 Mg PO DAILY Depakote Sprinkle (Divalproex Sodium) 125 Mg Cap.sprink 500 Mg PO BID Seroquel (Quetiapine Fumarate) 25 Mg Tablet 25 Mg PO PRN Q4HRS PRN Seroquel (Quetiapine Fumarate) 100 Mg Tablet 150 Mg PO QID Trazodone Hcl 100 Mg Tablet 100 Mg PO QHS Miralax (Polyethylene Glycol 3350) 17 Gm Powd.pack 17 Gm PO PRN DAILY PRN Senokot (Sennosides) 8.6 Mg Tablet 8.6 Mg PO PRN DAILY PRN Dulcolax (Bisacodyl) 10 Mg Supp.rect 10 Mg RC PRN DAILY PRN Milk Of Magnesia (Magnesium Hydroxide) 2,400 Mg/10 Ml Oral.susp 2,400 Mg PO PRN Q6HRS PRN Triamcinolone Acetonide 15 Gm Cream..g. 1 Hiral TOP BID Haldol (Haloperidol Lactate) 5 Mg/1 Ml Ampul 5 Mg IJ PRN Q6HRS PRN I have reviewed the current psychotropics carefully including drug interactions. Risk benefit ratio favors no change other than as noted in my dictated progress note. 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
--- NOTE | 2018-01-15 22:36 | PN ---
DATE: 01/14/2018 This late entry, 01/14/2018, covers elements not covered in my initial note. SUBJECTIVE: I met with the patient in the evening. The patient slept 7-1/2 hours previous night, combative, but does redirect, was using profanities towards the nursing staff using the B word and "you are not my mom." Takes her meds crushed in ice cream, received Zyprexa at 1515 due to agitation. Valproic acid level therapeutic at 76. REVIEW OF SYSTEMS: No CV, , pulmonary, eye, ENT system symptoms on review. MENTAL STATUS EXAM: Oriented to herself. Insight, judgment, recent and remote memory, attention, concentration, fund of knowledge poor, consistent with her diagnosis mentioned in my initial note. PLAN: No change from initial note and we will go ahead and start trazodone 12.5 mg 9 a.m., 1:00 p.m., 5:00 p.m. to help with anxiety, agitation, impulse control problems. MAN Lisa MURRAY MD DR: DANIEL/valeriy JOB#: [id number] / [id number]
[2018-01-16 07:52] VITALS: BP 130/69
[2018-01-16] MEDS: LEVOTHYROXINE 175 MCG TABLET PO SCH (11:02)
[2018-01-16] MEDS: DOCUSATE 100 MG/10 ML SOLUTION. PO SCH (11:02)
[2018-01-16] MEDS: DIVALPROEX 125 MG CAP.SPRINK PO SCH ×2 (11:02→19:26)
[2018-01-16] MEDS: LACTOBACILLUS RHAMNOSUS GG 1 CAPSULE. PO SCH ×2 (11:03→19:26)
[2018-01-16] MEDS: POTASSIUM CHLORIDE 10 MEQ TABLET.ER. PO SCH (11:03)
[2018-01-16] MEDS: LOSARTAN 50 MG TABLET. PO SCH (11:03)
[2018-01-16] MEDS: traZODone 50 MG TABLET. PO SCH ×3 (11:04→17:20)
[2018-01-16] MEDS: amLODIPine BESYLATE 5 MG TABLET PO SCH (11:04)
[2018-01-16] MEDS: TRIAMCINOLONE ACETONIDE 0.1% TOPICAL CREAM 15GM TUBE. TP SCH ×2 (11:04→19:37)
[2018-01-16] MEDS: PANTOPRAZOLE 40 MG TABLET. PO SCH (11:04)
[2018-01-16] MEDS: ASPIRIN ENTERIC COATED 81 MG TABLET.DR. PO SCH (11:04)
[2018-01-16 16:12] VITALS: BP 100/64
[2018-01-16] MEDS: TAMSULOSIN 0.4 MG CAP.ER.24H. PO SCH (19:25)
[2018-01-16] MEDS: traZODone 100 MG TABLET. PO SCH (19:25)
[2018-01-16] MEDS: MIRTAZAPINE ODT 15 MG TAB.RAPDIS. PO SCH (19:26)
[2018-01-16] MEDS: SIMVASTATIN 20 MG TABLET PO SCH (19:27)
--- NOTE | 2018-01-16 20:53 | PDOC ---
Exam Note: Abdi Note: Please also refer to the separate dictated note~for this date of service dictated separately.~Patient seen individually. Discussed the patient with Nursing staff reviewed the chart.~Reviewed interim history and current functioning. Reviewed vital signs,~Labs/ Radiology~and current medications noted below. Continue current treatment with the changes noted in the dictated addendum note Assessment: Vital Signs: Vital Signs Date Time Temp Pulse Resp B/P (MAP) Pulse Ox O2 Delivery O2 Flow Rate FiO2 01/16/18 16:12 98.1 72 20 100/64 (76) 98 01/16/18 07:52 Room Air I&O Intake and Output 01/16/18 07:00 Intake Total 840 ml Balance 840 ml Intake Oral 840 ml # Voids 1 # Bowel Movements 1 Current Medications: Meds: Current Medications Ciprofloxacin (Cipro) 500 mg 1X ONCE PO Last administered on 12/31/17at 16:59; Start 12/31/17 at 16:45; Stop 12/31/17 at 17:00; Status DC Acetaminophen (Tylenol) 650 mg PRN Q6HRS PRN PO PAIN / TEMP; Start 12/31/17 at 18:15 Multi-Ingredient Ointment (Analgesic [place]) 1 hiral PRN QID PRN TP MUSCLE PAIN; Start 12/31/17 at 18:15 Al Hydroxide/Mg Hydroxide (Mylanta Plus Xs) 15 ml PRN AFTMEALHC PRN PO DYSPEPSIA; Start 12/31/17 at 18:15 Magnesium Hydroxide (Milk Of Magnesia) 2,400 mg PRN QHS PRN PO CONSTIPATION; Start 12/31/17 at 18:15 Olanzapine (ZyPREXA) 2.5 mg PRN Q2HR PRN PO AGITATION; Start 12/31/17 at 18:45 ; Stop 01/07/18 at 10:11; Status DC Divalproex Sodium (Depakote Sprinkles) 500 mg BID PO Last administered on at 19:26; Start 01/01/18 at 09:00 Haloperidol (Haldol) 2 mg [id number] PO Last administered on 01/01/18at 17:18; Start 01/01/18 at 00:00; Stop 01/01/18 at 18:44; Status DC Haloperidol Lactate (Haldol) 5 mg PRN Q6HRS PRN IM ANXIETY/AGITATION; Start at 22:15; Stop 01/01/18 at 18:44; Status DC Quetiapine Fumarate (SEROquel) 25 mg PRN Q4HRS PRN PO ANXIETY/AGITATION; Start 12/31/17 at 22:15; Stop 01/03/18 at 16:25; Status DC Quetiapine Fumarate (SEROquel) 150 mg QID PO Last administered on 01/03/18at 08: 12; Start 01/01/18 at 09:00; Stop 01/03/18 at 16:25; Status DC Trazodone HCl (Desyrel) 100 mg QHS PO Last administered on 01/16/18 19:25; Start 01/01/18 at 21:00 Docusate Sodium (Colace Solution) 100 mg DAILY PO Last administered on 11:02; Start 01/01/18 at 09:00 Levothyroxine Sodium (Synthroid) 175 mcg DAILYAC PO Last administered on 11:02; Start 01/01/18 at 07:30 Losartan Potassium (Cozaar) 50 mg DAILY PO Last administered on 01/16/18 11:03 ; Start 01/01/18 at 09:00 Tamsulosin HCl (Flomax) 0.4 mg QHS PO Last administered on 01/16/18 19:25; Start 01/01/18 at 21:00 Amlodipine Besylate (Norvasc) 5 mg DAILY PO Last administered on 01/16/18 11: 04; Start 01/01/18 at 09:00 Aspirin (Aspirin Enteric Coated) 81 mg DAILYWBKFT PO Last administered on at 11:04; Start 01/01/18 at 08:00 Bisacodyl (Dulcolax Supp) 10 mg PRN DAILY PRN [place] CONSTIPATION; Start 12/31/17 at 22:15 Acetaminophen/ Hydrocodone Bitart (Lortab 5/325) 1 tab PRN Q6HRS PRN PO PAIN Last administered on 01/12/18at 23:34; Start 12/31/17 at 22:15 Magnesium Hydroxide (Milk Of Magnesia) 2,400 mg PRN Q6HRS PRN PO CONSTIPATION; Start 12/31/17 at 22:15 Pantoprazole Sodium (Protonix) 40 mg DAILYAC PO Last administered on 01/16/18 11:04; Start 01/01/18 at 07:30 Polyethylene Glycol (miraLAX) 17 gm PRN DAILY PRN PO CONSTIPATION; Start at 09:00 Potassium Chloride (Klor-Con) 10 meq DAILYWBKFT PO Last administered on 11:03; Start 01/01/18 at 08:00 Sennosides (Senna) 8.6 mg PRN DAILY PRN PO CONSTIPATION; Start 12/31/17 at 22: 15 Simvastatin (Zocor) 20 mg HS PO Last administered on 01/16/18 19:27; Start at 21:00 Triamcinolone Acetonide (Kenalog) 1 hiral BID TP Last administered on 01/08/18 19 :56; Start 01/01/18 at 09:00 Ceftriaxone Sodium (Rocephin Im) 1 gm DAILY IM Last administered on 01/02/18 09:53; Start 01/02/18 at 09:00; Stop 01/04/18 at 14:44; Status DC Mirtazapine (Remeron Venessa-Tab) 7.5 mg QHS PO Last administered on 01/16/18 19: 26; Start 01/01/18 at 21:00 Olanzapine (ZyPREXA ZYDIS) 2.5 mg PRN Q2HR PRN PO PSYCHOSIS; Start 01/01/18 at 18:45; Stop 01/02/18 at 10:58; Status DC Olanzapine (ZyPREXA ZYDIS) 2.5 mg HS PO Last administered on 01/05/18at 20:51; Start 01/02/18 at 21:00; Stop 01/07/18 at 16:38; Status DC Lactobacillus Rhamnosus (Culturelle) 1 cap BID PO Last administered on 19:26; Start 01/03/18 at 21:00 Olanzapine (ZyPREXA ZYDIS) 2.5 mg PRN Q2HR PRN PO AGITATION Last administered on 01/15/18 09:32; Start 01/07/18 at 10:15 Olanzapine (ZyPREXA ZYDIS) 2.5 mg DAILY PO Last administered on 9/5/18at 07:32 ; Start 01/08/18 at 09:00; Stop 01/08/18 at 17:49; Status DC Olanzapine (ZyPREXA ZYDIS) 1.25 mg [id number] PO Last administered on 01/11/18at 07:48 ; Start 01/09/18 at 09:00; Stop 01/11/18 at 23:00; Status DC Olanzapine (ZyPREXA ZYDIS) 2.5 mg HS PO Last administered on 01/11/18at 19:30; Start 01/08/18 at 21:00; Stop 01/11/18 at 23:00; Status DC Olanzapine (ZyPREXA ZYDIS) 2.5 mg BID PO Last administered on 01/13/18at 19:15; Start 01/12/18 at 09:00; Stop 01/13/18 at 21:00; Status DC Olanzapine (ZyPREXA ZYDIS) 1.25 mg AFTRNOON PO Last administered on 01/12/18at 15 :51; Start 01/12/18 at 14:00; Stop 01/13/18 at 16:52; Status DC Olanzapine (ZyPREXA ZYDIS) 2.5 mg TID PO Last administered on 01/16/18 19:26; Start 01/14/18 at 09:00 Trazodone HCl (Desyrel) 12.5 mg TID@0900,1300,1700 PO Last administered on 01/16 17:20; Start 01/15/18 at 09:00 Fluvoxamine Maleate (Luvox) 25 mg QHS PO Last administered on 01/16/18at 19:30; Start 01/16/18 at 21:00 Active Scripts Active Reported Omeprazole 20 Mg Tablet.dr 20 Mg PO DAILY Levothyroxine Sodium 175 Mcg Tablet 175 Mcg PO DAILYAC Flomax (Tamsulosin Hcl) 0.4 Mg Cap.er.24h 0.4 Mg PO QHS Simvastatin 20 Mg Tablet 20 Mg PO HS [place] 5-325 Tablet (Hydrocodone Bit/Acetaminophen) 1 Each Tablet 1 Tab PO PRN Q6HRS PRN Haloperidol 2 Mg Tablet 2 Mg PO [id number] Potassium Chloride 10 Meq Tablet.er 10 Meq PO DAILY Docusate Sodium 50 Mg/5 Ml Liquid 10 Ml PO DAILY Losartan Potassium 50 Mg Tablet 50 Mg PO DAILY Aspirin Ec (Aspirin) 81 Mg Tablet.dr 81 Mg PO DAILY Amlodipine Besylate 5 Mg Tablet 5 Mg PO DAILY Depakote Sprinkle (Divalproex Sodium) 125 Mg Cap.sprink 500 Mg PO BID Seroquel (Quetiapine Fumarate) 25 Mg Tablet 25 Mg PO PRN Q4HRS PRN Seroquel (Quetiapine Fumarate) 100 Mg Tablet 150 Mg PO QID Trazodone Hcl 100 Mg Tablet 100 Mg PO QHS Miralax (Polyethylene Glycol 3350) 17 Gm Powd.pack 17 Gm PO PRN DAILY PRN Senokot (Sennosides) 8.6 Mg Tablet 8.6 Mg PO PRN DAILY PRN Dulcolax (Bisacodyl) 10 Mg Supp.rect 10 Mg RC PRN DAILY PRN Milk Of Magnesia (Magnesium Hydroxide) 2,400 Mg/10 Ml Oral.susp 2,400 Mg PO PRN Q6HRS PRN Triamcinolone Acetonide 15 Gm Cream..g. 1 Hiral TOP BID Haldol (Haloperidol Lactate) 5 Mg/1 Ml Ampul 5 Mg IJ PRN Q6HRS PRN I have reviewed the current psychotropics carefully including drug interactions. Risk benefit ratio favors no change other than as noted in my dictated progress note. 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
[2018-01-17] MEDS: DOCUSATE 100 MG/10 ML SOLUTION. PO SCH (08:59)
[2018-01-17] MEDS: TRIAMCINOLONE ACETONIDE 0.1% TOPICAL CREAM 15GM TUBE. TP SCH ×2 (09:00→19:55)
[2018-01-17] MEDS: amLODIPine BESYLATE 5 MG TABLET PO SCH (09:00)
[2018-01-17] MEDS: LACTOBACILLUS RHAMNOSUS GG 1 CAPSULE. PO SCH ×2 (09:00→19:54)
[2018-01-17] MEDS: traZODone 50 MG TABLET. PO SCH ×3 (09:00→15:14)
[2018-01-17] MEDS: ASPIRIN ENTERIC COATED 81 MG TABLET.DR. PO SCH (09:00)
[2018-01-17] MEDS: LEVOTHYROXINE 175 MCG TABLET PO SCH (09:00)
[2018-01-17] MEDS: LOSARTAN 50 MG TABLET. PO SCH (09:00)
[2018-01-17] MEDS: POTASSIUM CHLORIDE 10 MEQ TABLET.ER. PO SCH (09:00)
[2018-01-17] MEDS: PANTOPRAZOLE 40 MG TABLET. PO SCH (09:00)
[2018-01-17] MEDS: DIVALPROEX 125 MG CAP.SPRINK PO SCH ×2 (09:01→19:55)
[2018-01-17 14:09] VITALS: BP 123/74
[2018-01-17] MEDS: traZODone 100 MG TABLET. PO SCH (19:53)
[2018-01-17] MEDS: TAMSULOSIN 0.4 MG CAP.ER.24H. PO SCH (19:53)
[2018-01-17] MEDS: SIMVASTATIN 20 MG TABLET PO SCH (19:54)
[2018-01-17] MEDS: MIRTAZAPINE ODT 15 MG TAB.RAPDIS. PO SCH (19:54)
--- NOTE | 2018-01-17 20:49 | PDOC ---
Exam Note: Abdi Note: Please also refer to the separate dictated note~for this date of service dictated separately.~Patient seen individually. Discussed the patient with Nursing staff reviewed the chart.~Reviewed interim history and current functioning. Reviewed vital signs,~Labs/ Radiology~and current medications noted below. Continue current treatment with the changes noted in the dictated addendum note Assessment: Vital Signs: Vital Signs Date Time Temp Pulse Resp B/P (MAP) Pulse Ox O2 Delivery O2 Flow Rate FiO2 01/17/18 14:09 96 123/74 (90) 01/16/18 16:12 98.1 20 98 01/16/18 07:52 Room Air I&O Intake and Output 01/17/18 07:00 Intake Total 360 ml Balance 360 ml Intake Oral 360 ml # Voids 1 Current Medications: Meds: Current Medications Ciprofloxacin (Cipro) 500 mg 1X ONCE PO Last administered on 12/31/17at 16:59; Start 12/31/17 at 16:45; Stop 12/31/17 at 17:00; Status DC Acetaminophen (Tylenol) 650 mg PRN Q6HRS PRN PO PAIN / TEMP; Start 12/31/17 at 18:15 Multi-Ingredient Ointment (Analgesic [place]) 1 hiral PRN QID PRN TP MUSCLE PAIN; Start 12/31/17 at 18:15 Al Hydroxide/Mg Hydroxide (Mylanta Plus Xs) 15 ml PRN AFTMEALHC PRN PO DYSPEPSIA; Start 12/31/17 at 18:15 Magnesium Hydroxide (Milk Of Magnesia) 2,400 mg PRN QHS PRN PO CONSTIPATION; Start 12/31/17 at 18:15 Olanzapine (ZyPREXA) 2.5 mg PRN Q2HR PRN PO AGITATION; Start 12/31/17 at 18:45 ; Stop 01/07/18 at 10:11; Status DC Divalproex Sodium (Depakote Sprinkles) 500 mg BID PO Last administered on at 19:55; Start 01/01/18 at 09:00 Haloperidol (Haldol) 2 mg [id number] PO Last administered on 01/01/18at 17:18; Start 01/01/18 at 00:00; Stop 01/01/18 at 18:44; Status DC Haloperidol Lactate (Haldol) 5 mg PRN Q6HRS PRN IM ANXIETY/AGITATION; Start at 22:15; Stop 01/01/18 at 18:44; Status DC Quetiapine Fumarate (SEROquel) 25 mg PRN Q4HRS PRN PO ANXIETY/AGITATION; Start 12/31/17 at 22:15; Stop 01/03/18 at 16:25; Status DC Quetiapine Fumarate (SEROquel) 150 mg QID PO Last administered on 01/03/18at 08: 12; Start 01/01/18 at 09:00; Stop 01/03/18 at 16:25; Status DC Trazodone HCl (Desyrel) 100 mg QHS PO Last administered on 01/17/18 19:53; Start 01/01/18 at 21:00 Docusate Sodium (Colace Solution) 100 mg DAILY PO Last administered on at 08:59; Start 01/01/18 at 09:00 Levothyroxine Sodium (Synthroid) 175 mcg DAILYAC PO Last administered on 09:00; Start 01/01/18 at 07:30 Losartan Potassium (Cozaar) 50 mg DAILY PO Last administered on 01/16/18 11:03 ; Start 01/01/18 at 09:00 Tamsulosin HCl (Flomax) 0.4 mg QHS PO Last administered on 01/17/18 19:53; Start 01/01/18 at 21:00 Amlodipine Besylate (Norvasc) 5 mg DAILY PO Last administered on 01/16/18at 11: 04; Start 01/01/18 at 09:00 Aspirin (Aspirin Enteric Coated) 81 mg DAILYWBKFT PO Last administered on at 09:00; Start 01/01/18 at 08:00 Bisacodyl (Dulcolax Supp) 10 mg PRN DAILY PRN [place] CONSTIPATION; Start 12/31/17 at 22:15 Acetaminophen/ Hydrocodone Bitart (Lortab 5/325) 1 tab PRN Q6HRS PRN PO PAIN Last administered on 01/12/18at 23:34; Start 12/31/17 at 22:15 Magnesium Hydroxide (Milk Of Magnesia) 2,400 mg PRN Q6HRS PRN PO CONSTIPATION; Start 12/31/17 at 22:15 Pantoprazole Sodium (Protonix) 40 mg DAILYAC PO Last administered on 01/17/18 09:00; Start 01/01/18 at 07:30 Polyethylene Glycol (miraLAX) 17 gm PRN DAILY PRN PO CONSTIPATION; Start at 09:00 Potassium Chloride (Klor-Con) 10 meq DAILYWBKFT PO Last administered on 09:00; Start 01/01/18 at 08:00 Sennosides (Senna) 8.6 mg PRN DAILY PRN PO CONSTIPATION; Start 12/31/17 at 22: 15 Simvastatin (Zocor) 20 mg HS PO Last administered on 01/17/18 19:54; Start at 21:00 Triamcinolone Acetonide (Kenalog) 1 hiral BID TP Last administered on 01/08/18 19 :56; Start 01/01/18 at 09:00 Ceftriaxone Sodium (Rocephin Im) 1 gm DAILY IM Last administered on 01/02/18 09:53; Start 01/02/18 at 09:00; Stop 01/04/18 at 14:44; Status DC Mirtazapine (Remeron Venessa-Tab) 7.5 mg QHS PO Last administered on 01/17/18 19: 54; Start 01/01/18 at 21:00 Olanzapine (ZyPREXA ZYDIS) 2.5 mg PRN Q2HR PRN PO PSYCHOSIS; Start 01/01/18 at 18:45; Stop 01/02/18 at 10:58; Status DC Olanzapine (ZyPREXA ZYDIS) 2.5 mg HS PO Last administered on 01/05/18 20:51; Start 01/02/18 at 21:00; Stop 01/07/18 at 16:38; Status DC Lactobacillus Rhamnosus (Culturelle) 1 cap BID PO Last administered on 19:54; Start 01/03/18 at 21:00 Olanzapine (ZyPREXA ZYDIS) 2.5 mg PRN Q2HR PRN PO AGITATION Last administered on 01/17/18 06:30; Start 01/07/18 at 10:15 Olanzapine (ZyPREXA ZYDIS) 2.5 mg DAILY PO Last administered on 9/5/18at 07:32 ; Start 01/08/18 at 09:00; Stop 01/08/18 at 17:49; Status DC Olanzapine (ZyPREXA ZYDIS) 1.25 mg [id number] PO Last administered on 01/11/18at 07:48 ; Start 01/09/18 at 09:00; Stop 01/11/18 at 23:00; Status DC Olanzapine (ZyPREXA ZYDIS) 2.5 mg HS PO Last administered on 01/11/18at 19:30; Start 01/08/18 at 21:00; Stop 01/11/18 at 23:00; Status DC Olanzapine (ZyPREXA ZYDIS) 2.5 mg BID PO Last administered on 01/13/18at 19:15; Start 01/12/18 at 09:00; Stop 01/13/18 at 21:00; Status DC Olanzapine (ZyPREXA ZYDIS) 1.25 mg AFTRNOON PO Last administered on 01/12/18at 15 :51; Start 01/12/18 at 14:00; Stop 01/13/18 at 16:52; Status DC Olanzapine (ZyPREXA ZYDIS) 2.5 mg TID PO Last administered on 01/17/18at 19:55; Start 01/14/18 at 09:00 Trazodone HCl (Desyrel) 12.5 mg TID@0900,1300,1700 PO Last administered on 01/17at 15:14; Start 01/15/18 at 09:00; Stop 01/17/18 at 19:29; Status DC Fluvoxamine Maleate (Luvox) 25 mg QHS PO Last administered on 01/17/18at 19:54; Start 01/16/18 at 21:00 Trazodone HCl (Desyrel) 12.5 mg BID@1300,1700 PO ; Start 01/18/18 at 13:00 Trazodone HCl (Desyrel) 25 mg DAILY PO ; Start 01/18/18 at 09:00 Active Scripts Active Reported Omeprazole 20 Mg Tablet.dr 20 Mg PO DAILY Levothyroxine Sodium 175 Mcg Tablet 175 Mcg PO DAILYAC Flomax (Tamsulosin Hcl) 0.4 Mg Cap.er.24h 0.4 Mg PO QHS Simvastatin 20 Mg Tablet 20 Mg PO HS [place] 5-325 Tablet (Hydrocodone Bit/Acetaminophen) 1 Each Tablet 1 Tab PO PRN Q6HRS PRN Haloperidol 2 Mg Tablet 2 Mg PO [id number] Potassium Chloride 10 Meq Tablet.er 10 Meq PO DAILY Docusate Sodium 50 Mg/5 Ml Liquid 10 Ml PO DAILY Losartan Potassium 50 Mg Tablet 50 Mg PO DAILY Aspirin Ec (Aspirin) 81 Mg Tablet.dr 81 Mg PO DAILY Amlodipine Besylate 5 Mg Tablet 5 Mg PO DAILY Depakote Sprinkle (Divalproex Sodium) 125 Mg Cap.sprink 500 Mg PO BID Seroquel (Quetiapine Fumarate) 25 Mg Tablet 25 Mg PO PRN Q4HRS PRN Seroquel (Quetiapine Fumarate) 100 Mg Tablet 150 Mg PO QID Trazodone Hcl 100 Mg Tablet 100 Mg PO QHS Miralax (Polyethylene Glycol 3350) 17 Gm Powd.pack 17 Gm PO PRN DAILY PRN Senokot (Sennosides) 8.6 Mg Tablet 8.6 Mg PO PRN DAILY PRN Dulcolax (Bisacodyl) 10 Mg Supp.rect 10 Mg RC PRN DAILY PRN Milk Of Magnesia (Magnesium Hydroxide) 2,400 Mg/10 Ml Oral.susp 2,400 Mg PO PRN Q6HRS PRN Triamcinolone Acetonide 15 Gm Cream..g. 1 Hiral TOP BID Haldol (Haloperidol Lactate) 5 Mg/1 Ml Ampul 5 Mg IJ PRN Q6HRS PRN I have reviewed the current psychotropics carefully including drug interactions. Risk benefit ratio favors no change other than as noted in my dictated progress note. 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
--- NOTE | 2018-01-18 02:13 | PN ---
DATE: 01/15/2018 PSYCHIATRIC PROGRESS NOTE This late entry 01/15/2018 covers elements not covered in my initial note. SUBJECTIVE: I met with the patient in the evening. The patient slept for 3/4 hours previous night. She had no breakfast or lunch, agitated during shower time, extremely aggressive, disruptive, remains confused. REVIEW OF SYSTEMS: No CV, , pulmonary, eye, ENT system symptoms on review. MENTAL STATUS EXAM: Oriented to herself. Insight, judgment, recent and remote memory, attention, concentration, fund of knowledge poor, consistent with her diagnosis mentioned in my initial note. PLAN: No change from initial note. If agitation resurfaces, we may increase the trazodone. JAYLAN MURRAY MD DR: DANIEL/valeriy JOB#: [id number] / [id number]
--- NOTE | 2018-01-18 02:48 | PN ---
DATE: 01/16/2018 PSYCHIATRIC PROGRESS NOTE This late entry 01/16/2018 covers elements not covered in my initial note. SUBJECTIVE: I met with the patient in the evening and staffed at a treatment team meeting with the entire team in the morning. The patient slept 6 hours previous night. At times, she is confused and agitated. The confusion persists all day. She did little better previous night, telling the staff members "get out of my room, you are not my mother." She has been somewhat obsessive, ruminative, angry, depressed, wandering, referring to nursing staff as "bitches." She takes her meds in ice cream and nursing staff described her as extremely agitated during shower time. REVIEW OF SYSTEMS: No CV, , pulmonary, eye, ENT system symptoms on review. Reliability poor. MENTAL STATUS EXAM: Oriented to herself. Insight, judgment, recent and remote memory, attention, concentration, fund of knowledge poor, consistent with her diagnosis mentioned in my initial note. PLAN: No change from initial note other than start Luvox 25 mg p.o. at bedtime as an antidepressant and obsessive agent. Maintain rest, unchanged from initial note. MAN Lisa MURRAY MD DR: DANIEL/valeriy JOB#: [id number] / [id number]
[2018-01-18 06:04] VITALS: BP 109/56
[2018-01-18] MEDS: PANTOPRAZOLE 40 MG TABLET. PO SCH ×2 (07:30→08:48)
[2018-01-18] MEDS: LEVOTHYROXINE 175 MCG TABLET PO SCH ×2 (07:30→08:49)
[2018-01-18] MEDS: ASPIRIN ENTERIC COATED 81 MG TABLET.DR. PO SCH ×2 (08:00→08:49)
[2018-01-18] MEDS: POTASSIUM CHLORIDE 10 MEQ TABLET.ER. PO SCH ×2 (08:00→08:49)
[2018-01-18] MEDS: DOCUSATE 100 MG/10 ML SOLUTION. PO SCH ×2 (08:49→09:00)
[2018-01-18] MEDS: LOSARTAN 50 MG TABLET. PO SCH ×2 (08:50→09:00)
[2018-01-18] MEDS: LACTOBACILLUS RHAMNOSUS GG 1 CAPSULE. PO SCH ×3 (08:51→20:21)
[2018-01-18] MEDS: DIVALPROEX 125 MG CAP.SPRINK PO SCH ×3 (08:51→20:21)
[2018-01-18] MEDS: amLODIPine BESYLATE 5 MG TABLET PO SCH ×2 (08:52→09:00)
[2018-01-18] MEDS: TRIAMCINOLONE ACETONIDE 0.1% TOPICAL CREAM 15GM TUBE. TP SCH ×3 (08:54→20:21)
[2018-01-18] MEDS: traZODone 50 MG TABLET. PO SCH ×3 (09:00→16:30)
[2018-01-18 15:45] VITALS: BP 126/64
[2018-01-18 19:28] LABS: BASO # 0.1 x10^3/uL (0.0-0.2); BASO % 1 % (0-3); EOS # 0.1 x10^3/uL (0.0-0.7); EOS % 2 % (0-3); HEMOGLOBIN 14.1 g/dL (12.0-15.5); LYMPH # 1.4 x10^3/uL (1.0-4.8); LYMPH % 16 % (24-48); MEAN CORPUSCULAR HEMOGLOBIN 32 pg (25-35); MEAN CORPUSCULAR HGB CONC 34 g/dL (31-37); MEAN CORPUSCULAR VOLUME 95 fL (79-100); MONO # 0.6 x10^3/uL (0.0-1.1); MONO % 6 % (0-9); NEUT # 6.6 x10^3uL (1.8-7.7); NEUT % 76 % (31-73); PLATELET COUNT 239 x10^3/uL (140-400); RED BLOOD COUNT 4.43 x10^6/uL (3.50-5.40); RED CELL DISTRIBUTION WIDTH 13.2 % (11.5-14.5); WHITE BLOOD COUNT 8.7 x10^3/uL (4.0-11.0)
[2018-01-18] MEDS: traZODone 100 MG TABLET. PO SCH (20:20)
[2018-01-18] MEDS: MIRTAZAPINE ODT 15 MG TAB.RAPDIS. PO SCH (20:21)
[2018-01-18] MEDS: SIMVASTATIN 20 MG TABLET PO SCH (20:21)
[2018-01-18] MEDS: TAMSULOSIN 0.4 MG CAP.ER.24H. PO SCH (20:21)
[2018-01-18 21:54] LABS: ALBUMIN 3.8 g/dL (3.4-5.0); ALBUMIN/GLOBULIN RATIO 1.2 (1.0-1.7); CALCIUM 9.1 mg/dL (8.5-10.1); CREATININE 0.9 mg/dL (0.6-1.0); GFR 62.1; POTASSIUM 4.1 mmol/L (3.5-5.1); TOTAL BILIRUBIN 0.5 mg/dL (0.2-1.0); TOTAL PROTEIN 7.1 g/dL (6.4-8.2)
--- NOTE | 2018-01-18 22:52 | PDOC ---
Exam Note: Abdi Note: Please also refer to the separate dictated note~for this date of service dictated separately.~Patient seen individually. Discussed the patient with Nursing staff reviewed the chart.~Reviewed interim history and current functioning. Reviewed vital signs,~Labs/ Radiology~and current medications noted below. Continue current treatment with the changes noted in the dictated addendum note Assessment: Vital Signs: Vital Signs Date Time Temp Pulse Resp B/P (MAP) Pulse Ox O2 Delivery O2 Flow Rate FiO2 01/18/18 15:45 66 20 126/64 (84) 97 01/18/18 06:04 97.9 01/16/18 07:52 Room Air I&O Intake and Output 01/18/18 07:00 Intake Total 1205 ml Balance 1205 ml Intake Oral 1205 ml # Voids 1 # Bowel Movements 1 Labs: Laboratory Tests Test 01/18/18 19:15 White Blood Count 8.7 x10^3/uL (4.0-11.0) Red Blood Count 4.43 x10^6/uL (3.50-5.40) Hemoglobin 14.1 g/dL (12.0-15.5) Hematocrit 42.0 % (36.0-47.0) Mean Corpuscular Volume 95 fL (79-100) Mean Corpuscular Hemoglobin 32 pg (25-35) Mean Corpuscular Hemoglobin Concent 34 g/dL (31-37) Red Cell Distribution Width 13.2 % (11.5-14.5) Platelet Count 239 x10^3/uL (140-400) Neutrophils (%) (Auto) 76 % (31-73) H Lymphocytes (%) (Auto) 16 % (24-48) L Monocytes (%) (Auto) 6 % (0-9) Eosinophils (%) (Auto) 2 % (0-3) Basophils (%) (Auto) 1 % (0-3) Neutrophils # (Auto) 6.6 x10^3uL (1.8-7.7) Lymphocytes # (Auto) 1.4 x10^3/uL (1.0-4.8) Monocytes # (Auto) 0.6 x10^3/uL (0.0-1.1) Eosinophils # (Auto) 0.1 x10^3/uL (0.0-0.7) Basophils # (Auto) 0.1 x10^3/uL (0.0-0.2) Sodium Level 142 mmol/L (136-145) Potassium Level 4.1 mmol/L (3.5-5.1) Chloride Level 105 mmol/L (98-107) Carbon Dioxide Level 29 mmol/L (21-32) Anion Gap 8 (6-14) Blood Urea Nitrogen 18 mg/dL (7-20) Creatinine 0.9 mg/dL (0.6-1.0) Estimated GFR (Cockcroft-Gault) 62.1 BUN/Creatinine Ratio 20 (6-20) Glucose Level 210 mg/dL (70-99) H Calcium Level 9.1 mg/dL (8.5-10.1) Total Bilirubin 0.5 mg/dL (0.2-1.0) Aspartate Amino Transferase (AST) 19 U/L (15-37) Alanine Aminotransferase (ALT) 27 U/L (14-59) Alkaline Phosphatase 51 U/L (46-116) Total Protein 7.1 g/dL (6.4-8.2) Albumin 3.8 g/dL (3.4-5.0) Albumin/Globulin Ratio 1.2 (1.0-1.7) Current Medications: Meds: Current Medications Ciprofloxacin (Cipro) 500 mg 1X ONCE PO Last administered on 12/31/17at 16:59; Start 12/31/17 at 16:45; Stop 12/31/17 at 17:00; Status DC Acetaminophen (Tylenol) 650 mg PRN Q6HRS PRN PO PAIN / TEMP; Start 12/31/17 at 18:15 Multi-Ingredient Ointment (Analgesic [place]) 1 hiral PRN QID PRN TP MUSCLE PAIN; Start 12/31/17 at 18:15 Al Hydroxide/Mg Hydroxide (Mylanta Plus Xs) 15 ml PRN AFTMEALHC PRN PO DYSPEPSIA; Start 12/31/17 at 18:15 Magnesium Hydroxide (Milk Of Magnesia) 2,400 mg PRN QHS PRN PO CONSTIPATION; Start 12/31/17 at 18:15 Olanzapine (ZyPREXA) 2.5 mg PRN Q2HR PRN PO AGITATION; Start 12/31/17 at 18:45 ; Stop 01/07/18 at 10:11; Status DC Divalproex Sodium (Depakote Sprinkles) 500 mg BID PO Last administered on 20:21; Start 01/01/18 at 09:00 Haloperidol (Haldol) 2 mg [id number] PO Last administered on 01/01/18at 17:18; Start 01/01/18 at 00:00; Stop 01/01/18 at 18:44; Status DC Haloperidol Lactate (Haldol) 5 mg PRN Q6HRS PRN IM ANXIETY/AGITATION; Start at 22:15; Stop 01/01/18 at 18:44; Status DC Quetiapine Fumarate (SEROquel) 25 mg PRN Q4HRS PRN PO ANXIETY/AGITATION; Start 12/31/17 at 22:15; Stop 01/03/18 at 16:25; Status DC Quetiapine Fumarate (SEROquel) 150 mg QID PO Last administered on 01/03/18at 08: 12; Start 01/01/18 at 09:00; Stop 01/03/18 at 16:25; Status DC Trazodone HCl (Desyrel) 100 mg QHS PO Last administered on 01/18/18at 20:20; Start 01/01/18 at 21:00 Docusate Sodium (Colace Solution) 100 mg DAILY PO Last administered on at 08:59; Start 01/01/18 at 09:00 Levothyroxine Sodium (Synthroid) 175 mcg DAILYAC PO Last administered on at 09:00; Start 01/01/18 at 07:30 Losartan Potassium (Cozaar) 50 mg DAILY PO Last administered on 01/16/18at 11:03 ; Start 01/01/18 at 09:00 Tamsulosin HCl (Flomax) 0.4 mg QHS PO Last administered on 01/18/18at 20:21; Start 01/01/18 at 21:00 Amlodipine Besylate (Norvasc) 5 mg DAILY PO Last administered on 01/16/18at 11: 04; Start 01/01/18 at 09:00 Aspirin (Aspirin Enteric Coated) 81 mg DAILYWBKFT PO Last administered on at 09:00; Start 01/01/18 at 08:00 Bisacodyl (Dulcolax Supp) 10 mg PRN DAILY PRN [place] CONSTIPATION; Start 12/31/17 at 22:15 Acetaminophen/ Hydrocodone Bitart (Lortab 5/325) 1 tab PRN Q6HRS PRN PO PAIN Last administered on 01/12/18at 23:34; Start 12/31/17 at 22:15 Magnesium Hydroxide (Milk Of Magnesia) 2,400 mg PRN Q6HRS PRN PO CONSTIPATION; Start 12/31/17 at 22:15 Pantoprazole Sodium (Protonix) 40 mg DAILYAC PO Last administered on 01/17/18at 09:00; Start 01/01/18 at 07:30 Polyethylene Glycol (miraLAX) 17 gm PRN DAILY PRN PO CONSTIPATION; Start at 09:00 Potassium Chloride (Klor-Con) 10 meq DAILYWBKFT PO Last administered on at 09:00; Start 01/01/18 at 08:00 Sennosides (Senna) 8.6 mg PRN DAILY PRN PO CONSTIPATION; Start 12/31/17 at 22: 15 Simvastatin (Zocor) 20 mg HS PO Last administered on 01/18/18at 20:21; Start at 21:00 Triamcinolone Acetonide (Kenalog) 1 hiral BID TP Last administered on 01/08/18at 19 :56; Start 01/01/18 at 09:00 Ceftriaxone Sodium (Rocephin Im) 1 gm DAILY IM Last administered on 01/02/18at 09:53; Start 01/02/18 at 09:00; Stop 01/04/18 at 14:44; Status DC Mirtazapine (Remeron Venessa-Tab) 7.5 mg QHS PO Last administered on 01/18/18at 20: 21; Start 01/01/18 at 21:00 Olanzapine (ZyPREXA ZYDIS) 2.5 mg PRN Q2HR PRN PO PSYCHOSIS; Start 01/01/18 at 18:45; Stop 01/02/18 at 10:58; Status DC Olanzapine (ZyPREXA ZYDIS) 2.5 mg HS PO Last administered on 01/05/18at 20:51; Start 01/02/18 at 21:00; Stop 01/07/18 at 16:38; Status DC Lactobacillus Rhamnosus (Culturelle) 1 cap BID PO Last administered on 20:21; Start 01/03/18 at 21:00 Olanzapine (ZyPREXA ZYDIS) 2.5 mg PRN Q2HR PRN PO AGITATION Last administered on 01/17/18at 06:30; Start 01/07/18 at 10:15 Olanzapine (ZyPREXA ZYDIS) 2.5 mg DAILY PO Last administered on 01/08/18at 07:32 ; Start 01/08/18 at 09:00; Stop 01/08/18 at 17:49; Status DC Olanzapine (ZyPREXA ZYDIS) 1.25 mg [id number] PO Last administered on 01/11/18 07:48 ; Start 01/09/18 at 09:00; Stop 01/11/18 at 23:00; Status DC Olanzapine (ZyPREXA ZYDIS) 2.5 mg HS PO Last administered on 01/11/18 19:30; Start 01/08/18 at 21:00; Stop 01/11/18 at 23:00; Status DC Olanzapine (ZyPREXA ZYDIS) 2.5 mg BID PO Last administered on 01/13/18at 19:15; Start 01/12/18 at 09:00; Stop 01/13/18 at 21:00; Status DC Olanzapine (ZyPREXA ZYDIS) 1.25 mg AFTRNOON PO Last administered on 01/12/18at 15 :51; Start 01/12/18 at 14:00; Stop 01/13/18 at 16:52; Status DC Olanzapine (ZyPREXA ZYDIS) 2.5 mg TID PO Last administered on 01/18/18at 20:20; Start 01/14/18 at 09:00 Trazodone HCl (Desyrel) 12.5 mg TID@0900,1300,1700 PO Last administered on 01/17at 15:14; Start 01/15/18 at 09:00; Stop 01/17/18 at 19:29; Status DC Fluvoxamine Maleate (Luvox) 25 mg QHS PO Last administered on 01/18/18at 20:21; Start 01/16/18 at 21:00 Trazodone HCl (Desyrel) 12.5 mg BID@1300,1700 PO Last administered on at 16:30; Start 01/18/18 at 13:00 Trazodone HCl (Desyrel) 25 mg DAILY PO ; Start 01/18/18 at 09:00 Active Scripts Active Reported Omeprazole 20 Mg Tablet.dr 20 Mg PO DAILY Levothyroxine Sodium 175 Mcg Tablet 175 Mcg PO DAILYAC Flomax (Tamsulosin Hcl) 0.4 Mg Cap.er.24h 0.4 Mg PO QHS Simvastatin 20 Mg Tablet 20 Mg PO HS [place] 5-325 Tablet (Hydrocodone Bit/Acetaminophen) 1 Each Tablet 1 Tab PO PRN Q6HRS PRN Haloperidol 2 Mg Tablet 2 Mg PO [id number] Potassium Chloride 10 Meq Tablet.er 10 Meq PO DAILY Docusate Sodium 50 Mg/5 Ml Liquid 10 Ml PO DAILY Losartan Potassium 50 Mg Tablet 50 Mg PO DAILY Aspirin Ec (Aspirin) 81 Mg Tablet.dr 81 Mg PO DAILY Amlodipine Besylate 5 Mg Tablet 5 Mg PO DAILY Depakote Sprinkle (Divalproex Sodium) 125 Mg Cap.sprink 500 Mg PO BID Seroquel (Quetiapine Fumarate) 25 Mg Tablet 25 Mg PO PRN Q4HRS PRN Seroquel (Quetiapine Fumarate) 100 Mg Tablet 150 Mg PO QID Trazodone Hcl 100 Mg Tablet 100 Mg PO QHS Miralax (Polyethylene Glycol 3350) 17 Gm Powd.pack 17 Gm PO PRN DAILY PRN Senokot (Sennosides) 8.6 Mg Tablet 8.6 Mg PO PRN DAILY PRN Dulcolax (Bisacodyl) 10 Mg Supp.rect 10 Mg RC PRN DAILY PRN Milk Of Magnesia (Magnesium Hydroxide) 2,400 Mg/10 Ml Oral.susp 2,400 Mg PO PRN Q6HRS PRN Triamcinolone Acetonide 15 Gm Cream..g. 1 Hiral TOP BID Haldol (Haloperidol Lactate) 5 Mg/1 Ml Ampul 5 Mg IJ PRN Q6HRS PRN I have reviewed the current psychotropics carefully including drug interactions. Risk benefit ratio favors no change other than as noted in my dictated progress note. 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
[2018-01-19 05:53] VITALS: BP 100/61
[2018-01-19] MEDS: TRIAMCINOLONE ACETONIDE 0.1% TOPICAL CREAM 15GM TUBE. TP SCH ×2 (09:00→19:53)
[2018-01-19] MEDS: amLODIPine BESYLATE 5 MG TABLET PO SCH (09:00)
[2018-01-19] MEDS: LOSARTAN 50 MG TABLET. PO SCH (09:00)
[2018-01-19] MEDS: POTASSIUM CHLORIDE 10 MEQ TABLET.ER. PO SCH (11:13)
[2018-01-19] MEDS: DIVALPROEX 125 MG CAP.SPRINK PO SCH ×2 (11:13→19:53)
[2018-01-19] MEDS: PANTOPRAZOLE 40 MG TABLET. PO SCH (11:13)
[2018-01-19] MEDS: LACTOBACILLUS RHAMNOSUS GG 1 CAPSULE. PO SCH ×2 (11:13→19:51)
[2018-01-19] MEDS: LEVOTHYROXINE 175 MCG TABLET PO SCH (11:13)
[2018-01-19] MEDS: traZODone 50 MG TABLET. PO SCH ×3 (11:14→17:00)
[2018-01-19] MEDS: ASPIRIN ENTERIC COATED 81 MG TABLET.DR. PO SCH (11:14)
[2018-01-19] MEDS: DOCUSATE 100 MG/10 ML SOLUTION. PO SCH (11:16)
[2018-01-19 16:39] VITALS: BP 114/50
[2018-01-19] MEDS: TAMSULOSIN 0.4 MG CAP.ER.24H. PO SCH (19:51)
[2018-01-19] MEDS: SIMVASTATIN 20 MG TABLET PO SCH (19:51)
[2018-01-19] MEDS: MIRTAZAPINE ODT 15 MG TAB.RAPDIS. PO SCH (19:51)
[2018-01-19] MEDS: traZODone 100 MG TABLET. PO SCH (19:53)
--- NOTE | 2018-01-19 21:02 | PDOC ---
Exam Note: Abdi Note: Please also refer to the separate dictated note~for this date of service dictated separately.~Patient seen individually. Discussed the patient with Nursing staff reviewed the chart.~Reviewed interim history and current functioning. Reviewed vital signs,~Labs/ Radiology~and current medications noted below. Continue current treatment with the changes noted in the dictated addendum note Assessment: Vital Signs: Vital Signs Date Time Temp Pulse Resp B/P (MAP) Pulse Ox O2 Delivery O2 Flow Rate FiO2 01/19/18 16:39 97.6 72 20 114/50 (71) 97 01/16/18 07:52 Room Air I&O Intake and Output 01/19/18 07:00 Intake Total 605 ml Balance 605 ml Intake Oral 605 ml # Bowel Movements 2 Current Medications: Meds: Current Medications Ciprofloxacin (Cipro) 500 mg 1X ONCE PO Last administered on 12/31/17at 16:59; Start 12/31/17 at 16:45; Stop 12/31/17 at 17:00; Status DC Acetaminophen (Tylenol) 650 mg PRN Q6HRS PRN PO PAIN / TEMP; Start 12/31/17 at 18:15 Multi-Ingredient Ointment (Analgesic [place]) 1 hiral PRN QID PRN TP MUSCLE PAIN; Start 12/31/17 at 18:15 Al Hydroxide/Mg Hydroxide (Mylanta Plus Xs) 15 ml PRN AFTMEALHC PRN PO DYSPEPSIA; Start 12/31/17 at 18:15 Magnesium Hydroxide (Milk Of Magnesia) 2,400 mg PRN QHS PRN PO CONSTIPATION; Start 12/31/17 at 18:15 Olanzapine (ZyPREXA) 2.5 mg PRN Q2HR PRN PO AGITATION; Start 12/31/17 at 18:45 ; Stop 01/07/18 at 10:11; Status DC Divalproex Sodium (Depakote Sprinkles) 500 mg BID PO Last administered on at 19:53; Start 01/01/18 at 09:00 Haloperidol (Haldol) 2 mg [id number] PO Last administered on 01/01/18at 17:18; Start 01/01/18 at 00:00; Stop 01/01/18 at 18:44; Status DC Haloperidol Lactate (Haldol) 5 mg PRN Q6HRS PRN IM ANXIETY/AGITATION; Start at 22:15; Stop 01/01/18 at 18:44; Status DC Quetiapine Fumarate (SEROquel) 25 mg PRN Q4HRS PRN PO ANXIETY/AGITATION; Start 12/31/17 at 22:15; Stop 01/03/18 at 16:25; Status DC Quetiapine Fumarate (SEROquel) 150 mg QID PO Last administered on 01/03/18at 08: 12; Start 01/01/18 at 09:00; Stop 01/03/18 at 16:25; Status DC Trazodone HCl (Desyrel) 100 mg QHS PO Last administered on 01/19/18 19:53; Start 01/01/18 at 21:00 Docusate Sodium (Colace Solution) 100 mg DAILY PO Last administered on at 11:16; Start 01/01/18 at 09:00 Levothyroxine Sodium (Synthroid) 175 mcg DAILYAC PO Last administered on at 11:13; Start 01/01/18 at 07:30 Losartan Potassium (Cozaar) 50 mg DAILY PO Last administered on 01/16/18at 11:03 ; Start 01/01/18 at 09:00 Tamsulosin HCl (Flomax) 0.4 mg QHS PO Last administered on 01/19/18at 19:51; Start 01/01/18 at 21:00 Amlodipine Besylate (Norvasc) 5 mg DAILY PO Last administered on 01/16/18at 11: 04; Start 01/01/18 at 09:00 Aspirin (Aspirin Enteric Coated) 81 mg DAILYWBKFT PO Last administered on at 11:14; Start 01/01/18 at 08:00 Bisacodyl (Dulcolax Supp) 10 mg PRN DAILY PRN [place] CONSTIPATION; Start 12/31/17 at 22:15 Acetaminophen/ Hydrocodone Bitart (Lortab 5/325) 1 tab PRN Q6HRS PRN PO PAIN Last administered on 01/12/18at 23:34; Start 12/31/17 at 22:15 Magnesium Hydroxide (Milk Of Magnesia) 2,400 mg PRN Q6HRS PRN PO CONSTIPATION; Start 12/31/17 at 22:15 Pantoprazole Sodium (Protonix) 40 mg DAILYAC PO Last administered on 01/19/18 11:13; Start 01/01/18 at 07:30 Polyethylene Glycol (miraLAX) 17 gm PRN DAILY PRN PO CONSTIPATION; Start at 09:00 Potassium Chloride (Klor-Con) 10 meq DAILYWBKFT PO Last administered on at 11:13; Start 01/01/18 at 08:00 Sennosides (Senna) 8.6 mg PRN DAILY PRN PO CONSTIPATION; Start 12/31/17 at 22: 15 Simvastatin (Zocor) 20 mg HS PO Last administered on 01/19/18 19:51; Start at 21:00 Triamcinolone Acetonide (Kenalog) 1 hiral BID TP Last administered on 01/08/18 19 :56; Start 01/01/18 at 09:00 Ceftriaxone Sodium (Rocephin Im) 1 gm DAILY IM Last administered on 01/02/18at 09:53; Start 01/02/18 at 09:00; Stop 01/04/18 at 14:44; Status DC Mirtazapine (Remeron Venessa-Tab) 7.5 mg QHS PO Last administered on 01/19/18 19: 51; Start 01/01/18 at 21:00 Olanzapine (ZyPREXA ZYDIS) 2.5 mg PRN Q2HR PRN PO PSYCHOSIS; Start 01/01/18 at 18:45; Stop 01/02/18 at 10:58; Status DC Olanzapine (ZyPREXA ZYDIS) 2.5 mg HS PO Last administered on 01/05/18 20:51; Start 01/02/18 at 21:00; Stop 01/07/18 at 16:38; Status DC Lactobacillus Rhamnosus (Culturelle) 1 cap BID PO Last administered on 19:51; Start 01/03/18 at 21:00 Olanzapine (ZyPREXA ZYDIS) 2.5 mg PRN Q2HR PRN PO AGITATION Last administered on 01/17/18 06:30; Start 01/07/18 at 10:15 Olanzapine (ZyPREXA ZYDIS) 2.5 mg DAILY PO Last administered on 9/5/18at 07:32 ; Start 01/08/18 at 09:00; Stop 01/08/18 at 17:49; Status DC Olanzapine (ZyPREXA ZYDIS) 1.25 mg [id number] PO Last administered on 01/11/18at 07:48 ; Start 01/09/18 at 09:00; Stop 01/11/18 at 23:00; Status DC Olanzapine (ZyPREXA ZYDIS) 2.5 mg HS PO Last administered on 01/11/18 19:30; Start 01/08/18 at 21:00; Stop 01/11/18 at 23:00; Status DC Olanzapine (ZyPREXA ZYDIS) 2.5 mg BID PO Last administered on 01/13/18 19:15; Start 01/12/18 at 09:00; Stop 01/13/18 at 21:00; Status DC Olanzapine (ZyPREXA ZYDIS) 1.25 mg AFTRNOON PO Last administered on 01/12/18at 15 :51; Start 01/12/18 at 14:00; Stop 01/13/18 at 16:52; Status DC Olanzapine (ZyPREXA ZYDIS) 2.5 mg TID PO Last administered on 01/19/18 19:51; Start 01/14/18 at 09:00 Trazodone HCl (Desyrel) 12.5 mg TID@0900,1300,1700 PO Last administered on 01/17at 15:14; Start 01/15/18 at 09:00; Stop 01/17/18 at 19:29; Status DC Fluvoxamine Maleate (Luvox) 25 mg QHS PO Last administered on 01/18/18at 20:21; Start 01/16/18 at 21:00; Stop 01/19/18 at 18:47; Status DC Trazodone HCl (Desyrel) 12.5 mg BID@1300,1700 PO Last administered on at 17:00; Start 01/18/18 at 13:00 Trazodone HCl (Desyrel) 25 mg DAILY PO Last administered on 01/19/18at 11:14; Start 01/18/18 at 09:00 Fluvoxamine Maleate (Luvox) 50 mg QHS PO Last administered on 9/16/18at 19:52; Start 01/19/18 at 21:00 Active Scripts Active Reported Omeprazole 20 Mg Tablet.dr 20 Mg PO DAILY Levothyroxine Sodium 175 Mcg Tablet 175 Mcg PO DAILYAC Flomax (Tamsulosin Hcl) 0.4 Mg Cap.er.24h 0.4 Mg PO QHS Simvastatin 20 Mg Tablet 20 Mg PO HS [place] 5-325 Tablet (Hydrocodone Bit/Acetaminophen) 1 Each Tablet 1 Tab PO PRN Q6HRS PRN Haloperidol 2 Mg Tablet 2 Mg PO [id number] Potassium Chloride 10 Meq Tablet.er 10 Meq PO DAILY Docusate Sodium 50 Mg/5 Ml Liquid 10 Ml PO DAILY Losartan Potassium 50 Mg Tablet 50 Mg PO DAILY Aspirin Ec (Aspirin) 81 Mg Tablet.dr 81 Mg PO DAILY Amlodipine Besylate 5 Mg Tablet 5 Mg PO DAILY Depakote Sprinkle (Divalproex Sodium) 125 Mg Cap.sprink 500 Mg PO BID Seroquel (Quetiapine Fumarate) 25 Mg Tablet 25 Mg PO PRN Q4HRS PRN Seroquel (Quetiapine Fumarate) 100 Mg Tablet 150 Mg PO QID Trazodone Hcl 100 Mg Tablet 100 Mg PO QHS Miralax (Polyethylene Glycol 3350) 17 Gm Powd.pack 17 Gm PO PRN DAILY PRN Senokot (Sennosides) 8.6 Mg Tablet 8.6 Mg PO PRN DAILY PRN Dulcolax (Bisacodyl) 10 Mg Supp.rect 10 Mg RC PRN DAILY PRN Milk Of Magnesia (Magnesium Hydroxide) 2,400 Mg/10 Ml Oral.susp 2,400 Mg PO PRN Q6HRS PRN Triamcinolone Acetonide 15 Gm Cream..g. 1 Hiral TOP BID Haldol (Haloperidol Lactate) 5 Mg/1 Ml Ampul 5 Mg IJ PRN Q6HRS PRN I have reviewed the current psychotropics carefully including drug interactions. Risk benefit ratio favors no change other than as noted in my dictated progress note. 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
[2018-01-20 06:38] VITALS: BP 100/50
[2018-01-20] MEDS: amLODIPine BESYLATE 5 MG TABLET PO SCH (09:00)
[2018-01-20] MEDS: traZODone 50 MG TABLET. PO SCH ×3 (09:00→16:51)
[2018-01-20] MEDS: TRIAMCINOLONE ACETONIDE 0.1% TOPICAL CREAM 15GM TUBE. TP SCH ×2 (09:00→19:42)
[2018-01-20] MEDS: LOSARTAN 50 MG TABLET. PO SCH (09:00)
[2018-01-20] MEDS: LEVOTHYROXINE 175 MCG TABLET PO SCH (12:17)
[2018-01-20] MEDS: PANTOPRAZOLE 40 MG TABLET. PO SCH (12:17)
[2018-01-20] MEDS: POTASSIUM CHLORIDE 10 MEQ TABLET.ER. PO SCH (12:18)
[2018-01-20] MEDS: ASPIRIN ENTERIC COATED 81 MG TABLET.DR. PO SCH (12:20)
[2018-01-20] MEDS: DIVALPROEX 125 MG CAP.SPRINK PO SCH ×2 (12:20→19:41)
[2018-01-20] MEDS: LACTOBACILLUS RHAMNOSUS GG 1 CAPSULE. PO SCH ×2 (12:20→19:40)
[2018-01-20] MEDS: DOCUSATE 100 MG/10 ML SOLUTION. PO SCH (12:21)
[2018-01-20 15:53] VITALS: BP 97/59
[2018-01-20] MEDS: MIRTAZAPINE ODT 15 MG TAB.RAPDIS. PO SCH (19:40)
[2018-01-20] MEDS: SIMVASTATIN 20 MG TABLET PO SCH (19:41)
[2018-01-20] MEDS: TAMSULOSIN 0.4 MG CAP.ER.24H. PO SCH (19:41)
[2018-01-20] MEDS: traZODone 100 MG TABLET. PO SCH (19:41)
--- NOTE | 2018-01-20 20:54 | PDOC ---
Exam Note: Abdi Note: Please also refer to the separate dictated note~for this date of service dictated separately.~Patient seen individually. Discussed the patient with Nursing staff reviewed the chart.~Reviewed interim history and current functioning. Reviewed vital signs,~Labs/ Radiology~and current medications noted below. Continue current treatment with the changes noted in the dictated addendum note Assessment: Vital Signs: Vital Signs Date Time Temp Pulse Resp B/P (MAP) Pulse Ox O2 Delivery O2 Flow Rate FiO2 01/20/18 06:38 98.0 87 16 100/50 (67) 91 Room Air I&O Intake and Output 01/20/18 07:00 Intake Total 485 ml Balance 485 ml Intake Oral 485 ml # Voids 1 # Bowel Movements 1 Current Medications: Meds: Current Medications Ciprofloxacin (Cipro) 500 mg 1X ONCE PO Last administered on 12/31/17at 16:59; Start 12/31/17 at 16:45; Stop 12/31/17 at 17:00; Status DC Acetaminophen (Tylenol) 650 mg PRN Q6HRS PRN PO PAIN / TEMP; Start 12/31/17 at 18:15 Multi-Ingredient Ointment (Analgesic [place]) 1 hiral PRN QID PRN TP MUSCLE PAIN; Start 12/31/17 at 18:15 Al Hydroxide/Mg Hydroxide (Mylanta Plus Xs) 15 ml PRN AFTMEALHC PRN PO DYSPEPSIA; Start 12/31/17 at 18:15 Magnesium Hydroxide (Milk Of Magnesia) 2,400 mg PRN QHS PRN PO CONSTIPATION; Start 12/31/17 at 18:15 Olanzapine (ZyPREXA) 2.5 mg PRN Q2HR PRN PO AGITATION; Start 12/31/17 at 18:45 ; Stop 01/07/18 at 10:11; Status DC Divalproex Sodium (Depakote Sprinkles) 500 mg BID PO Last administered on at 19:41; Start 01/01/18 at 09:00 Haloperidol (Haldol) 2 mg [id number] PO Last administered on 01/01/18at 17:18; Start 01/01/18 at 00:00; Stop 01/01/18 at 18:44; Status DC Haloperidol Lactate (Haldol) 5 mg PRN Q6HRS PRN IM ANXIETY/AGITATION; Start at 22:15; Stop 01/01/18 at 18:44; Status DC Quetiapine Fumarate (SEROquel) 25 mg PRN Q4HRS PRN PO ANXIETY/AGITATION; Start 12/31/17 at 22:15; Stop 01/03/18 at 16:25; Status DC Quetiapine Fumarate (SEROquel) 150 mg QID PO Last administered on 01/03/18at 08: 12; Start 01/01/18 at 09:00; Stop 01/03/18 at 16:25; Status DC Trazodone HCl (Desyrel) 100 mg QHS PO Last administered on 01/20/18 19:41; Start 01/01/18 at 21:00 Docusate Sodium (Colace Solution) 100 mg DAILY PO Last administered on at 12:21; Start 01/01/18 at 09:00 Levothyroxine Sodium (Synthroid) 175 mcg DAILYAC PO Last administered on at 12:17; Start 01/01/18 at 07:30 Losartan Potassium (Cozaar) 50 mg DAILY PO Last administered on 01/16/18at 11:03 ; Start 01/01/18 at 09:00 Tamsulosin HCl (Flomax) 0.4 mg QHS PO Last administered on 01/20/18at 19:41; Start 01/01/18 at 21:00 Amlodipine Besylate (Norvasc) 5 mg DAILY PO Last administered on 01/16/18at 11: 04; Start 01/01/18 at 09:00 Aspirin (Aspirin Enteric Coated) 81 mg DAILYWBKFT PO Last administered on at 12:20; Start 01/01/18 at 08:00 Bisacodyl (Dulcolax Supp) 10 mg PRN DAILY PRN [place] CONSTIPATION; Start 12/31/17 at 22:15 Acetaminophen/ Hydrocodone Bitart (Lortab 5/325) 1 tab PRN Q6HRS PRN PO PAIN Last administered on 01/12/18at 23:34; Start 12/31/17 at 22:15 Magnesium Hydroxide (Milk Of Magnesia) 2,400 mg PRN Q6HRS PRN PO CONSTIPATION; Start 12/31/17 at 22:15 Pantoprazole Sodium (Protonix) 40 mg DAILYAC PO Last administered on 01/20/18 12:17; Start 01/01/18 at 07:30 Polyethylene Glycol (miraLAX) 17 gm PRN DAILY PRN PO CONSTIPATION; Start at 09:00 Potassium Chloride (Klor-Con) 10 meq DAILYWBKFT PO Last administered on at 12:18; Start 01/01/18 at 08:00 Sennosides (Senna) 8.6 mg PRN DAILY PRN PO CONSTIPATION; Start 12/31/17 at 22: 15 Simvastatin (Zocor) 20 mg HS PO Last administered on 01/20/18at 19:41; Start at 21:00 Triamcinolone Acetonide (Kenalog) 1 hiral BID TP Last administered on 01/08/18 19 :56; Start 01/01/18 at 09:00 Ceftriaxone Sodium (Rocephin Im) 1 gm DAILY IM Last administered on 01/02/18at 09:53; Start 01/02/18 at 09:00; Stop 01/04/18 at 14:44; Status DC Mirtazapine (Remeron Venessa-Tab) 7.5 mg QHS PO Last administered on 01/20/18at 19: 40; Start 01/01/18 at 21:00 Olanzapine (ZyPREXA ZYDIS) 2.5 mg PRN Q2HR PRN PO PSYCHOSIS; Start 01/01/18 at 18:45; Stop 01/02/18 at 10:58; Status DC Olanzapine (ZyPREXA ZYDIS) 2.5 mg HS PO Last administered on 01/05/18at 20:51; Start 01/02/18 at 21:00; Stop 01/07/18 at 16:38; Status DC Lactobacillus Rhamnosus (Culturelle) 1 cap BID PO Last administered on 19:40; Start 01/03/18 at 21:00 Olanzapine (ZyPREXA ZYDIS) 2.5 mg PRN Q2HR PRN PO AGITATION Last administered on 01/17/18at 06:30; Start 01/07/18 at 10:15 Olanzapine (ZyPREXA ZYDIS) 2.5 mg DAILY PO Last administered on 01/08/18at 07:32 ; Start 01/08/18 at 09:00; Stop 01/08/18 at 17:49; Status DC Olanzapine (ZyPREXA ZYDIS) 1.25 mg [id number] PO Last administered on 01/11/18at 07:48 ; Start 01/09/18 at 09:00; Stop 01/11/18 at 23:00; Status DC Olanzapine (ZyPREXA ZYDIS) 2.5 mg HS PO Last administered on 01/11/18at 19:30; Start 01/08/18 at 21:00; Stop 01/11/18 at 23:00; Status DC Olanzapine (ZyPREXA ZYDIS) 2.5 mg BID PO Last administered on 01/13/18at 19:15; Start 01/12/18 at 09:00; Stop 01/13/18 at 21:00; Status DC Olanzapine (ZyPREXA ZYDIS) 1.25 mg AFTRNOON PO Last administered on 01/12/18at 15 :51; Start 01/12/18 at 14:00; Stop 01/13/18 at 16:52; Status DC Olanzapine (ZyPREXA ZYDIS) 2.5 mg TID PO Last administered on 01/20/18at 19:40; Start 01/14/18 at 09:00 Trazodone HCl (Desyrel) 12.5 mg TID@0900,1300,1700 PO Last administered on 01/17at 15:14; Start 01/15/18 at 09:00; Stop 01/17/18 at 19:29; Status DC Fluvoxamine Maleate (Luvox) 25 mg QHS PO Last administered on 01/18/18at 20:21; Start 01/16/18 at 21:00; Stop 01/19/18 at 18:47; Status DC Trazodone HCl (Desyrel) 12.5 mg BID@1300,1700 PO Last administered on at 16:51; Start 01/18/18 at 13:00 Trazodone HCl (Desyrel) 25 mg DAILY PO Last administered on 01/20/18at 09:00; Start 01/18/18 at 09:00 Fluvoxamine Maleate (Luvox) 50 mg QHS PO Last administered on 01/20/18at 19:39; Start 01/19/18 at 21:00 Active Scripts Active Reported Omeprazole 20 Mg Tablet.dr 20 Mg PO DAILY Levothyroxine Sodium 175 Mcg Tablet 175 Mcg PO DAILYAC Flomax (Tamsulosin Hcl) 0.4 Mg Cap.er.24h 0.4 Mg PO QHS Simvastatin 20 Mg Tablet 20 Mg PO HS [place] 5-325 Tablet (Hydrocodone Bit/Acetaminophen) 1 Each Tablet 1 Tab PO PRN Q6HRS PRN Haloperidol 2 Mg Tablet 2 Mg PO [id number] Potassium Chloride 10 Meq Tablet.er 10 Meq PO DAILY Docusate Sodium 50 Mg/5 Ml Liquid 10 Ml PO DAILY Losartan Potassium 50 Mg Tablet 50 Mg PO DAILY Aspirin Ec (Aspirin) 81 Mg Tablet.dr 81 Mg PO DAILY Amlodipine Besylate 5 Mg Tablet 5 Mg PO DAILY Depakote Sprinkle (Divalproex Sodium) 125 Mg Cap.sprink 500 Mg PO BID Seroquel (Quetiapine Fumarate) 25 Mg Tablet 25 Mg PO PRN Q4HRS PRN Seroquel (Quetiapine Fumarate) 100 Mg Tablet 150 Mg PO QID Trazodone Hcl 100 Mg Tablet 100 Mg PO QHS Miralax (Polyethylene Glycol 3350) 17 Gm Powd.pack 17 Gm PO PRN DAILY PRN Senokot (Sennosides) 8.6 Mg Tablet 8.6 Mg PO PRN DAILY PRN Dulcolax (Bisacodyl) 10 Mg Supp.rect 10 Mg RC PRN DAILY PRN Milk Of Magnesia (Magnesium Hydroxide) 2,400 Mg/10 Ml Oral.susp 2,400 Mg PO PRN Q6HRS PRN Triamcinolone Acetonide 15 Gm Cream..g. 1 Hiral TOP BID Haldol (Haloperidol Lactate) 5 Mg/1 Ml Ampul 5 Mg IJ PRN Q6HRS PRN I have reviewed the current psychotropics carefully including drug interactions. Risk benefit ratio favors no change other than as noted in my dictated progress note. 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
--- NOTE | 2018-01-21 00:08 | PN ---
DATE: 01/17/2018 This late entry for 01/17/2018 covers elements not covered in my initial note. SUBJECTIVE: I met with the patient in the evening. The patient slept 8-1/4 hours previous night, has been agitated, combative with cares, was hitting at another patient. Received Zyprexa, often mumbles under her breath "bitch." Takes her meds in ice-cream. REVIEW OF SYSTEMS: No CV, , pulmonary, eye, ENT system symptoms on review. Reliability poor. MENTAL STATUS EXAM: Oriented to herself. Insight, judgment, recent and remote memory, attention, concentration, fund of knowledge poor, consistent with her diagnosis. PLAN: Increase 0900 trazodone from 12.5 to 25 mg. Continue rest unchanged from initial note. MAN Lisa MURRAY MD DR: DANIEL/valeriy JOB#: [id number] / [id number]
--- NOTE | 2018-01-21 00:57 | PN ---
DATE: 01/19/2018 This is a late entry for 01/19/2018 covers elements not covered in my initial note. SUBJECTIVE: I met with the patient in the evening. The patient remains somewhat obsessive, repeating the B word under her breath, confused, ambulates up and down the hallway. Wandering, name calling, compliant with meds hidden in ice-cream. REVIEW OF SYSTEMS: No CV, , pulmonary, eye, ENT system symptoms on review. Reliability poor. MENTAL STATUS EXAM: Oriented to herself. Insight, judgment, recent and remote memory, attention, concentration, fund of knowledge poor, consistent with her diagnosis mentioned in my initial note. PLAN: Increase Luvox to 50 mg at bedtime after she has been on 25 for 3 days. Rest unchanged per initial note. MAN Lisa MURRAY MD DR: DANIEL/valeriy JOB#: [id number] / [id number]
--- NOTE | 2018-01-21 01:45 | PN ---
DATE: 01/18/2018 PSYCHIATRIC PROGRESS NOTE This is a late entry 01/18/2018, covers elements not covered in my initial note. SUBJECTIVE: I met with the patient in the evening. The patient remains confused, withdrawn, laid in bed until lunchtime, refused a.m. medications, combative when lab attempted to draw, labs with the assistance of RN and CONTACT WORKER [employer], but the lab draw was unsuccessful after 2 attempts. While the lab was working with the patient, attempting to hit and scratch, scratched staff, calling staff members "bitches." She is quite obsessive about using that word repeatedly, does it frequently under her breath. REVIEW OF SYSTEMS: No CV, , pulmonary, eye, ENT system symptoms on review. Reliability poor. MENTAL STATUS EXAM: Oriented to herself. Insight, judgment, recent and remote memory, attention, concentration, fund of knowledge poor, consistent with her diagnosis mentioned in my initial note. PLAN: No change from initial note. Valproic acid level therapeutic at 76. JAYLAN MURRAY MD DR: DANIEL/valeriy JOB#: [id number] / [id number]
[2018-01-21 06:03] VITALS: BP 135/54
[2018-01-21] MEDS: ASPIRIN ENTERIC COATED 81 MG TABLET.DR. PO SCH (08:25)
[2018-01-21] MEDS: DOCUSATE 100 MG/10 ML SOLUTION. PO SCH (08:25)
[2018-01-21] MEDS: LACTOBACILLUS RHAMNOSUS GG 1 CAPSULE. PO SCH ×2 (08:25→19:45)
[2018-01-21] MEDS: DIVALPROEX 125 MG CAP.SPRINK PO SCH ×2 (08:25→19:46)
[2018-01-21] MEDS: LEVOTHYROXINE 175 MCG TABLET PO SCH (08:26)
[2018-01-21] MEDS: traZODone 100 MG TABLET. PO SCH ×2 (08:26→19:46)
[2018-01-21] MEDS: POTASSIUM CHLORIDE 10 MEQ TABLET.ER. PO SCH (08:26)
[2018-01-21] MEDS: amLODIPine BESYLATE 5 MG TABLET PO SCH (08:26)
[2018-01-21] MEDS: PANTOPRAZOLE 40 MG TABLET. PO SCH (08:27)
[2018-01-21] MEDS: LOSARTAN 50 MG TABLET. PO SCH (08:28)
[2018-01-21] MEDS: traZODone 50 MG TABLET. PO SCH ×3 (08:30→17:21)
[2018-01-21] MEDS: TRIAMCINOLONE ACETONIDE 0.1% TOPICAL CREAM 15GM TUBE. TP SCH ×2 (09:00→19:46)
[2018-01-21 15:54] VITALS: BP 121/72
[2018-01-21] MEDS: SIMVASTATIN 20 MG TABLET PO SCH (19:46)
[2018-01-21] MEDS: TAMSULOSIN 0.4 MG CAP.ER.24H. PO SCH (19:46)
[2018-01-21] MEDS: MIRTAZAPINE ODT 15 MG TAB.RAPDIS. PO SCH (19:46)
--- NOTE | 2018-01-21 20:53 | PDOC ---
Exam Note: Abdi Note: Please also refer to the separate dictated note~for this date of service dictated separately.~Patient seen individually. Discussed the patient with Nursing staff reviewed the chart.~Reviewed interim history and current functioning. Reviewed vital signs,~Labs/ Radiology~and current medications noted below. Continue current treatment with the changes noted in the dictated addendum note Assessment: Vital Signs: Vital Signs Date Time Temp Pulse Resp B/P (MAP) Pulse Ox O2 Delivery O2 Flow Rate FiO2 01/21/18 15:54 97.1 67 21 121/72 (88) 95 01/20/18 06:38 Room Air I&O Intake and Output 01/21/18 07:00 Intake Total 600 ml Balance 600 ml Intake Oral 600 ml # Voids 1 Current Medications: Meds: Current Medications Ciprofloxacin (Cipro) 500 mg 1X ONCE PO Last administered on 12/31/17at 16:59; Start 12/31/17 at 16:45; Stop 12/31/17 at 17:00; Status DC Acetaminophen (Tylenol) 650 mg PRN Q6HRS PRN PO PAIN / TEMP; Start 12/31/17 at 18:15 Multi-Ingredient Ointment (Analgesic [place]) 1 hiral PRN QID PRN TP MUSCLE PAIN; Start 12/31/17 at 18:15 Al Hydroxide/Mg Hydroxide (Mylanta Plus Xs) 15 ml PRN AFTMEALHC PRN PO DYSPEPSIA; Start 12/31/17 at 18:15 Magnesium Hydroxide (Milk Of Magnesia) 2,400 mg PRN QHS PRN PO CONSTIPATION; Start 12/31/17 at 18:15 Olanzapine (ZyPREXA) 2.5 mg PRN Q2HR PRN PO AGITATION; Start 12/31/17 at 18:45 ; Stop 01/07/18 at 10:11; Status DC Divalproex Sodium (Depakote Sprinkles) 500 mg BID PO Last administered on at 19:46; Start 01/01/18 at 09:00 Haloperidol (Haldol) 2 mg [id number] PO Last administered on 01/01/18at 17:18; Start 01/01/18 at 00:00; Stop 01/01/18 at 18:44; Status DC Haloperidol Lactate (Haldol) 5 mg PRN Q6HRS PRN IM ANXIETY/AGITATION; Start at 22:15; Stop 01/01/18 at 18:44; Status DC Quetiapine Fumarate (SEROquel) 25 mg PRN Q4HRS PRN PO ANXIETY/AGITATION; Start 12/31/17 at 22:15; Stop 01/03/18 at 16:25; Status DC Quetiapine Fumarate (SEROquel) 150 mg QID PO Last administered on 01/03/18at 08: 12; Start 01/01/18 at 09:00; Stop 01/03/18 at 16:25; Status DC Trazodone HCl (Desyrel) 100 mg QHS PO Last administered on 01/21/18 19:46; Start 01/01/18 at 21:00 Docusate Sodium (Colace Solution) 100 mg DAILY PO Last administered on 08:25; Start 01/01/18 at 09:00 Levothyroxine Sodium (Synthroid) 175 mcg DAILYAC PO Last administered on 08:26; Start 01/01/18 at 07:30 Losartan Potassium (Cozaar) 50 mg DAILY PO Last administered on 01/21/18 08:28 ; Start 01/01/18 at 09:00 Tamsulosin HCl (Flomax) 0.4 mg QHS PO Last administered on 01/21/18 19:46; Start 01/01/18 at 21:00 Amlodipine Besylate (Norvasc) 5 mg DAILY PO Last administered on 01/21/18at 08: 26; Start 01/01/18 at 09:00 Aspirin (Aspirin Enteric Coated) 81 mg DAILYWBKFT PO Last administered on at 08:25; Start 01/01/18 at 08:00 Bisacodyl (Dulcolax Supp) 10 mg PRN DAILY PRN [place] CONSTIPATION; Start 12/31/17 at 22:15 Acetaminophen/ Hydrocodone Bitart (Lortab 5/325) 1 tab PRN Q6HRS PRN PO PAIN Last administered on 01/12/18at 23:34; Start 12/31/17 at 22:15 Magnesium Hydroxide (Milk Of Magnesia) 2,400 mg PRN Q6HRS PRN PO CONSTIPATION; Start 12/31/17 at 22:15 Pantoprazole Sodium (Protonix) 40 mg DAILYAC PO Last administered on 01/21/18 08:27; Start 01/01/18 at 07:30 Polyethylene Glycol (miraLAX) 17 gm PRN DAILY PRN PO CONSTIPATION; Start at 09:00 Potassium Chloride (Klor-Con) 10 meq DAILYWBKFT PO Last administered on at 08:26; Start 01/01/18 at 08:00 Sennosides (Senna) 8.6 mg PRN DAILY PRN PO CONSTIPATION; Start 12/31/17 at 22: 15 Simvastatin (Zocor) 20 mg HS PO Last administered on 01/21/18at 19:46; Start at 21:00 Triamcinolone Acetonide (Kenalog) 1 hiral BID TP Last administered on 01/21/18at 09:00; Start 01/01/18 at 09:00 Ceftriaxone Sodium (Rocephin Im) 1 gm DAILY IM Last administered on 01/02/18at 09:53; Start 01/02/18 at 09:00; Stop 01/04/18 at 14:44; Status DC Mirtazapine (Remeron Venessa-Tab) 7.5 mg QHS PO Last administered on 01/21/18at 19: 46; Start 01/01/18 at 21:00 Olanzapine (ZyPREXA ZYDIS) 2.5 mg PRN Q2HR PRN PO PSYCHOSIS; Start 01/01/18 at 18:45; Stop 01/02/18 at 10:58; Status DC Olanzapine (ZyPREXA ZYDIS) 2.5 mg HS PO Last administered on 01/05/18at 20:51; Start 01/02/18 at 21:00; Stop 01/07/18 at 16:38; Status DC Lactobacillus Rhamnosus (Culturelle) 1 cap BID PO Last administered on at 19:45; Start 01/03/18 at 21:00 Olanzapine (ZyPREXA ZYDIS) 2.5 mg PRN Q2HR PRN PO AGITATION Last administered on 01/17/18at 06:30; Start 01/07/18 at 10:15 Olanzapine (ZyPREXA ZYDIS) 2.5 mg DAILY PO Last administered on 01/08/18at 07:32 ; Start 01/08/18 at 09:00; Stop 01/08/18 at 17:49; Status DC Olanzapine (ZyPREXA ZYDIS) 1.25 mg [id number] PO Last administered on 01/11/18at 07:48 ; Start 01/09/18 at 09:00; Stop 01/11/18 at 23:00; Status DC Olanzapine (ZyPREXA ZYDIS) 2.5 mg HS PO Last administered on 01/11/18at 19:30; Start 01/08/18 at 21:00; Stop 01/11/18 at 23:00; Status DC Olanzapine (ZyPREXA ZYDIS) 2.5 mg BID PO Last administered on 01/13/18at 19:15; Start 01/12/18 at 09:00; Stop 01/13/18 at 21:00; Status DC Olanzapine (ZyPREXA ZYDIS) 1.25 mg AFTRNOON PO Last administered on 01/12/18at 15 :51; Start 01/12/18 at 14:00; Stop 01/13/18 at 16:52; Status DC Olanzapine (ZyPREXA ZYDIS) 2.5 mg TID PO Last administered on 01/21/18at 19:46; Start 01/14/18 at 09:00 Trazodone HCl (Desyrel) 12.5 mg TID@0900,1300,1700 PO Last administered on 01/17at 15:14; Start 01/15/18 at 09:00; Stop 01/17/18 at 19:29; Status DC Fluvoxamine Maleate (Luvox) 25 mg QHS PO Last administered on 01/18/18at 20:21; Start 01/16/18 at 21:00; Stop 01/19/18 at 18:47; Status DC Trazodone HCl (Desyrel) 12.5 mg BID@1300,1700 PO Last administered on at 17:21; Start 01/18/18 at 13:00 Trazodone HCl (Desyrel) 25 mg DAILY PO Last administered on 01/21/18at 08:30; Start 01/18/18 at 09:00 Fluvoxamine Maleate (Luvox) 50 mg QHS PO Last administered on 01/21/18at 19:45; Start 01/19/18 at 21:00; Stop 01/22/18 at 09:00 Fluvoxamine Maleate (Luvox) 75 mg QHS PO ; Start 01/22/18 at 21:00 Active Scripts Active Reported Omeprazole 20 Mg Tablet.dr 20 Mg PO DAILY Levothyroxine Sodium 175 Mcg Tablet 175 Mcg PO DAILYAC Flomax (Tamsulosin Hcl) 0.4 Mg Cap.er.24h 0.4 Mg PO QHS Simvastatin 20 Mg Tablet 20 Mg PO HS [place] 5-325 Tablet (Hydrocodone Bit/Acetaminophen) 1 Each Tablet 1 Tab PO PRN Q6HRS PRN Haloperidol 2 Mg Tablet 2 Mg PO [id number] Potassium Chloride 10 Meq Tablet.er 10 Meq PO DAILY Docusate Sodium 50 Mg/5 Ml Liquid 10 Ml PO DAILY Losartan Potassium 50 Mg Tablet 50 Mg PO DAILY Aspirin Ec (Aspirin) 81 Mg Tablet.dr 81 Mg PO DAILY Amlodipine Besylate 5 Mg Tablet 5 Mg PO DAILY Depakote Sprinkle (Divalproex Sodium) 125 Mg Cap.sprink 500 Mg PO BID Seroquel (Quetiapine Fumarate) 25 Mg Tablet 25 Mg PO PRN Q4HRS PRN Seroquel (Quetiapine Fumarate) 100 Mg Tablet 150 Mg PO QID Trazodone Hcl 100 Mg Tablet 100 Mg PO QHS Miralax (Polyethylene Glycol 3350) 17 Gm Powd.pack 17 Gm PO PRN DAILY PRN Senokot (Sennosides) 8.6 Mg Tablet 8.6 Mg PO PRN DAILY PRN Dulcolax (Bisacodyl) 10 Mg Supp.rect 10 Mg RC PRN DAILY PRN Milk Of Magnesia (Magnesium Hydroxide) 2,400 Mg/10 Ml Oral.susp 2,400 Mg PO PRN Q6HRS PRN Triamcinolone Acetonide 15 Gm Cream..g. 1 Hiral TOP BID Haldol (Haloperidol Lactate) 5 Mg/1 Ml Ampul 5 Mg IJ PRN Q6HRS PRN I have reviewed the current psychotropics carefully including drug interactions. Risk benefit ratio favors no change other than as noted in my dictated progress note. 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
--- NOTE | 2018-01-21 23:18 | PN ---
DATE: 01/20/2018 This is a late entry of 01/20/2018, covers elements not covered in my initial note. SUBJECTIVE: I met with the patient in the evening. The patient slept 4 hours previous night. She has been slightly less combative per nursing report, still muttering the B word under her breath per nursing report. She slept during the day till noon and then was more awake. REVIEW OF SYSTEMS: No CV, , pulmonary, eye, ENT system symptoms on review. Reliability is poor. MENTAL STATUS EXAM: Oriented to herself. Insight, judgment, recent and remote memory, attention, concentration, fund of knowledge poor, consistent with her diagnosis mentioned in my initial note. PLAN: No change from initial note, but we may need to increase the Luvox in due course for her ongoing obsessive thought processes within the context of significant dementia. MAN Lisa MURRAY MD DR: DANIEL/valeriy JOB#: [id number] / [id number]
[2018-01-22 05:58] VITALS: BP 119/54
[2018-01-22] MEDS: LEVOTHYROXINE 175 MCG TABLET PO SCH (07:20)
[2018-01-22] MEDS: PANTOPRAZOLE 40 MG TABLET. PO SCH (07:20)
[2018-01-22] MEDS: amLODIPine BESYLATE 5 MG TABLET PO SCH (07:20)
[2018-01-22] MEDS: DOCUSATE 100 MG/10 ML SOLUTION. PO SCH (07:20)
[2018-01-22] MEDS: DIVALPROEX 125 MG CAP.SPRINK PO SCH ×2 (07:20→19:24)
[2018-01-22] MEDS: LACTOBACILLUS RHAMNOSUS GG 1 CAPSULE. PO SCH ×2 (07:20→19:25)
[2018-01-22] MEDS: ASPIRIN ENTERIC COATED 81 MG TABLET.DR. PO SCH (07:20)
[2018-01-22] MEDS: LOSARTAN 50 MG TABLET. PO SCH (07:21)
[2018-01-22] MEDS: traZODone 50 MG TABLET. PO SCH ×3 (07:24→15:51)
[2018-01-22] MEDS: TRIAMCINOLONE ACETONIDE 0.1% TOPICAL CREAM 15GM TUBE. TP SCH ×2 (07:25→19:26)
[2018-01-22] MEDS: POTASSIUM CHLORIDE 10 MEQ TABLET.ER. PO SCH (07:25)
[2018-01-22 16:56] VITALS: BP 102/50
[2018-01-22] MEDS: traZODone 100 MG TABLET. PO SCH (19:25)
[2018-01-22] MEDS: TAMSULOSIN 0.4 MG CAP.ER.24H. PO SCH (19:25)
[2018-01-22] MEDS: MIRTAZAPINE ODT 15 MG TAB.RAPDIS. PO SCH (19:25)
[2018-01-22] MEDS: SIMVASTATIN 20 MG TABLET PO SCH (19:25)
--- NOTE | 2018-01-22 21:13 | PDOC ---
Exam Note: Abdi Note: Please also refer to the separate dictated note~for this date of service dictated separately.~Patient seen individually. Discussed the patient with Nursing staff reviewed the chart.~Reviewed interim history and current functioning. Reviewed vital signs,~Labs/ Radiology~and current medications noted below. Continue current treatment with the changes noted in the dictated addendum note Assessment: Vital Signs: Vital Signs Date Time Temp Pulse Resp B/P (MAP) Pulse Ox O2 Delivery O2 Flow Rate FiO2 01/22/18 16:56 97.8 59 16 102/50 (67) 95 Room Air I&O Intake and Output 01/22/18 07:00 Intake Total 600 ml Balance 600 ml Intake Oral 600 ml # Voids 1 # Bowel Movements 1 Current Medications: Meds: Current Medications Ciprofloxacin (Cipro) 500 mg 1X ONCE PO Last administered on 12/31/17at 16:59; Start 12/31/17 at 16:45; Stop 12/31/17 at 17:00; Status DC Acetaminophen (Tylenol) 650 mg PRN Q6HRS PRN PO PAIN / TEMP; Start 12/31/17 at 18:15 Multi-Ingredient Ointment (Analgesic [place]) 1 hiral PRN QID PRN TP MUSCLE PAIN; Start 12/31/17 at 18:15 Al Hydroxide/Mg Hydroxide (Mylanta Plus Xs) 15 ml PRN AFTMEALHC PRN PO DYSPEPSIA; Start 12/31/17 at 18:15 Magnesium Hydroxide (Milk Of Magnesia) 2,400 mg PRN QHS PRN PO CONSTIPATION; Start 12/31/17 at 18:15 Olanzapine (ZyPREXA) 2.5 mg PRN Q2HR PRN PO AGITATION; Start 12/31/17 at 18:45 ; Stop 01/07/18 at 10:11; Status DC Divalproex Sodium (Depakote Sprinkles) 500 mg BID PO Last administered on at 19:24; Start 01/01/18 at 09:00 Haloperidol (Haldol) 2 mg [id number] PO Last administered on 01/01/18at 17:18; Start 01/01/18 at 00:00; Stop 01/01/18 at 18:44; Status DC Haloperidol Lactate (Haldol) 5 mg PRN Q6HRS PRN IM ANXIETY/AGITATION; Start at 22:15; Stop 01/01/18 at 18:44; Status DC Quetiapine Fumarate (SEROquel) 25 mg PRN Q4HRS PRN PO ANXIETY/AGITATION; Start 12/31/17 at 22:15; Stop 01/03/18 at 16:25; Status DC Quetiapine Fumarate (SEROquel) 150 mg QID PO Last administered on 01/03/18at 08: 12; Start 01/01/18 at 09:00; Stop 01/03/18 at 16:25; Status DC Trazodone HCl (Desyrel) 100 mg QHS PO Last administered on 01/22/18 19:25; Start 01/01/18 at 21:00 Docusate Sodium (Colace Solution) 100 mg DAILY PO Last administered on at 07:20; Start 01/01/18 at 09:00 Levothyroxine Sodium (Synthroid) 175 mcg DAILYAC PO Last administered on at 07:20; Start 01/01/18 at 07:30 Losartan Potassium (Cozaar) 50 mg DAILY PO Last administered on 01/21/18at 08:28 ; Start 01/01/18 at 09:00 Tamsulosin HCl (Flomax) 0.4 mg QHS PO Last administered on 01/22/18 19:25; Start 01/01/18 at 21:00 Amlodipine Besylate (Norvasc) 5 mg DAILY PO Last administered on 01/21/18at 08: 26; Start 01/01/18 at 09:00 Aspirin (Aspirin Enteric Coated) 81 mg DAILYWBKFT PO Last administered on at 07:20; Start 01/01/18 at 08:00 Bisacodyl (Dulcolax Supp) 10 mg PRN DAILY PRN [place] CONSTIPATION; Start 12/31/17 at 22:15 Acetaminophen/ Hydrocodone Bitart (Lortab 5/325) 1 tab PRN Q6HRS PRN PO PAIN Last administered on 01/12/18at 23:34; Start 12/31/17 at 22:15 Magnesium Hydroxide (Milk Of Magnesia) 2,400 mg PRN Q6HRS PRN PO CONSTIPATION; Start 12/31/17 at 22:15 Pantoprazole Sodium (Protonix) 40 mg DAILYAC PO Last administered on 01/22/18 07:20; Start 01/01/18 at 07:30 Polyethylene Glycol (miraLAX) 17 gm PRN DAILY PRN PO CONSTIPATION; Start at 09:00 Potassium Chloride (Klor-Con) 10 meq DAILYWBKFT PO Last administered on at 07:25; Start 01/01/18 at 08:00 Sennosides (Senna) 8.6 mg PRN DAILY PRN PO CONSTIPATION; Start 12/31/17 at 22: 15 Simvastatin (Zocor) 20 mg HS PO Last administered on 01/22/18at 19:25; Start at 21:00 Triamcinolone Acetonide (Kenalog) 1 hiral BID TP Last administered on 01/22/18 19:26; Start 01/01/18 at 09:00 Ceftriaxone Sodium (Rocephin Im) 1 gm DAILY IM Last administered on 01/02/18at 09:53; Start 01/02/18 at 09:00; Stop 01/04/18 at 14:44; Status DC Mirtazapine (Remeron Venessa-Tab) 7.5 mg QHS PO Last administered on 01/21/18at 19: 46; Start 01/01/18 at 21:00; Stop 01/22/18 at 18:08; Status DC Olanzapine (ZyPREXA ZYDIS) 2.5 mg PRN Q2HR PRN PO PSYCHOSIS; Start 01/01/18 at 18:45; Stop 01/02/18 at 10:58; Status DC Olanzapine (ZyPREXA ZYDIS) 2.5 mg HS PO Last administered on 01/05/18at 20:51; Start 01/02/18 at 21:00; Stop 01/07/18 at 16:38; Status DC Lactobacillus Rhamnosus (Culturelle) 1 cap BID PO Last administered on at 19:25; Start 01/03/18 at 21:00 Olanzapine (ZyPREXA ZYDIS) 2.5 mg PRN Q2HR PRN PO AGITATION Last administered on 01/17/18at 06:30; Start 01/07/18 at 10:15 Olanzapine (ZyPREXA ZYDIS) 2.5 mg DAILY PO Last administered on 01/08/18 07:32 ; Start 01/08/18 at 09:00; Stop 01/08/18 at 17:49; Status DC Olanzapine (ZyPREXA ZYDIS) 1.25 mg [id number] PO Last administered on 01/11/18at 07:48 ; Start 01/09/18 at 09:00; Stop 01/11/18 at 23:00; Status DC Olanzapine (ZyPREXA ZYDIS) 2.5 mg HS PO Last administered on 01/11/18at 19:30; Start 01/08/18 at 21:00; Stop 01/11/18 at 23:00; Status DC Olanzapine (ZyPREXA ZYDIS) 2.5 mg BID PO Last administered on 01/13/18at 19:15; Start 01/12/18 at 09:00; Stop 01/13/18 at 21:00; Status DC Olanzapine (ZyPREXA ZYDIS) 1.25 mg AFTRNOON PO Last administered on 01/12/18at 15 :51; Start 01/12/18 at 14:00; Stop 01/13/18 at 16:52; Status DC Olanzapine (ZyPREXA ZYDIS) 2.5 mg TID PO Last administered on 01/22/18at 19:25; Start 01/14/18 at 09:00 Trazodone HCl (Desyrel) 12.5 mg TID@0900,1300,1700 PO Last administered on 01/17at 15:14; Start 01/15/18 at 09:00; Stop 01/17/18 at 19:29; Status DC Fluvoxamine Maleate (Luvox) 25 mg QHS PO Last administered on 01/18/18at 20:21; Start 01/16/18 at 21:00; Stop 01/19/18 at 18:47; Status DC Trazodone HCl (Desyrel) 12.5 mg BID@1300,1700 PO Last administered on at 15:51; Start 01/18/18 at 13:00 Trazodone HCl (Desyrel) 25 mg DAILY PO Last administered on 01/22/18at 07:24; Start 01/18/18 at 09:00 Fluvoxamine Maleate (Luvox) 50 mg QHS PO Last administered on 01/21/18at 19:45; Start 01/19/18 at 21:00; Stop 01/22/18 at 09:00; Status DC Fluvoxamine Maleate (Luvox) 75 mg QHS PO Last administered on 01/22/18at 19:25; Start 01/22/18 at 21:00 Mirtazapine (Remeron Venessa-Tab) 15 mg QHS PO Last administered on 01/22/18at 19:25 ; Start 01/22/18 at 21:00 Active Scripts Active Reported Omeprazole 20 Mg Tablet.dr 20 Mg PO DAILY Levothyroxine Sodium 175 Mcg Tablet 175 Mcg PO DAILYAC Flomax (Tamsulosin Hcl) 0.4 Mg Cap.er.24h 0.4 Mg PO QHS Simvastatin 20 Mg Tablet 20 Mg PO HS [place] 5-325 Tablet (Hydrocodone Bit/Acetaminophen) 1 Each Tablet 1 Tab PO PRN Q6HRS PRN Haloperidol 2 Mg Tablet 2 Mg PO [id number] Potassium Chloride 10 Meq Tablet.er 10 Meq PO DAILY Docusate Sodium 50 Mg/5 Ml Liquid 10 Ml PO DAILY Losartan Potassium 50 Mg Tablet 50 Mg PO DAILY Aspirin Ec (Aspirin) 81 Mg Tablet.dr 81 Mg PO DAILY Amlodipine Besylate 5 Mg Tablet 5 Mg PO DAILY Depakote Sprinkle (Divalproex Sodium) 125 Mg Cap.sprink 500 Mg PO BID Seroquel (Quetiapine Fumarate) 25 Mg Tablet 25 Mg PO PRN Q4HRS PRN Seroquel (Quetiapine Fumarate) 100 Mg Tablet 150 Mg PO QID Trazodone Hcl 100 Mg Tablet 100 Mg PO QHS Miralax (Polyethylene Glycol 3350) 17 Gm Powd.pack 17 Gm PO PRN DAILY PRN Senokot (Sennosides) 8.6 Mg Tablet 8.6 Mg PO PRN DAILY PRN Dulcolax (Bisacodyl) 10 Mg Supp.rect 10 Mg RC PRN DAILY PRN Milk Of Magnesia (Magnesium Hydroxide) 2,400 Mg/10 Ml Oral.susp 2,400 Mg PO PRN Q6HRS PRN Triamcinolone Acetonide 15 Gm Cream..g. 1 Hiral TOP BID Haldol (Haloperidol Lactate) 5 Mg/1 Ml Ampul 5 Mg IJ PRN Q6HRS PRN I have reviewed the current psychotropics carefully including drug interactions. Risk benefit ratio favors no change other than as noted in my dictated progress note. 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
--- NOTE | 2018-01-22 22:49 | PN ---
DATE: 01/21/2018 This is a late entry, 01/21/2018, covers the elements not covered in my initial note. SUBJECTIVE: I met with the patient in the evening. Overall, the patient slept 7-1/2 hours previous night. She is anxious, irritable, labile, up and down the hallways, confused, muttering "bitch, bitch, bitch" under her breath for no real reason. She slept a lot the morning of 01/21/2018, somewhat teary eyed at times, compliant with medications. REVIEW OF SYSTEMS: No CV, , pulmonary, eye, ENT system symptoms on review. Reliability poor. MENTAL STATUS EXAM: Oriented to herself. Insight, judgment, recent and remote memory, attention, concentration, fund of knowledge poor, consistent with her diagnosis as mentioned in my initial note. IMPRESSION: Major neurocognitive disorder, Alzheimer, vascular with delusion, depression, behavioral disturbance; anxiety disorder, unspecified; impulse control disorder, unspecified symptoms of obsessive compulsive disorder. PLAN: Increase Luvox from 50 mg at bedtime to 75 mg at bedtime after she has been on 50 mg for 3 days. Continue Depakote, trazodone, Remeron, unchanged for now along with Zyprexa as needed. JAYLAN MURRAY MD DR: DANIEL/valeriy JOB#: [id number] / [id number]
[2018-01-23 05:54] VITALS: BP 118/82
[2018-01-23] MEDS: TRIAMCINOLONE ACETONIDE 0.1% TOPICAL CREAM 15GM TUBE. TP SCH ×2 (09:00→19:35)
[2018-01-23] MEDS: PANTOPRAZOLE 40 MG TABLET. PO SCH (10:47)
[2018-01-23] MEDS: ASPIRIN ENTERIC COATED 81 MG TABLET.DR. PO SCH (10:48)
[2018-01-23] MEDS: LEVOTHYROXINE 175 MCG TABLET PO SCH (10:48)
[2018-01-23] MEDS: POTASSIUM CHLORIDE 10 MEQ TABLET.ER. PO SCH (10:48)
[2018-01-23] MEDS: DOCUSATE 100 MG/10 ML SOLUTION. PO SCH (10:49)
[2018-01-23] MEDS: LOSARTAN 50 MG TABLET. PO SCH (10:50)
[2018-01-23] MEDS: DIVALPROEX 125 MG CAP.SPRINK PO SCH ×2 (10:55→19:34)
[2018-01-23] MEDS: traZODone 50 MG TABLET. PO SCH ×3 (10:58→17:11)
[2018-01-23] MEDS: amLODIPine BESYLATE 5 MG TABLET PO SCH (10:59)
[2018-01-23 16:52] VITALS: BP 109/50
[2018-01-23] MEDS: MIRTAZAPINE ODT 15 MG TAB.RAPDIS. PO SCH (19:32)
[2018-01-23] MEDS: traZODone 100 MG TABLET. PO SCH (19:34)
[2018-01-23] MEDS: SIMVASTATIN 20 MG TABLET PO SCH (19:34)
[2018-01-23] MEDS: TAMSULOSIN 0.4 MG CAP.ER.24H. PO SCH (19:34)
--- NOTE | 2018-01-23 20:46 | PDOC ---
Exam Note: Abdi Note: Please also refer to the separate dictated note~for this date of service dictated separately.~Patient seen individually. Discussed the patient with Nursing staff reviewed the chart.~Reviewed interim history and current functioning. Reviewed vital signs,~Labs/ Radiology~and current medications noted below. Continue current treatment with the changes noted in the dictated addendum note Assessment: Vital Signs: Vital Signs Date Time Temp Pulse Resp B/P (MAP) Pulse Ox O2 Delivery O2 Flow Rate FiO2 01/23/18 16:52 97.4 63 18 109/50 (69) 95 01/22/18 16:56 Room Air I&O Intake and Output 01/23/18 07:00 Intake Total 480 ml Balance 480 ml Intake Oral 480 ml # Voids 1 # Bowel Movements 1 Current Medications: Meds: Current Medications Ciprofloxacin (Cipro) 500 mg 1X ONCE PO Last administered on 12/31/17at 16:59; Start 12/31/17 at 16:45; Stop 12/31/17 at 17:00; Status DC Acetaminophen (Tylenol) 650 mg PRN Q6HRS PRN PO PAIN / TEMP; Start 12/31/17 at 18:15 Multi-Ingredient Ointment (Analgesic [place]) 1 hiral PRN QID PRN TP MUSCLE PAIN; Start 12/31/17 at 18:15 Al Hydroxide/Mg Hydroxide (Mylanta Plus Xs) 15 ml PRN AFTMEALHC PRN PO DYSPEPSIA; Start 12/31/17 at 18:15 Magnesium Hydroxide (Milk Of Magnesia) 2,400 mg PRN QHS PRN PO CONSTIPATION; Start 12/31/17 at 18:15 Olanzapine (ZyPREXA) 2.5 mg PRN Q2HR PRN PO AGITATION; Start 12/31/17 at 18:45 ; Stop 01/07/18 at 10:11; Status DC Divalproex Sodium (Depakote Sprinkles) 500 mg BID PO Last administered on at 19:34; Start 01/01/18 at 09:00 Haloperidol (Haldol) 2 mg [id number] PO Last administered on 01/01/18at 17:18; Start 01/01/18 at 00:00; Stop 01/01/18 at 18:44; Status DC Haloperidol Lactate (Haldol) 5 mg PRN Q6HRS PRN IM ANXIETY/AGITATION; Start at 22:15; Stop 01/01/18 at 18:44; Status DC Quetiapine Fumarate (SEROquel) 25 mg PRN Q4HRS PRN PO ANXIETY/AGITATION; Start 12/31/17 at 22:15; Stop 01/03/18 at 16:25; Status DC Quetiapine Fumarate (SEROquel) 150 mg QID PO Last administered on 01/03/18at 08: 12; Start 01/01/18 at 09:00; Stop 01/03/18 at 16:25; Status DC Trazodone HCl (Desyrel) 100 mg QHS PO Last administered on 01/23/18 19:34; Start 01/01/18 at 21:00 Docusate Sodium (Colace Solution) 100 mg DAILY PO Last administered on at 10:49; Start 01/01/18 at 09:00 Levothyroxine Sodium (Synthroid) 175 mcg DAILYAC PO Last administered on at 10:48; Start 01/01/18 at 07:30 Losartan Potassium (Cozaar) 50 mg DAILY PO Last administered on 01/23/18at 10:50 ; Start 01/01/18 at 09:00 Tamsulosin HCl (Flomax) 0.4 mg QHS PO Last administered on 01/23/18 19:34; Start 01/01/18 at 21:00 Amlodipine Besylate (Norvasc) 5 mg DAILY PO Last administered on 01/23/18at 10: 59; Start 01/01/18 at 09:00 Aspirin (Aspirin Enteric Coated) 81 mg DAILYWBKFT PO Last administered on at 10:48; Start 01/01/18 at 08:00 Bisacodyl (Dulcolax Supp) 10 mg PRN DAILY PRN [place] CONSTIPATION; Start 12/31/17 at 22:15 Acetaminophen/ Hydrocodone Bitart (Lortab 5/325) 1 tab PRN Q6HRS PRN PO PAIN Last administered on 01/12/18at 23:34; Start 12/31/17 at 22:15 Magnesium Hydroxide (Milk Of Magnesia) 2,400 mg PRN Q6HRS PRN PO CONSTIPATION; Start 12/31/17 at 22:15 Pantoprazole Sodium (Protonix) 40 mg DAILYAC PO Last administered on 01/23/18at 10:47; Start 01/01/18 at 07:30 Polyethylene Glycol (miraLAX) 17 gm PRN DAILY PRN PO CONSTIPATION; Start at 09:00 Potassium Chloride (Klor-Con) 10 meq DAILYWBKFT PO Last administered on at 10:48; Start 01/01/18 at 08:00 Sennosides (Senna) 8.6 mg PRN DAILY PRN PO CONSTIPATION; Start 12/31/17 at 22: 15 Simvastatin (Zocor) 20 mg HS PO Last administered on 01/23/18at 19:34; Start at 21:00 Triamcinolone Acetonide (Kenalog) 1 hiral BID TP Last administered on 01/22/18at 19:26; Start 01/01/18 at 09:00 Ceftriaxone Sodium (Rocephin Im) 1 gm DAILY IM Last administered on 01/02/18at 09:53; Start 01/02/18 at 09:00; Stop 01/04/18 at 14:44; Status DC Mirtazapine (Remeron Venessa-Tab) 7.5 mg QHS PO Last administered on 01/21/18at 19: 46; Start 01/01/18 at 21:00; Stop 01/22/18 at 18:08; Status DC Olanzapine (ZyPREXA ZYDIS) 2.5 mg PRN Q2HR PRN PO PSYCHOSIS; Start 01/01/18 at 18:45; Stop 01/02/18 at 10:58; Status DC Olanzapine (ZyPREXA ZYDIS) 2.5 mg HS PO Last administered on 01/05/18at 20:51; Start 01/02/18 at 21:00; Stop 01/07/18 at 16:38; Status DC Lactobacillus Rhamnosus (Culturelle) 1 cap BID PO Last administered on at 19:25; Start 01/03/18 at 21:00; Stop 01/23/18 at 10:54; Status DC Olanzapine (ZyPREXA ZYDIS) 2.5 mg PRN Q2HR PRN PO AGITATION Last administered on 01/17/18at 06:30; Start 01/07/18 at 10:15 Olanzapine (ZyPREXA ZYDIS) 2.5 mg DAILY PO Last administered on 01/08/18at 07:32 ; Start 01/08/18 at 09:00; Stop 01/08/18 at 17:49; Status DC Olanzapine (ZyPREXA ZYDIS) 1.25 mg [id number] PO Last administered on 01/11/18at 07:48 ; Start 01/09/18 at 09:00; Stop 01/11/18 at 23:00; Status DC Olanzapine (ZyPREXA ZYDIS) 2.5 mg HS PO Last administered on 01/11/18at 19:30; Start 01/08/18 at 21:00; Stop 01/11/18 at 23:00; Status DC Olanzapine (ZyPREXA ZYDIS) 2.5 mg BID PO Last administered on 01/13/18at 19:15; Start 01/12/18 at 09:00; Stop 01/13/18 at 21:00; Status DC Olanzapine (ZyPREXA ZYDIS) 1.25 mg AFTRNOON PO Last administered on 01/12/18at 15 :51; Start 01/12/18 at 14:00; Stop 01/13/18 at 16:52; Status DC Olanzapine (ZyPREXA ZYDIS) 2.5 mg TID PO Last administered on 01/23/18at 19:33; Start 01/14/18 at 09:00 Trazodone HCl (Desyrel) 12.5 mg TID@0900,1300,1700 PO Last administered on 01/17at 15:14; Start 01/15/18 at 09:00; Stop 01/17/18 at 19:29; Status DC Fluvoxamine Maleate (Luvox) 25 mg QHS PO Last administered on 01/18/18at 20:21; Start 01/16/18 at 21:00; Stop 01/19/18 at 18:47; Status DC Trazodone HCl (Desyrel) 12.5 mg BID@1300,1700 PO Last administered on at 13:47; Start 01/18/18 at 13:00 Trazodone HCl (Desyrel) 25 mg DAILY PO Last administered on 01/23/18at 10:58; Start 01/18/18 at 09:00 Fluvoxamine Maleate (Luvox) 50 mg QHS PO Last administered on 01/21/18at 19:45; Start 01/19/18 at 21:00; Stop 01/22/18 at 09:00; Status DC Fluvoxamine Maleate (Luvox) 75 mg QHS PO Last administered on 01/23/18at 19:32; Start 01/22/18 at 21:00 Mirtazapine (Remeron Venessa-Tab) 15 mg QHS PO Last administered on 01/23/18at 19:32 ; Start 01/22/18 at 21:00 Risperidone (RisperDAL [place]) 12.5 mg Q2WKS IM ; Start 01/24/18 at 12:00 Active Scripts Active Reported Omeprazole 20 Mg Tablet.dr 20 Mg PO DAILY Levothyroxine Sodium 175 Mcg Tablet 175 Mcg PO DAILYAC Flomax (Tamsulosin Hcl) 0.4 Mg Cap.er.24h 0.4 Mg PO QHS Simvastatin 20 Mg Tablet 20 Mg PO HS [place] 5-325 Tablet (Hydrocodone Bit/Acetaminophen) 1 Each Tablet 1 Tab PO PRN Q6HRS PRN Haloperidol 2 Mg Tablet 2 Mg PO [id number] Potassium Chloride 10 Meq Tablet.er 10 Meq PO DAILY Docusate Sodium 50 Mg/5 Ml Liquid 10 Ml PO DAILY Losartan Potassium 50 Mg Tablet 50 Mg PO DAILY Aspirin Ec (Aspirin) 81 Mg Tablet.dr 81 Mg PO DAILY Amlodipine Besylate 5 Mg Tablet 5 Mg PO DAILY Depakote Sprinkle (Divalproex Sodium) 125 Mg Cap.sprink 500 Mg PO BID Seroquel (Quetiapine Fumarate) 25 Mg Tablet 25 Mg PO PRN Q4HRS PRN Seroquel (Quetiapine Fumarate) 100 Mg Tablet 150 Mg PO QID Trazodone Hcl 100 Mg Tablet 100 Mg PO QHS Miralax (Polyethylene Glycol 3350) 17 Gm Powd.pack 17 Gm PO PRN DAILY PRN Senokot (Sennosides) 8.6 Mg Tablet 8.6 Mg PO PRN DAILY PRN Dulcolax (Bisacodyl) 10 Mg Supp.rect 10 Mg RC PRN DAILY PRN Milk Of Magnesia (Magnesium Hydroxide) 2,400 Mg/10 Ml Oral.susp 2,400 Mg PO PRN Q6HRS PRN Triamcinolone Acetonide 15 Gm Cream..g. 1 Hiral TOP BID Haldol (Haloperidol Lactate) 5 Mg/1 Ml Ampul 5 Mg IJ PRN Q6HRS PRN I have reviewed the current psychotropics carefully including drug interactions. Risk benefit ratio favors no change other than as noted in my dictated progress note. 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
[2018-01-23 21:12] LABS: BASO # 0.1 x10^3/uL (0.0-0.2); BASO % 1 % (0-3); EOS # 0.1 x10^3/uL (0.0-0.7); EOS % 1 % (0-3); HEMATOCRIT 39.7 % (36.0-47.0); HEMOGLOBIN 13.4 g/dL (12.0-15.5); LYMPH # 1.7 x10^3/uL (1.0-4.8); LYMPH % 16 % (24-48); MEAN CORPUSCULAR HEMOGLOBIN 32 pg (25-35); MEAN CORPUSCULAR HGB CONC 34 g/dL (31-37); MEAN CORPUSCULAR VOLUME 95 fL (79-100); MONO # 0.9 x10^3/uL (0.0-1.1); MONO % 8 % (0-9); NEUT # 7.6 x10^3uL (1.8-7.7); NEUT % 74 % (31-73); PLATELET COUNT 214 x10^3/uL (140-400); RED BLOOD COUNT 4.18 x10^6/uL (3.50-5.40); RED CELL DISTRIBUTION WIDTH 13.5 % (11.5-14.5); WHITE BLOOD COUNT 10.4 x10^3/uL (4.0-11.0)
[2018-01-23 21:25] LABS: ALBUMIN 3.4 g/dL (3.4-5.0); ALBUMIN/GLOBULIN RATIO 1.1 (1.0-1.7); CALCIUM 9.5 mg/dL (8.5-10.1); CREATININE 0.9 mg/dL (0.6-1.0); GFR 62.1; POTASSIUM 4.5 mmol/L (3.5-5.1); TOTAL BILIRUBIN 0.4 mg/dL (0.2-1.0); TOTAL PROTEIN 6.5 g/dL (6.4-8.2)
[2018-01-24 06:26] VITALS: BP 104/57
[2018-01-24] MEDS: LEVOTHYROXINE 175 MCG TABLET PO SCH (07:30)
[2018-01-24] MEDS: POTASSIUM CHLORIDE 10 MEQ TABLET.ER. PO SCH (08:00)
[2018-01-24] MEDS: ASPIRIN 81 MG TAB.CHEW PO SCH (08:00)
[2018-01-24] MEDS: DOCUSATE 100 MG/10 ML SOLUTION. PO SCH (09:00)
[2018-01-24] MEDS: DIVALPROEX 125 MG CAP.SPRINK PO SCH ×2 (09:00→19:28)
[2018-01-24] MEDS: amLODIPine BESYLATE 5 MG TABLET PO SCH (09:00)
[2018-01-24] MEDS: LOSARTAN 50 MG TABLET. PO SCH (09:00)
[2018-01-24] MEDS: TRIAMCINOLONE ACETONIDE 0.1% TOPICAL CREAM 15GM TUBE. TP SCH ×2 (09:00→19:29)
[2018-01-24] MEDS: traZODone 50 MG TABLET. PO SCH ×3 (09:00→17:06)
[2018-01-24] MEDS: LANSOPRAZOLE 30 MG TAB.RAP.DR PO SCH (10:00)
[2018-01-24] MEDS ORDERED: risperiDONE MICROSPHERES 12.5 MG/2 ML DISP.SYRIN. IM SCH (12:00)
[2018-01-24] MEDS: TAMSULOSIN 0.4 MG CAP.ER.24H. PO SCH (19:28)
[2018-01-24] MEDS: MIRTAZAPINE ODT 15 MG TAB.RAPDIS. PO SCH (19:28)
[2018-01-24] MEDS: SIMVASTATIN 20 MG TABLET PO SCH (19:28)
[2018-01-24] MEDS: traZODone 100 MG TABLET. PO SCH (19:32)
--- NOTE | 2018-01-24 20:53 | PDOC ---
Exam Note: Abdi Note: Please also refer to the separate dictated note~for this date of service dictated separately.~Patient seen individually. Discussed the patient with Nursing staff reviewed the chart.~Reviewed interim history and current functioning. Reviewed vital signs,~Labs/ Radiology~and current medications noted below. Continue current treatment with the changes noted in the dictated addendum note Assessment: Vital Signs: Vital Signs Date Time Temp Pulse Resp B/P (MAP) Pulse Ox O2 Delivery O2 Flow Rate FiO2 01/24/18 06:26 97.5 60 20 104/57 (73) 01/23/18 16:52 95 01/22/18 16:56 Room Air I&O Intake and Output 01/24/18 07:00 Intake Total 480 ml Balance 480 ml Intake Oral 480 ml # Voids 1 Labs: Laboratory Tests Test 01/23/18 21:05 White Blood Count 10.4 x10^3/uL (4.0-11.0) Red Blood Count 4.18 x10^6/uL (3.50-5.40) Hemoglobin 13.4 g/dL (12.0-15.5) Hematocrit 39.7 % (36.0-47.0) Mean Corpuscular Volume 95 fL (79-100) Mean Corpuscular Hemoglobin 32 pg (25-35) Mean Corpuscular Hemoglobin Concent 34 g/dL (31-37) Red Cell Distribution Width 13.5 % (11.5-14.5) Platelet Count 214 x10^3/uL (140-400) Neutrophils (%) (Auto) 74 % (31-73) H Lymphocytes (%) (Auto) 16 % (24-48) L Monocytes (%) (Auto) 8 % (0-9) Eosinophils (%) (Auto) 1 % (0-3) Basophils (%) (Auto) 1 % (0-3) Neutrophils # (Auto) 7.6 x10^3uL (1.8-7.7) Lymphocytes # (Auto) 1.7 x10^3/uL (1.0-4.8) Monocytes # (Auto) 0.9 x10^3/uL (0.0-1.1) Eosinophils # (Auto) 0.1 x10^3/uL (0.0-0.7) Basophils # (Auto) 0.1 x10^3/uL (0.0-0.2) Sodium Level 146 mmol/L (136-145) H Potassium Level 4.5 mmol/L (3.5-5.1) Chloride Level 108 mmol/L (98-107) H Carbon Dioxide Level 34 mmol/L (21-32) H Anion Gap 4 (6-14) L Blood Urea Nitrogen 13 mg/dL (7-20) Creatinine 0.9 mg/dL (0.6-1.0) Estimated GFR (Cockcroft-Gault) 62.1 BUN/Creatinine Ratio 14 (6-20) Glucose Level 143 mg/dL (70-99) H Calcium Level 9.5 mg/dL (8.5-10.1) Total Bilirubin 0.4 mg/dL (0.2-1.0) Aspartate Amino Transferase (AST) 14 U/L (15-37) L Alanine Aminotransferase (ALT) 22 U/L (14-59) Alkaline Phosphatase 49 U/L (46-116) Total Protein 6.5 g/dL (6.4-8.2) Albumin 3.4 g/dL (3.4-5.0) Albumin/Globulin Ratio 1.1 (1.0-1.7) Current Medications: Meds: Current Medications Ciprofloxacin (Cipro) 500 mg 1X ONCE PO Last administered on 12/31/17at 16:59; Start 12/31/17 at 16:45; Stop 12/31/17 at 17:00; Status DC Acetaminophen (Tylenol) 650 mg PRN Q6HRS PRN PO PAIN / TEMP; Start 12/31/17 at 18:15 Multi-Ingredient Ointment (Analgesic [place]) 1 hiral PRN QID PRN TP MUSCLE PAIN; Start 12/31/17 at 18:15 Al Hydroxide/Mg Hydroxide (Mylanta Plus Xs) 15 ml PRN AFTMEALHC PRN PO DYSPEPSIA; Start 12/31/17 at 18:15 Magnesium Hydroxide (Milk Of Magnesia) 2,400 mg PRN QHS PRN PO CONSTIPATION; Start 12/31/17 at 18:15 Olanzapine (ZyPREXA) 2.5 mg PRN Q2HR PRN PO AGITATION; Start 12/31/17 at 18:45 ; Stop 01/07/18 at 10:11; Status DC Divalproex Sodium (Depakote Sprinkles) 500 mg BID PO Last administered on 19:28; Start 01/01/18 at 09:00 Haloperidol (Haldol) 2 mg [id number] PO Last administered on 01/01/18at 17:18; Start 01/01/18 at 00:00; Stop 01/01/18 at 18:44; Status DC Haloperidol Lactate (Haldol) 5 mg PRN Q6HRS PRN IM ANXIETY/AGITATION; Start at 22:15; Stop 01/01/18 at 18:44; Status DC Quetiapine Fumarate (SEROquel) 25 mg PRN Q4HRS PRN PO ANXIETY/AGITATION; Start 12/31/17 at 22:15; Stop 01/03/18 at 16:25; Status DC Quetiapine Fumarate (SEROquel) 150 mg QID PO Last administered on 01/03/18at 08: 12; Start 01/01/18 at 09:00; Stop 01/03/18 at 16:25; Status DC Trazodone HCl (Desyrel) 100 mg QHS PO Last administered on 01/24/18at 19:32; Start 01/01/18 at 21:00 Docusate Sodium (Colace Solution) 100 mg DAILY PO Last administered on 10:49; Start 01/01/18 at 09:00 Levothyroxine Sodium (Synthroid) 175 mcg DAILYAC PO Last administered on 10:48; Start 01/01/18 at 07:30; Stop 01/24/18 at 15:47; Status DC Losartan Potassium (Cozaar) 50 mg DAILY PO Last administered on 01/23/18at 10:50 ; Start 01/01/18 at 09:00 Tamsulosin HCl (Flomax) 0.4 mg QHS PO Last administered on 01/24/18 19:28; Start 01/01/18 at 21:00 Amlodipine Besylate (Norvasc) 5 mg DAILY PO Last administered on 01/23/18at 10: 59; Start 01/01/18 at 09:00 Aspirin (Aspirin Enteric Coated) 81 mg DAILYWBKFT PO Last administered on at 10:48; Start 01/01/18 at 08:00; Stop 01/24/18 at 07:50; Status DC Bisacodyl (Dulcolax Supp) 10 mg PRN DAILY PRN [place] CONSTIPATION; Start 12/31/17 at 22:15 Acetaminophen/ Hydrocodone Bitart (Lortab 5/325) 1 tab PRN Q6HRS PRN PO PAIN Last administered on 01/12/18at 23:34; Start 12/31/17 at 22:15 Magnesium Hydroxide (Milk Of Magnesia) 2,400 mg PRN Q6HRS PRN PO CONSTIPATION; Start 12/31/17 at 22:15 Pantoprazole Sodium (Protonix) 40 mg DAILYAC PO Last administered on 01/23/18at 10:47; Start 01/01/18 at 07:30; Stop 01/24/18 at 07:52; Status DC Polyethylene Glycol (miraLAX) 17 gm PRN DAILY PRN PO CONSTIPATION; Start at 09:00 Potassium Chloride (Klor-Con) 10 meq DAILYWBKFT PO Last administered on at 10:48; Start 01/01/18 at 08:00 Sennosides (Senna) 8.6 mg PRN DAILY PRN PO CONSTIPATION; Start 12/31/17 at 22: 15 Simvastatin (Zocor) 20 mg HS PO Last administered on 01/24/18at 19:28; Start at 21:00 Triamcinolone Acetonide (Kenalog) 1 hiral BID TP Last administered on 01/22/18at 19:26; Start 01/01/18 at 09:00 Ceftriaxone Sodium (Rocephin Im) 1 gm DAILY IM Last administered on 01/02/18at 09:53; Start 01/02/18 at 09:00; Stop 01/04/18 at 14:44; Status DC Mirtazapine (Remeron Venessa-Tab) 7.5 mg QHS PO Last administered on 01/21/18at 19: 46; Start 01/01/18 at 21:00; Stop 01/22/18 at 18:08; Status DC Olanzapine (ZyPREXA ZYDIS) 2.5 mg PRN Q2HR PRN PO PSYCHOSIS; Start 01/01/18 at 18:45; Stop 01/02/18 at 10:58; Status DC Olanzapine (ZyPREXA ZYDIS) 2.5 mg HS PO Last administered on 01/05/18 20:51; Start 01/02/18 at 21:00; Stop 01/07/18 at 16:38; Status DC Lactobacillus Rhamnosus (Culturelle) 1 cap BID PO Last administered on at 19:25; Start 01/03/18 at 21:00; Stop 01/23/18 at 10:54; Status DC Olanzapine (ZyPREXA ZYDIS) 2.5 mg PRN Q2HR PRN PO AGITATION Last administered on 01/17/18 06:30; Start 01/07/18 at 10:15 Olanzapine (ZyPREXA ZYDIS) 2.5 mg DAILY PO Last administered on 01/08/18 07:32 ; Start 01/08/18 at 09:00; Stop 01/08/18 at 17:49; Status DC Olanzapine (ZyPREXA ZYDIS) 1.25 mg BID92 PO Last administered on 01/11/18at 07:48 ; Start 01/09/18 at 09:00; Stop 01/11/18 at 23:00; Status DC Olanzapine (ZyPREXA ZYDIS) 2.5 mg HS PO Last administered on 01/11/18 19:30; Start 01/08/18 at 21:00; Stop 01/11/18 at 23:00; Status DC Olanzapine (ZyPREXA ZYDIS) 2.5 mg BID PO Last administered on 01/13/18at 19:15; Start 01/12/18 at 09:00; Stop 01/13/18 at 21:00; Status DC Olanzapine (ZyPREXA ZYDIS) 1.25 mg AFTRNOON PO Last administered on 01/12/18at 15 :51; Start 01/12/18 at 14:00; Stop 01/13/18 at 16:52; Status DC Olanzapine (ZyPREXA ZYDIS) 2.5 mg TID PO Last administered on 01/24/18at 19:29; Start 01/14/18 at 09:00 Trazodone HCl (Desyrel) 12.5 mg TID@0900,1300,1700 PO Last administered on 01/17at 15:14; Start 01/15/18 at 09:00; Stop 01/17/18 at 19:29; Status DC Fluvoxamine Maleate (Luvox) 25 mg QHS PO Last administered on 01/18/18at 20:21; Start 01/16/18 at 21:00; Stop 01/19/18 at 18:47; Status DC Trazodone HCl (Desyrel) 12.5 mg BID@1300,1700 PO Last administered on at 17:06; Start 01/18/18 at 13:00 Trazodone HCl (Desyrel) 25 mg DAILY PO Last administered on 01/23/18at 10:58; Start 01/18/18 at 09:00 Fluvoxamine Maleate (Luvox) 50 mg QHS PO Last administered on 01/21/18at 19:45; Start 01/19/18 at 21:00; Stop 01/22/18 at 09:00; Status DC Fluvoxamine Maleate (Luvox) 75 mg QHS PO Last administered on 01/24/18at 19:29; Start 01/22/18 at 21:00 Mirtazapine (Remeron Venessa-Tab) 15 mg QHS PO Last administered on 01/24/18at 19:28 ; Start 01/22/18 at 21:00 Risperidone (RisperDAL CONSTA) 12.5 mg Q2WKS IM Last administered on 01/24/18at 14:45; Start 01/24/18 at 12:00 Aspirin (Children'S Aspirin) 81 mg DAILYWBKFT PO ; Start 01/24/18 at 08:00 Lansoprazole (Prevacid) 30 mg DAILYAC PO ; Start 01/24/18 at 10:00 Levothyroxine Sodium (Synthroid) 175 mcg DAILY06 PO ; Start 01/25/18 at 06:00 Active Scripts Active Reported Omeprazole 20 Mg Tablet.dr 20 Mg PO DAILY Levothyroxine Sodium 175 Mcg Tablet 175 Mcg PO DAILYAC Flomax (Tamsulosin Hcl) 0.4 Mg Cap.er.24h 0.4 Mg PO QHS Simvastatin 20 Mg Tablet 20 Mg PO HS [place] 5-325 Tablet (Hydrocodone Bit/Acetaminophen) 1 Each Tablet 1 Tab PO PRN Q6HRS PRN Haloperidol 2 Mg Tablet 2 Mg PO [id number] Potassium Chloride 10 Meq Tablet.er 10 Meq PO DAILY Docusate Sodium 50 Mg/5 Ml Liquid 10 Ml PO DAILY Losartan Potassium 50 Mg Tablet 50 Mg PO DAILY Aspirin Ec (Aspirin) 81 Mg Tablet.dr 81 Mg PO DAILY Amlodipine Besylate 5 Mg Tablet 5 Mg PO DAILY Depakote Sprinkle (Divalproex Sodium) 125 Mg Cap.sprink 500 Mg PO BID Seroquel (Quetiapine Fumarate) 25 Mg Tablet 25 Mg PO PRN Q4HRS PRN Seroquel (Quetiapine Fumarate) 100 Mg Tablet 150 Mg PO QID Trazodone Hcl 100 Mg Tablet 100 Mg PO QHS Miralax (Polyethylene Glycol 3350) 17 Gm Powd.pack 17 Gm PO PRN DAILY PRN Senokot (Sennosides) 8.6 Mg Tablet 8.6 Mg PO PRN DAILY PRN Dulcolax (Bisacodyl) 10 Mg Supp.rect 10 Mg RC PRN DAILY PRN Milk Of Magnesia (Magnesium Hydroxide) 2,400 Mg/10 Ml Oral.susp 2,400 Mg PO PRN Q6HRS PRN Triamcinolone Acetonide 15 Gm Cream..g. 1 Hiral TOP BID Haldol (Haloperidol Lactate) 5 Mg/1 Ml Ampul 5 Mg IJ PRN Q6HRS PRN I have reviewed the current psychotropics carefully including drug interactions. Risk benefit ratio favors no change other than as noted in my dictated progress note. 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
--- NOTE | 2018-01-24 23:48 | PN ---
DATE: 01/22/2018 This is a late entry for 01/22/2018 covers elements not covered in my initial note. SUBJECTIVE: I met with the patient in the evening. The patient slept 2-1/4 hours previous evening. She is always calling the nurses bitch under her breath per nursing report. She is confused, psychotic, restless, intermittently agitated. REVIEW OF SYSTEMS: No CV, , pulmonary, eye, ENT system symptoms on review. Reliability poor. MENTAL STATUS EXAM: Oriented to herself. Insight, judgment, recent and remote memory, attention, concentration, fund of knowledge poor, consistent with her diagnosis mentioned in my initial note. IMPRESSION: Unchanged from initial note. PLAN: Increase Remeron to 15 mg p.o. at bedtime. Rest unchanged for now. Consider Risperdal Consta depending on her progress since she is extremely noncompliant with oral psychotropics. JAYLAN MURRAY MD DR: DANIEL/valeriy JOB#: [id number] / [id number]
--- NOTE | 2018-01-24 23:51 | PN ---
DATE: 01/23/2018 This is a late entry for 01/23/2018 covers elements not covered in my initial note. SUBJECTIVE: I met with the patient in the evening and staffed at a treatment team meeting with the entire team in the morning with the patient's , Ronnie, attending together with Megan from [facility]. The patient slept 6-1/2 hours. Remains confused, restless, intermittently agitated, but not aggressive or disruptive. REVIEW OF SYSTEMS: No CV, , pulmonary, eye, ENT system symptoms on review. Reliability poor. MENTAL STATUS EXAM: Oriented to herself. Insight, judgment, recent and remote memory, attention, concentration, fund of knowledge poor, consistent with her diagnosis mentioned in my initial note. PLAN: No change from initial note. MAN Lisa MURRAY MD DR: DANIEL/valeriy JOB#: [id number] / [id number]
[2018-01-25] MEDS: LEVOTHYROXINE 175 MCG TABLET PO SCH (04:56)
[2018-01-25 06:49] VITALS: BP 134/83
[2018-01-25] MEDS: ASPIRIN 81 MG TAB.CHEW PO SCH (07:52)
[2018-01-25] MEDS: LANSOPRAZOLE 30 MG TAB.RAP.DR PO SCH (07:53)
[2018-01-25] MEDS: traZODone 50 MG TABLET. PO SCH ×3 (07:53→17:00)
[2018-01-25] MEDS: POTASSIUM CHLORIDE 10 MEQ TABLET.ER. PO SCH (07:53)
[2018-01-25] MEDS: LOSARTAN 50 MG TABLET. PO SCH (07:54)
[2018-01-25] MEDS: DIVALPROEX 125 MG CAP.SPRINK PO SCH ×3 (07:54→21:00)
[2018-01-25] MEDS: amLODIPine BESYLATE 5 MG TABLET PO SCH (07:54)
[2018-01-25] MEDS: DOCUSATE 100 MG/10 ML SOLUTION. PO SCH (07:54)
[2018-01-25] MEDS: TRIAMCINOLONE ACETONIDE 0.1% TOPICAL CREAM 15GM TUBE. TP SCH ×2 (07:56→19:40)
[2018-01-25] MEDS: MIRTAZAPINE ODT 15 MG TAB.RAPDIS. PO SCH ×2 (19:38→21:00)
[2018-01-25] MEDS: SIMVASTATIN 20 MG TABLET PO SCH ×2 (19:38→21:00)
[2018-01-25] MEDS: traZODone 100 MG TABLET. PO SCH ×2 (19:39→21:00)
[2018-01-25] MEDS: TAMSULOSIN 0.4 MG CAP.ER.24H. PO SCH ×2 (19:40→21:00)
--- NOTE | 2018-01-25 23:05 | PDOC ---
Exam Note: Abdi Note: Please also refer to the separate dictated note~for this date of service dictated separately.~Patient seen individually. Discussed the patient with Nursing staff reviewed the chart.~Reviewed interim history and current functioning. Reviewed vital signs,~Labs/ Radiology~and current medications noted below. Continue current treatment with the changes noted in the dictated addendum note Assessment: Vital Signs: Vital Signs Date Time Temp Pulse Resp B/P (MAP) Pulse Ox O2 Delivery O2 Flow Rate FiO2 01/25/18 07:54 81 134/83 01/25/18 06:49 97.6 14 97 Room Air I&O Intake and Output 01/25/18 07:00 Intake Total 240 ml Balance 240 ml Intake Oral 240 ml Current Medications: Meds: Current Medications Ciprofloxacin (Cipro) 500 mg 1X ONCE PO Last administered on 12/31/17at 16:59; Start 12/31/17 at 16:45; Stop 12/31/17 at 17:00; Status DC Acetaminophen (Tylenol) 650 mg PRN Q6HRS PRN PO PAIN / TEMP; Start 12/31/17 at 18:15 Multi-Ingredient Ointment (Analgesic [place]) 1 hiral PRN QID PRN TP MUSCLE PAIN; Start 12/31/17 at 18:15 Al Hydroxide/Mg Hydroxide (Mylanta Plus Xs) 15 ml PRN AFTMEALHC PRN PO DYSPEPSIA; Start 12/31/17 at 18:15 Magnesium Hydroxide (Milk Of Magnesia) 2,400 mg PRN QHS PRN PO CONSTIPATION; Start 12/31/17 at 18:15 Olanzapine (ZyPREXA) 2.5 mg PRN Q2HR PRN PO AGITATION; Start 12/31/17 at 18:45 ; Stop 01/07/18 at 10:11; Status DC Divalproex Sodium (Depakote Sprinkles) 500 mg BID PO Last administered on at 19:39; Start 01/01/18 at 09:00 Haloperidol (Haldol) 2 mg [id number] PO Last administered on 01/01/18at 17:18; Start 01/01/18 at 00:00; Stop 01/01/18 at 18:44; Status DC Haloperidol Lactate (Haldol) 5 mg PRN Q6HRS PRN IM ANXIETY/AGITATION; Start at 22:15; Stop 01/01/18 at 18:44; Status DC Quetiapine Fumarate (SEROquel) 25 mg PRN Q4HRS PRN PO ANXIETY/AGITATION; Start 12/31/17 at 22:15; Stop 01/03/18 at 16:25; Status DC Quetiapine Fumarate (SEROquel) 150 mg QID PO Last administered on 01/03/18at 08: 12; Start 01/01/18 at 09:00; Stop 01/03/18 at 16:25; Status DC Trazodone HCl (Desyrel) 100 mg QHS PO Last administered on 01/25/18at 19:39; Start 01/01/18 at 21:00 Docusate Sodium (Colace Solution) 100 mg DAILY PO Last administered on at 07:54; Start 01/01/18 at 09:00 Levothyroxine Sodium (Synthroid) 175 mcg DAILYAC PO Last administered on at 10:48; Start 01/01/18 at 07:30; Stop 01/24/18 at 15:47; Status DC Losartan Potassium (Cozaar) 50 mg DAILY PO Last administered on 01/25/18at 07:54 ; Start 01/01/18 at 09:00 Tamsulosin HCl (Flomax) 0.4 mg QHS PO Last administered on 01/25/18at 19:40; Start 01/01/18 at 21:00 Amlodipine Besylate (Norvasc) 5 mg DAILY PO Last administered on 01/25/18at 07: 54; Start 01/01/18 at 09:00 Aspirin (Aspirin Enteric Coated) 81 mg DAILYWBKFT PO Last administered on at 10:48; Start 01/01/18 at 08:00; Stop 01/24/18 at 07:50; Status DC Bisacodyl (Dulcolax Supp) 10 mg PRN DAILY PRN [place] CONSTIPATION; Start 12/31/17 at 22:15 Acetaminophen/ Hydrocodone Bitart (Lortab 5/325) 1 tab PRN Q6HRS PRN PO PAIN Last administered on 01/12/18at 23:34; Start 12/31/17 at 22:15 Magnesium Hydroxide (Milk Of Magnesia) 2,400 mg PRN Q6HRS PRN PO CONSTIPATION; Start 12/31/17 at 22:15 Pantoprazole Sodium (Protonix) 40 mg DAILYAC PO Last administered on 01/23/18at 10:47; Start 01/01/18 at 07:30; Stop 01/24/18 at 07:52; Status DC Polyethylene Glycol (miraLAX) 17 gm PRN DAILY PRN PO CONSTIPATION; Start at 09:00 Potassium Chloride (Klor-Con) 10 meq DAILYWBKFT PO Last administered on at 07:53; Start 01/01/18 at 08:00 Sennosides (Senna) 8.6 mg PRN DAILY PRN PO CONSTIPATION; Start 12/31/17 at 22: 15 Simvastatin (Zocor) 20 mg HS PO Last administered on 01/25/18at 19:38; Start at 21:00 Triamcinolone Acetonide (Kenalog) 1 hiral BID TP Last administered on 01/25/18at 07:56; Start 01/01/18 at 09:00 Ceftriaxone Sodium (Rocephin Im) 1 gm DAILY IM Last administered on 01/02/18at 09:53; Start 01/02/18 at 09:00; Stop 01/04/18 at 14:44; Status DC Mirtazapine (Remeron Venessa-Tab) 7.5 mg QHS PO Last administered on 01/21/18at 19: 46; Start 01/01/18 at 21:00; Stop 01/22/18 at 18:08; Status DC Olanzapine (ZyPREXA ZYDIS) 2.5 mg PRN Q2HR PRN PO PSYCHOSIS; Start 01/01/18 at 18:45; Stop 01/02/18 at 10:58; Status DC Olanzapine (ZyPREXA ZYDIS) 2.5 mg HS PO Last administered on 01/05/18at 20:51; Start 01/02/18 at 21:00; Stop 01/07/18 at 16:38; Status DC Lactobacillus Rhamnosus (Culturelle) 1 cap BID PO Last administered on at 19:25; Start 01/03/18 at 21:00; Stop 01/23/18 at 10:54; Status DC Olanzapine (ZyPREXA ZYDIS) 2.5 mg PRN Q2HR PRN PO AGITATION Last administered on 01/17/18 06:30; Start 01/07/18 at 10:15 Olanzapine (ZyPREXA ZYDIS) 2.5 mg DAILY PO Last administered on 01/08/18at 07:32 ; Start 01/08/18 at 09:00; Stop 01/08/18 at 17:49; Status DC Olanzapine (ZyPREXA ZYDIS) 1.25 mg BID92 PO Last administered on 01/11/18at 07:48 ; Start 01/09/18 at 09:00; Stop 01/11/18 at 23:00; Status DC Olanzapine (ZyPREXA ZYDIS) 2.5 mg HS PO Last administered on 01/11/18at 19:30; Start 01/08/18 at 21:00; Stop 01/11/18 at 23:00; Status DC Olanzapine (ZyPREXA ZYDIS) 2.5 mg BID PO Last administered on 01/13/18at 19:15; Start 01/12/18 at 09:00; Stop 01/13/18 at 21:00; Status DC Olanzapine (ZyPREXA ZYDIS) 1.25 mg AFTRNOON PO Last administered on 01/12/18at 15 :51; Start 01/12/18 at 14:00; Stop 01/13/18 at 16:52; Status DC Olanzapine (ZyPREXA ZYDIS) 2.5 mg TID PO Last administered on 01/25/18at 19:39; Start 01/14/18 at 09:00 Trazodone HCl (Desyrel) 12.5 mg TID@0900,1300,1700 PO Last administered on 01/17at 15:14; Start 01/15/18 at 09:00; Stop 01/17/18 at 19:29; Status DC Fluvoxamine Maleate (Luvox) 25 mg QHS PO Last administered on 01/18/18at 20:21; Start 01/16/18 at 21:00; Stop 01/19/18 at 18:47; Status DC Trazodone HCl (Desyrel) 12.5 mg BID@1300,1700 PO Last administered on at 17:00; Start 01/18/18 at 13:00 Trazodone HCl (Desyrel) 25 mg DAILY PO Last administered on 01/25/18at 07:53; Start 01/18/18 at 09:00 Fluvoxamine Maleate (Luvox) 50 mg QHS PO Last administered on 01/21/18at 19:45; Start 01/19/18 at 21:00; Stop 01/22/18 at 09:00; Status DC Fluvoxamine Maleate (Luvox) 75 mg QHS PO Last administered on 01/25/18at 19:39; Start 01/22/18 at 21:00 Mirtazapine (Remeron Venessa-Tab) 15 mg QHS PO Last administered on 01/25/18at 19:38 ; Start 01/22/18 at 21:00 Risperidone (RisperDAL CONSTA) 12.5 mg Q2WKS IM Last administered on 01/24/18at 14:45; Start 01/24/18 at 12:00 Aspirin (Children'S Aspirin) 81 mg DAILYWBKFT PO Last administered on at 07:52; Start 01/24/18 at 08:00 Lansoprazole (Prevacid) 30 mg DAILYAC PO Last administered on 01/25/18at 07:53; Start 01/24/18 at 10:00 Levothyroxine Sodium (Synthroid) 175 mcg DAILY06 PO Last administered on at 04:56; Start 01/25/18 at 06:00 Active Scripts Active Reported Omeprazole 20 Mg Tablet.dr 20 Mg PO DAILY Levothyroxine Sodium 175 Mcg Tablet 175 Mcg PO DAILYAC Flomax (Tamsulosin Hcl) 0.4 Mg Cap.er.24h 0.4 Mg PO QHS Simvastatin 20 Mg Tablet 20 Mg PO HS [place] 5-325 Tablet (Hydrocodone Bit/Acetaminophen) 1 Each Tablet 1 Tab PO PRN Q6HRS PRN Haloperidol 2 Mg Tablet 2 Mg PO [id number] Potassium Chloride 10 Meq Tablet.er 10 Meq PO DAILY Docusate Sodium 50 Mg/5 Ml Liquid 10 Ml PO DAILY Losartan Potassium 50 Mg Tablet 50 Mg PO DAILY Aspirin Ec (Aspirin) 81 Mg Tablet.dr 81 Mg PO DAILY Amlodipine Besylate 5 Mg Tablet 5 Mg PO DAILY Depakote Sprinkle (Divalproex Sodium) 125 Mg Cap.sprink 500 Mg PO BID Seroquel (Quetiapine Fumarate) 25 Mg Tablet 25 Mg PO PRN Q4HRS PRN Seroquel (Quetiapine Fumarate) 100 Mg Tablet 150 Mg PO QID Trazodone Hcl 100 Mg Tablet 100 Mg PO QHS Miralax (Polyethylene Glycol 3350) 17 Gm Powd.pack 17 Gm PO PRN DAILY PRN Senokot (Sennosides) 8.6 Mg Tablet 8.6 Mg PO PRN DAILY PRN Dulcolax (Bisacodyl) 10 Mg Supp.rect 10 Mg RC PRN DAILY PRN Milk Of Magnesia (Magnesium Hydroxide) 2,400 Mg/10 Ml Oral.susp 2,400 Mg PO PRN Q6HRS PRN Triamcinolone Acetonide 15 Gm Cream..g. 1 Hiral TOP BID Haldol (Haloperidol Lactate) 5 Mg/1 Ml Ampul 5 Mg IJ PRN Q6HRS PRN I have reviewed the current psychotropics carefully including drug interactions. Risk benefit ratio favors no change other than as noted in my dictated progress note. 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
[2018-01-26] MEDS: LEVOTHYROXINE 175 MCG TABLET PO SCH (06:00)
[2018-01-26] MEDS: LANSOPRAZOLE 30 MG TAB.RAP.DR PO SCH (07:30)
[2018-01-26] MEDS: POTASSIUM CHLORIDE 10 MEQ TABLET.ER. PO SCH (08:00)
[2018-01-26] MEDS: ASPIRIN 81 MG TAB.CHEW PO SCH (08:00)
[2018-01-26] MEDS: traZODone 50 MG TABLET. PO SCH ×3 (08:28→17:29)
[2018-01-26] MEDS: DIVALPROEX 125 MG CAP.SPRINK PO SCH ×2 (08:28→21:07)
[2018-01-26] MEDS: amLODIPine BESYLATE 5 MG TABLET PO SCH (09:00)
[2018-01-26] MEDS: TRIAMCINOLONE ACETONIDE 0.1% TOPICAL CREAM 15GM TUBE. TP SCH ×2 (09:00→21:07)
[2018-01-26] MEDS: LOSARTAN 50 MG TABLET. PO SCH (09:00)
[2018-01-26] MEDS: DOCUSATE 100 MG/10 ML SOLUTION. PO SCH (09:00)
[2018-01-26 16:43] VITALS: BP 129/79
--- NOTE | 2018-01-26 18:04 | PN ---
DATE: 01/24/2018 PSYCHIATRIC PROGRESS NOTE This late entry 01/24/2018 covers elements, not covered in my initial note. SUBJECTIVE: I met with the patient in the evening. The patient slept 5-1/4 hours previous night. She remains confused, oblivious of her surrounding, repeating the word "bitch" under her breath towards staff member or anyone who comes across her. She refused her medications, had half of her p.m. meds. Risperdal Consta was started in the morning since she was totally noncompliant with psychotropics. Remained psychotic within the context of her dementia and we received an informed consent from her DPOA before initiating. At times, she hits, kicks staff during cares, calls profanities under her breath. REVIEW OF SYSTEMS: No CV, , pulmonary, eye, ENT system symptoms on review. Reliability poor. MENTAL STATUS EXAM: Oriented to herself. Insight, judgment, recent and remote memory, attention, concentration, fund of knowledge poor, consistent with her diagnosis mentioned in my initial note. PLAN: No change from initial note other than starting the Risperdal Consta. Encourage compliance with medications. MAN Lisa MURRAY MD DR: DANIEL/valeriy JOB#: [id number] / [id number]
[2018-01-26] MEDS: traZODone 100 MG TABLET. PO SCH (21:06)
[2018-01-26] MEDS: SIMVASTATIN 20 MG TABLET PO SCH (21:06)
[2018-01-26] MEDS: MIRTAZAPINE ODT 15 MG TAB.RAPDIS. PO SCH (21:06)
[2018-01-26] MEDS: TAMSULOSIN 0.4 MG CAP.ER.24H. PO SCH (21:06)
--- NOTE | 2018-01-26 21:07 | PDOC ---
Exam Note: Abdi Note: Please also refer to the separate dictated note~for this date of service dictated separately.~Patient seen individually. Discussed the patient with Nursing staff reviewed the chart.~Reviewed interim history and current functioning. Reviewed vital signs,~Labs/ Radiology~and current medications noted below. Continue current treatment with the changes noted in the dictated addendum note Assessment: Vital Signs: Vital Signs Date Time Temp Pulse Resp B/P (MAP) Pulse Ox O2 Delivery O2 Flow Rate FiO2 01/26/18 16:43 97.4 72 20 129/79 (96) 96 01/25/18 06:49 Room Air I&O Intake and Output 01/26/18 07:00 Intake Total 480 ml Balance 480 ml Intake Oral 480 ml Current Medications: Meds: Current Medications Ciprofloxacin (Cipro) 500 mg 1X ONCE PO Last administered on 12/31/17at 16:59; Start 12/31/17 at 16:45; Stop 12/31/17 at 17:00; Status DC Acetaminophen (Tylenol) 650 mg PRN Q6HRS PRN PO PAIN / TEMP; Start 12/31/17 at 18:15 Multi-Ingredient Ointment (Analgesic [place]) 1 hiral PRN QID PRN TP MUSCLE PAIN; Start 12/31/17 at 18:15 Al Hydroxide/Mg Hydroxide (Mylanta Plus Xs) 15 ml PRN AFTMEALHC PRN PO DYSPEPSIA; Start 12/31/17 at 18:15 Magnesium Hydroxide (Milk Of Magnesia) 2,400 mg PRN QHS PRN PO CONSTIPATION; Start 12/31/17 at 18:15 Olanzapine (ZyPREXA) 2.5 mg PRN Q2HR PRN PO AGITATION; Start 12/31/17 at 18:45 ; Stop 01/07/18 at 10:11; Status DC Divalproex Sodium (Depakote Sprinkles) 500 mg BID PO Last administered on at 08:28; Start 01/01/18 at 09:00 Haloperidol (Haldol) 2 mg [id number] PO Last administered on 01/01/18at 17:18; Start 01/01/18 at 00:00; Stop 01/01/18 at 18:44; Status DC Haloperidol Lactate (Haldol) 5 mg PRN Q6HRS PRN IM ANXIETY/AGITATION; Start at 22:15; Stop 01/01/18 at 18:44; Status DC Quetiapine Fumarate (SEROquel) 25 mg PRN Q4HRS PRN PO ANXIETY/AGITATION; Start 12/31/17 at 22:15; Stop 01/03/18 at 16:25; Status DC Quetiapine Fumarate (SEROquel) 150 mg QID PO Last administered on 01/03/18at 08: 12; Start 01/01/18 at 09:00; Stop 01/03/18 at 16:25; Status DC Trazodone HCl (Desyrel) 100 mg QHS PO Last administered on 01/24/18at 19:32; Start 01/01/18 at 21:00 Docusate Sodium (Colace Solution) 100 mg DAILY PO Last administered on at 07:54; Start 01/01/18 at 09:00 Levothyroxine Sodium (Synthroid) 175 mcg DAILYAC PO Last administered on at 10:48; Start 01/01/18 at 07:30; Stop 01/24/18 at 15:47; Status DC Losartan Potassium (Cozaar) 50 mg DAILY PO Last administered on 01/25/18at 07:54 ; Start 01/01/18 at 09:00 Tamsulosin HCl (Flomax) 0.4 mg QHS PO Last administered on 01/24/18at 19:28; Start 01/01/18 at 21:00 Amlodipine Besylate (Norvasc) 5 mg DAILY PO Last administered on 01/25/18at 07: 54; Start 01/01/18 at 09:00 Aspirin (Aspirin Enteric Coated) 81 mg DAILYWBKFT PO Last administered on at 10:48; Start 01/01/18 at 08:00; Stop 01/24/18 at 07:50; Status DC Bisacodyl (Dulcolax Supp) 10 mg PRN DAILY PRN [place] CONSTIPATION; Start 12/31/17 at 22:15 Acetaminophen/ Hydrocodone Bitart (Lortab 5/325) 1 tab PRN Q6HRS PRN PO PAIN Last administered on 01/12/18at 23:34; Start 12/31/17 at 22:15 Magnesium Hydroxide (Milk Of Magnesia) 2,400 mg PRN Q6HRS PRN PO CONSTIPATION; Start 12/31/17 at 22:15 Pantoprazole Sodium (Protonix) 40 mg DAILYAC PO Last administered on 01/23/18at 10:47; Start 01/01/18 at 07:30; Stop 01/24/18 at 07:52; Status DC Polyethylene Glycol (miraLAX) 17 gm PRN DAILY PRN PO CONSTIPATION; Start at 09:00 Potassium Chloride (Klor-Con) 10 meq DAILYWBKFT PO Last administered on at 07:53; Start 01/01/18 at 08:00 Sennosides (Senna) 8.6 mg PRN DAILY PRN PO CONSTIPATION; Start 12/31/17 at 22: 15 Simvastatin (Zocor) 20 mg HS PO Last administered on 01/24/18at 19:28; Start at 21:00 Triamcinolone Acetonide (Kenalog) 1 hiral BID TP Last administered on 01/25/18at 07:56; Start 01/01/18 at 09:00 Ceftriaxone Sodium (Rocephin Im) 1 gm DAILY IM Last administered on 01/02/18at 09:53; Start 01/02/18 at 09:00; Stop 01/04/18 at 14:44; Status DC Mirtazapine (Remeron Venessa-Tab) 7.5 mg QHS PO Last administered on 01/21/18at 19: 46; Start 01/01/18 at 21:00; Stop 01/22/18 at 18:08; Status DC Olanzapine (ZyPREXA ZYDIS) 2.5 mg PRN Q2HR PRN PO PSYCHOSIS; Start 01/01/18 at 18:45; Stop 01/02/18 at 10:58; Status DC Olanzapine (ZyPREXA ZYDIS) 2.5 mg HS PO Last administered on 01/05/18at 20:51; Start 01/02/18 at 21:00; Stop 01/07/18 at 16:38; Status DC Lactobacillus Rhamnosus (Culturelle) 1 cap BID PO Last administered on at 19:25; Start 01/03/18 at 21:00; Stop 01/23/18 at 10:54; Status DC Olanzapine (ZyPREXA ZYDIS) 2.5 mg PRN Q2HR PRN PO AGITATION Last administered on 01/17/18 06:30; Start 01/07/18 at 10:15 Olanzapine (ZyPREXA ZYDIS) 2.5 mg DAILY PO Last administered on 01/08/18at 07:32 ; Start 01/08/18 at 09:00; Stop 01/08/18 at 17:49; Status DC Olanzapine (ZyPREXA ZYDIS) 1.25 mg BID92 PO Last administered on 01/11/18at 07:48 ; Start 01/09/18 at 09:00; Stop 01/11/18 at 23:00; Status DC Olanzapine (ZyPREXA ZYDIS) 2.5 mg HS PO Last administered on 01/11/18at 19:30; Start 01/08/18 at 21:00; Stop 01/11/18 at 23:00; Status DC Olanzapine (ZyPREXA ZYDIS) 2.5 mg BID PO Last administered on 01/13/18at 19:15; Start 01/12/18 at 09:00; Stop 01/13/18 at 21:00; Status DC Olanzapine (ZyPREXA ZYDIS) 1.25 mg AFTRNOON PO Last administered on 01/12/18at 15 :51; Start 01/12/18 at 14:00; Stop 01/13/18 at 16:52; Status DC Olanzapine (ZyPREXA ZYDIS) 2.5 mg TID PO Last administered on 01/26/18at 14:10; Start 01/14/18 at 09:00 Trazodone HCl (Desyrel) 12.5 mg TID@0900,1300,1700 PO Last administered on 01/17at 15:14; Start 01/15/18 at 09:00; Stop 01/17/18 at 19:29; Status DC Fluvoxamine Maleate (Luvox) 25 mg QHS PO Last administered on 01/18/18at 20:21; Start 01/16/18 at 21:00; Stop 01/19/18 at 18:47; Status DC Trazodone HCl (Desyrel) 12.5 mg BID@1300,1700 PO Last administered on at 17:29; Start 01/18/18 at 13:00 Trazodone HCl (Desyrel) 25 mg DAILY PO Last administered on 01/26/18at 08:28; Start 01/18/18 at 09:00 Fluvoxamine Maleate (Luvox) 50 mg QHS PO Last administered on 01/21/18at 19:45; Start 01/19/18 at 21:00; Stop 01/22/18 at 09:00; Status DC Fluvoxamine Maleate (Luvox) 75 mg QHS PO Last administered on 01/24/18at 19:29; Start 01/22/18 at 21:00 Mirtazapine (Remeron Venessa-Tab) 15 mg QHS PO Last administered on 01/24/18at 19:28 ; Start 01/22/18 at 21:00 Risperidone (RisperDAL CONSTA) 12.5 mg Q2WKS IM Last administered on 01/24/18at 14:45; Start 01/24/18 at 12:00 Aspirin (Children'S Aspirin) 81 mg DAILYWBKFT PO Last administered on at 07:52; Start 01/24/18 at 08:00 Lansoprazole (Prevacid) 30 mg DAILYAC PO Last administered on 01/25/18at 07:53; Start 01/24/18 at 10:00 Levothyroxine Sodium (Synthroid) 175 mcg DAILY06 PO Last administered on at 04:56; Start 01/25/18 at 06:00 Active Scripts Active Reported Omeprazole 20 Mg Tablet.dr 20 Mg PO DAILY Levothyroxine Sodium 175 Mcg Tablet 175 Mcg PO DAILYAC Flomax (Tamsulosin Hcl) 0.4 Mg Cap.er.24h 0.4 Mg PO QHS Simvastatin 20 Mg Tablet 20 Mg PO HS [place] 5-325 Tablet (Hydrocodone Bit/Acetaminophen) 1 Each Tablet 1 Tab PO PRN Q6HRS PRN Haloperidol 2 Mg Tablet 2 Mg PO [id number] Potassium Chloride 10 Meq Tablet.er 10 Meq PO DAILY Docusate Sodium 50 Mg/5 Ml Liquid 10 Ml PO DAILY Losartan Potassium 50 Mg Tablet 50 Mg PO DAILY Aspirin Ec (Aspirin) 81 Mg Tablet.dr 81 Mg PO DAILY Amlodipine Besylate 5 Mg Tablet 5 Mg PO DAILY Depakote Sprinkle (Divalproex Sodium) 125 Mg Cap.sprink 500 Mg PO BID Seroquel (Quetiapine Fumarate) 25 Mg Tablet 25 Mg PO PRN Q4HRS PRN Seroquel (Quetiapine Fumarate) 100 Mg Tablet 150 Mg PO QID Trazodone Hcl 100 Mg Tablet 100 Mg PO QHS Miralax (Polyethylene Glycol 3350) 17 Gm Powd.pack 17 Gm PO PRN DAILY PRN Senokot (Sennosides) 8.6 Mg Tablet 8.6 Mg PO PRN DAILY PRN Dulcolax (Bisacodyl) 10 Mg Supp.rect 10 Mg RC PRN DAILY PRN Milk Of Magnesia (Magnesium Hydroxide) 2,400 Mg/10 Ml Oral.susp 2,400 Mg PO PRN Q6HRS PRN Triamcinolone Acetonide 15 Gm Cream..g. 1 Hiral TOP BID Haldol (Haloperidol Lactate) 5 Mg/1 Ml Ampul 5 Mg IJ PRN Q6HRS PRN I have reviewed the current psychotropics carefully including drug interactions. Risk benefit ratio favors no change other than as noted in my dictated progress note. 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
[2018-01-27 06:08] VITALS: BP 135/75
[2018-01-27] MEDS: LEVOTHYROXINE 175 MCG TABLET PO SCH (06:17)
[2018-01-27] MEDS: LANSOPRAZOLE 30 MG TAB.RAP.DR PO SCH (06:17)
[2018-01-27] MEDS: TRIAMCINOLONE ACETONIDE 0.1% TOPICAL CREAM 15GM TUBE. TP SCH ×2 (09:00→20:05)
[2018-01-27] MEDS: DIVALPROEX 125 MG CAP.SPRINK PO SCH ×2 (10:20→20:04)
[2018-01-27] MEDS: traZODone 50 MG TABLET. PO SCH ×3 (10:21→17:00)
[2018-01-27] MEDS: POTASSIUM CHLORIDE 10 MEQ TABLET.ER. PO SCH (10:21)
[2018-01-27] MEDS: ASPIRIN 81 MG TAB.CHEW PO SCH (10:22)
[2018-01-27] MEDS: LOSARTAN 50 MG TABLET. PO SCH (10:22)
[2018-01-27] MEDS: DOCUSATE 100 MG/10 ML SOLUTION. PO SCH (10:22)
[2018-01-27] MEDS: amLODIPine BESYLATE 5 MG TABLET PO SCH (10:22)
[2018-01-27 16:13] VITALS: BP 116/79
[2018-01-27] MEDS: traZODone 100 MG TABLET. PO SCH (20:04)
[2018-01-27] MEDS: TAMSULOSIN 0.4 MG CAP.ER.24H. PO SCH (20:04)
[2018-01-27] MEDS: SIMVASTATIN 20 MG TABLET PO SCH (20:04)
[2018-01-27] MEDS: MIRTAZAPINE ODT 15 MG TAB.RAPDIS. PO SCH (20:05)
--- NOTE | 2018-01-27 22:32 | PN ---
DATE: 01/25/2018 This is a late entry for 01/25/2018 covers elements not covered in my initial note. SUBJECTIVE: I met with the patient in the evening. Overall, the patient was quite agitated in the morning, repeatedly calling the nursing staff the B word. She was tired at breakfast time, slept till dinnertime. REVIEW OF SYSTEMS: No CV, , pulmonary, eye, ENT system symptoms on review. Reliability poor. MENTAL STATUS EXAM: Oriented to herself. Insight, judgment, recent and remote memory, attention, concentration, fund of knowledge poor, consistent with her diagnosis mentioned in my initial note. PLAN: Repeat UA. Continue rest unchanged. Risperdal Consta seems to be having an early effect. MAN Lisa MURRAY MD DR: DANIEL/valeriy JOB#: [id number] / [id number]
--- NOTE | 2018-01-27 22:34 | PN ---
DATE: 01/26/2018 This is a late entry for 01/26/2018 covers elements not covered in my initial note. SUBJECTIVE: I met with the patient in the evening. The patient slept 10 hours previous night, refused bedtime medications, refused morning Synthroid, took all her meds later in the day, was pushing nursing staff and then stating "I am sad." REVIEW OF SYSTEMS: No CV, , pulmonary, eye, ENT system symptoms on review. Reliability poor. MENTAL STATUS EXAM: Oriented to herself. Insight, judgment, recent and remote memory, attention, concentration, fund of knowledge poor, consistent with her diagnosis mentioned in my initial note. PLAN: No change from initial note. JAYLAN MURRAY MD DR: DANIEL/valeriy JOB#: [id number] / [id number]
--- NOTE | 2018-01-27 22:49 | PDOC ---
Exam Note: Abdi Note: Please also refer to the separate dictated note~for this date of service dictated separately.~Patient seen individually. Discussed the patient with Nursing staff reviewed the chart.~Reviewed interim history and current functioning. Reviewed vital signs,~Labs/ Radiology~and current medications noted below. Continue current treatment with the changes noted in the dictated addendum note Assessment: Vital Signs: Vital Signs Date Time Temp Pulse Resp B/P (MAP) Pulse Ox O2 Delivery O2 Flow Rate FiO2 01/27/18 16:13 98.1 57 18 116/79 (91) 96 Room Air I&O Intake and Output 01/27/18 07:00 Intake Total 720 ml Balance 720 ml Intake Oral 720 ml # Bowel Movements 2 Current Medications: Meds: Current Medications Ciprofloxacin (Cipro) 500 mg 1X ONCE PO Last administered on 12/31/17at 16:59; Start 12/31/17 at 16:45; Stop 12/31/17 at 17:00; Status DC Acetaminophen (Tylenol) 650 mg PRN Q6HRS PRN PO PAIN / TEMP; Start 12/31/17 at 18:15 Multi-Ingredient Ointment (Analgesic [place]) 1 hiral PRN QID PRN TP MUSCLE PAIN; Start 12/31/17 at 18:15 Al Hydroxide/Mg Hydroxide (Mylanta Plus Xs) 15 ml PRN AFTMEALHC PRN PO DYSPEPSIA; Start 12/31/17 at 18:15 Magnesium Hydroxide (Milk Of Magnesia) 2,400 mg PRN QHS PRN PO CONSTIPATION; Start 12/31/17 at 18:15 Olanzapine (ZyPREXA) 2.5 mg PRN Q2HR PRN PO AGITATION; Start 12/31/17 at 18:45 ; Stop 01/07/18 at 10:11; Status DC Divalproex Sodium (Depakote Sprinkles) 500 mg BID PO Last administered on at 20:04; Start 01/01/18 at 09:00 Haloperidol (Haldol) 2 mg [id number] PO Last administered on 01/01/18at 17:18; Start 01/01/18 at 00:00; Stop 01/01/18 at 18:44; Status DC Haloperidol Lactate (Haldol) 5 mg PRN Q6HRS PRN IM ANXIETY/AGITATION; Start at 22:15; Stop 01/01/18 at 18:44; Status DC Quetiapine Fumarate (SEROquel) 25 mg PRN Q4HRS PRN PO ANXIETY/AGITATION; Start 12/31/17 at 22:15; Stop 01/03/18 at 16:25; Status DC Quetiapine Fumarate (SEROquel) 150 mg QID PO Last administered on 01/03/18at 08: 12; Start 01/01/18 at 09:00; Stop 01/03/18 at 16:25; Status DC Trazodone HCl (Desyrel) 100 mg QHS PO Last administered on 01/27/18 20:04; Start 01/01/18 at 21:00 Docusate Sodium (Colace Solution) 100 mg DAILY PO Last administered on 10:22; Start 01/01/18 at 09:00 Levothyroxine Sodium (Synthroid) 175 mcg DAILYAC PO Last administered on at 10:48; Start 01/01/18 at 07:30; Stop 01/24/18 at 15:47; Status DC Losartan Potassium (Cozaar) 50 mg DAILY PO Last administered on 01/27/18 10:22 ; Start 01/01/18 at 09:00 Tamsulosin HCl (Flomax) 0.4 mg QHS PO Last administered on 01/27/18at 20:04; Start 01/01/18 at 21:00 Amlodipine Besylate (Norvasc) 5 mg DAILY PO Last administered on 01/27/18 10: 22; Start 01/01/18 at 09:00 Aspirin (Aspirin Enteric Coated) 81 mg DAILYWBKFT PO Last administered on at 10:48; Start 01/01/18 at 08:00; Stop 01/24/18 at 07:50; Status DC Bisacodyl (Dulcolax Supp) 10 mg PRN DAILY PRN [place] CONSTIPATION; Start 12/31/17 at 22:15 Acetaminophen/ Hydrocodone Bitart (Lortab 5/325) 1 tab PRN Q6HRS PRN PO PAIN Last administered on 01/12/18at 23:34; Start 12/31/17 at 22:15 Magnesium Hydroxide (Milk Of Magnesia) 2,400 mg PRN Q6HRS PRN PO CONSTIPATION; Start 12/31/17 at 22:15 Pantoprazole Sodium (Protonix) 40 mg DAILYAC PO Last administered on 01/23/18at 10:47; Start 01/01/18 at 07:30; Stop 01/24/18 at 07:52; Status DC Polyethylene Glycol (miraLAX) 17 gm PRN DAILY PRN PO CONSTIPATION; Start at 09:00 Potassium Chloride (Klor-Con) 10 meq DAILYWBKFT PO Last administered on at 10:21; Start 01/01/18 at 08:00 Sennosides (Senna) 8.6 mg PRN DAILY PRN PO CONSTIPATION; Start 12/31/17 at 22: 15 Simvastatin (Zocor) 20 mg HS PO Last administered on 01/27/18at 20:04; Start at 21:00 Triamcinolone Acetonide (Kenalog) 1 hiral BID TP Last administered on 01/25/18at 07:56; Start 01/01/18 at 09:00 Ceftriaxone Sodium (Rocephin Im) 1 gm DAILY IM Last administered on 01/02/18at 09:53; Start 01/02/18 at 09:00; Stop 01/04/18 at 14:44; Status DC Mirtazapine (Remeron Venessa-Tab) 7.5 mg QHS PO Last administered on 01/21/18at 19: 46; Start 01/01/18 at 21:00; Stop 01/22/18 at 18:08; Status DC Olanzapine (ZyPREXA ZYDIS) 2.5 mg PRN Q2HR PRN PO PSYCHOSIS; Start 01/01/18 at 18:45; Stop 01/02/18 at 10:58; Status DC Olanzapine (ZyPREXA ZYDIS) 2.5 mg HS PO Last administered on 01/05/18at 20:51; Start 01/02/18 at 21:00; Stop 01/07/18 at 16:38; Status DC Lactobacillus Rhamnosus (Culturelle) 1 cap BID PO Last administered on at 19:25; Start 01/03/18 at 21:00; Stop 01/23/18 at 10:54; Status DC Olanzapine (ZyPREXA ZYDIS) 2.5 mg PRN Q2HR PRN PO AGITATION Last administered on 01/17/18 06:30; Start 01/07/18 at 10:15 Olanzapine (ZyPREXA ZYDIS) 2.5 mg DAILY PO Last administered on 01/08/18at 07:32 ; Start 01/08/18 at 09:00; Stop 01/08/18 at 17:49; Status DC Olanzapine (ZyPREXA ZYDIS) 1.25 mg BID92 PO Last administered on 01/11/18at 07:48 ; Start 01/09/18 at 09:00; Stop 01/11/18 at 23:00; Status DC Olanzapine (ZyPREXA ZYDIS) 2.5 mg HS PO Last administered on 01/11/18 19:30; Start 01/08/18 at 21:00; Stop 01/11/18 at 23:00; Status DC Olanzapine (ZyPREXA ZYDIS) 2.5 mg BID PO Last administered on 01/13/18at 19:15; Start 01/12/18 at 09:00; Stop 01/13/18 at 21:00; Status DC Olanzapine (ZyPREXA ZYDIS) 1.25 mg AFTRNOON PO Last administered on 01/12/18at 15 :51; Start 01/12/18 at 14:00; Stop 01/13/18 at 16:52; Status DC Olanzapine (ZyPREXA ZYDIS) 2.5 mg TID PO Last administered on 01/27/18at 20:05; Start 01/14/18 at 09:00 Trazodone HCl (Desyrel) 12.5 mg TID@0900,1300,1700 PO Last administered on 01/17at 15:14; Start 01/15/18 at 09:00; Stop 01/17/18 at 19:29; Status DC Fluvoxamine Maleate (Luvox) 25 mg QHS PO Last administered on 01/18/18at 20:21; Start 01/16/18 at 21:00; Stop 01/19/18 at 18:47; Status DC Trazodone HCl (Desyrel) 12.5 mg BID@1300,1700 PO Last administered on at 17:29; Start 01/18/18 at 13:00 Trazodone HCl (Desyrel) 25 mg DAILY PO Last administered on 01/27/18 10:21; Start 01/18/18 at 09:00 Fluvoxamine Maleate (Luvox) 50 mg QHS PO Last administered on 01/21/18at 19:45; Start 01/19/18 at 21:00; Stop 01/22/18 at 09:00; Status DC Fluvoxamine Maleate (Luvox) 75 mg QHS PO Last administered on 01/27/18at 20:04; Start 01/22/18 at 21:00 Mirtazapine (Remeron Venessa-Tab) 15 mg QHS PO Last administered on 01/27/18 20:05 ; Start 01/22/18 at 21:00 Risperidone (RisperDAL CONSTA) 12.5 mg Q2WKS IM Last administered on 01/24/18 14:45; Start 01/24/18 at 12:00 Aspirin (Children'S Aspirin) 81 mg DAILYWBKFT PO Last administered on 10:22; Start 01/24/18 at 08:00 Lansoprazole (Prevacid) 30 mg DAILYAC PO Last administered on 01/27/18 06:17; Start 01/24/18 at 10:00 Levothyroxine Sodium (Synthroid) 175 mcg DAILY06 PO Last administered on 06:17; Start 01/25/18 at 06:00 Active Scripts Active Reported Omeprazole 20 Mg Tablet.dr 20 Mg PO DAILY Levothyroxine Sodium 175 Mcg Tablet 175 Mcg PO DAILYAC Flomax (Tamsulosin Hcl) 0.4 Mg Cap.er.24h 0.4 Mg PO QHS Simvastatin 20 Mg Tablet 20 Mg PO HS [place] 5-325 Tablet (Hydrocodone Bit/Acetaminophen) 1 Each Tablet 1 Tab PO PRN Q6HRS PRN Haloperidol 2 Mg Tablet 2 Mg PO [id number] Potassium Chloride 10 Meq Tablet.er 10 Meq PO DAILY Docusate Sodium 50 Mg/5 Ml Liquid 10 Ml PO DAILY Losartan Potassium 50 Mg Tablet 50 Mg PO DAILY Aspirin Ec (Aspirin) 81 Mg Tablet.dr 81 Mg PO DAILY Amlodipine Besylate 5 Mg Tablet 5 Mg PO DAILY Depakote Sprinkle (Divalproex Sodium) 125 Mg Cap.sprink 500 Mg PO BID Seroquel (Quetiapine Fumarate) 25 Mg Tablet 25 Mg PO PRN Q4HRS PRN Seroquel (Quetiapine Fumarate) 100 Mg Tablet 150 Mg PO QID Trazodone Hcl 100 Mg Tablet 100 Mg PO QHS Miralax (Polyethylene Glycol 3350) 17 Gm Powd.pack 17 Gm PO PRN DAILY PRN Senokot (Sennosides) 8.6 Mg Tablet 8.6 Mg PO PRN DAILY PRN Dulcolax (Bisacodyl) 10 Mg Supp.rect 10 Mg RC PRN DAILY PRN Milk Of Magnesia (Magnesium Hydroxide) 2,400 Mg/10 Ml Oral.susp 2,400 Mg PO PRN Q6HRS PRN Triamcinolone Acetonide 15 Gm Cream..g. 1 Hiral TOP BID Haldol (Haloperidol Lactate) 5 Mg/1 Ml Ampul 5 Mg IJ PRN Q6HRS PRN I have reviewed the current psychotropics carefully including drug interactions. Risk benefit ratio favors no change other than as noted in my dictated progress note. 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
[2018-01-28] MEDS: LEVOTHYROXINE 175 MCG TABLET PO SCH (05:04)
[2018-01-28 05:50] VITALS: BP 98/56
[2018-01-28] MEDS: DOCUSATE 100 MG/10 ML SOLUTION. PO SCH (08:45)
[2018-01-28] MEDS: POTASSIUM CHLORIDE 10 MEQ TABLET.ER. PO SCH (08:46)
[2018-01-28] MEDS: LOSARTAN 50 MG TABLET. PO SCH (08:46)
[2018-01-28] MEDS: LANSOPRAZOLE 30 MG TAB.RAP.DR PO SCH (08:47)
[2018-01-28] MEDS: ASPIRIN 81 MG TAB.CHEW PO SCH (08:47)
[2018-01-28] MEDS: amLODIPine BESYLATE 5 MG TABLET PO SCH (08:48)
[2018-01-28] MEDS: DIVALPROEX 125 MG CAP.SPRINK PO SCH ×2 (08:48→20:21)
[2018-01-28] MEDS: TRIAMCINOLONE ACETONIDE 0.1% TOPICAL CREAM 15GM TUBE. TP SCH ×2 (08:50→20:22)
[2018-01-28] MEDS: traZODone 50 MG TABLET. PO SCH ×3 (08:50→18:25)
[2018-01-28 15:47] VITALS: BP 117/72
[2018-01-28] MEDS: MIRTAZAPINE ODT 15 MG TAB.RAPDIS. PO SCH (20:21)
[2018-01-28] MEDS: traZODone 100 MG TABLET. PO SCH (20:21)
[2018-01-28] MEDS: SIMVASTATIN 20 MG TABLET PO SCH (20:21)
[2018-01-28] MEDS: TAMSULOSIN 0.4 MG CAP.ER.24H. PO SCH (20:21)
--- NOTE | 2018-01-28 21:00 | PDOC ---
Exam Note: Abdi Note: Please also refer to the separate dictated note~for this date of service dictated separately.~Patient seen individually. Discussed the patient with Nursing staff reviewed the chart.~Reviewed interim history and current functioning. Reviewed vital signs,~Labs/ Radiology~and current medications noted below. Continue current treatment with the changes noted in the dictated addendum note Assessment: Vital Signs: Vital Signs Date Time Temp Pulse Resp B/P (MAP) Pulse Ox O2 Delivery O2 Flow Rate FiO2 01/28/18 15:47 97.5 56 17 117/72 (87) 95 Room Air I&O Intake and Output 01/28/18 07:00 Intake Total 360 ml Balance 360 ml Intake Oral 360 ml # Bowel Movements 1 Current Medications: Meds: Current Medications Ciprofloxacin (Cipro) 500 mg 1X ONCE PO Last administered on 12/31/17at 16:59; Start 12/31/17 at 16:45; Stop 12/31/17 at 17:00; Status DC Acetaminophen (Tylenol) 650 mg PRN Q6HRS PRN PO PAIN / TEMP; Start 12/31/17 at 18:15 Multi-Ingredient Ointment (Analgesic [place]) 1 hiral PRN QID PRN TP MUSCLE PAIN; Start 12/31/17 at 18:15 Al Hydroxide/Mg Hydroxide (Mylanta Plus Xs) 15 ml PRN AFTMEALHC PRN PO DYSPEPSIA; Start 12/31/17 at 18:15 Magnesium Hydroxide (Milk Of Magnesia) 2,400 mg PRN QHS PRN PO CONSTIPATION; Start 12/31/17 at 18:15 Olanzapine (ZyPREXA) 2.5 mg PRN Q2HR PRN PO AGITATION; Start 12/31/17 at 18:45 ; Stop 01/07/18 at 10:11; Status DC Divalproex Sodium (Depakote Sprinkles) 500 mg BID PO Last administered on at 20:21; Start 01/01/18 at 09:00 Haloperidol (Haldol) 2 mg [id number] PO Last administered on 01/01/18at 17:18; Start 01/01/18 at 00:00; Stop 01/01/18 at 18:44; Status DC Haloperidol Lactate (Haldol) 5 mg PRN Q6HRS PRN IM ANXIETY/AGITATION; Start at 22:15; Stop 01/01/18 at 18:44; Status DC Quetiapine Fumarate (SEROquel) 25 mg PRN Q4HRS PRN PO ANXIETY/AGITATION; Start 12/31/17 at 22:15; Stop 01/03/18 at 16:25; Status DC Quetiapine Fumarate (SEROquel) 150 mg QID PO Last administered on 01/03/18at 08: 12; Start 01/01/18 at 09:00; Stop 01/03/18 at 16:25; Status DC Trazodone HCl (Desyrel) 100 mg QHS PO Last administered on 01/28/18 20:21; Start 01/01/18 at 21:00 Docusate Sodium (Colace Solution) 100 mg DAILY PO Last administered on 08:45; Start 01/01/18 at 09:00 Levothyroxine Sodium (Synthroid) 175 mcg DAILYAC PO Last administered on at 10:48; Start 01/01/18 at 07:30; Stop 01/24/18 at 15:47; Status DC Losartan Potassium (Cozaar) 50 mg DAILY PO Last administered on 01/27/18 10:22 ; Start 01/01/18 at 09:00 Tamsulosin HCl (Flomax) 0.4 mg QHS PO Last administered on 01/28/18at 20:21; Start 01/01/18 at 21:00 Amlodipine Besylate (Norvasc) 5 mg DAILY PO Last administered on 01/27/18at 10: 22; Start 01/01/18 at 09:00 Aspirin (Aspirin Enteric Coated) 81 mg DAILYWBKFT PO Last administered on at 10:48; Start 01/01/18 at 08:00; Stop 01/24/18 at 07:50; Status DC Bisacodyl (Dulcolax Supp) 10 mg PRN DAILY PRN [place] CONSTIPATION; Start 12/31/17 at 22:15 Acetaminophen/ Hydrocodone Bitart (Lortab 5/325) 1 tab PRN Q6HRS PRN PO PAIN Last administered on 01/12/18at 23:34; Start 12/31/17 at 22:15 Magnesium Hydroxide (Milk Of Magnesia) 2,400 mg PRN Q6HRS PRN PO CONSTIPATION; Start 12/31/17 at 22:15 Pantoprazole Sodium (Protonix) 40 mg DAILYAC PO Last administered on 01/23/18at 10:47; Start 01/01/18 at 07:30; Stop 01/24/18 at 07:52; Status DC Polyethylene Glycol (miraLAX) 17 gm PRN DAILY PRN PO CONSTIPATION; Start at 09:00 Potassium Chloride (Klor-Con) 10 meq DAILYWBKFT PO Last administered on at 08:46; Start 01/01/18 at 08:00 Sennosides (Senna) 8.6 mg PRN DAILY PRN PO CONSTIPATION; Start 12/31/17 at 22: 15 Simvastatin (Zocor) 20 mg HS PO Last administered on 01/28/18at 20:21; Start at 21:00 Triamcinolone Acetonide (Kenalog) 1 hiral BID TP Last administered on 01/28/18at 20:22; Start 01/01/18 at 09:00 Ceftriaxone Sodium (Rocephin Im) 1 gm DAILY IM Last administered on 01/02/18at 09:53; Start 01/02/18 at 09:00; Stop 01/04/18 at 14:44; Status DC Mirtazapine (Remeron Venessa-Tab) 7.5 mg QHS PO Last administered on 01/21/18at 19: 46; Start 01/01/18 at 21:00; Stop 01/22/18 at 18:08; Status DC Olanzapine (ZyPREXA ZYDIS) 2.5 mg PRN Q2HR PRN PO PSYCHOSIS; Start 01/01/18 at 18:45; Stop 01/02/18 at 10:58; Status DC Olanzapine (ZyPREXA ZYDIS) 2.5 mg HS PO Last administered on 01/05/18at 20:51; Start 01/02/18 at 21:00; Stop 01/07/18 at 16:38; Status DC Lactobacillus Rhamnosus (Culturelle) 1 cap BID PO Last administered on at 19:25; Start 01/03/18 at 21:00; Stop 01/23/18 at 10:54; Status DC Olanzapine (ZyPREXA ZYDIS) 2.5 mg PRN Q2HR PRN PO AGITATION Last administered on 01/17/18 06:30; Start 01/07/18 at 10:15 Olanzapine (ZyPREXA ZYDIS) 2.5 mg DAILY PO Last administered on 01/08/18 07:32 ; Start 01/08/18 at 09:00; Stop 01/08/18 at 17:49; Status DC Olanzapine (ZyPREXA ZYDIS) 1.25 mg BID92 PO Last administered on 01/11/18at 07:48 ; Start 01/09/18 at 09:00; Stop 01/11/18 at 23:00; Status DC Olanzapine (ZyPREXA ZYDIS) 2.5 mg HS PO Last administered on 01/11/18 19:30; Start 01/08/18 at 21:00; Stop 01/11/18 at 23:00; Status DC Olanzapine (ZyPREXA ZYDIS) 2.5 mg BID PO Last administered on 01/13/18at 19:15; Start 01/12/18 at 09:00; Stop 01/13/18 at 21:00; Status DC Olanzapine (ZyPREXA ZYDIS) 1.25 mg AFTRNOON PO Last administered on 01/12/18at 15 :51; Start 01/12/18 at 14:00; Stop 01/13/18 at 16:52; Status DC Olanzapine (ZyPREXA ZYDIS) 2.5 mg TID PO Last administered on 01/28/18at 20:22; Start 01/14/18 at 09:00 Trazodone HCl (Desyrel) 12.5 mg TID@0900,1300,1700 PO Last administered on 01/17at 15:14; Start 01/15/18 at 09:00; Stop 01/17/18 at 19:29; Status DC Fluvoxamine Maleate (Luvox) 25 mg QHS PO Last administered on 01/18/18at 20:21; Start 01/16/18 at 21:00; Stop 01/19/18 at 18:47; Status DC Trazodone HCl (Desyrel) 12.5 mg BID@1300,1700 PO Last administered on at 12:42; Start 01/18/18 at 13:00 Trazodone HCl (Desyrel) 25 mg DAILY PO Last administered on 01/28/18 08:50; Start 01/18/18 at 09:00 Fluvoxamine Maleate (Luvox) 50 mg QHS PO Last administered on 01/21/18at 19:45; Start 01/19/18 at 21:00; Stop 01/22/18 at 09:00; Status DC Fluvoxamine Maleate (Luvox) 75 mg QHS PO Last administered on 01/28/18 20:21; Start 01/22/18 at 21:00 Mirtazapine (Remeron Venessa-Tab) 15 mg QHS PO Last administered on 01/28/18 20:21 ; Start 01/22/18 at 21:00 Risperidone (RisperDAL CONSTA) 12.5 mg Q2WKS IM Last administered on 01/24/18 14:45; Start 01/24/18 at 12:00 Aspirin (Children'S Aspirin) 81 mg DAILYWBKFT PO Last administered on at 08:47; Start 01/24/18 at 08:00 Lansoprazole (Prevacid) 30 mg DAILYAC PO Last administered on 01/28/18 08:47; Start 01/24/18 at 10:00 Levothyroxine Sodium (Synthroid) 175 mcg DAILY06 PO Last administered on 05:04; Start 01/25/18 at 06:00 Active Scripts Active Reported Omeprazole 20 Mg Tablet.dr 20 Mg PO DAILY Levothyroxine Sodium 175 Mcg Tablet 175 Mcg PO DAILYAC Flomax (Tamsulosin Hcl) 0.4 Mg Cap.er.24h 0.4 Mg PO QHS Simvastatin 20 Mg Tablet 20 Mg PO HS [place] 5-325 Tablet (Hydrocodone Bit/Acetaminophen) 1 Each Tablet 1 Tab PO PRN Q6HRS PRN Haloperidol 2 Mg Tablet 2 Mg PO [id number] Potassium Chloride 10 Meq Tablet.er 10 Meq PO DAILY Docusate Sodium 50 Mg/5 Ml Liquid 10 Ml PO DAILY Losartan Potassium 50 Mg Tablet 50 Mg PO DAILY Aspirin Ec (Aspirin) 81 Mg Tablet.dr 81 Mg PO DAILY Amlodipine Besylate 5 Mg Tablet 5 Mg PO DAILY Depakote Sprinkle (Divalproex Sodium) 125 Mg Cap.sprink 500 Mg PO BID Seroquel (Quetiapine Fumarate) 25 Mg Tablet 25 Mg PO PRN Q4HRS PRN Seroquel (Quetiapine Fumarate) 100 Mg Tablet 150 Mg PO QID Trazodone Hcl 100 Mg Tablet 100 Mg PO QHS Miralax (Polyethylene Glycol 3350) 17 Gm Powd.pack 17 Gm PO PRN DAILY PRN Senokot (Sennosides) 8.6 Mg Tablet 8.6 Mg PO PRN DAILY PRN Dulcolax (Bisacodyl) 10 Mg Supp.rect 10 Mg RC PRN DAILY PRN Milk Of Magnesia (Magnesium Hydroxide) 2,400 Mg/10 Ml Oral.susp 2,400 Mg PO PRN Q6HRS PRN Triamcinolone Acetonide 15 Gm Cream..g. 1 Hiral TOP BID Haldol (Haloperidol Lactate) 5 Mg/1 Ml Ampul 5 Mg IJ PRN Q6HRS PRN I have reviewed the current psychotropics carefully including drug interactions. Risk benefit ratio favors no change other than as noted in my dictated progress note. 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
--- NOTE | 2018-01-28 23:05 | PN ---
DATE: 01/27/2018 This is a late entry for 01/27/2018 covers elements not covered in my initial note. SUBJECTIVE: I met with the patient in the evening. The patient slept till about 4 p.m. during the day, somewhat sedated off and on. As a consequence of this, we will stop the morning trazodone 25 mg to help reduce sedation. REVIEW OF SYSTEMS: No CV, , pulmonary, eye, ENT system symptoms on review. Reliability poor. MENTAL STATUS EXAM: Oriented to herself. Insight, judgment, recent and remote memory, attention, concentration, fund of knowledge poor, consistent with her diagnosis mentioned in my initial note. PLAN: No change from initial note other than stopping the morning trazodone. Continue Depakote along with scheduled Zyprexa, Remeron along with trazodone 12.5 mg at 1300 and 1700, Luvox 75 at bedtime, Risperdal Consta 12.5 mg IM q. 2 weeks. MAN Lisa MURRAY MD DR: DANIEL/valeriy JOB#: [id number] / [id number]
[2018-01-29] MEDS: traZODone 50 MG TABLET. PO SCH ×3 (08:59→18:18)
[2018-01-29] MEDS: POTASSIUM CHLORIDE 10 MEQ TABLET.ER. PO SCH (08:59)
[2018-01-29] MEDS: ASPIRIN 81 MG TAB.CHEW PO SCH (08:59)
[2018-01-29] MEDS: DOCUSATE 100 MG/10 ML SOLUTION. PO SCH (08:59)
[2018-01-29] MEDS: amLODIPine BESYLATE 5 MG TABLET PO SCH (09:00)
[2018-01-29] MEDS: LOSARTAN 50 MG TABLET. PO SCH (09:00)
[2018-01-29] MEDS: DIVALPROEX 125 MG CAP.SPRINK PO SCH ×2 (09:00→19:29)
[2018-01-29] MEDS: LEVOTHYROXINE 175 MCG TABLET PO SCH (09:00)
[2018-01-29] MEDS: TRIAMCINOLONE ACETONIDE 0.1% TOPICAL CREAM 15GM TUBE. TP SCH ×2 (09:01→19:30)
[2018-01-29] MEDS: LANSOPRAZOLE 30 MG TAB.RAP.DR PO SCH (09:04)
[2018-01-29 16:29] VITALS: BP 93/67
[2018-01-29] MEDS: SIMVASTATIN 20 MG TABLET PO SCH (19:29)
[2018-01-29] MEDS: TAMSULOSIN 0.4 MG CAP.ER.24H. PO SCH (19:29)
[2018-01-29] MEDS: traZODone 100 MG TABLET. PO SCH (19:29)
[2018-01-29] MEDS: MIRTAZAPINE ODT 15 MG TAB.RAPDIS. PO SCH (19:30)
--- NOTE | 2018-01-29 20:50 | PDOC ---
Exam Note: Abdi Note: Please also refer to the separate dictated note~for this date of service dictated separately.~Patient seen individually. Discussed the patient with Nursing staff reviewed the chart.~Reviewed interim history and current functioning. Reviewed vital signs,~Labs/ Radiology~and current medications noted below. Continue current treatment with the changes noted in the dictated addendum note Assessment: Vital Signs: Vital Signs Date Time Temp Pulse Resp B/P (MAP) Pulse Ox O2 Delivery O2 Flow Rate FiO2 01/29/18 16:29 98.1 86 22 93/67 (76) 94 01/28/18 15:47 Room Air I&O Intake and Output 01/29/18 07:00 Intake Total 720 ml Balance 720 ml Intake Oral 720 ml Current Medications: Meds: Current Medications Ciprofloxacin (Cipro) 500 mg 1X ONCE PO Last administered on 12/31/17at 16:59; Start 12/31/17 at 16:45; Stop 12/31/17 at 17:00; Status DC Acetaminophen (Tylenol) 650 mg PRN Q6HRS PRN PO PAIN / TEMP; Start 12/31/17 at 18:15 Multi-Ingredient Ointment (Analgesic [place]) 1 hiral PRN QID PRN TP MUSCLE PAIN; Start 12/31/17 at 18:15 Al Hydroxide/Mg Hydroxide (Mylanta Plus Xs) 15 ml PRN AFTMEALHC PRN PO DYSPEPSIA; Start 12/31/17 at 18:15 Magnesium Hydroxide (Milk Of Magnesia) 2,400 mg PRN QHS PRN PO CONSTIPATION; Start 12/31/17 at 18:15 Olanzapine (ZyPREXA) 2.5 mg PRN Q2HR PRN PO AGITATION; Start 12/31/17 at 18:45 ; Stop 01/07/18 at 10:11; Status DC Divalproex Sodium (Depakote Sprinkles) 500 mg BID PO Last administered on at 19:29; Start 01/01/18 at 09:00 Haloperidol (Haldol) 2 mg [id number] PO Last administered on 01/01/18at 17:18; Start 01/01/18 at 00:00; Stop 01/01/18 at 18:44; Status DC Haloperidol Lactate (Haldol) 5 mg PRN Q6HRS PRN IM ANXIETY/AGITATION; Start at 22:15; Stop 01/01/18 at 18:44; Status DC Quetiapine Fumarate (SEROquel) 25 mg PRN Q4HRS PRN PO ANXIETY/AGITATION; Start 12/31/17 at 22:15; Stop 01/03/18 at 16:25; Status DC Quetiapine Fumarate (SEROquel) 150 mg QID PO Last administered on 01/03/18at 08: 12; Start 01/01/18 at 09:00; Stop 01/03/18 at 16:25; Status DC Trazodone HCl (Desyrel) 100 mg QHS PO Last administered on 01/29/18at 19:29; Start 01/01/18 at 21:00 Docusate Sodium (Colace Solution) 100 mg DAILY PO Last administered on at 08:59; Start 01/01/18 at 09:00 Levothyroxine Sodium (Synthroid) 175 mcg DAILYAC PO Last administered on at 10:48; Start 01/01/18 at 07:30; Stop 01/24/18 at 15:47; Status DC Losartan Potassium (Cozaar) 50 mg DAILY PO Last administered on 01/29/18at 09:00 ; Start 01/01/18 at 09:00 Tamsulosin HCl (Flomax) 0.4 mg QHS PO Last administered on 01/29/18at 19:29; Start 01/01/18 at 21:00 Amlodipine Besylate (Norvasc) 5 mg DAILY PO Last administered on 01/29/18at 09: 00; Start 01/01/18 at 09:00 Aspirin (Aspirin Enteric Coated) 81 mg DAILYWBKFT PO Last administered on at 10:48; Start 01/01/18 at 08:00; Stop 01/24/18 at 07:50; Status DC Bisacodyl (Dulcolax Supp) 10 mg PRN DAILY PRN [place] CONSTIPATION; Start 12/31/17 at 22:15 Acetaminophen/ Hydrocodone Bitart (Lortab 5/325) 1 tab PRN Q6HRS PRN PO PAIN Last administered on 01/12/18at 23:34; Start 12/31/17 at 22:15 Magnesium Hydroxide (Milk Of Magnesia) 2,400 mg PRN Q6HRS PRN PO CONSTIPATION; Start 12/31/17 at 22:15 Pantoprazole Sodium (Protonix) 40 mg DAILYAC PO Last administered on 01/23/18at 10:47; Start 01/01/18 at 07:30; Stop 01/24/18 at 07:52; Status DC Polyethylene Glycol (miraLAX) 17 gm PRN DAILY PRN PO CONSTIPATION; Start at 09:00 Potassium Chloride (Klor-Con) 10 meq DAILYWBKFT PO Last administered on at 08:59; Start 01/01/18 at 08:00 Sennosides (Senna) 8.6 mg PRN DAILY PRN PO CONSTIPATION; Start 12/31/17 at 22: 15 Simvastatin (Zocor) 20 mg HS PO Last administered on 01/29/18at 19:29; Start at 21:00 Triamcinolone Acetonide (Kenalog) 1 hiral BID TP Last administered on 01/28/18at 20:22; Start 01/01/18 at 09:00 Ceftriaxone Sodium (Rocephin Im) 1 gm DAILY IM Last administered on 01/02/18at 09:53; Start 01/02/18 at 09:00; Stop 01/04/18 at 14:44; Status DC Mirtazapine (Remeron Venessa-Tab) 7.5 mg QHS PO Last administered on 01/21/18at 19: 46; Start 01/01/18 at 21:00; Stop 01/22/18 at 18:08; Status DC Olanzapine (ZyPREXA ZYDIS) 2.5 mg PRN Q2HR PRN PO PSYCHOSIS; Start 01/01/18 at 18:45; Stop 01/02/18 at 10:58; Status DC Olanzapine (ZyPREXA ZYDIS) 2.5 mg HS PO Last administered on 01/05/18at 20:51; Start 01/02/18 at 21:00; Stop 01/07/18 at 16:38; Status DC Lactobacillus Rhamnosus (Culturelle) 1 cap BID PO Last administered on at 19:25; Start 01/03/18 at 21:00; Stop 01/23/18 at 10:54; Status DC Olanzapine (ZyPREXA ZYDIS) 2.5 mg PRN Q2HR PRN PO AGITATION Last administered on 01/17/18at 06:30; Start 01/07/18 at 10:15 Olanzapine (ZyPREXA ZYDIS) 2.5 mg DAILY PO Last administered on 01/08/18at 07:32 ; Start 01/08/18 at 09:00; Stop 01/08/18 at 17:49; Status DC Olanzapine (ZyPREXA ZYDIS) 1.25 mg BID92 PO Last administered on 01/11/18at 07:48 ; Start 01/09/18 at 09:00; Stop 01/11/18 at 23:00; Status DC Olanzapine (ZyPREXA ZYDIS) 2.5 mg HS PO Last administered on 01/11/18 19:30; Start 01/08/18 at 21:00; Stop 01/11/18 at 23:00; Status DC Olanzapine (ZyPREXA ZYDIS) 2.5 mg BID PO Last administered on 01/13/18at 19:15; Start 01/12/18 at 09:00; Stop 01/13/18 at 21:00; Status DC Olanzapine (ZyPREXA ZYDIS) 1.25 mg AFTRNOON PO Last administered on 01/12/18at 15 :51; Start 01/12/18 at 14:00; Stop 01/13/18 at 16:52; Status DC Olanzapine (ZyPREXA ZYDIS) 2.5 mg TID PO Last administered on 01/29/18at 19:30; Start 01/14/18 at 09:00 Trazodone HCl (Desyrel) 12.5 mg TID@0900,1300,1700 PO Last administered on 01/17at 15:14; Start 01/15/18 at 09:00; Stop 01/17/18 at 19:29; Status DC Fluvoxamine Maleate (Luvox) 25 mg QHS PO Last administered on 01/18/18at 20:21; Start 01/16/18 at 21:00; Stop 01/19/18 at 18:47; Status DC Trazodone HCl (Desyrel) 12.5 mg BID@1300,1700 PO Last administered on at 18:18; Start 01/18/18 at 13:00 Trazodone HCl (Desyrel) 25 mg DAILY PO Last administered on 01/29/18at 08:59; Start 01/18/18 at 09:00; Stop 01/29/18 at 17:42; Status DC Fluvoxamine Maleate (Luvox) 50 mg QHS PO Last administered on 01/21/18at 19:45; Start 01/19/18 at 21:00; Stop 01/22/18 at 09:00; Status DC Fluvoxamine Maleate (Luvox) 75 mg QHS PO Last administered on 01/29/18at 19:30; Start 01/22/18 at 21:00 Mirtazapine (Remeron Venessa-Tab) 15 mg QHS PO Last administered on 01/29/18at 19:30 ; Start 01/22/18 at 21:00 Risperidone (RisperDAL CONSTA) 12.5 mg Q2WKS IM Last administered on 01/24/18at 14:45; Start 01/24/18 at 12:00 Aspirin (Children'S Aspirin) 81 mg DAILYWBKFT PO Last administered on at 08:59; Start 01/24/18 at 08:00 Lansoprazole (Prevacid) 30 mg DAILYAC PO Last administered on 01/28/18at 08:47; Start 01/24/18 at 10:00 Levothyroxine Sodium (Synthroid) 175 mcg DAILY06 PO Last administered on at 09:00; Start 01/25/18 at 06:00 Trazodone HCl (Desyrel) 12.5 mg DAILY PO ; Start 01/30/18 at 09:00 Active Scripts Active Reported Omeprazole 20 Mg Tablet.dr 20 Mg PO DAILY Levothyroxine Sodium 175 Mcg Tablet 175 Mcg PO DAILYAC Flomax (Tamsulosin Hcl) 0.4 Mg Cap.er.24h 0.4 Mg PO QHS Simvastatin 20 Mg Tablet 20 Mg PO HS [place] 5-325 Tablet (Hydrocodone Bit/Acetaminophen) 1 Each Tablet 1 Tab PO PRN Q6HRS PRN Haloperidol 2 Mg Tablet 2 Mg PO [id number] Potassium Chloride 10 Meq Tablet.er 10 Meq PO DAILY Docusate Sodium 50 Mg/5 Ml Liquid 10 Ml PO DAILY Losartan Potassium 50 Mg Tablet 50 Mg PO DAILY Aspirin Ec (Aspirin) 81 Mg Tablet.dr 81 Mg PO DAILY Amlodipine Besylate 5 Mg Tablet 5 Mg PO DAILY Depakote Sprinkle (Divalproex Sodium) 125 Mg Cap.sprink 500 Mg PO BID Seroquel (Quetiapine Fumarate) 25 Mg Tablet 25 Mg PO PRN Q4HRS PRN Seroquel (Quetiapine Fumarate) 100 Mg Tablet 150 Mg PO QID Trazodone Hcl 100 Mg Tablet 100 Mg PO QHS Miralax (Polyethylene Glycol 3350) 17 Gm Powd.pack 17 Gm PO PRN DAILY PRN Senokot (Sennosides) 8.6 Mg Tablet 8.6 Mg PO PRN DAILY PRN Dulcolax (Bisacodyl) 10 Mg Supp.rect 10 Mg RC PRN DAILY PRN Milk Of Magnesia (Magnesium Hydroxide) 2,400 Mg/10 Ml Oral.susp 2,400 Mg PO PRN Q6HRS PRN Triamcinolone Acetonide 15 Gm Cream..g. 1 Hiral TOP BID Haldol (Haloperidol Lactate) 5 Mg/1 Ml Ampul 5 Mg IJ PRN Q6HRS PRN I have reviewed the current psychotropics carefully including drug interactions. Risk benefit ratio favors no change other than as noted in my dictated progress note. 

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
[2018-01-30] MEDS: LEVOTHYROXINE 175 MCG TABLET PO SCH (07:32)
[2018-01-30] MEDS: DOCUSATE 100 MG/10 ML SOLUTION. PO SCH (10:58)
[2018-01-30] MEDS: amLODIPine BESYLATE 5 MG TABLET PO SCH (11:01)
[2018-01-30] MEDS: LOSARTAN 50 MG TABLET. PO SCH (11:02)
[2018-01-30] MEDS: LANSOPRAZOLE 30 MG TAB.RAP.DR PO SCH (11:03)
[2018-01-30] MEDS: DIVALPROEX 125 MG CAP.SPRINK PO SCH ×2 (11:03→19:36)
[2018-01-30] MEDS: ASPIRIN 81 MG TAB.CHEW PO SCH (11:03)
[2018-01-30] MEDS: POTASSIUM CHLORIDE 10 MEQ TABLET.ER. PO SCH (11:03)
[2018-01-30] MEDS: TRIAMCINOLONE ACETONIDE 0.1% TOPICAL CREAM 15GM TUBE. TP SCH ×2 (11:07→19:37)
[2018-01-30] MEDS: traZODone 50 MG TABLET. PO SCH ×3 (11:07→17:23)
[2018-01-30 15:57] VITALS: BP 96/70
[2018-01-30] MEDS: SIMVASTATIN 20 MG TABLET PO SCH (19:36)
[2018-01-30] MEDS: traZODone 100 MG TABLET. PO SCH (19:36)
[2018-01-30] MEDS: TAMSULOSIN 0.4 MG CAP.ER.24H. PO SCH (19:36)
[2018-01-30] MEDS: MIRTAZAPINE ODT 15 MG TAB.RAPDIS. PO SCH (19:36)
--- NOTE | 2018-01-30 20:30 | PDOC ---
Exam Note: Abdi Note: Please also refer to the separate dictated note~for this date of service dictated separately.~Patient seen individually. Discussed the patient with Nursing staff reviewed the chart.~Reviewed interim history and current functioning. Reviewed vital signs,~Labs/ Radiology~and current medications noted below. Continue current treatment with the changes noted in the dictated addendum note Assessment: Vital Signs: Vital Signs Date Time Temp Pulse Resp B/P (MAP) Pulse Ox O2 Delivery O2 Flow Rate FiO2 01/30/18 15:57 97.6 72 16 96/70 (79) 94 Room Air I&O Intake and Output 01/30/18 07:00 Intake Total 980 ml Balance 980 ml Intake Oral 980 ml # Bowel Movements 1 Current Medications: Meds: Current Medications Ciprofloxacin (Cipro) 500 mg 1X ONCE PO Last administered on 12/31/17at 16:59; Start 12/31/17 at 16:45; Stop 12/31/17 at 17:00; Status DC Acetaminophen (Tylenol) 650 mg PRN Q6HRS PRN PO PAIN / TEMP; Start 12/31/17 at 18:15 Multi-Ingredient Ointment (Analgesic [place]) 1 hiral PRN QID PRN TP MUSCLE PAIN; Start 12/31/17 at 18:15 Al Hydroxide/Mg Hydroxide (Mylanta Plus Xs) 15 ml PRN AFTMEALHC PRN PO DYSPEPSIA; Start 12/31/17 at 18:15 Magnesium Hydroxide (Milk Of Magnesia) 2,400 mg PRN QHS PRN PO CONSTIPATION; Start 12/31/17 at 18:15 Olanzapine (ZyPREXA) 2.5 mg PRN Q2HR PRN PO AGITATION; Start 12/31/17 at 18:45 ; Stop 01/07/18 at 10:11; Status DC Divalproex Sodium (Depakote Sprinkles) 500 mg BID PO Last administered on at 19:36; Start 01/01/18 at 09:00 Haloperidol (Haldol) 2 mg [id number] PO Last administered on 01/01/18at 17:18; Start 01/01/18 at 00:00; Stop 01/01/18 at 18:44; Status DC Haloperidol Lactate (Haldol) 5 mg PRN Q6HRS PRN IM ANXIETY/AGITATION; Start at 22:15; Stop 01/01/18 at 18:44; Status DC Quetiapine Fumarate (SEROquel) 25 mg PRN Q4HRS PRN PO ANXIETY/AGITATION; Start 12/31/17 at 22:15; Stop 01/03/18 at 16:25; Status DC Quetiapine Fumarate (SEROquel) 150 mg QID PO Last administered on 01/03/18at 08: 12; Start 01/01/18 at 09:00; Stop 01/03/18 at 16:25; Status DC Trazodone HCl (Desyrel) 100 mg QHS PO Last administered on 01/30/18 19:36; Start 01/01/18 at 21:00 Docusate Sodium (Colace Solution) 100 mg DAILY PO Last administered on 10:58; Start 01/01/18 at 09:00 Levothyroxine Sodium (Synthroid) 175 mcg DAILYAC PO Last administered on 10:48; Start 01/01/18 at 07:30; Stop 01/24/18 at 15:47; Status DC Losartan Potassium (Cozaar) 50 mg DAILY PO Last administered on 01/29/18 09:00 ; Start 01/01/18 at 09:00 Tamsulosin HCl (Flomax) 0.4 mg QHS PO Last administered on 01/30/18at 19:36; Start 01/01/18 at 21:00 Amlodipine Besylate (Norvasc) 5 mg DAILY PO Last administered on 01/29/18at 09: 00; Start 01/01/18 at 09:00 Aspirin (Aspirin Enteric Coated) 81 mg DAILYWBKFT PO Last administered on at 10:48; Start 01/01/18 at 08:00; Stop 01/24/18 at 07:50; Status DC Bisacodyl (Dulcolax Supp) 10 mg PRN DAILY PRN [place] CONSTIPATION; Start 12/31/17 at 22:15 Acetaminophen/ Hydrocodone Bitart (Lortab 5/325) 1 tab PRN Q6HRS PRN PO PAIN Last administered on 01/12/18at 23:34; Start 12/31/17 at 22:15 Magnesium Hydroxide (Milk Of Magnesia) 2,400 mg PRN Q6HRS PRN PO CONSTIPATION; Start 12/31/17 at 22:15 Pantoprazole Sodium (Protonix) 40 mg DAILYAC PO Last administered on 01/23/18at 10:47; Start 01/01/18 at 07:30; Stop 01/24/18 at 07:52; Status DC Polyethylene Glycol (miraLAX) 17 gm PRN DAILY PRN PO CONSTIPATION; Start at 09:00 Potassium Chloride (Klor-Con) 10 meq DAILYWBKFT PO Last administered on at 11:03; Start 01/01/18 at 08:00 Sennosides (Senna) 8.6 mg PRN DAILY PRN PO CONSTIPATION; Start 12/31/17 at 22: 15 Simvastatin (Zocor) 20 mg HS PO Last administered on 01/30/18at 19:36; Start at 21:00 Triamcinolone Acetonide (Kenalog) 1 hiral BID TP Last administered on 01/28/18at 20:22; Start 01/01/18 at 09:00 Ceftriaxone Sodium (Rocephin Im) 1 gm DAILY IM Last administered on 01/02/18at 09:53; Start 01/02/18 at 09:00; Stop 01/04/18 at 14:44; Status DC Mirtazapine (Remeron Venessa-Tab) 7.5 mg QHS PO Last administered on 01/21/18at 19: 46; Start 01/01/18 at 21:00; Stop 01/22/18 at 18:08; Status DC Olanzapine (ZyPREXA ZYDIS) 2.5 mg PRN Q2HR PRN PO PSYCHOSIS; Start 01/01/18 at 18:45; Stop 01/02/18 at 10:58; Status DC Olanzapine (ZyPREXA ZYDIS) 2.5 mg HS PO Last administered on 01/05/18at 20:51; Start 01/02/18 at 21:00; Stop 01/07/18 at 16:38; Status DC Lactobacillus Rhamnosus (Culturelle) 1 cap BID PO Last administered on at 19:25; Start 01/03/18 at 21:00; Stop 01/23/18 at 10:54; Status DC Olanzapine (ZyPREXA ZYDIS) 2.5 mg PRN Q2HR PRN PO AGITATION Last administered on 01/17/18 06:30; Start 01/07/18 at 10:15 Olanzapine (ZyPREXA ZYDIS) 2.5 mg DAILY PO Last administered on 01/08/18 07:32 ; Start 01/08/18 at 09:00; Stop 01/08/18 at 17:49; Status DC Olanzapine (ZyPREXA ZYDIS) 1.25 mg [id number] PO Last administered on 01/11/18at 07:48 ; Start 01/09/18 at 09:00; Stop 01/11/18 at 23:00; Status DC Olanzapine (ZyPREXA ZYDIS) 2.5 mg HS PO Last administered on 01/11/18 19:30; Start 01/08/18 at 21:00; Stop 01/11/18 at 23:00; Status DC Olanzapine (ZyPREXA ZYDIS) 2.5 mg BID PO Last administered on 01/13/18at 19:15; Start 01/12/18 at 09:00; Stop 01/13/18 at 21:00; Status DC Olanzapine (ZyPREXA ZYDIS) 1.25 mg AFTRNOON PO Last administered on 01/12/18at 15 :51; Start 01/12/18 at 14:00; Stop 01/13/18 at 16:52; Status DC Olanzapine (ZyPREXA ZYDIS) 2.5 mg TID PO Last administered on 01/30/18at 19:37; Start 01/14/18 at 09:00 Trazodone HCl (Desyrel) 12.5 mg TID@0900,1300,1700 PO Last administered on 01/17at 15:14; Start 01/15/18 at 09:00; Stop 01/17/18 at 19:29; Status DC Fluvoxamine Maleate (Luvox) 25 mg QHS PO Last administered on 01/18/18at 20:21; Start 01/16/18 at 21:00; Stop 01/19/18 at 18:47; Status DC Trazodone HCl (Desyrel) 12.5 mg BID@1300,1700 PO Last administered on at 17:23; Start 01/18/18 at 13:00 Trazodone HCl (Desyrel) 25 mg DAILY PO Last administered on 01/29/18at 08:59; Start 01/18/18 at 09:00; Stop 01/29/18 at 17:42; Status DC Fluvoxamine Maleate (Luvox) 50 mg QHS PO Last administered on 01/21/18at 19:45; Start 01/19/18 at 21:00; Stop 01/22/18 at 09:00; Status DC Fluvoxamine Maleate (Luvox) 75 mg QHS PO Last administered on 01/30/18at 19:36; Start 01/22/18 at 21:00 Mirtazapine (Remeron Venessa-Tab) 15 mg QHS PO Last administered on 01/30/18at 19:36 ; Start 01/22/18 at 21:00 Risperidone (RisperDAL CONSTA) 12.5 mg Q2WKS IM Last administered on 01/24/18at 14:45; Start 01/24/18 at 12:00; Stop 01/30/18 at 09:45; Status DC Aspirin (Children'S Aspirin) 81 mg DAILYWBKFT PO Last administered on at 11:03; Start 01/24/18 at 08:00 Lansoprazole (Prevacid) 30 mg DAILYAC PO Last administered on 01/30/18at 11:03; Start 01/24/18 at 10:00 Levothyroxine Sodium (Synthroid) 175 mcg DAILY06 PO Last administered on at 09:00; Start 01/25/18 at 06:00 Trazodone HCl (Desyrel) 12.5 mg DAILY PO Last administered on 01/30/18at 11:07; Start 01/30/18 at 09:00 Risperidone (RisperDAL CONSTA) 12.5 mg 1X ONCE IM ; Start 01/31/18 at 12:00; Stop 01/31/18 at 12:01 Risperidone (RisperDAL CONSTA) 25 mg Q2WKS IM ; Start 02/14/18 at 09:00 Active Scripts Active Reported Omeprazole 20 Mg Tablet.dr 20 Mg PO DAILY Levothyroxine Sodium 175 Mcg Tablet 175 Mcg PO DAILYAC Flomax (Tamsulosin Hcl) 0.4 Mg Cap.er.24h 0.4 Mg PO QHS Simvastatin 20 Mg Tablet 20 Mg PO HS [place] 5-325 Tablet (Hydrocodone Bit/Acetaminophen) 1 Each Tablet 1 Tab PO PRN Q6HRS PRN Haloperidol 2 Mg Tablet 2 Mg PO [id number] Potassium Chloride 10 Meq Tablet.er 10 Meq PO DAILY Docusate Sodium 50 Mg/5 Ml Liquid 10 Ml PO DAILY Losartan Potassium 50 Mg Tablet 50 Mg PO DAILY Aspirin Ec (Aspirin) 81 Mg Tablet.dr 81 Mg PO DAILY Amlodipine Besylate 5 Mg Tablet 5 Mg PO DAILY Depakote Sprinkle (Divalproex Sodium) 125 Mg Cap.sprink 500 Mg PO BID Seroquel (Quetiapine Fumarate) 25 Mg Tablet 25 Mg PO PRN Q4HRS PRN Seroquel (Quetiapine Fumarate) 100 Mg Tablet 150 Mg PO QID Trazodone Hcl 100 Mg Tablet 100 Mg PO QHS Miralax (Polyethylene Glycol 3350) 17 Gm Powd.pack 17 Gm PO PRN DAILY PRN Senokot (Sennosides) 8.6 Mg Tablet 8.6 Mg PO PRN DAILY PRN Dulcolax (Bisacodyl) 10 Mg Supp.rect 10 Mg RC PRN DAILY PRN Milk Of Magnesia (Magnesium Hydroxide) 2,400 Mg/10 Ml Oral.susp 2,400 Mg PO PRN Q6HRS PRN Triamcinolone Acetonide 15 Gm Cream..g. 1 Hiral TOP BID Haldol (Haloperidol Lactate) 5 Mg/1 Ml Ampul 5 Mg IJ PRN Q6HRS PRN I have reviewed the current psychotropics carefully including drug interactions. Risk benefit ratio favors no change other than as noted in my dictated progress note. 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
[2018-01-31] MEDS: LEVOTHYROXINE 175 MCG TABLET PO SCH (05:48)
[2018-01-31 06:35] LABS: BASO # 0.1 x10^3/uL (0.0-0.2); BASO % 1 % (0-3); EOS # 0.3 x10^3/uL (0.0-0.7); EOS % 4 % (0-3); HEMATOCRIT 41.7 % (36.0-47.0); LYMPH # 2.1 x10^3/uL (1.0-4.8); LYMPH % 28 % (24-48); MEAN CORPUSCULAR HEMOGLOBIN 32 pg (25-35); MEAN CORPUSCULAR HGB CONC 34 g/dL (31-37); MEAN CORPUSCULAR VOLUME 95 fL (79-100); MONO # 0.6 x10^3/uL (0.0-1.1); MONO % 8 % (0-9); NEUT # 4.4 x10^3uL (1.8-7.7); NEUT % 59 % (31-73); PLATELET COUNT 233 x10^3/uL (140-400); WHITE BLOOD COUNT 7.5 x10^3/uL (4.0-11.0)
[2018-01-31 06:47] LABS: ALBUMIN 3.4 g/dL (3.4-5.0); ALBUMIN/GLOBULIN RATIO 1.1 (1.0-1.7); CALCIUM 9.5 mg/dL (8.5-10.1); CREATININE 0.8 mg/dL (0.6-1.0); GFR 71.1; POTASSIUM 4.4 mmol/L (3.5-5.1); TOTAL BILIRUBIN 0.4 mg/dL (0.2-1.0); TOTAL PROTEIN 6.6 g/dL (6.4-8.2)
[2018-01-31] MEDS: LANSOPRAZOLE 30 MG TAB.RAP.DR PO SCH (07:30)
[2018-01-31] MEDS: POTASSIUM CHLORIDE 10 MEQ TABLET.ER. PO SCH (08:00)
[2018-01-31] MEDS: ASPIRIN 81 MG TAB.CHEW PO SCH (08:00)
[2018-01-31] MEDS: LOSARTAN 50 MG TABLET. PO SCH (09:00)
[2018-01-31] MEDS: DOCUSATE 100 MG/10 ML SOLUTION. PO SCH (09:00)
[2018-01-31] MEDS: amLODIPine BESYLATE 5 MG TABLET PO SCH (09:00)
[2018-01-31] MEDS: TRIAMCINOLONE ACETONIDE 0.1% TOPICAL CREAM 15GM TUBE. TP SCH ×2 (09:00→19:47)
[2018-01-31 10:10] VITALS: BP 101/73
[2018-01-31] MEDS: DIVALPROEX 125 MG CAP.SPRINK PO SCH ×2 (10:12→19:46)
[2018-01-31] MEDS: traZODone 50 MG TABLET. PO SCH ×3 (10:13→17:00)
[2018-01-31] MEDS ORDERED: risperiDONE MICROSPHERES 12.5 MG/2 ML DISP.SYRIN. IM ONE (12:00)
[2018-01-31 16:06] VITALS: BP_SYST 128
[2018-01-31] MEDS: SIMVASTATIN 20 MG TABLET PO SCH (19:46)
[2018-01-31] MEDS: traZODone 100 MG TABLET. PO SCH (19:46)
[2018-01-31] MEDS: MIRTAZAPINE ODT 15 MG TAB.RAPDIS. PO SCH (19:46)
[2018-01-31] MEDS: TAMSULOSIN 0.4 MG CAP.ER.24H. PO SCH (19:46)
--- NOTE | 2018-01-31 20:49 | PDOC ---
Exam Note: Abdi Note: Please also refer to the separate dictated note~for this date of service dictated separately.~Patient seen individually. Discussed the patient with Nursing staff reviewed the chart.~Reviewed interim history and current functioning. Reviewed vital signs,~Labs/ Radiology~and current medications noted below. Continue current treatment with the changes noted in the dictated addendum note Assessment: Vital Signs: Vital Signs Date Time Temp Pulse Resp B/P (MAP) Pulse Ox O2 Delivery O2 Flow Rate FiO2 01/31/18 16:06 97.3 71 22 128/ 96 Room Air I&O Intake and Output 01/31/18 07:00 Intake Total 360 ml Balance 360 ml Intake Oral 360 ml # Voids 1 Labs: Laboratory Tests Test 01/31/18 06:19 White Blood Count 7.5 x10^3/uL (4.0-11.0) Red Blood Count 4.40 x10^6/uL (3.50-5.40) Hemoglobin 14.0 g/dL (12.0-15.5) Hematocrit 41.7 % (36.0-47.0) Mean Corpuscular Volume 95 fL (79-100) Mean Corpuscular Hemoglobin 32 pg (25-35) Mean Corpuscular Hemoglobin Concent 34 g/dL (31-37) Red Cell Distribution Width 13.0 % (11.5-14.5) Platelet Count 233 x10^3/uL (140-400) Neutrophils (%) (Auto) 59 % (31-73) Lymphocytes (%) (Auto) 28 % (24-48) Monocytes (%) (Auto) 8 % (0-9) Eosinophils (%) (Auto) 4 % (0-3) H Basophils (%) (Auto) 1 % (0-3) Neutrophils # (Auto) 4.4 x10^3uL (1.8-7.7) Lymphocytes # (Auto) 2.1 x10^3/uL (1.0-4.8) Monocytes # (Auto) 0.6 x10^3/uL (0.0-1.1) Eosinophils # (Auto) 0.3 x10^3/uL (0.0-0.7) Basophils # (Auto) 0.1 x10^3/uL (0.0-0.2) Sodium Level 144 mmol/L (136-145) Potassium Level 4.4 mmol/L (3.5-5.1) Chloride Level 107 mmol/L (98-107) Carbon Dioxide Level 35 mmol/L (21-32) H Anion Gap 2 (6-14) L Blood Urea Nitrogen 9 mg/dL (7-20) Creatinine 0.8 mg/dL (0.6-1.0) Estimated GFR (Cockcroft-Gault) 71.1 BUN/Creatinine Ratio 11 (6-20) Glucose Level 110 mg/dL (70-99) H Calcium Level 9.5 mg/dL (8.5-10.1) Magnesium Level 2.1 mg/dL (1.8-2.4) Total Bilirubin 0.4 mg/dL (0.2-1.0) Aspartate Amino Transferase (AST) 13 U/L (15-37) L Alanine Aminotransferase (ALT) 28 U/L (14-59) Alkaline Phosphatase 52 U/L (46-116) Total Protein 6.6 g/dL (6.4-8.2) Albumin 3.4 g/dL (3.4-5.0) Albumin/Globulin Ratio 1.1 (1.0-1.7) Current Medications: Meds: Current Medications Ciprofloxacin (Cipro) 500 mg 1X ONCE PO Last administered on 12/31/17at 16:59; Start 12/31/17 at 16:45; Stop 12/31/17 at 17:00; Status DC Acetaminophen (Tylenol) 650 mg PRN Q6HRS PRN PO PAIN / TEMP; Start 12/31/17 at 18:15 Multi-Ingredient Ointment (Analgesic [place]) 1 hiral PRN QID PRN TP MUSCLE PAIN; Start 12/31/17 at 18:15 Al Hydroxide/Mg Hydroxide (Mylanta Plus Xs) 15 ml PRN AFTMEALHC PRN PO DYSPEPSIA; Start 12/31/17 at 18:15 Magnesium Hydroxide (Milk Of Magnesia) 2,400 mg PRN QHS PRN PO CONSTIPATION; Start 12/31/17 at 18:15 Olanzapine (ZyPREXA) 2.5 mg PRN Q2HR PRN PO AGITATION; Start 12/31/17 at 18:45 ; Stop 01/07/18 at 10:11; Status DC Divalproex Sodium (Depakote Sprinkles) 500 mg BID PO Last administered on at 19:46; Start 01/01/18 at 09:00 Haloperidol (Haldol) 2 mg [id number] PO Last administered on 01/01/18at 17:18; Start 01/01/18 at 00:00; Stop 01/01/18 at 18:44; Status DC Haloperidol Lactate (Haldol) 5 mg PRN Q6HRS PRN IM ANXIETY/AGITATION; Start at 22:15; Stop 01/01/18 at 18:44; Status DC Quetiapine Fumarate (SEROquel) 25 mg PRN Q4HRS PRN PO ANXIETY/AGITATION; Start 12/31/17 at 22:15; Stop 01/03/18 at 16:25; Status DC Quetiapine Fumarate (SEROquel) 150 mg QID PO Last administered on 01/03/18at 08: 12; Start 01/01/18 at 09:00; Stop 01/03/18 at 16:25; Status DC Trazodone HCl (Desyrel) 100 mg QHS PO Last administered on 01/31/18at 19:46; Start 01/01/18 at 21:00 Docusate Sodium (Colace Solution) 100 mg DAILY PO Last administered on at 10:58; Start 01/01/18 at 09:00 Levothyroxine Sodium (Synthroid) 175 mcg DAILYAC PO Last administered on at 10:48; Start 01/01/18 at 07:30; Stop 01/24/18 at 15:47; Status DC Losartan Potassium (Cozaar) 50 mg DAILY PO Last administered on 01/29/18at 09:00 ; Start 01/01/18 at 09:00 Tamsulosin HCl (Flomax) 0.4 mg QHS PO Last administered on 01/31/18at 19:46; Start 01/01/18 at 21:00 Amlodipine Besylate (Norvasc) 5 mg DAILY PO Last administered on 01/29/18at 09: 00; Start 01/01/18 at 09:00 Aspirin (Aspirin Enteric Coated) 81 mg DAILYWBKFT PO Last administered on at 10:48; Start 01/01/18 at 08:00; Stop 01/24/18 at 07:50; Status DC Bisacodyl (Dulcolax Supp) 10 mg PRN DAILY PRN [place] CONSTIPATION; Start 12/31/17 at 22:15 Acetaminophen/ Hydrocodone Bitart (Lortab 5/325) 1 tab PRN Q6HRS PRN PO PAIN Last administered on 01/12/18at 23:34; Start 12/31/17 at 22:15 Magnesium Hydroxide (Milk Of Magnesia) 2,400 mg PRN Q6HRS PRN PO CONSTIPATION; Start 12/31/17 at 22:15 Pantoprazole Sodium (Protonix) 40 mg DAILYAC PO Last administered on 01/23/18at 10:47; Start 01/01/18 at 07:30; Stop 01/24/18 at 07:52; Status DC Polyethylene Glycol (miraLAX) 17 gm PRN DAILY PRN PO CONSTIPATION; Start at 09:00 Potassium Chloride (Klor-Con) 10 meq DAILYWBKFT PO Last administered on at 11:03; Start 01/01/18 at 08:00 Sennosides (Senna) 8.6 mg PRN DAILY PRN PO CONSTIPATION; Start 12/31/17 at 22: 15 Simvastatin (Zocor) 20 mg HS PO Last administered on 01/31/18at 19:46; Start at 21:00 Triamcinolone Acetonide (Kenalog) 1 hiral BID TP Last administered on 01/28/18at 20:22; Start 01/01/18 at 09:00 Ceftriaxone Sodium (Rocephin Im) 1 gm DAILY IM Last administered on 01/02/18at 09:53; Start 01/02/18 at 09:00; Stop 01/04/18 at 14:44; Status DC Mirtazapine (Remeron Venessa-Tab) 7.5 mg QHS PO Last administered on 01/21/18at 19: 46; Start 01/01/18 at 21:00; Stop 01/22/18 at 18:08; Status DC Olanzapine (ZyPREXA ZYDIS) 2.5 mg PRN Q2HR PRN PO PSYCHOSIS; Start 01/01/18 at 18:45; Stop 01/02/18 at 10:58; Status DC Olanzapine (ZyPREXA ZYDIS) 2.5 mg HS PO Last administered on 01/05/18at 20:51; Start 01/02/18 at 21:00; Stop 01/07/18 at 16:38; Status DC Lactobacillus Rhamnosus (Culturelle) 1 cap BID PO Last administered on at 19:25; Start 01/03/18 at 21:00; Stop 01/23/18 at 10:54; Status DC Olanzapine (ZyPREXA ZYDIS) 2.5 mg PRN Q2HR PRN PO AGITATION Last administered on 01/17/18at 06:30; Start 01/07/18 at 10:15 Olanzapine (ZyPREXA ZYDIS) 2.5 mg DAILY PO Last administered on 01/08/18at 07:32 ; Start 01/08/18 at 09:00; Stop 01/08/18 at 17:49; Status DC Olanzapine (ZyPREXA ZYDIS) 1.25 mg BID92 PO Last administered on 01/11/18at 07:48 ; Start 01/09/18 at 09:00; Stop 01/11/18 at 23:00; Status DC Olanzapine (ZyPREXA ZYDIS) 2.5 mg HS PO Last administered on 01/11/18 19:30; Start 01/08/18 at 21:00; Stop 01/11/18 at 23:00; Status DC Olanzapine (ZyPREXA ZYDIS) 2.5 mg BID PO Last administered on 01/13/18at 19:15; Start 01/12/18 at 09:00; Stop 01/13/18 at 21:00; Status DC Olanzapine (ZyPREXA ZYDIS) 1.25 mg AFTRNOON PO Last administered on 01/12/18at 15 :51; Start 01/12/18 at 14:00; Stop 01/13/18 at 16:52; Status DC Olanzapine (ZyPREXA ZYDIS) 2.5 mg TID PO Last administered on 01/31/18at 19:47; Start 01/14/18 at 09:00 Trazodone HCl (Desyrel) 12.5 mg TID@0900,1300,1700 PO Last administered on 01/17at 15:14; Start 01/15/18 at 09:00; Stop 01/17/18 at 19:29; Status DC Fluvoxamine Maleate (Luvox) 25 mg QHS PO Last administered on 01/18/18at 20:21; Start 01/16/18 at 21:00; Stop 01/19/18 at 18:47; Status DC Trazodone HCl (Desyrel) 12.5 mg BID@1300,1700 PO Last administered on at 17:23; Start 01/18/18 at 13:00 Trazodone HCl (Desyrel) 25 mg DAILY PO Last administered on 01/29/18at 08:59; Start 01/18/18 at 09:00; Stop 01/29/18 at 17:42; Status DC Fluvoxamine Maleate (Luvox) 50 mg QHS PO Last administered on 01/21/18at 19:45; Start 01/19/18 at 21:00; Stop 01/22/18 at 09:00; Status DC Fluvoxamine Maleate (Luvox) 75 mg QHS PO Last administered on 01/31/18at 19:46; Start 01/22/18 at 21:00 Mirtazapine (Remeron Venessa-Tab) 15 mg QHS PO Last administered on 01/31/18at 19:46 ; Start 01/22/18 at 21:00 Risperidone (RisperDAL CONSTA) 12.5 mg Q2WKS IM Last administered on 01/24/18at 14:45; Start 01/24/18 at 12:00; Stop 01/30/18 at 09:45; Status DC Aspirin (Children'S Aspirin) 81 mg DAILYWBKFT PO Last administered on at 11:03; Start 01/24/18 at 08:00 Lansoprazole (Prevacid) 30 mg DAILYAC PO Last administered on 01/30/18at 11:03; Start 01/24/18 at 10:00 Levothyroxine Sodium (Synthroid) 175 mcg DAILY06 PO Last administered on at 09:00; Start 01/25/18 at 06:00 Trazodone HCl (Desyrel) 12.5 mg DAILY PO Last administered on 01/31/18at 10:13; Start 01/30/18 at 09:00 Risperidone (RisperDAL CONSTA) 12.5 mg 1X ONCE IM Last administered on at 12:33; Start 01/31/18 at 12:00; Stop 01/31/18 at 12:01; Status DC Risperidone (RisperDAL CONSTA) 25 mg Q2WKS IM ; Start 02/14/18 at 09:00 Active Scripts Active Reported Omeprazole 20 Mg Tablet.dr 20 Mg PO DAILY Levothyroxine Sodium 175 Mcg Tablet 175 Mcg PO DAILYAC Flomax (Tamsulosin Hcl) 0.4 Mg Cap.er.24h 0.4 Mg PO QHS Simvastatin 20 Mg Tablet 20 Mg PO HS [place] 5-325 Tablet (Hydrocodone Bit/Acetaminophen) 1 Each Tablet 1 Tab PO PRN Q6HRS PRN Haloperidol 2 Mg Tablet 2 Mg PO [id number] Potassium Chloride 10 Meq Tablet.er 10 Meq PO DAILY Docusate Sodium 50 Mg/5 Ml Liquid 10 Ml PO DAILY Losartan Potassium 50 Mg Tablet 50 Mg PO DAILY Aspirin Ec (Aspirin) 81 Mg Tablet.dr 81 Mg PO DAILY Amlodipine Besylate 5 Mg Tablet 5 Mg PO DAILY Depakote Sprinkle (Divalproex Sodium) 125 Mg Cap.sprink 500 Mg PO BID Seroquel (Quetiapine Fumarate) 25 Mg Tablet 25 Mg PO PRN Q4HRS PRN Seroquel (Quetiapine Fumarate) 100 Mg Tablet 150 Mg PO QID Trazodone Hcl 100 Mg Tablet 100 Mg PO QHS Miralax (Polyethylene Glycol 3350) 17 Gm Powd.pack 17 Gm PO PRN DAILY PRN Senokot (Sennosides) 8.6 Mg Tablet 8.6 Mg PO PRN DAILY PRN Dulcolax (Bisacodyl) 10 Mg Supp.rect 10 Mg RC PRN DAILY PRN Milk Of Magnesia (Magnesium Hydroxide) 2,400 Mg/10 Ml Oral.susp 2,400 Mg PO PRN Q6HRS PRN Triamcinolone Acetonide 15 Gm Cream..g. 1 Hiral TOP BID Haldol (Haloperidol Lactate) 5 Mg/1 Ml Ampul 5 Mg IJ PRN Q6HRS PRN I have reviewed the current psychotropics carefully including drug interactions. Risk benefit ratio favors no change other than as noted in my dictated progress note. 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
--- NOTE | 2018-01-31 22:16 | PN ---
DATE: 01/29/2018 This is a late entry for 01/29/2018 covers elements not covered in my initial note. SUBJECTIVE: I met with the patient in the evening. The patient slept 7-1/4 hours previous night. She is somewhat sad, tearful, slightly confused, keeps muttering the B word under her breath, takes meds in Boost. REVIEW OF SYSTEMS: No CV, , pulmonary, eye, ENT system symptoms on review. Reliability poor. MENTAL STATUS EXAM: Oriented to herself. Insight, judgment, recent and remote memory, attention, concentration, fund of knowledge poor, consistent with her diagnosis mentioned in my initial note. PLAN: Consequent to her daytime sedation, we will reduce the 09:00 a.m. trazodone 25 mg down to 12.5 mg. Rest psychotropics unchanged from initial note. MAN Lisa MURRAY MD DR: DANIEL/valeriy JOB#: [id number] / [id number]
--- NOTE | 2018-02-01 00:41 | PN ---
DATE: 01/30/2018 This is a late entry for 01/30/2018 covers elements not covered in my initial note. SUBJECTIVE: I met with the patient in the evening and staffed at a treatment team meeting with the entire team in the morning. Appetite about 30%. Slept 3-1/4 hours previous evening, resistive to medications, confused. We are unable to get a UA. The day before, she was labile, crying, aggressive at times. She has bumped her ear on the left side. It took 3 people to help with the shower, but the rest of the time, she wanders around the unit, mumbling under her breath the B word, but redirects, not aggressive. REVIEW OF SYSTEMS: No CV, , pulmonary, eye, ENT system symptoms on review. Reliability poor. MENTAL STATUS EXAM: Oriented to herself. Insight, judgment, recent and remote memory, attention, concentration, fund of knowledge poor, consistent with her diagnosis mentioned in my initial note. PLAN: No change from initial note. Tried to get the UA, but if not possible, we will avoid it rather than straight catheterization. She remains psychotic and we will give another dosage of Risperdal Consta 12.5 mg IM and then 25 mg every 2 weeks. Continue rest unchanged. JAYLAN MURRAY MD DR: DANIEL/valeriy JOB#: [id number] / [id number]
[2018-02-01] MEDS: LEVOTHYROXINE 175 MCG TABLET PO SCH (06:00)
[2018-02-01 08:20] VITALS: BP 141/64
[2018-02-01] MEDS: LANSOPRAZOLE 30 MG TAB.RAP.DR PO SCH (08:21)
[2018-02-01] MEDS: ASPIRIN 81 MG TAB.CHEW PO SCH (08:21)
[2018-02-01] MEDS: POTASSIUM CHLORIDE 10 MEQ TABLET.ER. PO SCH (08:21)
[2018-02-01] MEDS: DIVALPROEX 125 MG CAP.SPRINK PO SCH ×2 (08:22→19:06)
[2018-02-01] MEDS: traZODone 50 MG TABLET. PO SCH ×3 (08:22→17:16)
[2018-02-01] MEDS: amLODIPine BESYLATE 5 MG TABLET PO SCH (08:32)
[2018-02-01] MEDS: LOSARTAN 50 MG TABLET. PO SCH (08:32)
[2018-02-01] MEDS: DOCUSATE 100 MG/10 ML SOLUTION. PO SCH (09:00)
[2018-02-01] MEDS: TRIAMCINOLONE ACETONIDE 0.1% TOPICAL CREAM 15GM TUBE. TP SCH ×2 (09:00→19:07)
[2018-02-01 15:57] VITALS: BP 109/71
[2018-02-01] MEDS: traZODone 100 MG TABLET. PO SCH (19:06)
[2018-02-01] MEDS: SIMVASTATIN 20 MG TABLET PO SCH (19:06)
[2018-02-01] MEDS: TAMSULOSIN 0.4 MG CAP.ER.24H. PO SCH (19:06)
[2018-02-01] MEDS: MIRTAZAPINE ODT 15 MG TAB.RAPDIS. PO SCH (19:06)
--- NOTE | 2018-02-01 23:06 | PDOC ---
Exam Note: Abdi Note: Please also refer to the separate dictated note~for this date of service dictated separately.~Patient seen individually. Discussed the patient with Nursing staff reviewed the chart.~Reviewed interim history and current functioning. Reviewed vital signs,~Labs/ Radiology~and current medications noted below. Continue current treatment with the changes noted in the dictated addendum note Assessment: Vital Signs: Vital Signs Date Time Temp Pulse Resp B/P (MAP) Pulse Ox O2 Delivery O2 Flow Rate FiO2 02/01/18 15:57 98.2 70 16 109/71 (84) 97 01/31/18 16:06 Room Air I&O Intake and Output 02/01/18 07:00 Intake Total 200 ml Balance 200 ml Intake Oral 200 ml Current Medications: Meds: Current Medications Ciprofloxacin (Cipro) 500 mg 1X ONCE PO Last administered on 12/31/17at 16:59; Start 12/31/17 at 16:45; Stop 12/31/17 at 17:00; Status DC Acetaminophen (Tylenol) 650 mg PRN Q6HRS PRN PO PAIN / TEMP; Start 12/31/17 at 18:15 Multi-Ingredient Ointment (Analgesic [place]) 1 hiral PRN QID PRN TP MUSCLE PAIN; Start 12/31/17 at 18:15 Al Hydroxide/Mg Hydroxide (Mylanta Plus Xs) 15 ml PRN AFTMEALHC PRN PO DYSPEPSIA; Start 12/31/17 at 18:15 Magnesium Hydroxide (Milk Of Magnesia) 2,400 mg PRN QHS PRN PO CONSTIPATION; Start 12/31/17 at 18:15 Olanzapine (ZyPREXA) 2.5 mg PRN Q2HR PRN PO AGITATION; Start 12/31/17 at 18:45 ; Stop 01/07/18 at 10:11; Status DC Divalproex Sodium (Depakote Sprinkles) 500 mg BID PO Last administered on at 19:06; Start 01/01/18 at 09:00 Haloperidol (Haldol) 2 mg [id number] PO Last administered on 01/01/18at 17:18; Start 01/01/18 at 00:00; Stop 01/01/18 at 18:44; Status DC Haloperidol Lactate (Haldol) 5 mg PRN Q6HRS PRN IM ANXIETY/AGITATION; Start at 22:15; Stop 01/01/18 at 18:44; Status DC Quetiapine Fumarate (SEROquel) 25 mg PRN Q4HRS PRN PO ANXIETY/AGITATION; Start 12/31/17 at 22:15; Stop 01/03/18 at 16:25; Status DC Quetiapine Fumarate (SEROquel) 150 mg QID PO Last administered on 01/03/18at 08: 12; Start 01/01/18 at 09:00; Stop 01/03/18 at 16:25; Status DC Trazodone HCl (Desyrel) 100 mg QHS PO Last administered on 02/01/18 19:06; Start 01/01/18 at 21:00 Docusate Sodium (Colace Solution) 100 mg DAILY PO Last administered on at 10:58; Start 01/01/18 at 09:00 Levothyroxine Sodium (Synthroid) 175 mcg DAILYAC PO Last administered on at 10:48; Start 01/01/18 at 07:30; Stop 01/24/18 at 15:47; Status DC Losartan Potassium (Cozaar) 50 mg DAILY PO Last administered on 02/01/18at 08:32 ; Start 01/01/18 at 09:00 Tamsulosin HCl (Flomax) 0.4 mg QHS PO Last administered on 02/01/18at 19:06; Start 01/01/18 at 21:00 Amlodipine Besylate (Norvasc) 5 mg DAILY PO Last administered on 02/01/18at 08: 32; Start 01/01/18 at 09:00 Aspirin (Aspirin Enteric Coated) 81 mg DAILYWBKFT PO Last administered on at 10:48; Start 01/01/18 at 08:00; Stop 01/24/18 at 07:50; Status DC Bisacodyl (Dulcolax Supp) 10 mg PRN DAILY PRN [place] CONSTIPATION; Start 12/31/17 at 22:15 Acetaminophen/ Hydrocodone Bitart (Lortab 5/325) 1 tab PRN Q6HRS PRN PO PAIN Last administered on 01/12/18at 23:34; Start 12/31/17 at 22:15 Magnesium Hydroxide (Milk Of Magnesia) 2,400 mg PRN Q6HRS PRN PO CONSTIPATION; Start 12/31/17 at 22:15 Pantoprazole Sodium (Protonix) 40 mg DAILYAC PO Last administered on 01/23/18at 10:47; Start 01/01/18 at 07:30; Stop 01/24/18 at 07:52; Status DC Polyethylene Glycol (miraLAX) 17 gm PRN DAILY PRN PO CONSTIPATION; Start at 09:00 Potassium Chloride (Klor-Con) 10 meq DAILYWBKFT PO Last administered on at 08:21; Start 01/01/18 at 08:00 Sennosides (Senna) 8.6 mg PRN DAILY PRN PO CONSTIPATION; Start 12/31/17 at 22: 15 Simvastatin (Zocor) 20 mg HS PO Last administered on 02/01/18at 19:06; Start at 21:00 Triamcinolone Acetonide (Kenalog) 1 hiral BID TP Last administered on 01/28/18at 20:22; Start 01/01/18 at 09:00 Ceftriaxone Sodium (Rocephin Im) 1 gm DAILY IM Last administered on 01/02/18at 09:53; Start 01/02/18 at 09:00; Stop 01/04/18 at 14:44; Status DC Mirtazapine (Remeron Venessa-Tab) 7.5 mg QHS PO Last administered on 01/21/18at 19: 46; Start 01/01/18 at 21:00; Stop 01/22/18 at 18:08; Status DC Olanzapine (ZyPREXA ZYDIS) 2.5 mg PRN Q2HR PRN PO PSYCHOSIS; Start 01/01/18 at 18:45; Stop 01/02/18 at 10:58; Status DC Olanzapine (ZyPREXA ZYDIS) 2.5 mg HS PO Last administered on 01/05/18at 20:51; Start 01/02/18 at 21:00; Stop 01/07/18 at 16:38; Status DC Lactobacillus Rhamnosus (Culturelle) 1 cap BID PO Last administered on at 19:25; Start 01/03/18 at 21:00; Stop 01/23/18 at 10:54; Status DC Olanzapine (ZyPREXA ZYDIS) 2.5 mg PRN Q2HR PRN PO AGITATION Last administered on 01/17/18 06:30; Start 01/07/18 at 10:15 Olanzapine (ZyPREXA ZYDIS) 2.5 mg DAILY PO Last administered on 01/08/18at 07:32 ; Start 01/08/18 at 09:00; Stop 01/08/18 at 17:49; Status DC Olanzapine (ZyPREXA ZYDIS) 1.25 mg BID92 PO Last administered on 01/11/18at 07:48 ; Start 01/09/18 at 09:00; Stop 01/11/18 at 23:00; Status DC Olanzapine (ZyPREXA ZYDIS) 2.5 mg HS PO Last administered on 01/11/18 19:30; Start 01/08/18 at 21:00; Stop 01/11/18 at 23:00; Status DC Olanzapine (ZyPREXA ZYDIS) 2.5 mg BID PO Last administered on 01/13/18at 19:15; Start 01/12/18 at 09:00; Stop 01/13/18 at 21:00; Status DC Olanzapine (ZyPREXA ZYDIS) 1.25 mg AFTRNOON PO Last administered on 01/12/18at 15 :51; Start 01/12/18 at 14:00; Stop 01/13/18 at 16:52; Status DC Olanzapine (ZyPREXA ZYDIS) 2.5 mg TID PO Last administered on 02/01/18at 19:07; Start 01/14/18 at 09:00 Trazodone HCl (Desyrel) 12.5 mg TID@0900,1300,1700 PO Last administered on 01/17at 15:14; Start 01/15/18 at 09:00; Stop 01/17/18 at 19:29; Status DC Fluvoxamine Maleate (Luvox) 25 mg QHS PO Last administered on 01/18/18at 20:21; Start 01/16/18 at 21:00; Stop 01/19/18 at 18:47; Status DC Trazodone HCl (Desyrel) 12.5 mg BID@1300,1700 PO Last administered on at 17:16; Start 01/18/18 at 13:00 Trazodone HCl (Desyrel) 25 mg DAILY PO Last administered on 01/29/18at 08:59; Start 01/18/18 at 09:00; Stop 01/29/18 at 17:42; Status DC Fluvoxamine Maleate (Luvox) 50 mg QHS PO Last administered on 01/21/18at 19:45; Start 01/19/18 at 21:00; Stop 01/22/18 at 09:00; Status DC Fluvoxamine Maleate (Luvox) 75 mg QHS PO Last administered on 02/01/18at 19:06; Start 01/22/18 at 21:00 Mirtazapine (Remeron Venessa-Tab) 15 mg QHS PO Last administered on 02/01/18at 19:06 ; Start 01/22/18 at 21:00 Risperidone (RisperDAL CONSTA) 12.5 mg Q2WKS IM Last administered on 01/24/18at 14:45; Start 01/24/18 at 12:00; Stop 01/30/18 at 09:45; Status DC Aspirin (Children'S Aspirin) 81 mg DAILYWBKFT PO Last administered on at 08:21; Start 01/24/18 at 08:00 Lansoprazole (Prevacid) 30 mg DAILYAC PO Last administered on 02/01/18at 08:21; Start 01/24/18 at 10:00 Levothyroxine Sodium (Synthroid) 175 mcg DAILY06 PO Last administered on at 09:00; Start 01/25/18 at 06:00 Trazodone HCl (Desyrel) 12.5 mg DAILY PO Last administered on 02/01/18at 08:22; Start 01/30/18 at 09:00 Risperidone (RisperDAL CONSTA) 12.5 mg 1X ONCE IM Last administered on at 12:33; Start 01/31/18 at 12:00; Stop 01/31/18 at 12:01; Status DC Risperidone (RisperDAL CONSTA) 25 mg Q2WKS IM ; Start 02/14/18 at 09:00 Influenza Virus Vaccine (Afluria Trivalent [id number] Syringe) 0.5 ml ONCE ONCE VAX IM ; Start 02/02/18 at 09:00; Stop 02/02/18 at 09:01 Info (FLU VACCINE per PROTOCOL) 1 ea PRN 1X PRN MC PER PROTOCOL; Start at 09:00; Status UNV Active Scripts Active Reported Omeprazole 20 Mg Tablet. 20 Mg PO DAILY Levothyroxine Sodium 175 Mcg Tablet 175 Mcg PO DAILYAC Flomax (Tamsulosin Hcl) 0.4 Mg Cap.er.24h 0.4 Mg PO QHS Simvastatin 20 Mg Tablet 20 Mg PO HS [place] 5-325 Tablet (Hydrocodone Bit/Acetaminophen) 1 Each Tablet 1 Tab PO PRN Q6HRS PRN Haloperidol 2 Mg Tablet 2 Mg PO [id number] Potassium Chloride 10 Meq Tablet.er 10 Meq PO DAILY Docusate Sodium 50 Mg/5 Ml Liquid 10 Ml PO DAILY Losartan Potassium 50 Mg Tablet 50 Mg PO DAILY Aspirin Ec (Aspirin) 81 Mg Tablet.dr 81 Mg PO DAILY Amlodipine Besylate 5 Mg Tablet 5 Mg PO DAILY Depakote Sprinkle (Divalproex Sodium) 125 Mg Cap.sprink 500 Mg PO BID Seroquel (Quetiapine Fumarate) 25 Mg Tablet 25 Mg PO PRN Q4HRS PRN Seroquel (Quetiapine Fumarate) 100 Mg Tablet 150 Mg PO QID Trazodone Hcl 100 Mg Tablet 100 Mg PO QHS Miralax (Polyethylene Glycol 3350) 17 Gm Powd.pack 17 Gm PO PRN DAILY PRN Senokot (Sennosides) 8.6 Mg Tablet 8.6 Mg PO PRN DAILY PRN Dulcolax (Bisacodyl) 10 Mg Supp.rect 10 Mg RC PRN DAILY PRN Milk Of Magnesia (Magnesium Hydroxide) 2,400 Mg/10 Ml Oral.susp 2,400 Mg PO PRN Q6HRS PRN Triamcinolone Acetonide 15 Gm Cream..g. 1 Hiral TOP BID Haldol (Haloperidol Lactate) 5 Mg/1 Ml Ampul 5 Mg IJ PRN Q6HRS PRN I have reviewed the current psychotropics carefully including drug interactions. Risk benefit ratio favors no change other than as noted in my dictated progress note. 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
[2018-02-02 05:48] VITALS: BP 144/78
[2018-02-02] MEDS: LEVOTHYROXINE 175 MCG TABLET PO SCH (06:00)
[2018-02-02] MEDS: POTASSIUM CHLORIDE 10 MEQ TABLET.ER. PO SCH (08:32)
[2018-02-02] MEDS: ASPIRIN 81 MG TAB.CHEW PO SCH (08:32)
[2018-02-02] MEDS: LANSOPRAZOLE 30 MG TAB.RAP.DR PO SCH (08:32)
[2018-02-02] MEDS: LOSARTAN 50 MG TABLET. PO SCH (08:33)
[2018-02-02] MEDS: traZODone 50 MG TABLET. PO SCH ×3 (08:33→17:28)
[2018-02-02] MEDS: DIVALPROEX 125 MG CAP.SPRINK PO SCH ×2 (08:33→21:11)
[2018-02-02] MEDS: amLODIPine BESYLATE 5 MG TABLET PO SCH (08:34)
[2018-02-02] MEDS: TRIAMCINOLONE ACETONIDE 0.1% TOPICAL CREAM 15GM TUBE. TP SCH ×2 (08:34→21:12)
[2018-02-02] MEDS: DOCUSATE 100 MG/10 ML SOLUTION. PO SCH (08:52)
[2018-02-02] MEDS ORDERED: Influenza vaccine per PROTOCOL. MC PRN (09:00)
[2018-02-02 15:19] VITALS: BP 117/70
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
--- NOTE | 2018-02-02 20:06 | PDOC ---
Exam Note: Abdi Note: Please also refer to the separate dictated note~for this date of service dictated separately.~Patient seen individually. Discussed the patient with Nursing staff reviewed the chart.~Reviewed interim history and current functioning. Reviewed vital signs,~Labs/ Radiology~and current medications noted below. Continue current treatment with the changes noted in the dictated addendum note Assessment: Vital Signs: Vital Signs Date Time Temp Pulse Resp B/P (MAP) Pulse Ox O2 Delivery O2 Flow Rate FiO2 02/02/18 15:19 98.0 68 20 117/70 (86) 96 01/31/18 16:06 Room Air I&O Intake and Output 02/02/18 07:00 Intake Total 745 ml Balance 745 ml Intake Oral 745 ml Current Medications: Meds: Current Medications Ciprofloxacin (Cipro) 500 mg 1X ONCE PO Last administered on 12/31/17at 16:59; Start 12/31/17 at 16:45; Stop 12/31/17 at 17:00; Status DC Acetaminophen (Tylenol) 650 mg PRN Q6HRS PRN PO PAIN / TEMP; Start 12/31/17 at 18:15 Multi-Ingredient Ointment (Analgesic [place]) 1 hiral PRN QID PRN TP MUSCLE PAIN; Start 12/31/17 at 18:15 Al Hydroxide/Mg Hydroxide (Mylanta Plus Xs) 15 ml PRN AFTMEALHC PRN PO DYSPEPSIA; Start 12/31/17 at 18:15 Magnesium Hydroxide (Milk Of Magnesia) 2,400 mg PRN QHS PRN PO CONSTIPATION; Start 12/31/17 at 18:15 Olanzapine (ZyPREXA) 2.5 mg PRN Q2HR PRN PO AGITATION; Start 12/31/17 at 18:45 ; Stop 01/07/18 at 10:11; Status DC Divalproex Sodium (Depakote Sprinkles) 500 mg BID PO Last administered on at 08:33; Start 01/01/18 at 09:00 Haloperidol (Haldol) 2 mg [id number] PO Last administered on 01/01/18at 17:18; Start 01/01/18 at 00:00; Stop 01/01/18 at 18:44; Status DC Haloperidol Lactate (Haldol) 5 mg PRN Q6HRS PRN IM ANXIETY/AGITATION; Start at 22:15; Stop 01/01/18 at 18:44; Status DC Quetiapine Fumarate (SEROquel) 25 mg PRN Q4HRS PRN PO ANXIETY/AGITATION; Start 12/31/17 at 22:15; Stop 01/03/18 at 16:25; Status DC Quetiapine Fumarate (SEROquel) 150 mg QID PO Last administered on 01/03/18at 08: 12; Start 01/01/18 at 09:00; Stop 01/03/18 at 16:25; Status DC Trazodone HCl (Desyrel) 100 mg QHS PO Last administered on 02/01/18at 19:06; Start 01/01/18 at 21:00 Docusate Sodium (Colace Solution) 100 mg DAILY PO Last administered on at 10:58; Start 01/01/18 at 09:00 Levothyroxine Sodium (Synthroid) 175 mcg DAILYAC PO Last administered on at 10:48; Start 01/01/18 at 07:30; Stop 01/24/18 at 15:47; Status DC Losartan Potassium (Cozaar) 50 mg DAILY PO Last administered on 02/02/18at 08:33 ; Start 01/01/18 at 09:00 Tamsulosin HCl (Flomax) 0.4 mg QHS PO Last administered on 02/01/18at 19:06; Start 01/01/18 at 21:00 Amlodipine Besylate (Norvasc) 5 mg DAILY PO Last administered on 02/02/18at 08: 34; Start 01/01/18 at 09:00 Aspirin (Aspirin Enteric Coated) 81 mg DAILYWBKFT PO Last administered on at 10:48; Start 01/01/18 at 08:00; Stop 01/24/18 at 07:50; Status DC Bisacodyl (Dulcolax Supp) 10 mg PRN DAILY PRN [place] CONSTIPATION; Start 12/31/17 at 22:15 Acetaminophen/ Hydrocodone Bitart (Lortab 5/325) 1 tab PRN Q6HRS PRN PO PAIN Last administered on 01/12/18at 23:34; Start 12/31/17 at 22:15 Magnesium Hydroxide (Milk Of Magnesia) 2,400 mg PRN Q6HRS PRN PO CONSTIPATION; Start 12/31/17 at 22:15 Pantoprazole Sodium (Protonix) 40 mg DAILYAC PO Last administered on 01/23/18at 10:47; Start 01/01/18 at 07:30; Stop 01/24/18 at 07:52; Status DC Polyethylene Glycol (miraLAX) 17 gm PRN DAILY PRN PO CONSTIPATION; Start at 09:00 Potassium Chloride (Klor-Con) 10 meq DAILYWBKFT PO Last administered on at 08:32; Start 01/01/18 at 08:00 Sennosides (Senna) 8.6 mg PRN DAILY PRN PO CONSTIPATION; Start 12/31/17 at 22: 15 Simvastatin (Zocor) 20 mg HS PO Last administered on 02/01/18at 19:06; Start at 21:00 Triamcinolone Acetonide (Kenalog) 1 hiral BID TP Last administered on 01/28/18at 20:22; Start 01/01/18 at 09:00 Ceftriaxone Sodium (Rocephin Im) 1 gm DAILY IM Last administered on 01/02/18at 09:53; Start 01/02/18 at 09:00; Stop 01/04/18 at 14:44; Status DC Mirtazapine (Remeron Venessa-Tab) 7.5 mg QHS PO Last administered on 01/21/18at 19: 46; Start 01/01/18 at 21:00; Stop 01/22/18 at 18:08; Status DC Olanzapine (ZyPREXA ZYDIS) 2.5 mg PRN Q2HR PRN PO PSYCHOSIS; Start 01/01/18 at 18:45; Stop 01/02/18 at 10:58; Status DC Olanzapine (ZyPREXA ZYDIS) 2.5 mg HS PO Last administered on 01/05/18at 20:51; Start 01/02/18 at 21:00; Stop 01/07/18 at 16:38; Status DC Lactobacillus Rhamnosus (Culturelle) 1 cap BID PO Last administered on at 19:25; Start 01/03/18 at 21:00; Stop 01/23/18 at 10:54; Status DC Olanzapine (ZyPREXA ZYDIS) 2.5 mg PRN Q2HR PRN PO AGITATION Last administered on 02/02/18 16:21; Start 01/07/18 at 10:15 Olanzapine (ZyPREXA ZYDIS) 2.5 mg DAILY PO Last administered on 01/08/18at 07:32 ; Start 01/08/18 at 09:00; Stop 01/08/18 at 17:49; Status DC Olanzapine (ZyPREXA ZYDIS) 1.25 mg BID92 PO Last administered on 01/11/18at 07:48 ; Start 01/09/18 at 09:00; Stop 01/11/18 at 23:00; Status DC Olanzapine (ZyPREXA ZYDIS) 2.5 mg HS PO Last administered on 01/11/18at 19:30; Start 01/08/18 at 21:00; Stop 01/11/18 at 23:00; Status DC Olanzapine (ZyPREXA ZYDIS) 2.5 mg BID PO Last administered on 01/13/18at 19:15; Start 01/12/18 at 09:00; Stop 01/13/18 at 21:00; Status DC Olanzapine (ZyPREXA ZYDIS) 1.25 mg AFTRNOON PO Last administered on 01/12/18at 15 :51; Start 01/12/18 at 14:00; Stop 01/13/18 at 16:52; Status DC Olanzapine (ZyPREXA ZYDIS) 2.5 mg TID PO Last administered on 02/02/18at 13:38; Start 01/14/18 at 09:00 Trazodone HCl (Desyrel) 12.5 mg TID@0900,1300,1700 PO Last administered on 01/17at 15:14; Start 01/15/18 at 09:00; Stop 01/17/18 at 19:29; Status DC Fluvoxamine Maleate (Luvox) 25 mg QHS PO Last administered on 01/18/18at 20:21; Start 01/16/18 at 21:00; Stop 01/19/18 at 18:47; Status DC Trazodone HCl (Desyrel) 12.5 mg BID@1300,1700 PO Last administered on at 17:28; Start 01/18/18 at 13:00 Trazodone HCl (Desyrel) 25 mg DAILY PO Last administered on 01/29/18at 08:59; Start 01/18/18 at 09:00; Stop 01/29/18 at 17:42; Status DC Fluvoxamine Maleate (Luvox) 50 mg QHS PO Last administered on 01/21/18at 19:45; Start 01/19/18 at 21:00; Stop 01/22/18 at 09:00; Status DC Fluvoxamine Maleate (Luvox) 75 mg QHS PO Last administered on 02/01/18 19:06; Start 01/22/18 at 21:00 Mirtazapine (Remeron Venessa-Tab) 15 mg QHS PO Last administered on 02/01/18 19:06 ; Start 01/22/18 at 21:00 Risperidone (RisperDAL CONSTA) 12.5 mg Q2WKS IM Last administered on 01/24/18at 14:45; Start 01/24/18 at 12:00; Stop 01/30/18 at 09:45; Status DC Aspirin (Children'S Aspirin) 81 mg DAILYWBKFT PO Last administered on at 08:32; Start 01/24/18 at 08:00 Lansoprazole (Prevacid) 30 mg DAILYAC PO Last administered on 02/02/18at 08:32; Start 01/24/18 at 10:00 Levothyroxine Sodium (Synthroid) 175 mcg DAILY06 PO Last administered on 09:00; Start 01/25/18 at 06:00 Trazodone HCl (Desyrel) 12.5 mg DAILY PO Last administered on 02/02/18at 08:33; Start 01/30/18 at 09:00 Risperidone (RisperDAL CON[place]) 12.5 mg 1X ONCE IM Last administered on at 12:33; Start 01/31/18 at 12:00; Stop 01/31/18 at 12:01; Status DC Risperidone (RisperDAL CONSTA) 25 mg Q2WKS IM ; Start 02/14/18 at 09:00 Influenza Virus Vaccine (Afluria Trivalent [id number] Syringe) 0.5 ml ONCE ONCE VAX IM Last administered on 9/30/18at 11:17; Start 02/02/18 at 09:00; Stop at 09:01; Status DC Info (FLU VACCINE per PROTOCOL) 1 ea PRN 1X PRN [place] PER PROTOCOL; Start at 09:00; Status UNV Active Scripts Active Reported Omeprazole 20 Mg Tablet.dr 20 Mg PO DAILY Levothyroxine Sodium 175 Mcg Tablet 175 Mcg PO DAILYAC Flomax (Tamsulosin Hcl) 0.4 Mg Cap.er.24h 0.4 Mg PO QHS Simvastatin 20 Mg Tablet 20 Mg PO HS [place] 5-325 Tablet (Hydrocodone Bit/Acetaminophen) 1 Each Tablet 1 Tab PO PRN Q6HRS PRN Haloperidol 2 Mg Tablet 2 Mg PO [id number] Potassium Chloride 10 Meq Tablet.er 10 Meq PO DAILY Docusate Sodium 50 Mg/5 Ml Liquid 10 Ml PO DAILY Losartan Potassium 50 Mg Tablet 50 Mg PO DAILY Aspirin Ec (Aspirin) 81 Mg Tablet.dr 81 Mg PO DAILY Amlodipine Besylate 5 Mg Tablet 5 Mg PO DAILY Depakote Sprinkle (Divalproex Sodium) 125 Mg Cap.sprink 500 Mg PO BID Seroquel (Quetiapine Fumarate) 25 Mg Tablet 25 Mg PO PRN Q4HRS PRN Seroquel (Quetiapine Fumarate) 100 Mg Tablet 150 Mg PO QID Trazodone Hcl 100 Mg Tablet 100 Mg PO QHS Miralax (Polyethylene Glycol 3350) 17 Gm Powd.pack 17 Gm PO PRN DAILY PRN Senokot (Sennosides) 8.6 Mg Tablet 8.6 Mg PO PRN DAILY PRN Dulcolax (Bisacodyl) 10 Mg Supp.rect 10 Mg RC PRN DAILY PRN Milk Of Magnesia (Magnesium Hydroxide) 2,400 Mg/10 Ml Oral.susp 2,400 Mg PO PRN Q6HRS PRN Triamcinolone Acetonide 15 Gm Cream..g. 1 Hiral TOP BID Haldol (Haloperidol Lactate) 5 Mg/1 Ml Ampul 5 Mg IJ PRN Q6HRS PRN I have reviewed the current psychotropics carefully including drug interactions. Risk benefit ratio favors no change other than as noted in my dictated progress note. 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
[2018-02-02] MEDS: traZODone 100 MG TABLET. PO SCH (21:11)
[2018-02-02] MEDS: SIMVASTATIN 20 MG TABLET PO SCH (21:11)
[2018-02-02] MEDS: MIRTAZAPINE ODT 15 MG TAB.RAPDIS. PO SCH (21:12)
[2018-02-02] MEDS: TAMSULOSIN 0.4 MG CAP.ER.24H. PO SCH (21:12)
[2018-02-03] MEDS: LEVOTHYROXINE 175 MCG TABLET PO SCH (06:00)
[2018-02-03 06:30] VITALS: BP 122/55
[2018-02-03] MEDS: LOSARTAN 50 MG TABLET. PO SCH (09:00)
[2018-02-03] MEDS: TRIAMCINOLONE ACETONIDE 0.1% TOPICAL CREAM 15GM TUBE. TP SCH ×2 (09:00→20:20)
[2018-02-03] MEDS: amLODIPine BESYLATE 5 MG TABLET PO SCH (09:00)
[2018-02-03] MEDS: DOCUSATE 100 MG/10 ML SOLUTION. PO SCH (11:34)
[2018-02-03] MEDS: DIVALPROEX 125 MG CAP.SPRINK PO SCH ×2 (11:35→20:21)
[2018-02-03] MEDS: POTASSIUM CHLORIDE 10 MEQ TABLET.ER. PO SCH (11:36)
[2018-02-03] MEDS: ASPIRIN 81 MG TAB.CHEW PO SCH (11:36)
[2018-02-03] MEDS: LANSOPRAZOLE 30 MG TAB.RAP.DR PO SCH (11:36)
[2018-02-03] MEDS: traZODone 50 MG TABLET. PO SCH ×3 (11:37→17:00)
[2018-02-03 16:21] VITALS: BP 123/58
[2018-02-03] MEDS: SIMVASTATIN 20 MG TABLET PO SCH (20:21)
[2018-02-03] MEDS: TAMSULOSIN 0.4 MG CAP.ER.24H. PO SCH (20:21)
[2018-02-03] MEDS: MIRTAZAPINE ODT 15 MG TAB.RAPDIS. PO SCH (20:21)
--- NOTE | 2018-02-03 20:22 | PDOC ---
Exam Note: Abdi Note: Please also refer to the separate dictated note~for this date of service dictated separately.~Patient seen individually. Discussed the patient with Nursing staff reviewed the chart.~Reviewed interim history and current functioning. Reviewed vital signs,~Labs/ Radiology~and current medications noted below. Continue current treatment with the changes noted in the dictated addendum note Assessment: Vital Signs: Vital Signs Date Time Temp Pulse Resp B/P (MAP) Pulse Ox O2 Delivery O2 Flow Rate FiO2 02/03/18 16:21 97.5 80 18 123/58 (79) 98 01/31/18 16:06 Room Air I&O Intake and Output 02/03/18 07:00 Intake Total 960 ml Balance 960 ml Intake Oral 960 ml # Voids 1 # Bowel Movements 1 Current Medications: Meds: Current Medications Ciprofloxacin (Cipro) 500 mg 1X ONCE PO Last administered on 12/31/17at 16:59; Start 12/31/17 at 16:45; Stop 12/31/17 at 17:00; Status DC Acetaminophen (Tylenol) 650 mg PRN Q6HRS PRN PO PAIN / TEMP; Start 12/31/17 at 18:15 Multi-Ingredient Ointment (Analgesic [place]) 1 hiral PRN QID PRN TP MUSCLE PAIN; Start 12/31/17 at 18:15 Al Hydroxide/Mg Hydroxide (Mylanta Plus Xs) 15 ml PRN AFTMEALHC PRN PO DYSPEPSIA; Start 12/31/17 at 18:15 Magnesium Hydroxide (Milk Of Magnesia) 2,400 mg PRN QHS PRN PO CONSTIPATION; Start 12/31/17 at 18:15 Olanzapine (ZyPREXA) 2.5 mg PRN Q2HR PRN PO AGITATION; Start 12/31/17 at 18:45 ; Stop 01/07/18 at 10:11; Status DC Divalproex Sodium (Depakote Sprinkles) 500 mg BID PO Last administered on at 11:35; Start 01/01/18 at 09:00 Haloperidol (Haldol) 2 mg [id number] PO Last administered on 01/01/18at 17:18; Start 01/01/18 at 00:00; Stop 01/01/18 at 18:44; Status DC Haloperidol Lactate (Haldol) 5 mg PRN Q6HRS PRN IM ANXIETY/AGITATION; Start at 22:15; Stop 01/01/18 at 18:44; Status DC Quetiapine Fumarate (SEROquel) 25 mg PRN Q4HRS PRN PO ANXIETY/AGITATION; Start 12/31/17 at 22:15; Stop 01/03/18 at 16:25; Status DC Quetiapine Fumarate (SEROquel) 150 mg QID PO Last administered on 01/03/18at 08: 12; Start 01/01/18 at 09:00; Stop 01/03/18 at 16:25; Status DC Trazodone HCl (Desyrel) 100 mg QHS PO Last administered on 02/02/18at 21:11; Start 01/01/18 at 21:00 Docusate Sodium (Colace Solution) 100 mg DAILY PO Last administered on at 11:34; Start 01/01/18 at 09:00 Levothyroxine Sodium (Synthroid) 175 mcg DAILYAC PO Last administered on at 10:48; Start 01/01/18 at 07:30; Stop 01/24/18 at 15:47; Status DC Losartan Potassium (Cozaar) 50 mg DAILY PO Last administered on 02/02/18at 08:33 ; Start 01/01/18 at 09:00 Tamsulosin HCl (Flomax) 0.4 mg QHS PO Last administered on 02/02/18at 21:12; Start 01/01/18 at 21:00 Amlodipine Besylate (Norvasc) 5 mg DAILY PO Last administered on 02/02/18at 08: 34; Start 01/01/18 at 09:00 Aspirin (Aspirin Enteric Coated) 81 mg DAILYWBKFT PO Last administered on at 10:48; Start 01/01/18 at 08:00; Stop 01/24/18 at 07:50; Status DC Bisacodyl (Dulcolax Supp) 10 mg PRN DAILY PRN [place] CONSTIPATION; Start 12/31/17 at 22:15 Acetaminophen/ Hydrocodone Bitart (Lortab 5/325) 1 tab PRN Q6HRS PRN PO PAIN Last administered on 01/12/18at 23:34; Start 12/31/17 at 22:15 Magnesium Hydroxide (Milk Of Magnesia) 2,400 mg PRN Q6HRS PRN PO CONSTIPATION; Start 12/31/17 at 22:15 Pantoprazole Sodium (Protonix) 40 mg DAILYAC PO Last administered on 01/23/18at 10:47; Start 01/01/18 at 07:30; Stop 01/24/18 at 07:52; Status DC Polyethylene Glycol (miraLAX) 17 gm PRN DAILY PRN PO CONSTIPATION; Start at 09:00 Potassium Chloride (Klor-Con) 10 meq DAILYWBKFT PO Last administered on at 11:36; Start 01/01/18 at 08:00 Sennosides (Senna) 8.6 mg PRN DAILY PRN PO CONSTIPATION; Start 12/31/17 at 22: 15 Simvastatin (Zocor) 20 mg HS PO Last administered on 02/02/18at 21:11; Start at 21:00 Triamcinolone Acetonide (Kenalog) 1 hiral BID TP Last administered on 01/28/18at 20:22; Start 01/01/18 at 09:00 Ceftriaxone Sodium (Rocephin Im) 1 gm DAILY IM Last administered on 01/02/18at 09:53; Start 01/02/18 at 09:00; Stop 01/04/18 at 14:44; Status DC Mirtazapine (Remeron Venessa-Tab) 7.5 mg QHS PO Last administered on 01/21/18at 19: 46; Start 01/01/18 at 21:00; Stop 01/22/18 at 18:08; Status DC Olanzapine (ZyPREXA ZYDIS) 2.5 mg PRN Q2HR PRN PO PSYCHOSIS; Start 01/01/18 at 18:45; Stop 01/02/18 at 10:58; Status DC Olanzapine (ZyPREXA ZYDIS) 2.5 mg HS PO Last administered on 01/05/18at 20:51; Start 01/02/18 at 21:00; Stop 01/07/18 at 16:38; Status DC Lactobacillus Rhamnosus (Culturelle) 1 cap BID PO Last administered on at 19:25; Start 01/03/18 at 21:00; Stop 01/23/18 at 10:54; Status DC Olanzapine (ZyPREXA ZYDIS) 2.5 mg PRN Q2HR PRN PO AGITATION Last administered on 02/02/18 16:21; Start 01/07/18 at 10:15 Olanzapine (ZyPREXA ZYDIS) 2.5 mg DAILY PO Last administered on 01/08/18at 07:32 ; Start 01/08/18 at 09:00; Stop 01/08/18 at 17:49; Status DC Olanzapine (ZyPREXA ZYDIS) 1.25 mg BID92 PO Last administered on 01/11/18at 07:48 ; Start 01/09/18 at 09:00; Stop 01/11/18 at 23:00; Status DC Olanzapine (ZyPREXA ZYDIS) 2.5 mg HS PO Last administered on 01/11/18 19:30; Start 01/08/18 at 21:00; Stop 01/11/18 at 23:00; Status DC Olanzapine (ZyPREXA ZYDIS) 2.5 mg BID PO Last administered on 01/13/18at 19:15; Start 01/12/18 at 09:00; Stop 01/13/18 at 21:00; Status DC Olanzapine (ZyPREXA ZYDIS) 1.25 mg AFTRNOON PO Last administered on 01/12/18at 15 :51; Start 01/12/18 at 14:00; Stop 01/13/18 at 16:52; Status DC Olanzapine (ZyPREXA ZYDIS) 2.5 mg TID PO Last administered on 02/03/18at 15:37; Start 01/14/18 at 09:00 Trazodone HCl (Desyrel) 12.5 mg TID@0900,1300,1700 PO Last administered on 01/17at 15:14; Start 01/15/18 at 09:00; Stop 01/17/18 at 19:29; Status DC Fluvoxamine Maleate (Luvox) 25 mg QHS PO Last administered on 01/18/18at 20:21; Start 01/16/18 at 21:00; Stop 01/19/18 at 18:47; Status DC Trazodone HCl (Desyrel) 12.5 mg BID@1300,1700 PO Last administered on at 15:37; Start 01/18/18 at 13:00 Trazodone HCl (Desyrel) 25 mg DAILY PO Last administered on 01/29/18at 08:59; Start 01/18/18 at 09:00; Stop 01/29/18 at 17:42; Status DC Fluvoxamine Maleate (Luvox) 50 mg QHS PO Last administered on 01/21/18at 19:45; Start 01/19/18 at 21:00; Stop 01/22/18 at 09:00; Status DC Fluvoxamine Maleate (Luvox) 75 mg QHS PO Last administered on 02/02/18at 21:11; Start 01/22/18 at 21:00 Mirtazapine (Remeron Venessa-Tab) 15 mg QHS PO Last administered on 02/02/18at 21:12 ; Start 01/22/18 at 21:00 Risperidone (RisperDAL CONSTA) 12.5 mg Q2WKS IM Last administered on 01/24/18at 14:45; Start 01/24/18 at 12:00; Stop 01/30/18 at 09:45; Status DC Aspirin (Children'S Aspirin) 81 mg DAILYWBKFT PO Last administered on at 11:36; Start 01/24/18 at 08:00 Lansoprazole (Prevacid) 30 mg DAILYAC PO Last administered on 02/03/18at 11:36; Start 01/24/18 at 10:00 Levothyroxine Sodium (Synthroid) 175 mcg DAILY06 PO Last administered on at 09:00; Start 01/25/18 at 06:00 Trazodone HCl (Desyrel) 12.5 mg DAILY PO Last administered on 02/03/18at 11:37; Start 01/30/18 at 09:00 Risperidone (RisperDAL [place]) 12.5 mg 1X ONCE IM Last administered on at 12:33; Start 01/31/18 at 12:00; Stop 01/31/18 at 12:01; Status DC Risperidone (RisperDAL [place]) 25 mg Q2WKS IM ; Start 02/14/18 at 09:00 Influenza Virus Vaccine (Afluria Trivalent [id number] Syringe) 0.5 ml ONCE ONCE VAX IM Last administered on 02/02/18at 11:17; Start 02/02/18 at 09:00; Stop at 09:01; Status DC Info (FLU VACCINE per PROTOCOL) 1 ea PRN 1X PRN MC PER PROTOCOL; Start at 09:00; Status UNV Active Scripts Active Reported Omeprazole 20 Mg Tablet.dr 20 Mg PO DAILY Levothyroxine Sodium 175 Mcg Tablet 175 Mcg PO DAILYAC Flomax (Tamsulosin Hcl) 0.4 Mg Cap.er.24h 0.4 Mg PO QHS Simvastatin 20 Mg Tablet 20 Mg PO HS [place] 5-325 Tablet (Hydrocodone Bit/Acetaminophen) 1 Each Tablet 1 Tab PO PRN Q6HRS PRN Haloperidol 2 Mg Tablet 2 Mg PO [id number] Potassium Chloride 10 Meq Tablet.er 10 Meq PO DAILY Docusate Sodium 50 Mg/5 Ml Liquid 10 Ml PO DAILY Losartan Potassium 50 Mg Tablet 50 Mg PO DAILY Aspirin Ec (Aspirin) 81 Mg Tablet.dr 81 Mg PO DAILY Amlodipine Besylate 5 Mg Tablet 5 Mg PO DAILY Depakote Sprinkle (Divalproex Sodium) 125 Mg Cap.sprink 500 Mg PO BID Seroquel (Quetiapine Fumarate) 25 Mg Tablet 25 Mg PO PRN Q4HRS PRN Seroquel (Quetiapine Fumarate) 100 Mg Tablet 150 Mg PO QID Trazodone Hcl 100 Mg Tablet 100 Mg PO QHS Miralax (Polyethylene Glycol 3350) 17 Gm Powd.pack 17 Gm PO PRN DAILY PRN Senokot (Sennosides) 8.6 Mg Tablet 8.6 Mg PO PRN DAILY PRN Dulcolax (Bisacodyl) 10 Mg Supp.rect 10 Mg RC PRN DAILY PRN Milk Of Magnesia (Magnesium Hydroxide) 2,400 Mg/10 Ml Oral.susp 2,400 Mg PO PRN Q6HRS PRN Triamcinolone Acetonide 15 Gm Cream..g. 1 Hiral TOP BID Haldol (Haloperidol Lactate) 5 Mg/1 Ml Ampul 5 Mg IJ PRN Q6HRS PRN I have reviewed the current psychotropics carefully including drug interactions. Risk benefit ratio favors no change other than as noted in my dictated progress note. 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
[2018-02-03] MEDS: traZODone 100 MG TABLET. PO SCH (20:23)
--- NOTE | 2018-02-03 22:36 | PN ---
DATE: 02/01/2018 PSYCHIATRIC PROGRESS NOTE This late entry 02/01/2018 covers elements not covered in my initial note. SUBJECTIVE: I met with the patient in the evening. The patient slept 7 hours previous night. She remains confused, wanders the hallways, muttering under her breath at times the B word. REVIEW OF SYSTEMS: No CV, , pulmonary, eye, ENT system symptoms on review. Reliability poor. MENTAL STATUS EXAM: Oriented to herself. Insight, judgment, recent and remote memory, attention, concentration, fund of knowledge poor, consistent with her diagnosis mentioned in my initial note. PLAN: No change from initial note. JAYLAN MURRAY MD DR: DANIEL/valeriy JOB#: [id number] / [id number]
[2018-02-04] MEDS ORDERED: LANS30CA PO (01:30)
[2018-02-04] MEDS: LEVOTHYROXINE 175 MCG TABLET PO SCH (05:53)
--- NOTE | 2018-02-04 07:31 | PN ---
DATE: 02/02/2018 This is a late entry 02/02/2018 covers elements not covered in my initial note. SUBJECTIVE: I met with the patient in the evening. The patient slept 5-1/2 hours previous night. She remains confused, wandering the hallways, more alert and calmer, interactive with staff, takes meds and chocolate, ice cream, ate several ____ snacks. REVIEW OF SYSTEMS: No CV, , pulmonary, eye, ENT system symptoms on review. Reliability poor. MENTAL STATUS EXAM: Oriented to herself. Insight, judgment, recent and remote memory, attention, concentration, fund of knowledge poor, consistent with her diagnosis mentioned in my initial note. PLAN: No change from initial note. MAN Lisa MURRAY MD DR: DANIEL/valeriy JOB#: [id number] / [id number]
[2018-02-04] MEDS ORDERED: METH29OI TP (07:52)
[2018-02-04] MEDS ORDERED: ACET325T9 PO (07:53)
[2018-02-04] MEDS ORDERED: MAG355OR12 PO (07:59)
[2018-02-04] MEDS ORDERED: MAGN2400 PO (08:00)
[2018-02-04] MEDS ORDERED: OLAN2.5T3 PO (08:01)
[2018-02-04] MEDS ORDERED: MIRT15TA PO (08:01)
[2018-02-04] MEDS ORDERED: OLAN5TAB9 PO (08:01)
[2018-02-04] MEDS ORDERED: FLUV50TA2 PO (08:05)
[2018-02-04] MEDS ORDERED: RISP37.5 IM (08:06)
[2018-02-04] MEDS ORDERED: TRAZ-85 PO (08:08)
[2018-02-04] MEDS: DOCUSATE 100 MG/10 ML SOLUTION. PO SCH (08:39)
[2018-02-04] MEDS: LANSOPRAZOLE 30 MG TAB.RAP.DR PO SCH (08:39)
[2018-02-04] MEDS: ASPIRIN 81 MG TAB.CHEW PO SCH (08:39)
[2018-02-04] MEDS: LOSARTAN 50 MG TABLET. PO SCH (08:40)
[2018-02-04] MEDS: DIVALPROEX 125 MG CAP.SPRINK PO SCH (08:41)
[2018-02-04] MEDS: amLODIPine BESYLATE 5 MG TABLET PO SCH (08:41)
[2018-02-04] MEDS: POTASSIUM CHLORIDE 10 MEQ TABLET.ER. PO SCH (08:41)
[2018-02-04] MEDS: traZODone 50 MG TABLET. PO SCH ×2 (08:43→12:38)
[2018-02-04] MEDS: TRIAMCINOLONE ACETONIDE 0.1% TOPICAL CREAM 15GM TUBE. TP SCH (08:43)
[2018-02-04 08:44] VITALS: BP 117/52
--- NOTE | 2018-02-04 22:39 | PN ---
DATE: 02/03/2018 This is a late entry for 02/03/2018 covers elements not covered in my initial note. SUBJECTIVE: I met with the patient in the evening. The patient slept 8-1/4 hours previous night, slept at 10 in the morning, agitated upset, yelling at times, combative with cares, but redirects. REVIEW OF SYSTEMS: No CV, , pulmonary, eye, ENT system symptoms on review. MENTAL STATUS EXAM: Oriented to herself. Insight, judgment, recent and remote memory, attention, concentration, fund of knowledge poor, consistent with her diagnosis mentioned in my initial note. PLAN: No change from initial note. We seemed to have maximized what we can do from a psychiatric standpoint within the context of her dementia, delusions, behavioral disturbance. Plan is to transition back to snf on 02/04/2018. MAN Lisa MURRAY MD DR: DANIEL/valeriy JOB#: [id number] / [id number]
--- NOTE | 2018-02-05 18:25 | PDOC ---
Exam Note: Abdi Note: Please also refer to the separate dictated note~for this date of service dictated separately.~Patient seen individually. Discussed the patient with Nursing staff reviewed the chart.~Reviewed interim history and current functioning. Reviewed vital signs,~Labs/ Radiology~and current medications noted below. Continue current treatment with the changes noted in the dictated addendum note. Late entry for 02/04/2018 Assessment: Vital Signs: VS - Last 72 Hours, by Label Date Time Temp Pulse Resp B/P (MAP) Pulse Ox O2 Delivery O2 Flow Rate FiO2 02/04/18 08:44 82 117/52 (73) 02/04/18 08:41 82 117/52 02/04/18 08:40 82 117/52 02/03/18 16:21 97.5 80 18 123/58 (79) 98 02/03/18 09:00 43 122/55 02/03/18 09:00 43 122/55 02/03/18 06:30 43 22 122/55 (77) 97 Vital Signs Date Time Temp Pulse Resp B/P (MAP) Pulse Ox O2 Delivery O2 Flow Rate FiO2 02/04/18 08:44 82 117/52 (73) 02/03/18 16:21 97.5 18 98 01/31/18 16:06 Room Air I&O Intake and Output 02/05/18 07:00 Intake Total 720 ml Balance 720 ml Intake Oral 720 ml Current Medications: Meds: Current Medications Ciprofloxacin (Cipro) 500 mg 1X ONCE PO Last administered on 12/31/17at 16:59; Start 12/31/17 at 16:45; Stop 12/31/17 at 17:00; Status DC Acetaminophen (Tylenol) 650 mg PRN Q6HRS PRN PO PAIN / TEMP; Start 12/31/17 at 18:15; Stop 02/04/18 at 14:01; Status DC Multi-Ingredient Ointment (Analgesic [place]) 1 hiral PRN QID PRN TP MUSCLE PAIN; Start 12/31/17 at 18:15; Stop 02/04/18 at 14:01; Status DC Al Hydroxide/Mg Hydroxide (Mylanta Plus Xs) 15 ml PRN AFTMEALHC PRN PO DYSPEPSIA; Start 12/31/17 at 18:15; Stop 02/04/18 at 14:01; Status DC Magnesium Hydroxide (Milk Of Magnesia) 2,400 mg PRN QHS PRN PO CONSTIPATION; Start 12/31/17 at 18:15; Stop 02/04/18 at 14:01; Status DC Olanzapine (ZyPREXA) 2.5 mg PRN Q2HR PRN PO AGITATION; Start 12/31/17 at 18:45 ; Stop 01/07/18 at 10:11; Status DC Divalproex Sodium (Depakote Sprinkles) 500 mg BID PO Last administered on at 08:41; Start 01/01/18 at 09:00; Stop 02/04/18 at 14:01; Status DC Haloperidol (Haldol) 2 mg [id number] PO Last administered on 01/01/18at 17:18; Start 01/01/18 at 00:00; Stop 01/01/18 at 18:44; Status DC Haloperidol Lactate (Haldol) 5 mg PRN Q6HRS PRN IM ANXIETY/AGITATION; Start at 22:15; Stop 01/01/18 at 18:44; Status DC Quetiapine Fumarate (SEROquel) 25 mg PRN Q4HRS PRN PO ANXIETY/AGITATION; Start 12/31/17 at 22:15; Stop 01/03/18 at 16:25; Status DC Quetiapine Fumarate (SEROquel) 150 mg QID PO Last administered on 01/03/18at 08: 12; Start 01/01/18 at 09:00; Stop 01/03/18 at 16:25; Status DC Trazodone HCl (Desyrel) 100 mg QHS PO Last administered on 02/03/18at 20:23; Start 01/01/18 at 21:00; Stop 02/04/18 at 14:01; Status DC Docusate Sodium (Colace Solution) 100 mg DAILY PO Last administered on at 08:39; Start 01/01/18 at 09:00; Stop 02/04/18 at 14:01; Status DC Levothyroxine Sodium (Synthroid) 175 mcg DAILYAC PO Last administered on at 10:48; Start 01/01/18 at 07:30; Stop 01/24/18 at 15:47; Status DC Losartan Potassium (Cozaar) 50 mg DAILY PO Last administered on 02/04/18at 08:40 ; Start 01/01/18 at 09:00; Stop 02/04/18 at 14:01; Status DC Tamsulosin HCl (Flomax) 0.4 mg QHS PO Last administered on 02/03/18at 20:21; Start 01/01/18 at 21:00; Stop 02/04/18 at 14:01; Status DC Amlodipine Besylate (Norvasc) 5 mg DAILY PO Last administered on 02/04/18at 08: 41; Start 01/01/18 at 09:00; Stop 02/04/18 at 14:01; Status DC Aspirin (Aspirin Enteric Coated) 81 mg DAILYWBKFT PO Last administered on at 10:48; Start 01/01/18 at 08:00; Stop 01/24/18 at 07:50; Status DC Bisacodyl (Dulcolax Supp) 10 mg PRN DAILY PRN [place] CONSTIPATION; Start 12/31/17 at 22:15; Stop 02/04/18 at 14:01; Status DC Acetaminophen/ Hydrocodone Bitart (Lortab 5/325) 1 tab PRN Q6HRS PRN PO PAIN Last administered on 01/12/18at 23:34; Start 12/31/17 at 22:15; Stop 02/04/18 at 14:01; Status DC Magnesium Hydroxide (Milk Of Magnesia) 2,400 mg PRN Q6HRS PRN PO CONSTIPATION; Start 12/31/17 at 22:15; Stop 02/04/18 at 14:01; Status DC Pantoprazole Sodium (Protonix) 40 mg DAILYAC PO Last administered on 01/23/18at 10:47; Start 01/01/18 at 07:30; Stop 01/24/18 at 07:52; Status DC Polyethylene Glycol (miraLAX) 17 gm PRN DAILY PRN PO CONSTIPATION; Start at 09:00; Stop 02/04/18 at 14:01; Status DC Potassium Chloride (Klor-Con) 10 meq DAILYWBKFT PO Last administered on at 08:41; Start 01/01/18 at 08:00; Stop 02/04/18 at 14:01; Status DC Sennosides (Senna) 8.6 mg PRN DAILY PRN PO CONSTIPATION; Start 12/31/17 at 22: 15; Stop 02/04/18 at 14:01; Status DC Simvastatin (Zocor) 20 mg HS PO Last administered on 02/03/18at 20:21; Start at 21:00; Stop 02/04/18 at 14:01; Status DC Triamcinolone Acetonide (Kenalog) 1 hiral BID TP Last administered on 02/04/18at 08:43; Start 01/01/18 at 09:00; Stop 02/04/18 at 14:01; Status DC Ceftriaxone Sodium (Rocephin Im) 1 gm DAILY IM Last administered on 01/02/18at 09:53; Start 01/02/18 at 09:00; Stop 01/04/18 at 14:44; Status DC Mirtazapine (Remeron Venessa-Tab) 7.5 mg QHS PO Last administered on 01/21/18at 19: 46; Start 01/01/18 at 21:00; Stop 01/22/18 at 18:08; Status DC Olanzapine (ZyPREXA ZYDIS) 2.5 mg PRN Q2HR PRN PO PSYCHOSIS; Start 01/01/18 at 18:45; Stop 01/02/18 at 10:58; Status DC Olanzapine (ZyPREXA ZYDIS) 2.5 mg HS PO Last administered on 01/05/18at 20:51; Start 01/02/18 at 21:00; Stop 01/07/18 at 16:38; Status DC Lactobacillus Rhamnosus (Culturelle) 1 cap BID PO Last administered on at 19:25; Start 01/03/18 at 21:00; Stop 01/23/18 at 10:54; Status DC Olanzapine (ZyPREXA ZYDIS) 2.5 mg PRN Q2HR PRN PO AGITATION Last administered on 02/02/18at 16:21; Start 01/07/18 at 10:15; Stop 02/04/18 at 14:01; Status DC Olanzapine (ZyPREXA ZYDIS) 2.5 mg DAILY PO Last administered on 01/08/18at 07:32 ; Start 01/08/18 at 09:00; Stop 01/08/18 at 17:49; Status DC Olanzapine (ZyPREXA ZYDIS) 1.25 mg BID92 PO Last administered on 01/11/18at 07:48 ; Start 01/09/18 at 09:00; Stop 01/11/18 at 23:00; Status DC Olanzapine (ZyPREXA ZYDIS) 2.5 mg HS PO Last administered on 01/11/18at 19:30; Start 01/08/18 at 21:00; Stop 01/11/18 at 23:00; Status DC Olanzapine (ZyPREXA ZYDIS) 2.5 mg BID PO Last administered on 01/13/18at 19:15; Start 01/12/18 at 09:00; Stop 01/13/18 at 21:00; Status DC Olanzapine (ZyPREXA ZYDIS) 1.25 mg AFTRNOON PO Last administered on 01/12/18at 15 :51; Start 01/12/18 at 14:00; Stop 01/13/18 at 16:52; Status DC Olanzapine (ZyPREXA ZYDIS) 2.5 mg TID PO Last administered on 02/04/18at 12:38; Start 01/14/18 at 09:00; Stop 02/04/18 at 14:01; Status DC Trazodone HCl (Desyrel) 12.5 mg TID@0900,1300,1700 PO Last administered on 01/17at 15:14; Start 01/15/18 at 09:00; Stop 01/17/18 at 19:29; Status DC Fluvoxamine Maleate (Luvox) 25 mg QHS PO Last administered on 01/18/18at 20:21; Start 01/16/18 at 21:00; Stop 01/19/18 at 18:47; Status DC Trazodone HCl (Desyrel) 12.5 mg BID@1300,1700 PO Last administered on at 12:38; Start 01/18/18 at 13:00; Stop 02/04/18 at 14:01; Status DC Trazodone HCl (Desyrel) 25 mg DAILY PO Last administered on 01/29/18at 08:59; Start 01/18/18 at 09:00; Stop 01/29/18 at 17:42; Status DC Fluvoxamine Maleate (Luvox) 50 mg QHS PO Last administered on 01/21/18at 19:45; Start 01/19/18 at 21:00; Stop 01/22/18 at 09:00; Status DC Fluvoxamine Maleate (Luvox) 75 mg QHS PO Last administered on 02/03/18at 20:21; Start 01/22/18 at 21:00; Stop 02/04/18 at 14:02; Status DC Mirtazapine (Remeron Venessa-Tab) 15 mg QHS PO Last administered on 02/03/18at 20:21 ; Start 01/22/18 at 21:00; Stop 02/04/18 at 14:02; Status DC Risperidone (RisperDAL CONSTA) 12.5 mg Q2WKS IM Last administered on 01/24/18at 14:45; Start 01/24/18 at 12:00; Stop 01/30/18 at 09:45; Status DC Aspirin (Children'S Aspirin) 81 mg DAILYWBKFT PO Last administered on at 08:39; Start 01/24/18 at 08:00; Stop 02/04/18 at 14:02; Status DC Lansoprazole (Prevacid) 30 mg DAILYAC PO Last administered on 02/04/18at 08:39; Start 01/24/18 at 10:00; Stop 02/04/18 at 14:02; Status DC Levothyroxine Sodium (Synthroid) 175 mcg DAILY06 PO Last administered on at 05:53; Start 01/25/18 at 06:00; Stop 02/04/18 at 14:02; Status DC Trazodone HCl (Desyrel) 12.5 mg DAILY PO Last administered on 02/04/18at 08:43; Start 01/30/18 at 09:00; Stop 02/04/18 at 14:02; Status DC Risperidone (RisperDAL CONSTA) 12.5 mg 1X ONCE IM Last administered on at 12:33; Start 01/31/18 at 12:00; Stop 01/31/18 at 12:01; Status DC Risperidone (RisperDAL CONSTA) 25 mg Q2WKS IM ; Start 02/14/18 at 09:00; Stop 02/14/18 at 09:00; Status DC Influenza Virus Vaccine (Afluria Trivalent [id number] Syringe) 0.5 ml ONCE ONCE VAX IM Last administered on 02/02/18at 11:17; Start 02/02/18 at 09:00; Stop at 09:01; Status DC Info (FLU VACCINE per PROTOCOL) 1 ea PRN 1X PRN MC PER PROTOCOL; Start at 09:00; Status UNV Active Scripts Active Reported Trazodone Hcl 50 Mg Tablet 12.5 Mg PO TID@0900,1300,1700 Risperdal Consta (Risperidone Microspheres) 37.5 Mg/2 Ml Disp.syrin 25 Mg IM Q2WKS Fluvoxamine Maleate 50 Mg Tablet 75 Mg PO QHS Zyprexa (Olanzapine) 2.5 Mg Tablet 2.5 Mg PO PRN Q2HR PRN Olanzapine 5 Mg Tablet 2.5 Mg PO TID Remeron (Mirtazapine) 15 Mg Tablet 15 Mg PO QHS Milk Of Magnesia (Magnesium Hydroxide) 2,400 Mg/10 Ml Oral.susp 2,400 Mg PO PRN QHS PRN Maalox Maximum Strength Susp (Mag Hydrox/Al Hydrox/Simeth) 355 Ml Oral.susp 15 Ml PO PRN AFTMEALHC PRN Tylenol (Acetaminophen) 325 Mg Tablet 650 Mg PO PRN Q6HRS PRN Analgesic [place] (Methyl Salicylate/Menthol) 28 Gm Oint...g. 1 Hiral TP PRN QID PRN Omeprazole 20 Mg Tablet.dr 20 Mg PO DAILY Levothyroxine Sodium 175 Mcg Tablet 175 Mcg PO DAILY06 Flomax (Tamsulosin Hcl) 0.4 Mg Cap.er.24h 0.4 Mg PO QHS Simvastatin 20 Mg Tablet 20 Mg PO HS [place] 5-325 Tablet (Hydrocodone Bit/Acetaminophen) 1 Each Tablet 1 Tab PO PRN Q6HRS PRN Potassium Chloride 10 Meq Tablet.er 10 Meq PO DAILYWBKFT Docusate Sodium 50 Mg/5 Ml Liquid 100 Mg PO DAILY Losartan Potassium 50 Mg Tablet 50 Mg PO DAILY Aspirin Ec (Aspirin) 81 Mg Tablet. 81 Mg PO DAILY Amlodipine Besylate 5 Mg Tablet 5 Mg PO DAILY Depakote Sprinkle (Divalproex Sodium) 125 Mg Cap.sprink 500 Mg PO BID Trazodone Hcl 100 Mg Tablet 100 Mg PO QHS Miralax (Polyethylene Glycol 3350) 17 Gm Powd.pack 17 Gm PO PRN DAILY PRN Senokot (Sennosides) 8.6 Mg Tablet 8.6 Mg PO PRN DAILY PRN Dulcolax (Bisacodyl) 10 Mg Supp.rect 10 Mg RC PRN DAILY PRN Milk Of Magnesia (Magnesium Hydroxide) 2,400 Mg/10 Ml Oral.susp 2,400 Mg PO PRN Q6HRS PRN Triamcinolone Acetonide 15 Gm Cream..g. 1 Hiral TOP BID I have reviewed the current psychotropics carefully including drug interactions. Risk benefit ratio favors no change other than as noted in my dictated progress note. Diagnosis: Problems: (1) Impulse control disorder (2) Dementia in Alzheimer's disease with depression (3) Dementia in Alzheimer's disease with delusions (4) Dementia, vascular, with depression (5) Dementia, vascular, with delusions (6) Anxiety disorder JAYLAN MURRAY MD Feb 05, 2018 18:25
--- NOTE | 2018-02-05 20:57 | PDOC ---
Exam Note: Abdi Note: Late entry for date of service February 04 2018. Please also refer to the separate dictated note~for this date of service dictated separately.~Patient seen individually. Discussed the patient with Nursing staff reviewed the chart.~ Reviewed interim history and current functioning. Reviewed vital signs,~Labs/ Radiology~and current medications noted below. Continue current treatment with the changes noted in the dictated addendum note Assessment: Vital Signs: VS - Last 72 Hours, by Label Date Time Temp Pulse Resp B/P (MAP) Pulse Ox O2 Delivery O2 Flow Rate FiO2 02/04/18 08:44 82 117/52 (73) 02/04/18 08:41 82 117/52 02/04/18 08:40 82 117/52 02/03/18 16:21 97.5 80 18 123/58 (79) 98 02/03/18 09:00 43 122/55 02/03/18 09:00 43 122/55 02/03/18 06:30 43 22 122/55 (77) 97 Vital Signs Date Time Temp Pulse Resp B/P (MAP) Pulse Ox O2 Delivery O2 Flow Rate FiO2 02/04/18 08:44 82 117/52 (73) 02/03/18 16:21 97.5 18 98 01/31/18 16:06 Room Air I&O Intake and Output 02/05/18 07:00 Intake Total 720 ml Balance 720 ml Intake Oral 720 ml Current Medications: Meds: Current Medications Ciprofloxacin (Cipro) 500 mg 1X ONCE PO Last administered on 12/31/17at 16:59; Start 12/31/17 at 16:45; Stop 12/31/17 at 17:00; Status DC Acetaminophen (Tylenol) 650 mg PRN Q6HRS PRN PO PAIN / TEMP; Start 12/31/17 at 18:15; Stop 02/04/18 at 14:01; Status DC Multi-Ingredient Ointment (Analgesic [place]) 1 hiral PRN QID PRN TP MUSCLE PAIN; Start 12/31/17 at 18:15; Stop 02/04/18 at 14:01; Status DC Al Hydroxide/Mg Hydroxide (Mylanta Plus Xs) 15 ml PRN AFTMEALHC PRN PO DYSPEPSIA; Start 12/31/17 at 18:15; Stop 02/04/18 at 14:01; Status DC Magnesium Hydroxide (Milk Of Magnesia) 2,400 mg PRN QHS PRN PO CONSTIPATION; Start 12/31/17 at 18:15; Stop 02/04/18 at 14:01; Status DC Olanzapine (ZyPREXA) 2.5 mg PRN Q2HR PRN PO AGITATION; Start 12/31/17 at 18:45 ; Stop 01/07/18 at 10:11; Status DC Divalproex Sodium (Depakote Sprinkles) 500 mg BID PO Last administered on at 08:41; Start 01/01/18 at 09:00; Stop 02/04/18 at 14:01; Status DC Haloperidol (Haldol) 2 mg [id number] PO Last administered on 01/01/18at 17:18; Start 01/01/18 at 00:00; Stop 01/01/18 at 18:44; Status DC Haloperidol Lactate (Haldol) 5 mg PRN Q6HRS PRN IM ANXIETY/AGITATION; Start at 22:15; Stop 01/01/18 at 18:44; Status DC Quetiapine Fumarate (SEROquel) 25 mg PRN Q4HRS PRN PO ANXIETY/AGITATION; Start 12/31/17 at 22:15; Stop 01/03/18 at 16:25; Status DC Quetiapine Fumarate (SEROquel) 150 mg QID PO Last administered on 01/03/18at 08: 12; Start 01/01/18 at 09:00; Stop 01/03/18 at 16:25; Status DC Trazodone HCl (Desyrel) 100 mg QHS PO Last administered on 02/03/18at 20:23; Start 01/01/18 at 21:00; Stop 02/04/18 at 14:01; Status DC Docusate Sodium (Colace Solution) 100 mg DAILY PO Last administered on at 08:39; Start 01/01/18 at 09:00; Stop 02/04/18 at 14:01; Status DC Levothyroxine Sodium (Synthroid) 175 mcg DAILYAC PO Last administered on at 10:48; Start 01/01/18 at 07:30; Stop 01/24/18 at 15:47; Status DC Losartan Potassium (Cozaar) 50 mg DAILY PO Last administered on 02/04/18at 08:40 ; Start 01/01/18 at 09:00; Stop 02/04/18 at 14:01; Status DC Tamsulosin HCl (Flomax) 0.4 mg QHS PO Last administered on 02/03/18at 20:21; Start 01/01/18 at 21:00; Stop 02/04/18 at 14:01; Status DC Amlodipine Besylate (Norvasc) 5 mg DAILY PO Last administered on 02/04/18at 08: 41; Start 01/01/18 at 09:00; Stop 02/04/18 at 14:01; Status DC Aspirin (Aspirin Enteric Coated) 81 mg DAILYWBKFT PO Last administered on at 10:48; Start 01/01/18 at 08:00; Stop 01/24/18 at 07:50; Status DC Bisacodyl (Dulcolax Supp) 10 mg PRN DAILY PRN [place] CONSTIPATION; Start 12/31/17 at 22:15; Stop 02/04/18 at 14:01; Status DC Acetaminophen/ Hydrocodone Bitart (Lortab 5/325) 1 tab PRN Q6HRS PRN PO PAIN Last administered on 01/12/18at 23:34; Start 12/31/17 at 22:15; Stop 02/04/18 at 14:01; Status DC Magnesium Hydroxide (Milk Of Magnesia) 2,400 mg PRN Q6HRS PRN PO CONSTIPATION; Start 12/31/17 at 22:15; Stop 02/04/18 at 14:01; Status DC Pantoprazole Sodium (Protonix) 40 mg DAILYAC PO Last administered on 01/23/18at 10:47; Start 01/01/18 at 07:30; Stop 01/24/18 at 07:52; Status DC Polyethylene Glycol (miraLAX) 17 gm PRN DAILY PRN PO CONSTIPATION; Start at 09:00; Stop 02/04/18 at 14:01; Status DC Potassium Chloride (Klor-Con) 10 meq DAILYWBKFT PO Last administered on at 08:41; Start 01/01/18 at 08:00; Stop 02/04/18 at 14:01; Status DC Sennosides (Senna) 8.6 mg PRN DAILY PRN PO CONSTIPATION; Start 12/31/17 at 22: 15; Stop 02/04/18 at 14:01; Status DC Simvastatin (Zocor) 20 mg HS PO Last administered on 02/03/18at 20:21; Start at 21:00; Stop 02/04/18 at 14:01; Status DC Triamcinolone Acetonide (Kenalog) 1 hiral BID TP Last administered on 02/04/18at 08:43; Start 01/01/18 at 09:00; Stop 02/04/18 at 14:01; Status DC Ceftriaxone Sodium (Rocephin Im) 1 gm DAILY IM Last administered on 01/02/18at 09:53; Start 01/02/18 at 09:00; Stop 01/04/18 at 14:44; Status DC Mirtazapine (Remeron Venessa-Tab) 7.5 mg QHS PO Last administered on 01/21/18at 19: 46; Start 01/01/18 at 21:00; Stop 01/22/18 at 18:08; Status DC Olanzapine (ZyPREXA ZYDIS) 2.5 mg PRN Q2HR PRN PO PSYCHOSIS; Start 01/01/18 at 18:45; Stop 01/02/18 at 10:58; Status DC Olanzapine (ZyPREXA ZYDIS) 2.5 mg HS PO Last administered on 01/05/18at 20:51; Start 01/02/18 at 21:00; Stop 01/07/18 at 16:38; Status DC Lactobacillus Rhamnosus (Culturelle) 1 cap BID PO Last administered on at 19:25; Start 01/03/18 at 21:00; Stop 01/23/18 at 10:54; Status DC Olanzapine (ZyPREXA ZYDIS) 2.5 mg PRN Q2HR PRN PO AGITATION Last administered on 02/02/18at 16:21; Start 01/07/18 at 10:15; Stop 02/04/18 at 14:01; Status DC Olanzapine (ZyPREXA ZYDIS) 2.5 mg DAILY PO Last administered on 01/08/18at 07:32 ; Start 01/08/18 at 09:00; Stop 01/08/18 at 17:49; Status DC Olanzapine (ZyPREXA ZYDIS) 1.25 mg BID92 PO Last administered on 01/11/18at 07:48 ; Start 01/09/18 at 09:00; Stop 01/11/18 at 23:00; Status DC Olanzapine (ZyPREXA ZYDIS) 2.5 mg HS PO Last administered on 01/11/18at 19:30; Start 01/08/18 at 21:00; Stop 01/11/18 at 23:00; Status DC Olanzapine (ZyPREXA ZYDIS) 2.5 mg BID PO Last administered on 01/13/18at 19:15; Start 01/12/18 at 09:00; Stop 01/13/18 at 21:00; Status DC Olanzapine (ZyPREXA ZYDIS) 1.25 mg AFTRNOON PO Last administered on 01/12/18at 15 :51; Start 01/12/18 at 14:00; Stop 01/13/18 at 16:52; Status DC Olanzapine (ZyPREXA ZYDIS) 2.5 mg TID PO Last administered on 02/04/18at 12:38; Start 01/14/18 at 09:00; Stop 02/04/18 at 14:01; Status DC Trazodone HCl (Desyrel) 12.5 mg TID@0900,1300,1700 PO Last administered on 01/17at 15:14; Start 01/15/18 at 09:00; Stop 01/17/18 at 19:29; Status DC Fluvoxamine Maleate (Luvox) 25 mg QHS PO Last administered on 01/18/18at 20:21; Start 01/16/18 at 21:00; Stop 01/19/18 at 18:47; Status DC Trazodone HCl (Desyrel) 12.5 mg BID@1300,1700 PO Last administered on at 12:38; Start 01/18/18 at 13:00; Stop 02/04/18 at 14:01; Status DC Trazodone HCl (Desyrel) 25 mg DAILY PO Last administered on 01/29/18at 08:59; Start 01/18/18 at 09:00; Stop 01/29/18 at 17:42; Status DC Fluvoxamine Maleate (Luvox) 50 mg QHS PO Last administered on 01/21/18at 19:45; Start 01/19/18 at 21:00; Stop 01/22/18 at 09:00; Status DC Fluvoxamine Maleate (Luvox) 75 mg QHS PO Last administered on 02/03/18at 20:21; Start 01/22/18 at 21:00; Stop 02/04/18 at 14:02; Status DC Mirtazapine (Remeron Venessa-Tab) 15 mg QHS PO Last administered on 02/03/18at 20:21 ; Start 01/22/18 at 21:00; Stop 02/04/18 at 14:02; Status DC Risperidone (RisperDAL CONSTA) 12.5 mg Q2WKS IM Last administered on 01/24/18at 14:45; Start 01/24/18 at 12:00; Stop 01/30/18 at 09:45; Status DC Aspirin (Children'S Aspirin) 81 mg DAILYWBKFT PO Last administered on at 08:39; Start 01/24/18 at 08:00; Stop 02/04/18 at 14:02; Status DC Lansoprazole (Prevacid) 30 mg DAILYAC PO Last administered on 02/04/18at 08:39; Start 01/24/18 at 10:00; Stop 02/04/18 at 14:02; Status DC Levothyroxine Sodium (Synthroid) 175 mcg DAILY06 PO Last administered on at 05:53; Start 01/25/18 at 06:00; Stop 02/04/18 at 14:02; Status DC Trazodone HCl (Desyrel) 12.5 mg DAILY PO Last administered on 02/04/18at 08:43; Start 01/30/18 at 09:00; Stop 02/04/18 at 14:02; Status DC Risperidone (RisperDAL CONSTA) 12.5 mg 1X ONCE IM Last administered on at 12:33; Start 01/31/18 at 12:00; Stop 01/31/18 at 12:01; Status DC Risperidone (RisperDAL CONSTA) 25 mg Q2WKS IM ; Start 02/14/18 at 09:00; Stop 02/14/18 at 09:00; Status DC Influenza Virus Vaccine (Afluria Trivalent [id number] Syringe) 0.5 ml ONCE ONCE VAX IM Last administered on 02/02/18at 11:17; Start 02/02/18 at 09:00; Stop at 09:01; Status DC Info (FLU VACCINE per PROTOCOL) 1 ea PRN 1X PRN MC PER PROTOCOL; Start at 09:00; Status UNV Active Scripts Active Reported Trazodone Hcl 50 Mg Tablet 12.5 Mg PO TID@0900,1300,1700 Risperdal Consta (Risperidone Microspheres) 37.5 Mg/2 Ml Disp.syrin 25 Mg IM Q2WKS Fluvoxamine Maleate 50 Mg Tablet 75 Mg PO QHS Zyprexa (Olanzapine) 2.5 Mg Tablet 2.5 Mg PO PRN Q2HR PRN Olanzapine 5 Mg Tablet 2.5 Mg PO TID Remeron (Mirtazapine) 15 Mg Tablet 15 Mg PO QHS Milk Of Magnesia (Magnesium Hydroxide) 2,400 Mg/10 Ml Oral.susp 2,400 Mg PO PRN QHS PRN Maalox Maximum Strength Susp (Mag Hydrox/Al Hydrox/Simeth) 355 Ml Oral.susp 15 Ml PO PRN AFTMEALHC PRN Tylenol (Acetaminophen) 325 Mg Tablet 650 Mg PO PRN Q6HRS PRN Analgesic [place] (Methyl Salicylate/Menthol) 28 Gm Oint...g. 1 Hiral TP PRN QID PRN Omeprazole 20 Mg Tablet. 20 Mg PO DAILY Levothyroxine Sodium 175 Mcg Tablet 175 Mcg PO DAILY06 Flomax (Tamsulosin Hcl) 0.4 Mg Cap.er.24h 0.4 Mg PO QHS Simvastatin 20 Mg Tablet 20 Mg PO HS [place] 5-325 Tablet (Hydrocodone Bit/Acetaminophen) 1 Each Tablet 1 Tab PO PRN Q6HRS PRN Potassium Chloride 10 Meq Tablet.er 10 Meq PO DAILYWBKFT Docusate Sodium 50 Mg/5 Ml Liquid 100 Mg PO DAILY Losartan Potassium 50 Mg Tablet 50 Mg PO DAILY Aspirin Ec (Aspirin) 81 Mg Tablet. 81 Mg PO DAILY Amlodipine Besylate 5 Mg Tablet 5 Mg PO DAILY Depakote Sprinkle (Divalproex Sodium) 125 Mg Cap.sprink 500 Mg PO BID Trazodone Hcl 100 Mg Tablet 100 Mg PO QHS Miralax (Polyethylene Glycol 3350) 17 Gm Powd.pack 17 Gm PO PRN DAILY PRN Senokot (Sennosides) 8.6 Mg Tablet 8.6 Mg PO PRN DAILY PRN Dulcolax (Bisacodyl) 10 Mg Supp.rect 10 Mg RC PRN DAILY PRN Milk Of Magnesia (Magnesium Hydroxide) 2,400 Mg/10 Ml Oral.susp 2,400 Mg PO PRN Q6HRS PRN Triamcinolone Acetonide 15 Gm Cream..g. 1 Hiral TOP BID I have reviewed the current psychotropics carefully including drug interactions. Risk benefit ratio favors no change other than as noted in my dictated progress note. 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
--- NOTE | 2018-02-05 22:10 | DS ---
DATE OF DISCHARGE: 02/04/2018 DISCHARGE SUMMARY/PSYCHIATRIC PROGRESS NOTE This late entry 02/04/2018 covers elements not covered in my initial note. REASON FOR ADMISSION: Please refer to the admission history for details. Briefly, the patient is a 70-year-old female referred to us from [facility] in [place], [place] by her primary care physician on account of worsening confusion, refusing medications, combative with staff. She was throwing fecal matter all over, refusing meals and cares. She had been on hospice care, but was unmanageable despite everything attempted at the nursing facility including interventions by hospice staff. She was referred for inpatient psychiatric stabilization. SIGNIFICANT FINDINGS AND CLINICAL COURSE: Following admission, the patient was seen daily individually by myself from a psychiatric standpoint, medical followup with Dr. Aragon/Dr. Reyna. The patient was extremely confused, psychotic, paranoid, depressed, agitated, yelling profanities under her breath, aggressive, and disruptive. She had a very difficult course during this hospitalization that she responded poorly to all psychotropic interventions and behavioral interventions we initiated. She finally seemed to be doing better on a combination of Risperdal Consta 25 mg IM every 2 weeks and this was initiated since she was extremely noncompliant with oral psychotropics minimizing their efficacy significantly. She was also on trazodone 100 mg at bedtime; Depakote Sprinkles 500 b.i.d. with a therapeutic valproic acid level; Zyprexa was 2.5 mg t.i.d., starting in 2 weeks from discharge, this should be reduced down to 2.5 mg twice a day for a month and 2.5 mg once a day for a month to be discontinued to avoid using it in combination with the Risperdal Consta so as to avoid using 2 atypical antipsychotics in combination. She is also on Zyprexa p.r.n.; Remeron 15 mg at bedtime; trazodone 12.5 mg at 0900, 1300, 1700; and Luvox 75 mg at bedtime. Luvox was initiated because she was extremely obsessive, ruminative as part of her dementia and psychosis and it did seem to improve with the initiation and adjustment of Luvox. REVIEW OF SYSTEMS: Prior to discharge, 02/04/2018, no CV, , pulmonary, eye, ENT system symptoms on review. Reliability poor. MENTAL STATUS EXAM: Oriented to herself. Insight, judgment, recent and remote memory, attention, concentration, fund of knowledge poor, consistent with her diagnosis mentioned in my initial note. CONDITION AT DISCHARGE: Improved. FINAL DIAGNOSES: Major neurocognitive disorder, Alzheimer, vascular with delusion, depression, behavioral disturbance; anxiety disorder, unspecified; impulse control disorder, unspecified. Rest unchanged from admission. DISCHARGE MEDICATIONS: Please refer to the MRAD. DISCHARGE INSTRUCTIONS: [facility]. Time for discharge day management greater than 30 minutes. MAN Lisa MURRAY MD DR: DANIEL/valeriy JOB#: [id number] / [id number]
[2018-02-14] MEDS ORDERED: risperiDONE MICROSPHERES 25 MG/2 ML DISP.SYRIN. IM SCH (09:00)
== END 2018-02-04 14:01 | DRG 57 ==
LOC: ER 15:06 → GEROPSY 17:45
PROVIDERS: ADMIT Psychiatry & Neurology Psychiatry; ATTEND Psychiatry & Neurology Psychiatry
DX: G30.9 Alzheimer's disease, unspecified (principal); F01.51 Vascular dementia, unspecified severity, with behavioral disturbance; F02.81 Dementia in other diseases classified elsewhere, unspecified severity, with behavioral disturbance; N39.0 Urinary tract infection, site not specified; E03.9 Hypothyroidism, unspecified; E78.5 Hyperlipidemia, unspecified; F32.9 Major depressive disorder, single episode, unspecified; F41.9 Anxiety disorder, unspecified; F63.9 Impulse disorder, unspecified; I10 Essential (primary) hypertension; K21.9 Gastro-esophageal reflux disease without esophagitis; Z51.5 Encounter for palliative care; Z66 Do not resuscitate; Z79.899 Other long term (current) drug therapy; Z91.19 Patient's noncompliance with other medical treatment and regimen
CPT/HCPCS: 36415; 80053; 80061; 80164; 81001; 82306; 82607; 83036; 83540; 83550; 83735; 84436; 84443; 84480; 85025; 86592; 87086; 90471; 90756; 93005; J0696; J2794; 99285-25; Q2035